=== PATIENT | female | born 1955 | race Caucasian/White ===

== ENCOUNTER → 2017-03-11 11:37 | Outpatient (CLI) | payer BC, SELFPAY ==
--- NOTE | 2017-03-11 11:44 | XR_ITS ---
XR chest 2V HISTORY: Abnormal breath sounds ORDERING PHYSICIAN: GRACIELA Brooks PATIENT AGE: 61 years COMPARISON: 2007 FINDINGS: The cardiomediastinal silhouette and pulmonary vascularity are within normal limits. There are minimal atelectatic/fibrotic changes in the left lower lobe laterally. No lobar consolidation or collapse No acute bony abnormalities. IMPRESSION: Minimal left basilar atelectasis or fibrosis otherwise negative
== END ==
PROVIDERS: PCP Physician Assistant; Visit Provider Physician Assistant
DX: R09.89 Other specified symptoms and signs involving the circulatory and respiratory systems (principal)
CPT/HCPCS: 71046

== ENCOUNTER → 2017-03-14 10:26 | Outpatient (CLI) | payer BC, SELFPAY ==
--- NOTE | 2017-03-14 10:42 | XR_ITS ---
XR chest 2V HISTORY: Bronchitis, cough, abnormal lung sounds ITS.REASON: BRONCHITIS ORDERING PHYSICIAN: GRACIELA Brooks PATIENT AGE: 61 years COMPARISON: 03/11/2017 FINDINGS: There is mild cardiomegaly without failure. Atelectatic changes persist in left lower lobe. No lobar consolidation or collapse. No acute bony anomalies. IMPRESSION: No change cardiomegaly with mild left basal atelectasis/fibrosis.
== END ==
PROVIDERS: PCP Physician Assistant; Referring Provider Physician Assistant; Visit Provider Physician Assistant
DX: J40 Bronchitis, not specified as acute or chronic (principal)
CPT/HCPCS: 71046

== ENCOUNTER → 2017-04-01 10:28 | Outpatient (CLI) | payer BC, SELFPAY ==
--- NOTE | 2017-04-01 10:35 | XR_ITS ---
XR chest 2V HISTORY: ITS.REASON: LT CHEST RALES ORDERING PHYSICIAN: GRACIELA Brooks PATIENT AGE: 61 years COMPARISON: 03/14/2017 FINDINGS: There is mild cardiomegaly without failure.. No lobar consolidation or collapse. Old granulomatous disease.. Previously noted atelectasis in the left lower lobe has improved Mild degenerative change thoracic spine. IMPRESSION: No acute finding. Mild cardiomegaly
== END ==
PROVIDERS: PCP Family Medicine; Visit Provider Physician Assistant
DX: R09.89 Other specified symptoms and signs involving the circulatory and respiratory systems (principal)
CPT/HCPCS: 71046

== ENCOUNTER → 2017-04-03 12:21 | Outpatient (CLI) | payer BC, SELFPAY ==
[2017-04-03 22:00] LABS: Alanine Aminotransferase 30 U/L (12-78); Albumin Level 3.5 gm/dL (3.4-5.0); Albumin/Globulin Ratio 1.2 (1.1-1.8); Alkaline Phosphatase 72 U/L (46-116); Anion Gap 11.3 mEq/L (5-15); Aspartate Amino Transferase 20 U/L (15-37); Blood Urea Nitrogen 16 mg/dL (7-18); Calcium 9.3 mg/dL (8.5-10.1); Carbon Dioxide 29 mmol/L (21.0-32.0); Chloride 103 mmol/L (98-107); Estimated Glomerular Filt Rate 64 ml/min (>60); GFR (African American) 78 ML/MIN (>60); Glucose 97 mg/dL (74-106); Magnesium 1.9 mg/dL (1.4-2.2); Potassium 3.3 mmoL/L (3.5-5.1); Sodium 140 mmol/L (136-145); Total Protein,Serum 6.5 gm/dL (6.4-8.2)
[2017-04-04 18:30] LABS: Vitamin D 25 Hydroxy 47.5 ng/mL (30.0-100.0)
== END ==
PROVIDERS: PCP Physician Assistant; Visit Provider Physician Assistant
DX: M79.1 Myalgia (principal); E55.9 Vitamin D deficiency, unspecified
CPT/HCPCS: 36415; 80053; 82652; 83735

== ENCOUNTER → 2017-04-08 07:50 | Outpatient (CLI) | payer BC, SELFPAY ==
--- NOTE | 2017-04-08 07:58 | CA_ITS ---
PROCEDURE: 2-D M-mode and color Doppler study INDICATIONS FOR THE TEST: Chest pain COPD Heart Murmur+ Tobacco Smoking Palpitations+ Fatigue Syncope Edema+ Hypertension+Diabetes Mellitus Rheumatic Fever SOB RICHARD+Obesity Hyperlipidemia Family History HD Additional History chest spasms , Asthma, Rt mastectomy 1984 with chemo PATIENT INFORMATION HEIGHT: 66 WEIGHT: 180 GENDER: Female B/P: 148/83 2-D/M-MODE INTERPRETATION: 2-D MEASUREMENTS OBSERVED VALUES IN CMS Right Ventricular Dimension (RVDd) 2.8 Interventricular Septum (Thickness)(IVsd) 1.2 Left Ventricular Internal Dimensions(LVIDd) 4.6 Left Ventricular Posterior Wall (Thickness)(LVPWd) 1.2 Aortic Root 2.9 Aortic Cusp Separation 2.5 Left Atrial Dimensions (LAD) 4.0 2D 1. Left atrium is mildly enlarged, left ventricle is normal size, there is mild concentric left ventricular hypertrophy, visually estimated ejection fraction 55% with no obvious regional wall motion abnormality. 2. The right atrium is normal size, right ventricle are mildly enlarged with normal contractility. 3. The aortic valve is thickened and calcified leaflet continue to display good mobility. 4. The mitral and tricuspid valve is minimally thickened. 5. The pulmonic valve is poorly visualized. 6. No significant pericardial effusion noted. DOPPLER INTERROGATION: Doppler interrogation of the aortic, mitral and tricuspid valvular presence of mild aortic, mild mitral and tricuspid regurgitation, tricuspid and jet velocity is insufficient for calculation of the right ventricular systolic pressure, grade 1 diastolic dysfunction seen without tissue Doppler evidence of raised left atrial pressure. CONCLUSION: 1. Mildly enlarged left atrium, normal left ventricular size, mild concentric left ventricular hypertrophy, visually estimated ejection fraction 55% with no obvious regional wall motion abnormality, grade 1 diastolic dysfunction seen without tissue Doppler evidence of raised left atrial pressure. 2. Mildly enlarged right ventricle with normal contractility. 3. Mild mitral, aortic and tricuspid regurgitation 4. No significant pericardial effusion noted.
== END ==
PROVIDERS: PCP Physician Assistant; Visit Provider Family Medicine
DX: I51.7 Cardiomegaly (principal)
CPT/HCPCS: 93306

== ENCOUNTER → 2017-05-06 12:20 | Outpatient (CLI) | payer BC, SELFPAY ==
[2017-05-08 07:05] LABS: H. pylori Breath Test Negative (Negative)
== END ==
PROVIDERS: Visit Provider Physician Assistant
DX: Z86.19 Personal history of other infectious and parasitic diseases (principal)
CPT/HCPCS: 83013

== ENCOUNTER → 2017-07-30 10:31 | Outpatient (CLI) | payer BC, SELFPAY ==
[2017-07-30 11:18] LABS: Alanine Aminotransferase 27 U/L (12-78); Albumin Level 3.4 gm/dL (3.4-5.0); Albumin/Globulin Ratio 0.9 (1.1-1.8); Alkaline Phosphatase 88 U/L (46-116); Anion Gap 9.8 mEq/L (5-15); Aspartate Amino Transferase 18 U/L (15-37); Bilirubin,Total 0.9 mg/dL (0.2-1.0); Blood Urea Nitrogen 13 mg/dL (7-18); CKMB Relative Index 1.3 U/L (0-4.0); Calcium 9.5 mg/dL (8.5-10.1); Carbon Dioxide 29 mmol/L (21.0-32.0); Chloride 106 mmol/L (98-107); Creatine Kinase 76 U/L (26-192); Creatinine,Serum 0.87 mg/dL (0.55-1.02); Estimated Glomerular Filt Rate 66 ml/min (>60); GFR (African American) 80 ML/MIN (>60); Globulin 3.8 gm/dl (1.3-3.2); Glucose 94 mg/dL (74-106); Potassium 3.8 mmoL/L (3.5-5.1); Sodium 141 mmol/L (136-145); Thyroid Stimulating Hormone 1.58 uIU/ml (0.358-3.740); Total Protein,Serum 7.2 gm/dL (6.4-8.2); Troponin I < 0.02 ng/ml (0.00-0.06)
[2017-07-30 11:29] LABS: Basophils # 0.1 K/mm3 (0-0.2); Basophils % 0.7 % (0.1-2.0); Eosinophils # 0.2 K/mm3 (0.0-0.4); Eosinophils % 2.6 % (0.1-12.0); Hematocrit 33.4 % (37.0-47.0); Hemoglobin 13.9 g/dL (12.2-16.2); Lymphocytes # 2.1 K/mm3 (0.7-4.5); Mean Corpuscular Hemoglobin 38.4 pg (27.0-31.2); Mean Corpuscular Volume 92.5 fl (81-99); Mean Platelet Volume 7.7 fl (7.4-10.4); Monocytes # 0.5 K/mm3 (0.1-1.0); Monocytes % 7.2 % (1.7-9.3); Neutrophils # 4.7 K/mm3 (1.8-7.8); Neutrophils % 61.5 % (37.0-80.0); Platelet Count 270 K/mm3 (142-424); Red Blood Count 3.61 M/mm3 (4.20-5.40); Red Cell Distribution Width 13.1 % (11.5-17.5); White Blood Count 7.6 K/mm3 (4.8-10.8)
[2017-07-30 11:30] LABS: Mean Corpuscular HGB Conc 41.5 g/dL (31.8-35.4)
[2017-07-31 14:20] LABS: Erythrocyte Sedimentation Rate 11 mm/hr (0-30)
[2017-07-31 14:51] LABS: Magnesium 2.2 mg/dL (1.4-2.2); Phosphorous 3.3 mg/dL (2.4-4.9); Uric Acid 5.3 mg/dL (2.6-7.2)
[2017-08-01 19:35] LABS: RA Latex Turbid. <10.0 IU/mL (0.0-13.9)
[2017-08-04 15:56] LABS: Antinuclear Antibodies, IFA Negative (.)
== END ==
PROVIDERS: Visit Provider Physician Assistant
DX: R07.9 Chest pain, unspecified (principal); M79.1 Myalgia
CPT/HCPCS: 36415; 80053; 82550; 82553; 83735; 84100; 84443; 84484; 84550; 85025; 85651; 86038; 86431; 93005

== ENCOUNTER → 2017-08-14 10:36 | Outpatient (CLI) | payer BC, SELFPAY ==
--- NOTE | 2017-08-14 10:46 | US_ITS ---
ULTRASOUND THYROID PROCEDURE: Multiple sagittal & transverse ultrasound images of the thyroid. HISTORY 62-year-old. Of thyroid nodules. Fatigue. Muscle aches. Dr. Sanabria ordering physician COMPARISON: No relevant studies presented in PACS ----- FINDINGS: RIGHT LOBE: 4.6 cm length x 1.8 cm wide x 1.2 cm AP Nodule A: Vague 5.3 mm solid nodule posterior mid right lobe Nodule B:. Small up to 3.3 mm solid or semisolid nodule posterior mid right lobe. Nodule C: 9.8 mm length x 3.8 mm AP mm solid nodule lower right lobe towards junction with the isthmus ISTHMUS: Normal thickness 5 mm AP. No significant nodule. LEFT LOBE: 4.3 cm length x 1.6 cm wide x 1.6 cm AP Nodule A:. Tiny nodule lower left lobe 3.4 mm size. . IMPRESSION Bilateral thyroid enlargement. Small nodules bilaterally, most evident throughout right lobe
== END ==
PROVIDERS: PCP Physician Assistant; Visit Provider Family Medicine
DX: E04.1 Nontoxic single thyroid nodule (principal)
CPT/HCPCS: 76536

== ENCOUNTER → 2017-11-18 14:25 | Outpatient (CLI) | payer BC, SELFPAY ==
[2017-11-18 16:26] LABS: Thyroid Stimulating Hormone 1.01 uIU/ml (0.358-3.740)
[2017-11-19 10:17] LABS: T4 (Thyroxine) 11.9 ug/dl (4.7-13.3)
[2017-11-20 08:25] LABS: Thyroid Peroxidase Antibodies 9 IU/mL (0-34)
[2017-11-23 05:18] LABS: Triiodothyronine (T3) Free 2.9 pg/mL (2.0-4.4)
== END ==
PROVIDERS: PCP Physician Assistant; Visit Provider Internal Medicine Endocrinology, Diabetes & Metabolism
DX: E04.2 Nontoxic multinodular goiter (principal); E03.8 Other specified hypothyroidism; R53.83 Other fatigue
CPT/HCPCS: 36415; 84436; 84439; 84443; 84481; 86376

== ENCOUNTER → 2018-01-18 08:56 | Outpatient (CLI) | payer BC, SELFPAY ==
--- NOTE | 2018-01-18 08:58 | MM_ITS ---
MM Dig SC mamm unilat LT CAD Ordering Physician: Todd Sanabria MD Patient Age: 62 years Female COMPARISON: November 2013, January 2017, February 2015. INDICATION: Routine screening. No hormones no new complaints. Right mastectomy 1984 Family history. Mother with breast cancer age 45. Great aunt in her 50s TECHNIQUE: Tc MLO axillary cc CC nipple profile views left breast along with CAD screening. FINDINGS: moderately dense stable left breast with no new areas of concern.. Breast are of somewhat decreased sensitivity in breast of this slightly denser character. But Overall appearance similar to previous studies dating back to to 2014 2013 and previous studies listed. Slightly heterogeneous pattern.Follow-up in one year recommended IMPRESSION: No new findings of significant concern. Stable left mammogram. Follow-up in one year. BI-RADS Category: 1 Negative RECOMMENDED FOLLOW-UP: 1YR 1 YEAR FOLLOW-UP A letter has been sent to the patient regarding results of the study.)
== END ==
PROVIDERS: PCP Physician Assistant; Visit Provider Family Medicine
DX: Z12.31 Encounter for screening mammogram for malignant neoplasm of breast (principal)
CPT/HCPCS: 77067

== ENCOUNTER → 2018-02-17 14:43 | Outpatient (CLI) | payer BC, SELFPAY ==
--- NOTE | 2018-02-17 14:52 | XR_ITS ---
XR shoulder RT min 2V HISTORY: ITS.REASON: RT SHOULDER PAIN, limited range of motion ORDERING PHYSICIAN: GRACIELA Brooks PATIENT AGE: 62 years Comparison: None FINDINGS: No fracture or dislocation. No lytic or blastic change. There is normal mineralization. The joint spaces are well-preserved. No significant degenerative/arthritic changes. No erosive changes evident. IMPRESSION: Negative, no acute finding
== END ==
PROVIDERS: PCP Physician Assistant; Visit Provider Physician Assistant
DX: M25.511 Pain in right shoulder (principal)
CPT/HCPCS: 73030

== ENCOUNTER → 2018-08-09 11:55 | Outpatient (CLI) | payer BC, SELFPAY ==
--- NOTE | 2018-08-09 14:21 | CT_ITS ---
CT abdomen pelvis wo con CLINICAL INDICATION: Left lower quadrant pain, history of diverticulitis ITS.REASON: LLQ PAIN ORDERING PHYSICIAN: Alissa Upton MD PATIENT AGE: 63 years COMPARISON: None TECHNIQUE: Axial images obtained with sagittal and coronal reformats. All CT scans at the facility use one or more dose reduction, viz: automated exposure control, ma/kV adjustment per patient size (including targeted exams where dose is matched to indication, i.e. head), or iterative reconstruction technique. PROCEDURE: Oral Contrast: Gastroview IV Contrast: None . FINDINGS: Patchy groundglass density is present in the left lower lobe posteriorly. Postcholecystectomy change. The liver, spleen, adrenal glands, pancreas, and kidneys show no acute finding. No renal or ureteral calculi. There is a small exophytic cyst along anterior aspect of the right kidney. No evidence of appendicitis. No intestinal obstruction or free air is evident. There are diverticula involving the descending and sigmoid colon. There is focal thickening of the sigmoid colon in the left lower quadrant with stranding of the pericolic fat consistent with diverticulitis. No abscess or free air/perforation evident. There are posthysterectomy changes. There is straightening of lumbar lordosis. Degenerative disc disease is present at L4-5 and L5-S1. IMPRESSION: 1. The findings are consistent with acute diverticulitis of the sigmoid colon without evidence of abscess or perforation. Suggest follow-up as neoplasm could have a similar appearance. 2 diverticulosis of the descending and sigmoid colon. 3. Patchy groundglass density left lower lobe suggesting an area of pneumonitis
== END ==
PROVIDERS: PCP Emergency Medicine; Visit Provider Emergency Medicine
DX: R10.32 Left lower quadrant pain (principal)
CPT/HCPCS: 74176

== ENCOUNTER → 2018-11-17 10:52 | Outpatient (CLI) | payer BC, SELFPAY ==
[2018-11-17 13:12] LABS: Free T4 (Free Thyroxine) 1.24 ng/dl (0.76-1.46); Thyroid Stimulating Hormone 0.82 uIU/ml (0.358-3.740)
== END ==
PROVIDERS: Visit Provider Internal Medicine Endocrinology, Diabetes & Metabolism
DX: E04.2 Nontoxic multinodular goiter (principal); E03.8 Other specified hypothyroidism
CPT/HCPCS: 36415; 84436; 84439; 84443; 84481

== ENCOUNTER → 2018-12-10 10:45 | Outpatient (CLI) | payer BC, SELFPAY ==
--- NOTE | 2018-12-10 11:07 | ECG_ITS ---
APPROVED REPORT Exam: Resting ECG HR:46 bpm ECG Measurements Heart Rate 46 AXES UT 204 P 56 QRSd 78 QRS 9 QT 458 T 86 QTc 400 <Conclusion> Marked sinus bradycardia Low voltage QRS Abnormal ECG Electronically signed by : Nikolai Eaton, 12/11/2018 19:14:57
[2018-12-10 11:25] LABS: Alanine Aminotransferase 27 U/L (12-78); Albumin Level 3.7 gm/dL (3.4-5.0); Alkaline Phosphatase 86 U/L (46-116); Anion Gap 8.9 mEq/L (5-15); Aspartate Amino Transferase 17 U/L (15-37); Blood Urea Nitrogen 11 mg/dL (7-18); CKMB Relative Index 1.5 U/L (0-4.0); Calcium 9.8 mg/dL (8.5-10.1); Carbon Dioxide 30 mmol/L (21.0-32.0); Chloride 104 mmol/L (98-107); Creatine Kinase 67 U/L (26-192); Creatinine,Serum 0.76 mg/dL (0.55-1.02); Estimated Glomerular Filt Rate 77 ml/min (>60); GFR (African American) 94 ML/MIN (>60); Globulin 3.8 gm/dl (1.3-3.2); Glucose 104 mg/dL (74-106); Potassium 3.9 mmoL/L (3.5-5.1); Sodium 139 mmol/L (136-145); Thyroid Stimulating Hormone 0.75 uIU/ml (0.358-3.740); Total Protein,Serum 7.5 gm/dL (6.4-8.2); Troponin I < 0.02 ng/ml (0.00-0.06)
[2018-12-10 11:45] LABS: Basophils # 0.1 K/mm3 (0-0.2); Basophils % 0.6 % (0.1-2.0); Eosinophils # 0.2 K/mm3 (0.0-0.4); Eosinophils % 2.3 % (0.1-12.0); Hematocrit 43.5 % (37.0-47.0); Hemoglobin 14.5 g/dL (12.2-16.2); Lymphocytes % 24.2 % (10-50); Mean Corpuscular HGB Conc 33.4 g/dL (31.8-35.4); Mean Corpuscular Hemoglobin 32.1 pg (27.0-31.2); Mean Corpuscular Volume 96.3 fl (81-99); Mean Platelet Volume 8.1 fl (7.4-10.4); Monocytes # 0.5 K/mm3 (0.1-1.0); Monocytes % 5.8 % (1.7-9.3); Neutrophils # 5.6 K/mm3 (1.8-7.8); Neutrophils % 67.2 % (37.0-80.0); Platelet Count 309 K/mm3 (142-424); Red Blood Count 4.51 M/mm3 (4.20-5.40); Red Cell Distribution Width 12.8 % (11.5-17.5); White Blood Count 8.3 K/mm3 (4.8-10.8)
== END ==
PROVIDERS: Visit Provider Physician Assistant
DX: R41.3 Other amnesia (principal); R07.9 Chest pain, unspecified
CPT/HCPCS: 36415; 80053; 82550; 82553; 84443; 84484; 85025; 93005

== ENCOUNTER → 2019-01-06 15:12 | Outpatient (CLI) | payer BC, SELFPAY ==
--- NOTE | 2019-01-06 15:28 | MM_ITS ---
PROCEDURE: MM DIG SC MAMM UNILAT LT CAD Patient Age:63Y CLINICAL INDICATION: SCREENING History of right breast cancer. Right mastectomy and radiation. No hormones. No new areas of concern clinically. Family history. Mother and maternal great aunt with breast cancer. COMPARISON: DMSUL DIG MAMM-SCREENING UNI-LT from 11/05/2012 DMSUL DIG MAMM-SCREENING UNI-LT from 11/09/2013 DMDXUL DIG MAMM-DX UNI-LT from 08/18/2014 DMDXUAVL DIG MAMM-DX UNI ADD VIEWS-LT from 02/14/2015 DMSUL DIG MAMM-SCREEN UNI-LT W/CAD from 01/14/2017 [facility] MM Dig SC mamm unilat LT CAD from 01/18/2018 TECHNIQUE: Standard CC and MLO images were obtained left breast. R2 CAD reviewed. Additional left axillary CC view included FINDINGS: Moderate density fibroglandular elements, most notable throughout the superior breast and towards upper outer quadrant. The moderately dense breast tissue here slightly decreases sensitivity of mammography but today's MLO view has a similar overall appearance is similar compared back to 2013, 2012 2016. CC view appear stable as well. Thus no discrete new areas of significant concern. Follow-up in 1 year recommended. The IMPRESSION: Stable left breast;. Right mastectomy Moderately dense heterogeneous breast tissue most notable throughout the superior left breast. However no new areas of significant concern. Overall stable left mammogram. Follow up left mammogram 1 year recommended-and should be encouraged/emphasized with this patient's history BI-RAD Category: 2 Benign Finding(s) FOLLOW-UP: 1YR 1 Year Follow-up (A letter has been sent to the patient regarding results of the study.) Dictated by: Anderson Reyes MD 01/09/2019 09:15 Electronically signed by Anderson Reyes MD in [place] 01/09/2019 09:15
== END ==
PROVIDERS: PCP Family Medicine; Visit Provider Physician Assistant
DX: Z12.31 Encounter for screening mammogram for malignant neoplasm of breast (principal)
CPT/HCPCS: 77067

== ENCOUNTER → 2019-03-15 14:07 | Outpatient (POV) | payer BC, SELFPAY | PROVIDERS: Visit Provider Dermatology | DX: Z00.00 Encounter for general adult medical examination without abnormal findings (principal) ==

== ENCOUNTER → 2020-01-09 09:57 | Outpatient (CLI) | payer BC, SELFPAY ==
--- NOTE | 2020-01-09 10:01 | MM_ITS ---
PROCEDURE: MM DIG SCREENING MAMM BI W/CAD Digital Breast Tomosynthesis Included CLINICAL INDICATION: SCREENING There has been a previous right mastectomy with radiation therapy. There is a history of breast cancer in the patient's mother and maternal great aunt. COMPARISON: MG DMSUL DIG MAMM-SCREEN UNI-LT W/CAD from 01/14/2017 MG [facility] MM Dig SC mamm unilat LT CAD from 01/18/2018 MG MM DIG SC MAMM UNILAT LT CAD from 01/06/2019 TECHNIQUE: Standard CC and MLO images and 3D Tomosynthesis was obtained. R2 CAD reviewed. FINDINGS: Moderate fibroglandular elements are seen in the central portion of the breast similar to the previous studies. There has been some mild progressive fatty involution of the breast parenchyma when compared to the previous 3 studies. There is no suspicious lesion and no suspicious microcalcifications. IMPRESSION: Mild to moderate breast density with no suspicious lesions seen BI-RAD Category: 1 Negative FOLLOW-UP: 1YR 1 Year Follow-up (A letter has been sent to the patient regarding results of the study.) Dictated by: Dr. Modesto Leon MD 01/10/2020 09:21 Dr. Modesto Leon MD in [place] 01/10/2020 09:21
== END ==
PROVIDERS: PCP Family Medicine; Visit Provider Family Medicine
DX: Z12.31 Encounter for screening mammogram for malignant neoplasm of breast (principal)
CPT/HCPCS: 77063; 77067

== ENCOUNTER → 2020-02-15 07:50 | Outpatient (CLI) | payer BC, SELFPAY ==
[2020-02-15 08:17] LABS: Basophils # 0.1 K/mm3 (0-0.2); Basophils % 0.9 % (0.1-2.0); Eosinophils # 0.4 K/mm3 (0.0-0.4); Eosinophils % 4.2 % (0.1-12.0); Hematocrit 44.6 % (37.0-47.0); Hemoglobin 15.1 g/dL (12.2-16.2); Lymphocytes # 2.1 K/mm3 (0.7-4.5); Lymphocytes % 23.2 % (10-50); Mean Corpuscular HGB Conc 33.8 g/dL (31.8-35.4); Mean Corpuscular Hemoglobin 32.7 pg (27.0-31.2); Mean Corpuscular Volume 96.9 fl (81-99); Mean Platelet Volume 7.8 fl (7.4-10.4); Monocytes # 0.6 K/mm3 (0.1-1.0); Monocytes % 6.5 % (1.7-9.3); Neutrophils # 5.8 K/mm3 (1.8-7.8); Neutrophils % 65.2 % (37.0-80.0); Platelet Count 295 K/mm3 (142-424); Red Cell Distribution Width 13.5 % (11.5-17.5); White Blood Count 8.9 K/mm3 (4.8-10.8)
[2020-02-15 08:24] LABS: Hemoglobin A1C 5.9 % (4.0-6.0)
[2020-02-15 08:35] LABS: Creatinine,Urine Random 33 mg/dL (Not Estab.)
[2020-02-15 08:38] LABS: Chloride 102 mmol/L (98-107)
[2020-02-15 08:39] LABS: Potassium 4.1 mmoL/L (3.5-5.1); Sodium 138 mmol/L (136-145)
[2020-02-15 08:41] LABS: Alanine Aminotransferase 42 U/L (12-78); Albumin Level 4.4 g/dl (3.5-5.0); Albumin/Globulin Ratio 1.6 (1.1-1.8); Alkaline Phosphatase 90 U/L (38-126); Anion Gap 9.1 mEq/L (5-15); Aspartate Amino Transferase 38 U/L (14-36); Bilirubin,Total 1.1 mg/dl (0.2-1.3); Blood Urea Nitrogen 10 mg/dl (7-17); Carbon Dioxide 31 mmol/L (22.0-30.0); Estimated Glomerular Filt Rate 85 ml/min (>60); GFR (African American) 103 ML/MIN (>60); Globulin 2.8 g/dL (1.3-3.2); Total Protein,Serum 7.2 g/dl (6.3-8.2)
[2020-02-15 08:42] LABS: Calcium 10.2 mg/dl (8.4-10.2); Chol/HDL Ratio 5.1 (1-3.5); Cholesterol 245 mg/dl (140-200); Glucose 129 mg/dl (74-100); HDL Cholesterol 48 mg/dl (40-60); Triglycerides 165 mg/dl (30-150); VLDL Cholesterol 33 mg/dL (0-40)
[2020-02-15 08:49] LABS: Microalbumin < 6.000 mg/L (0-16.7)
[2020-02-15 08:53] LABS: Direct LDL Cholesterol 148.65 mg/dL (100-129)
[2020-02-15 08:59] LABS: Free T4 (Free Thyroxine) 1.26 ng/dl (0.78-2.19)
[2020-02-15 09:12] LABS: Thyroid Stimulating Hormone 1.36 uIU/mL (0.465-4.68)
[2020-02-15 10:41] LABS: 25-OH Vitamin D, Total 50.3 ng/mL (30-100)
== END ==
PROVIDERS: Visit Provider Family Medicine
DX: R10.84 Generalized abdominal pain (principal); I10 Essential (primary) hypertension; E03.9 Hypothyroidism, unspecified; R73.01 Impaired fasting glucose; E55.9 Vitamin D deficiency, unspecified; E78.00 Pure hypercholesterolemia, unspecified
CPT/HCPCS: 36415; 80053; 80061; 82043; 82306; 82570; 83036; 84439; 84443; 85025

== ENCOUNTER → 2020-02-17 14:09 | Outpatient (CLI) | payer BC, SELFPAY | PROVIDERS: PCP Family Medicine; Visit Provider Family Medicine | DX: R06.02 Shortness of breath (principal) | CPT/HCPCS: 94060 ==

== ENCOUNTER → 2020-04-04 14:49 | Outpatient (POV) | payer BC, SELFPAY | DX: Z00.00 Encounter for general adult medical examination without abnormal findings (principal) ==

== ENCOUNTER → 2020-09-07 07:01 | Outpatient (CLI) | payer BC, SELFPAY ==
[2020-09-07 08:30] LABS: Alanine Aminotransferase 25 U/L (12-78); Albumin Level 4.1 g/dl (3.5-5.0); Alkaline Phosphatase 87 U/L (38-126); Aspartate Amino Transferase 28 U/L (14-36); Bilirubin,Direct 0.2 mg/dl (0.0-0.4); Bilirubin,Indirect 1.6 mg/dL (0.0-0.9); Bilirubin,Total 1.8 mg/dl (0.2-1.3); Bilirubin,Unconjugated 1.6 mg/dL (0.0-1.1); Chol/HDL Ratio 4.8 (1-3.5); Cholesterol 217 mg/dl (140-200); HDL Cholesterol 45 mg/dl (40-60); Total Protein,Serum 6.8 g/dl (6.3-8.2); Triglycerides 123 mg/dl (30-150); VLDL Cholesterol 25 mg/dL (0-40)
[2020-09-07 08:40] LABS: NT Pro Brain Natriuretic Pep. 40.7 pg/mL (0-125)
[2020-09-07 08:41] LABS: Direct LDL Cholesterol 134.97 mg/dL (100-129)
[2020-09-07 09:01] LABS: Thyroid Stimulating Hormone 1.57 uIU/mL (0.465-4.68)
[2020-09-07 09:50] LABS: Free T4 (Free Thyroxine) 1.58 ng/dl (0.78-2.19)
[2020-09-08 09:00] LABS: Triiodothyronine (T3) Total 131 ng/dL (71-180)
== END ==
PROVIDERS: Visit Provider Internal Medicine Interventional Cardiology
DX: R06.02 Shortness of breath (principal); E03.9 Hypothyroidism, unspecified; E78.00 Pure hypercholesterolemia, unspecified
CPT/HCPCS: 36415; 80061; 80076; 83880; 84439; 84443; 84480

== ENCOUNTER → 2020-10-12 07:03 | Outpatient (CLI) | payer BC, SELFPAY | PROVIDERS: Visit Provider Physician Assistant | DX: B83.9 Helminthiasis, unspecified (principal) | CPT/HCPCS: 87177 ==

== ENCOUNTER → 2021-01-03 13:34 | Outpatient (CLI) | payer BC, SELFPAY | PROVIDERS: PCP Family Medicine; Visit Provider Nurse Practitioner | DX: Z20.822 Contact with and (suspected) exposure to COVID-19 (principal); U07.1 COVID-19 | CPT/HCPCS: C9803; U0003; U0005 ==

== ENCOUNTER 2021-01-05 08:03 | Outpatient (CLI) | payer BC, SELFPAY ==
[2021-01-05] VITALS (7 sets, daily range): BP systolic 94–114; BP diastolic 52–63; PULSE 50–57; RESP 16–20; TEMP 36.7–36.8; O2SAT 91–95; BMI 28.3
== END 2021-01-05 12:28 | disposition home or self-care (01) ==
PROVIDERS: PCP Family Medicine; Visit Provider Physician Assistant
DX: U07.1 COVID-19 (principal); Z23 Encounter for immunization
CPT/HCPCS: 96365; J2405

== ENCOUNTER → 2021-01-22 07:04 | Outpatient (CLI) | payer BC, SELFPAY ==
[2021-01-22 08:39] LABS: Alanine Aminotransferase 43 U/L (12-78); Albumin Level 3.9 g/dl (3.5-5.0); Alkaline Phosphatase 84 U/L (38-126); Aspartate Amino Transferase 37 U/L (14-36); Bilirubin,Direct 0.2 mg/dl (0.0-0.4); Bilirubin,Indirect 0.8 mg/dL (0.0-0.9); Bilirubin,Unconjugated 0.8 mg/dL (0.0-1.1); Chol/HDL Ratio 4.3 (1-3.5); Cholesterol 184 mg/dl (140-200); HDL Cholesterol 43 mg/dl (40-60); Total Protein,Serum 6.7 g/dl (6.3-8.2); Triglycerides 208 mg/dl (30-150); VLDL Cholesterol 42 mg/dL (0-40)
[2021-01-22 08:51] LABS: Direct LDL Cholesterol 135.58 mg/dL (100-129)
== END ==
PROVIDERS: Visit Provider Internal Medicine Interventional Cardiology
DX: E78.00 Pure hypercholesterolemia, unspecified (principal)
CPT/HCPCS: 36415; 80061; 80076

== ENCOUNTER → 2021-01-25 10:43 | Outpatient (CLI) | payer BC, SELFPAY ==
--- NOTE | 2021-01-25 10:48 | MM_ITS ---
PROCEDURE INFORMATION: Exam: MG Bilateral Screening 3D Mammography Exam date and time: 01/25/2021 10:48 AM Age: 65 years old Clinical indication: Screening mammogram. Right mastectomy for carcinoma TECHNIQUE: Imaging protocol: Bilateral screening tomosynthesis and 2D mammography including computer-aided detection (CAD) when performed. COMPARISON: 1. MG MM DIG SCREENING MAMM BI W/CAD 01/09/2020 10:08 AM 2. MG MM DIG SC MAMM UNILAT LT CAD 01/06/2019 3:35 PM 3. MG [facility] MM Dig SC mamm unilat LT CAD 01/18/2018 9:09 AM 4. MG DMSUL DIG MAMM-SCREEN UNI-LT W/CAD 01/14/2017 10:43 AM FINDINGS: MAMMOGRAPHY: Breast composition: The breast tissue is heterogeneously dense, which may obscure small masses. Mass: None. Architectural distortion: No new or suspicious architectural distortion. Calcifications: No new or suspicious calcifications are present Asymmetric density: No new or suspicious asymmetric density is present Skin thickening: None. Axillary adenopathy: None. IMPRESSION: No mammographic evidence of malignancy. Recommend annual screening mammography unless otherwise clinically indicated. ASSESSMENT: BI-RADS category 1: Negative
== END ==
PROVIDERS: PCP Family Medicine; Visit Provider Physician Assistant
DX: Z12.31 Encounter for screening mammogram for malignant neoplasm of breast (principal)
CPT/HCPCS: 77063; 77067

== ENCOUNTER → 2021-05-17 07:11 | Outpatient (CLI) | payer BC, SELFPAY ==
[2021-05-17 08:33] LABS: Alanine Aminotransferase 28 U/L (12-78); Albumin Level 3.9 g/dl (3.5-5.0); Alkaline Phosphatase 74 U/L (38-126); Aspartate Amino Transferase 28 U/L (14-36); Bilirubin,Direct 0.2 mg/dl (0.0-0.4); Bilirubin,Indirect 0.6 mg/dL (0.0-0.9); Bilirubin,Total 0.8 mg/dl (0.2-1.3); Bilirubin,Unconjugated 0.6 mg/dL (0.0-1.1); Chol/HDL Ratio 5.4 (1-3.5); Cholesterol 209 mg/dl (140-200); HDL Cholesterol 39 mg/dl (40-60); Total Protein,Serum 6.7 g/dl (6.3-8.2); Triglycerides 217 mg/dl (30-150); VLDL Cholesterol 43 mg/dL (0-40)
[2021-05-17 08:44] LABS: Direct LDL Cholesterol 109.19 mg/dL (100-129)
== END ==
PROVIDERS: Visit Provider Physician Assistant
DX: E78.00 Pure hypercholesterolemia, unspecified (principal)
CPT/HCPCS: 36415; 80061; 80076

== ENCOUNTER → 2021-07-03 07:12 | Outpatient (CLI) | payer BC, SELFPAY ==
[2021-07-03 08:21] LABS: Hemoglobin A1C 6.3 % (4.0-6.0)
[2021-07-03 09:56] LABS: Chloride 103 mmol/L (98-107)
[2021-07-03 09:57] LABS: Potassium 4.2 mmoL/L (3.5-5.1); Sodium 138 mmol/L (136-145)
[2021-07-03 10:00] LABS: Anion Gap 8.2 mEq/L (5-15); Blood Urea Nitrogen 18 mg/dl (7-17); Calcium 10.3 mg/dl (8.4-10.2); Carbon Dioxide 31 mmol/L (22.0-30.0); Estimated Glomerular Filt Rate 72 ml/min (>60); GFR (African American) 87 ML/MIN (>60); Glucose 141 mg/dl (74-100)
[2021-07-03 12:26] LABS: Vitamin B12 837 pg/mL (239-931)
== END ==
PROVIDERS: Visit Provider Family Medicine
DX: R73.01 Impaired fasting glucose (principal); I10 Essential (primary) hypertension; E53.8 Deficiency of other specified B group vitamins
CPT/HCPCS: 36415; 80048; 82607; 83036

== ENCOUNTER → 2021-08-28 09:45 | Outpatient (CLI) | payer BC, SELFPAY ==
--- NOTE | 2021-08-28 09:50 | US_ITS ---
PROCEDURE INFORMATION: Exam: US Left Breast, Complete Exam date and time: 08/28/2021 10:21 AM Age: 66 years old Clinical indication: Palpable abnormality in the left lower inner quadrant. History of right mastectomy TECHNIQUE: Imaging protocol: Complete ultrasound of all four quadrants of the Left breast and the retroareolar regions, including ultrasound of the axilla when performed. COMPARISON: BL US BREAST-LT COMPLETE W/AXILLA 02/14/2015 2:00 PM FINDINGS: Breast: Sonographic images of the left breast including the retroareolar region, all 4 quadrants and the axilla do not demonstrate any solid or cystic masses. This is with particular attention to the 8 o'clock axis 8 cm from the nipple where the patient reports a palpable abnormality. No architectural distortion or acoustical shadowing. No skin thickening or axillary adenopathy. IMPRESSION: A skin marker should be placed over the area of palpable concern followed by a diagnostic unilateral mammogram with spot compression views for full evaluation of the patient's complaint of a palpable abnormality. ASSESSMENT: BI-RADS Category 0: Incomplete- Need Additional Imaging Evaluation and/or Prior Mammograms for Comparison
== END ==
PROVIDERS: PCP Family Medicine; Visit Provider Physician Assistant
DX: N63.24 Unspecified lump in the left breast, lower inner quadrant (principal)
CPT/HCPCS: 76641

== ENCOUNTER → 2021-09-17 15:43 | Outpatient (POV) | payer BC, SELFPAY | PROVIDERS: Visit Provider Dermatology | DX: Z00.00 Encounter for general adult medical examination without abnormal findings (principal) ==

== ENCOUNTER → 2021-09-18 13:43 | Outpatient (CLI) | payer BC, SELFPAY ==
--- NOTE | 2021-09-18 13:49 | MM_ITS ---
PROCEDURE INFORMATION: Exam: MG Left Diagnostic Breast Tomosynthesis Exam date and time: 09/18/2021 1:44 PM Age: 66 years old Clinical indication: Left breast palpable lump; Personal history of right breast cancer; Mastectomy; I would Mass or lower iner quandrant of left breast, found left palp about 3-4 weeks ago and had left breast US done at that time, since then has had decrease in size, PT has had itching to the nipple TECHNIQUE: Imaging protocol: Left Diagnostic tomosynthesis and 2D mammography including computer-aided detection (CAD) when performed. Unilateral or bilateral exam. COMPARISON: 1. MG MM DIG SC MAMM UNILAT LT CAD 01/25/2021 10:46 AM 2. MG MM DIG SCREENING MAMM BI W/CAD 01/09/2020 10:08 AM FINDINGS: Breast composition: There are scattered areas of fibroglandular density . A skin marker was placed over the palpable abnormality in the left lower inner quadrant. The spot compression views demonstrate normal overlapping fibroglandular structures. There is no stellate mass, architectural distortion or suspicious microcalcifications to suggest malignancy. No skin thickening or axillary adenopathy. Sonography performed 08/28/2021 did not demonstrate any suspicious findings. IMPRESSION: Palpable abnormality in the left breast corresponds both mammographically and sonographically to normal fibroglandular structures. There is no mammographic evidence of malignancy. Further evaluation of a palpable abnormality should be based on clinical grounds regardless of radiographic findings or lack thereof. Annual mammographic screening is recommended unless otherwise clinically indicated. ASSESSMENT: BI-RADS Category 1: Negative
== END ==
PROVIDERS: PCP Family Medicine; Visit Provider Physician Assistant
DX: N63.24 Unspecified lump in the left breast, lower inner quadrant (principal)
CPT/HCPCS: 77061; 77065; G0279

== ENCOUNTER → 2021-09-27 07:09 | Outpatient (CLI) | payer BC, SELFPAY ==
[2021-09-27 08:19] LABS: Anion Gap 10.2 mEq/L (5-15); Blood Urea Nitrogen 18 mg/dl (7-17); Carbon Dioxide 30 mmol/L (22.0-30.0); Chloride 102 mmol/L (98-107); Estimated Glomerular Filt Rate 72 ml/min (>60); GFR (African American) 87 ML/MIN (>60); Glucose 121 mg/dl (74-100); Hemoglobin A1C 5.7 % (4.0-6.0); Potassium 4.2 mmoL/L (3.5-5.1); Sodium 138 mmol/L (136-145)
[2021-09-27 09:08] LABS: Vitamin B12 > 1000 pg/mL (239-931)
== END ==
PROVIDERS: PCP Physician Assistant; Visit Provider Physician Assistant
DX: I10 Essential (primary) hypertension (principal); R73.01 Impaired fasting glucose; E53.8 Deficiency of other specified B group vitamins
CPT/HCPCS: 36415; 80048; 82607; 83036

== ENCOUNTER → 2021-10-11 09:17 | Outpatient (CLI) | payer BC, SELFPAY ==
--- NOTE | 2021-10-11 13:58 | XR_ITS ---
FINAL REPORT CLINICAL HISTORY: Left knee pain COMPARISON: 01/17/2016 FINDINGS: LEFT KNEE 4 views were obtained. There is no acute fracture or dislocation. There are mild degenerative changes with medial compartment joint space narrowing. There is no soft tissue abnormality. IMPRESSION: Degenerative change with no acute bony abnormality. Reviewed, Interpreted and Dictated by Giuseppe Simmons III, MD Transcribed by Jayde Thao Authenticated and [facility]
== END ==
PROVIDERS: PCP Physician Assistant; Visit Provider Orthopaedic Surgery
DX: M25.562 Pain in left knee (principal)
CPT/HCPCS: 73564

== ENCOUNTER → 2021-11-05 14:33 | Outpatient (POV) | payer BC, SELFPAY | PROVIDERS: Visit Provider Dermatology | DX: Z00.00 Encounter for general adult medical examination without abnormal findings (principal) ==

== ENCOUNTER → 2021-11-28 09:53 | Outpatient (CLI) | payer BC, SELFPAY ==
[2021-11-28 10:41] LABS: Basophils # 0.2 K/mm3 (0-0.2); Basophils % 1.9 % (0.1-2.0); Eosinophils # 0.2 K/mm3 (0.0-0.4); Eosinophils % 2.4 % (0.1-12.0); Hematocrit 43.5 % (37.0-47.0); Lymphocytes # 2.2 K/mm3 (0.7-4.5); Lymphocytes % 25.7 % (10-50); Mean Corpuscular HGB Conc 32.2 g/dL (31.8-35.4); Mean Corpuscular Hemoglobin 32.8 pg (27.0-31.2); Mean Corpuscular Volume 101.9 fl (81-99); Mean Platelet Volume 8.5 fl (7.4-10.4); Monocytes # 0.6 K/mm3 (0.1-1.0); Monocytes % 7.4 % (1.7-9.3); Neutrophils # 5.3 K/mm3 (1.8-7.8); Neutrophils % 62.7 % (37.0-80.0); Platelet Count 321 K/mm3 (142-424); Red Blood Count 4.27 M/mm3 (4.20-5.40); Red Cell Distribution Width 13.7 % (11.5-17.5); White Blood Count 8.4 K/mm3 (4.8-10.8)
[2021-11-28 10:56] LABS: Anion Gap 11.2 mEq/L (5-15); Blood Urea Nitrogen 13 mg/dl (7-17); Calcium 9.9 mg/dl (8.4-10.2); Carbon Dioxide 29 mmol/L (22.0-30.0); Chloride 102 mmol/L (98-107); Estimated Glomerular Filt Rate 72 ml/min (>60); GFR (African American) 87 ML/MIN (>60); Glucose 86 mg/dl (74-100); Potassium 4.2 mmoL/L (3.5-5.1); Sodium 138 mmol/L (136-145)
== END ==
PROVIDERS: PCP Physician Assistant; Visit Provider Physician Assistant
DX: Z01.812 Encounter for preprocedural laboratory examination (principal); Z20.822 Contact with and (suspected) exposure to COVID-19; R06.09 Other forms of dyspnea; R07.89 Other chest pain; I20.8 Other forms of angina pectoris; R94.30 Abnormal result of cardiovascular function study, unspecified; R94.31 Abnormal electrocardiogram [ECG] [EKG]
CPT/HCPCS: 36415; 80048; 85025; C9803; U0003; U0005

== ENCOUNTER 2021-11-29 09:19 | Day surgery (SDC) | payer BC, SELFPAY ==
[2021-11-29] VITALS (12 sets, daily range): BP systolic 129–157; BP diastolic 70–86; PULSE 46–66; RESP 13–20; TEMP 36.6; O2SAT 93–100; BMI 29.6
--- NOTE | 2021-11-29 | IR_ITS ---
APPROVED REPORT [facility] Associate: RUBEN Price RT (R) PROCEDURES Left heart catheterization Left ventriculogram Selective coronary angiogram FFR to the LAD FFR to the dominant right coronary INDICATION High risk abnormal Myoview, Coronary artery disease, Typical angina pectoris Informed consent was obtained prior to the procedure. COMPLICATIONS None Estimated Blood Loss: Less than 10 mls TECHNIQUE One percent lidocaine used to anesthetize the right anterior aspect of the wrist. The right radial artery was accessed via the Seldinger technique. A 6 Maori sheath was placed in the right radial artery. 2.5 mg of verapamil, 800 mcg of nitroglycerin, 1mg Lidocaine and 5000 U Heparin were given through the arterial sheath. The papa catheter was also used to perform left heart catheterization, left ventriculogram and selective coronary angiogram. At the end the diagnostic angiogram therapeutic heparin was administered giving a therapeutic ACT and the guide catheter was placed in the left main artery followed by a Choice PT extra-support wire into the LAD. A nevus FFR catheter was equalized in the left main artery and then advanced into the mid to distal LAD. Adenosine was infused and the FFR index dropped to 0.89. This was not hemodynamically significant therefore the apparatus was removed. This process was repeated in the right coronary artery where the FFR index dropped to 0.96. Given this was not hemodynamically significant the apparatus was removed the sheath was removed and hemostasis achieved using TR banding patient was transferred the postop putting in stable condition ANGIOGRAPHIC RESULTS The left main artery Normal The left anterior descending artery Has a proximal 30 to 40% stenosis The circumflex artery Nondominant normal The right coronary artery Dominant with a proximal 30 to 40% stenosis The MCDERMOTT ventriculogram reveals Normal 65% The left ventricular end-diastolic pressure Elevated at 25 mmHg IMPRESSION Mild to moderate nonflow limiting coronary artery disease which is not hemodynamically significant based on FFR criteria Normal ejection fraction Moderately elevated LVEDP consistent with diastolic dysfunction which is likely etiology for patient's associated symptoms PLAN 1. Treatment of underlying diastolic dysfunction which should alleviate patient's symptoms 2. Standard risk factor modification for mild to moderate coronary artery disease Electronically signed by : Michael Cook MD 11/29/2021 11:46:50
[2021-11-29 12:05] LABS: CATHL Activated Clotting Time 289 SEC (74-125)
== END 2021-11-29 14:41 | disposition home or self-care (01) ==
PROVIDERS: PCP Physician Assistant; Visit Provider Internal Medicine
DX: R07.9 Chest pain, unspecified (principal); I25.118 Atherosclerotic heart disease of native coronary artery with other forms of angina pectoris; E11.9 Type 2 diabetes mellitus without complications; Z79.84 Long term (current) use of oral hypoglycemic drugs; E03.9 Hypothyroidism, unspecified; I10 Essential (primary) hypertension; I34.0 Nonrheumatic mitral (valve) insufficiency; I35.0 Nonrheumatic aortic (valve) stenosis; Z85.3 Personal history of malignant neoplasm of breast
CPT/HCPCS: 85347; 93458; 93571; 93572; 99152; 99153; C1725; C1769; J0153; J1644; Q9967

== ENCOUNTER → 2021-12-20 07:03 | Outpatient (CLI) | payer BC, SELFPAY ==
[2021-12-20 09:12] LABS: Alanine Aminotransferase 21 U/L (12-78); Albumin Level 3.9 g/dl (3.5-5.0); Alkaline Phosphatase 92 U/L (38-126); Anion Gap 10.6 mEq/L (5-15); Aspartate Amino Transferase 27 U/L (14-36); Bilirubin,Direct 0.1 mg/dl (0.0-0.4); Bilirubin,Indirect 1.1 mg/dL (0.0-0.9); Bilirubin,Total 1.2 mg/dl (0.2-1.3); Bilirubin,Unconjugated 1.1 mg/dL (0.0-1.1); Blood Urea Nitrogen 18 mg/dl (7-17); Calcium 9.5 mg/dl (8.4-10.2); Carbon Dioxide 30 mmol/L (22.0-30.0); Chloride 102 mmol/L (98-107); Chol/HDL Ratio 5.5 (1-3.5); Cholesterol 236 mg/dl (140-200); Estimated Glomerular Filt Rate 72 ml/min (>60); GFR (African American) 87 ML/MIN (>60); Glucose 122 mg/dl (74-100); HDL Cholesterol 43 mg/dl (40-60); Potassium 4.6 mmoL/L (3.5-5.1); Sodium 138 mmol/L (136-145); Total Protein,Serum 6.5 g/dl (6.3-8.2); Triglycerides 129 mg/dl (30-150); VLDL Cholesterol 26 mg/dL (0-40)
[2021-12-20 09:23] LABS: Direct LDL Cholesterol 145.35 mg/dL (100-129)
== END ==
PROVIDERS: PCP Physician Assistant; Visit Provider Nurse Practitioner Family
DX: R06.09 Other forms of dyspnea (principal); I20.8 Other forms of angina pectoris; R94.30 Abnormal result of cardiovascular function study, unspecified; R94.31 Abnormal electrocardiogram [ECG] [EKG]
CPT/HCPCS: 36415; 80048; 80061; 80076

== ENCOUNTER → 2022-02-26 07:33 | Outpatient (CLI) | payer BC, SELFPAY ==
[2022-02-26 08:59] LABS: Alanine Aminotransferase 16 U/L (12-78); Aspartate Amino Transferase 22 U/L (14-36); Bilirubin,Unconjugated 0.6 mg/dL (0.0-1.1)
[2022-02-26 09:00] LABS: Albumin Level 3.9 g/dl (3.5-5.0); Alkaline Phosphatase 84 U/L (38-126); Bilirubin,Direct 0.1 mg/dl (0.0-0.4); Bilirubin,Indirect 0.6 mg/dL (0.0-0.9); Bilirubin,Total 0.7 mg/dl (0.2-1.3); Chol/HDL Ratio 2.6 (1-3.5); Cholesterol 110 mg/dl (140-200); HDL Cholesterol 43 mg/dl (40-60); Total Protein,Serum 6.1 g/dl (6.3-8.2); Triglycerides 89 mg/dl (30-150); VLDL Cholesterol 18 mg/dL (0-40)
[2022-02-26 09:11] LABS: Direct LDL Cholesterol 41.86 mg/dL (100-129)
== END ==
PROVIDERS: PCP Physician Assistant; Visit Provider Physician Assistant
DX: E78.2 Mixed hyperlipidemia (principal); I11.9 Hypertensive heart disease without heart failure
CPT/HCPCS: 36415; 80061; 80076

== ENCOUNTER → 2022-04-01 15:17 | Outpatient (CLI) | payer BC, SELFPAY ==
--- NOTE | 2022-04-01 15:23 | ECG_ITS ---
APPROVED REPORT Exam: Resting ECG HR:63 bpm ECG Measurements Heart Rate 63 AXES IL 190 P 63 QRSd 87 QRS 14 QT 372 T 80 QTc 379 Conclusion SINUS RHYTHM LOW QRS VOLTAGE IN PRECORDIAL LEADS Late R wave progression BORDERLINE ECG UNCONFIRMED REPORT Electronically signed by : Nikolai Eaton MD 04/01/2022 21:23:07
[2022-04-01 16:59] LABS: Anion Gap 10.1 mEq/L (5-15); Blood Urea Nitrogen 20 mg/dl (7-17); Calcium 9.4 mg/dl (8.4-10.2); Carbon Dioxide 29 mmol/L (22.0-30.0); Chloride 106 mmol/L (98-107); Chol/HDL Ratio 2.2 (1-3.5); Cholesterol 105 mg/dl (140-200); Estimated Glomerular Filt Rate 63 ml/min (>60); GFR (African American) 76 ML/MIN (>60); Glucose 106 mg/dl (74-100); HDL Cholesterol 47 mg/dl (40-60); Potassium 4.1 mmoL/L (3.5-5.1); Sodium 141 mmol/L (136-145); Triglycerides 194 mg/dl (30-150); VLDL Cholesterol 39 mg/dL (0-40)
[2022-04-01 17:10] LABS: Direct LDL Cholesterol 33.74 mg/dL (100-129)
[2022-04-01 17:19] LABS: Free Thyroxine Index 3.7 ug/dL (5.93-13.13); T4 (Thyroxine) 11.2 ug/dl (5.53-11.0); Triiodothryronine (T3) Uptake 33 % (23.5-40.5)
[2022-04-01 17:32] LABS: Thyroid Stimulating Hormone 0.87 uIU/mL (0.465-4.68)
== END ==
PROVIDERS: PCP Physician Assistant; Visit Provider Physician Assistant
DX: R00.2 Palpitations (principal); I48.0 Paroxysmal atrial fibrillation; I10 Essential (primary) hypertension; E78.2 Mixed hyperlipidemia
CPT/HCPCS: 36415; 80048; 80061; 83735; 84436; 84443; 84479; 93005

== ENCOUNTER → 2022-04-30 13:13 | Outpatient (CLI) | payer MEDICARE, OTHER, SELFPAY ==
--- NOTE | 2022-04-30 13:16 | US_ITS ---
FINAL REPORT TECHNIQUE: Real-time grayscale and color ultrasound of the thyroid was performed. CLINICAL HISTORY: THYROID NODULE COMPARISON: 08/14/2017 FINDINGS: The thyroid gland measures 5.3 x 1.3 x 1.9 cm on the right and 5.3 x 1.2 x 1.7 cm on the left. The isthmus measures 3 mm. Nodules: On the right is a 5 x 4 x 4 mm mostly cystic TR 1 nodule, a 4 x 3 x 3 mm cystic TR 1 nodule, and a 7 x 4 x 5 mm solid isoechoic TR 3 nodule which is slightly smaller compared to prior. On the left is a 4 x 3 x 2 mm cystic TR 1 nodule. IMPRESSION: Multiple small nodules which are likely benign. No follow-up recommended per TI-RADS criteria Reviewed, Interpreted and Dictated by Giuseppe Simmons III, MD Transcribed by Alejandrina Blanc Authenticated and [facility]
== END ==
PROVIDERS: PCP Physician Assistant; Visit Provider Physician Assistant
DX: E04.1 Nontoxic single thyroid nodule (principal)
CPT/HCPCS: 76536

== ENCOUNTER 2022-06-02 11:46 | Outpatient (CLI) | payer MEDICARE, OTHER, SELFPAY ==
[2022-06-02 12:10] VITALS: BP 119/70; PULSE 70; RESP 20; TEMP 36.9; O2SAT 98
== END 2022-06-02 12:30 | disposition home or self-care (01) ==
PROVIDERS: PCP Physician Assistant; Visit Provider Internal Medicine
DX: E78.5 Hyperlipidemia, unspecified (principal)
CPT/HCPCS: 96372; J1306

== ENCOUNTER 2022-07-01 07:17 | Day surgery (SDC) | payer MEDICARE, OTHER, SELFPAY ==
[2022-06-27 13:07] VITALS: BMI 28.6
[2022-07-01 08:04] VITALS: BP 115/58; PULSE 50; RESP 18; TEMP 36.1; O2SAT 99
[2022-07-01 08:19] LABS: POC Glucose,Bedside 109 (70-110)
[2022-07-01 08:31] VITALS: BP 127/72; PULSE 50; RESP 18; O2SAT 100
[2022-07-01 08:35] VITALS: BP 130/76; PULSE 52; RESP 18; O2SAT 100
[2022-07-01 08:40] VITALS: BP 123/80; PULSE 52; RESP 18; O2SAT 100
[2022-07-01 08:45] VITALS: BP 123/74; PULSE 52; RESP 16; O2SAT 100
[2022-07-01 08:54] VITALS: BP 118/68; PULSE 59; RESP 17; TEMP 36.7; O2SAT 99
== END 2022-07-01 09:05 | disposition home or self-care (01) ==
PROVIDERS: PCP Physician Assistant; Visit Provider Ophthalmology
DX: E11.36 Type 2 diabetes mellitus with diabetic cataract (principal); H25.9 Unspecified age-related cataract
CPT/HCPCS: 66984; 82962; V2632

== ENCOUNTER → 2022-07-04 09:04 | Outpatient (CLI) | payer MEDICARE, OTHER, SELFPAY ==
[2022-07-04 10:07] LABS: Alanine Aminotransferase 25 U/L (12-78); Albumin Level 4.3 g/dl (3.5-5.0); Albumin/Globulin Ratio 1.7 (1.1-1.8); Alkaline Phosphatase 93 U/L (38-126); Anion Gap 11.5 mEq/L (5-15); Aspartate Amino Transferase 27 U/L (14-36); Bilirubin,Total 1.1 mg/dl (0.2-1.3); Blood Urea Nitrogen 20 mg/dl (7-17); Calcium 9.8 mg/dl (8.4-10.2); Carbon Dioxide 30 mmol/L (22.0-30.0); Chloride 102 mmol/L (98-107); Estimated Glomerular Filt Rate 72 ml/min (>60); GFR (African American) 87 ML/MIN (>60); Globulin 2.6 g/dL (1.3-3.2); Glucose 120 mg/dl (74-100); Potassium 4.5 mmoL/L (3.5-5.1); Sodium 139 mmol/L (136-145); Total Protein,Serum 6.9 g/dl (6.3-8.2)
== END ==
PROVIDERS: PCP Family Medicine; Visit Provider Otolaryngology
DX: R22.1 Localized swelling, mass and lump, neck (principal)
CPT/HCPCS: 36415; 80053

== ENCOUNTER → 2022-07-11 09:21 | Outpatient (CLI) | payer MEDICARE, OTHER, SELFPAY ==
--- NOTE | 2022-07-11 09:22 | CT_ITS ---
FINAL REPORT TECHNIQUE: Thin section axial CT images with coronal and sagittal reformats were performed after the administration of IV contrast. This study was performed with techniques to keep radiation doses as low as reasonably achievable (ALARA). Individualized dose reduction techniques using automated exposure control or adjustment of mA and/or kV according to the patient''s size were employed. CLINICAL HISTORY: neck mass FINDINGS: The carotids appear patent. The thyroid is homogeneous. The submandibular glands are symmetric. No skin marker was placed at the site of the clinical abnormality. No description of the location of the mass was provided. No definite mass or adenopathy is seen. There is streak artifact from dental hardware. IMPRESSION: No mass or adenopathy. Reviewed, Interpreted and Dictated by Ariel Lerma MD Transcribed by Nicolasa Cunha Authenticated and . [facility]
--- NOTE | 2022-07-11 09:25 | XR_ITS ---
FINAL REPORT TECHNIQUE: Bone densitometry calculations of the lumbar spine and left hip were obtained. CLINICAL HISTORY: . post menopausal screening FINDINGS: Using L1-4, the bone mineral density of the spine is 1.033 g/cm2, corresponding to T-score of -0.1. Using the left hip, the bone mineral density of the femoral neck is 0.833 g/cm2, corresponding to a T-score of -0.9. Using the right hip, the bone mineral density of the femoral neck is 0.691 g/cm2, corresponding to a T-score of -1.4. NOTE: T-score: Standard deviation compared with peak bone mass of young adult mean. *Following the recommendations of the International Society of Bone densitometry, classification of hip BMD is based on the lower of two T-scores; total hip or femoral neck. IMPRESSION: Normal bone mineral density of the lumbar spine. Borderline osteopenia of the left hip. Osteopenia of the right hip. FRAX data reports major osteoporotic fracture of 8.5% and hip fracture of 0.8%. Reviewed, Interpreted and Dictated by Arile Lerma MD Transcribed by Nicolasa Cunha Authenticated and . [facility]
== END ==
PROVIDERS: PCP Family Medicine; Visit Provider Family Medicine
DX: R22.1 Localized swelling, mass and lump, neck (principal); Z78.0 Asymptomatic menopausal state; Z13.820 Encounter for screening for osteoporosis
CPT/HCPCS: 70491; 77080; Q9967

== ENCOUNTER 2022-08-11 10:31 | Outpatient (CLI) | payer MEDICARE, OTHER, SELFPAY ==
[2022-08-11 10:56] VITALS: BP 122/73; PULSE 78; RESP 18; TEMP 36.8; O2SAT 98
== END 2022-08-11 11:00 | disposition home or self-care (01) ==
LOC: INF 10:32
PROVIDERS: PCP Physician Assistant; Visit Provider Internal Medicine
DX: E78.2 Mixed hyperlipidemia (principal)
CPT/HCPCS: 96372; J1306

== ENCOUNTER → 2022-10-20 16:37 | Outpatient (CLI) | payer MEDICARE, OTHER, SELFPAY ==
--- NOTE | 2022-10-20 16:47 | MM_ITS ---
PROCEDURE INFORMATION: Exam: MG Left Screening 3D Mammography Exam date and time: 10/20/2022 4:43 PM Age: 67 years old Clinical indication: Screening examination. History of right breast cancer treated with mastectomy TECHNIQUE: Imaging protocol: Left Screening tomosynthesis and 2D mammography including computer-aided detection (CAD) when performed. COMPARISON: 1. MG MM DIG MAMM DX UNILAT LT CAD 09/18/2021 1:44 PM 2. MG MM DIG SC MAMM UNILAT LT CAD 01/25/2021 10:46 AM FINDINGS: MAMMOGRAPHY: Breast composition: The breast tissue is composed of scattered areas of fibroglandular density. Mass: None Architectural distortion: None. Calcifications: No suspicious calcifications. Asymmetric density: None. Skin thickening: None Axillary adenopathy: None. The patient is status post right mastectomy IMPRESSION: No mammographic evidence of malignancy. Annual screening is recommended unless otherwise clinically indicated. ASSESSMENT: BI-RADS Category 1: Negative
== END ==
PROVIDERS: PCP Physician Assistant; Visit Provider Physician Assistant
DX: Z12.31 Encounter for screening mammogram for malignant neoplasm of breast (principal)
CPT/HCPCS: 77063; 77067

== ENCOUNTER → 2022-10-23 09:11 | Outpatient (CLI) | payer MEDICARE, OTHER, SELFPAY ==
[2022-10-23 09:52] LABS: Basophils # 0.1 K/mm3 (0-0.2); Basophils % 0.6 % (0.1-2.0); Eosinophils # 0.3 K/mm3 (0.0-0.4); Eosinophils % 3.4 % (0.1-12.0); Hematocrit 43.1 % (37.0-47.0); Hemoglobin 14.6 g/dL (12.2-16.2); Lymphocytes # 2.4 K/mm3 (0.7-4.5); Lymphocytes % 25.8 % (10-50); Mean Corpuscular HGB Conc 33.8 g/dL (31.8-35.4); Mean Corpuscular Hemoglobin 32.4 pg (27.0-31.2); Mean Corpuscular Volume 95.8 fl (81-99); Mean Platelet Volume 7.9 fl (7.4-10.4); Monocytes # 0.7 K/mm3 (0.1-1.0); Monocytes % 7.9 % (1.7-9.3); Neutrophils # 5.7 K/mm3 (1.8-7.8); Neutrophils % 62.4 % (37.0-80.0); Platelet Count 295 K/mm3 (142-424); Red Cell Distribution Width 13.1 % (11.5-17.5); White Blood Count 9.1 K/mm3 (4.8-10.8)
[2022-10-23 10:34] LABS: Alanine Aminotransferase 26 U/L (12-78); Albumin Level 4.4 g/dl (3.5-5.0); Alkaline Phosphatase 85 U/L (38-126); Anion Gap 8.6 mEq/L (5-15); Aspartate Amino Transferase 26 U/L (14-36); Bilirubin,Indirect 1.2 mg/dL (0.0-0.9); Bilirubin,Total 1.2 mg/dl (0.2-1.3); Bilirubin,Unconjugated 1.3 mg/dL (0.0-1.1); Blood Urea Nitrogen 23 mg/dl (7-17); Calcium 11.8 mg/dl (8.4-10.2); Carbon Dioxide 34 mmol/L (22.0-30.0); Chloride 102 mmol/L (98-107); Chol/HDL Ratio 2.8 (1-3.5); Cholesterol 145 mg/dl (140-200); Estimated Glomerular Filt Rate 63 ml/min (>60); GFR (African American) 76 ML/MIN (>60); Glucose 94 mg/dl (74-100); HDL Cholesterol 52 mg/dl (40-60); Potassium 4.6 mmoL/L (3.5-5.1); Sodium 140 mmol/L (136-145); Total Protein,Serum 7.3 g/dl (6.3-8.2); Triglycerides 189 mg/dl (30-150); VLDL Cholesterol 38 mg/dL (0-40)
[2022-10-23 10:45] LABS: Direct LDL Cholesterol 61.73 mg/dL (100-129)
[2022-10-23 11:05] LABS: Thyroid Stimulating Hormone 0.95 uIU/mL (0.465-4.68)
== END ==
PROVIDERS: PCP Physician Assistant; Visit Provider Physician Assistant
DX: R00.1 Bradycardia, unspecified (principal); R06.09 Other forms of dyspnea; R53.83 Other fatigue; E11.9 Type 2 diabetes mellitus without complications; E78.5 Hyperlipidemia, unspecified; I10 Essential (primary) hypertension; I25.10 Atherosclerotic heart disease of native coronary artery without angina pectoris; I63.9 Cerebral infarction, unspecified; R94.30 Abnormal result of cardiovascular function study, unspecified; R94.31 Abnormal electrocardiogram [ECG] [EKG]; Z79.84 Long term (current) use of oral hypoglycemic drugs
CPT/HCPCS: 36415; 80048; 80061; 80076; 84439; 84443; 85025; 93270

== ENCOUNTER → 2022-11-14 11:16 | Outpatient (CLI) | payer MEDICARE, OTHER, SELFPAY ==
[2022-11-14 12:21] LABS: Intact Parathyroid Hormone 115.7 pg/mL (7.5-53.5)
== END ==
PROVIDERS: PCP Physician Assistant; Visit Provider Physician Assistant
DX: E11.9 Type 2 diabetes mellitus without complications (principal); E78.5 Hyperlipidemia, unspecified; I10 Essential (primary) hypertension; I25.10 Atherosclerotic heart disease of native coronary artery without angina pectoris; R00.1 Bradycardia, unspecified; R06.00 Dyspnea, unspecified; R53.83 Other fatigue; R94.30 Abnormal result of cardiovascular function study, unspecified; R94.31 Abnormal electrocardiogram [ECG] [EKG]
CPT/HCPCS: 36415; 82310; 83970

== ENCOUNTER 2023-02-11 13:02 | Outpatient (CLI) | payer MEDICARE, OTHER, SELFPAY ==
[2023-02-11 13:12] VITALS: BP 130/64; PULSE 57; RESP 18; TEMP 36.6; O2SAT 99
== END 2023-02-11 13:36 | disposition home or self-care (01) ==
LOC: INF 13:04
PROVIDERS: PCP Physician Assistant; Visit Provider Internal Medicine
DX: E78.5 Hyperlipidemia, unspecified (principal)
CPT/HCPCS: 96372; J1306

== ENCOUNTER 2023-05-20 13:10 | Outpatient (CLI) | payer MEDICARE, OTHER, SELFPAY ==
--- NOTE | 2023-05-20 13:16 | XR_ITS ---
FINAL REPORT CLINICAL HISTORY: Left foot pain COMPARISON: None FINDINGS: LEFT FOOT: Three views of the left foot were obtained. There is no acute fracture or dislocation. There is mild degenerative change. Calcaneal spurs are noted. There is no soft tissue abnormality. IMPRESSION: Mild degenerative change without acute bony abnormality. Calcaneal spurs. Reviewed, Interpreted and Dictated by Giuseppe Simmons III, MD Transcribed by Alejandrina Blanc Authenticated and [facility]
--- NOTE | 2023-05-20 13:16 | XR_ITS ---
FINAL REPORT CLINICAL HISTORY: Right foot pain COMPARISON: None FINDINGS: RIGHT FOOT: Three views of the right foot were obtained. There is no acute fracture or dislocation. There is mild degenerative change. Calcaneal spurs are noted. There is no soft tissue abnormality. IMPRESSION: Mild degenerative change without acute bony abnormality. Calcaneal spurs. Reviewed, Interpreted and Dictated by Giuseppe Simmons III, MD Transcribed by Alejandrina Blanc Authenticated and [facility]
== END 2023-05-20 23:59 ==
PROVIDERS: PCP Physician Assistant; Visit Provider Nurse Practitioner
DX: M79.671 Pain in right foot (principal); M79.672 Pain in left foot
CPT/HCPCS: 73630

== ENCOUNTER 2023-09-23 15:36 | Emergency (ER) | payer MEDICARE, OTHER, SELFPAY ==
[2023-09-23 15:40] VITALS: BP 163/78; PULSE 68; RESP 20; TEMP 36.8; O2SAT 98; BMI 27.2
--- NOTE | 2023-09-23 15:48 | ED_ITS ---
<Statement entered by Awais Bhandari MD - 09/23/23 23:01> I was consulted by the FERNANDO, and we discussed the complexity of the problems being addressed. I approved the treatment and management plan for this patient's care in the emergency department, thus performing a substantive portion of the medical decision making. Awais Bhandari MD, GRIFFIN, FACEP Discharge Plan Disposition Patient Disposition: Home, Self-Care Condition: Good Chief Complaint: Eye Problems Prescriptions Prescriptions: No Action levothyroxine [Euthyrox] 50 mcg tablet 50 mcg PO DAILY aspirin [Adult Low Dose Aspirin] 81 mg tablet,delayed release (DR/EC) 81 mg PO DAILY nebivolol 2.5 mg tablet 2.5 mg PO DAILY Patient Comments: TAKE 1 TABLET BY MOUTH ONCE DAILY metformin 500 mg tablet 500 mg PO BID cyclobenzaprine 10 mg tablet 10 mg PO HS spironolactone 50 mg tablet See Rx Instructions .ROUTE .COMPLEX Qty: 90 4RF Dose Instruction: Take 1 tablet by mouth once daily for blood pressure Rx Instructions: Take 1 tablet by mouth once daily for blood pressure furosemide 40 mg tablet See Rx Instructions .ROUTE .COMPLEX Qty: 90 4RF Dose Instruction: Take 1 tablet by mouth once daily Rx Instructions: Take 1 tablet by mouth once daily Leqvio 284 mg/1.5 mL syringe 284 mg SQ [id number] Qty: 1.5 2RF Referrals Follow up/Referrals: Olinda Kim PA [Primary Care Provider] - See instructions Activity Restrictions/Add. Instructions Additional Instructions/Restrictions: Please follow-up with your harness racing handicapper this week. Sooner if you have any worsening signs or symptoms or return to the emergency department. Clinical Impressions Clinical Impression: Change in vision Discharge ED Provider: Awais Bhandari General Adult HPI <GRACIELA Garcia - Last Filed: 09/23/23 17:37> General Chief complaint: Eye Problems Stated complaint: 'Webbed' vision in LT eye, recent SARAH's Time Seen by Provider: 09/23/23 15:44 Mode of Arrival: Ambulatory Source of Information: Patient Limitations: No Limitations Description of Symptoms (Recalled from ER Triage Doc. by RN): pt to ed c/o web- like vision. pt states she feels like she is looking through a shattered windshield that started on thursday pt reports a hx of headaches. pt states she was seen at the eye doctor who sent her to the ed for eval. History of Present Illness HPI narrative: Patient presents for evaluation of vision changes. Patient states since Thursday she has been having difficulty with vision in her right eye. She states that she looks like that she is looking through a shattered window and when she looks at bright lights she sees black spots. Patient did see her harness racing handicapper who saw her today who apparently did not diagnose retinal detachment. She then saw her dentist who thought she might be having a stroke and sent her to the ER for further evaluation. Patient reports a history of headaches she also reports some occasional word finding difficulty that predates the vision changes occasional difficulty with walking that she presumes is due to being old. Patient has not had a previous history of stroke although she is a diabetic and does have a history of breast cancer. Currently she denies chest pain shortness of breath fever chills hemoptysis hematochezia melena nausea vomiting diarrhea Related Data Home Medications Medication Instructions Recorded Confirmed levothyroxine 50 mcg tablet 50 mcg PO DAILY thyroid 09/11/21 09/16/23 (Euthyrox) aspirin 81 mg tablet,delayed 81 mg PO DAILY Blood thinner 12/12/21 09/16/23 release (Adult Low Dose Aspirin) nebivolol 2.5 mg tablet 2.5 mg PO DAILY 03/17/23 09/16/23 cyclobenzaprine 10 mg tablet 10 mg PO HS 06/03/23 09/16/23 metformin 500 mg tablet 500 mg PO BID 09/16/23 09/16/23 Previous Rx's Medication Instructions Recorded furosemide 40 mg tablet See Rx Instructions .Route 01/08/23 .COMPLEX #90 tabs spironolactone 50 mg tablet See Rx Instructions .Route 01/08/23 .COMPLEX #90 tabs inclisiran 284 mg/1.5 mL 284 mg (1.5 mL) SQ [id number] 08/07/23 subcutaneous syringe (Leqvio) Cholesterol #1.5 mL Allergies Allergy/AdvReac Type Severity Reaction Status Date / Time amoxicillin [From AUGMENTIN] Allergy Intermediate I-RASH Verified 09/16/23 09:59 clavulanic acid Allergy Intermediate I-RASH Verified 09/16/23 09:59 [From AUGMENTIN] Egg Derived Allergy Unknown HEADACHES Verified 09/16/23 09:59 [From EGG WHITE (FOOD/DRUG)] DECONGESTANTS Allergy Unknown TACHYCARDIA Uncoded 09/16/23 09:59 From EGG WHITE (FOOD/DRUG) Allergy Unknown HEADACHES Uncoded 09/16/23 09:59 statins AdvReac Intermediate Uncoded 09/16/23 09:59 PFSH <GRACIELA Garcia - Last Filed: 09/23/23 17:37> [facility] Disclaimer: The information contained in this section may have been updated after the patient was seen, as this information can be updated by other users. Medical History Elevated parathyroid hormone Neck mass PAF (paroxysmal atrial fibrillation) Hyperlipidemia Hypertension Elevated left ventricular end-diastolic pressure (LVEDP) CAD in [place] artery Hypertension Typical angina Diabetes mellitus Abnormal electrocardiography Dyspnea Chest pain Surgical History H/O mastectomy Family History Other Family history of cancer Social History Smoking Status: Never smoker alcohol intake: never current occupational status: other Travel in the last 8 weeks: None household members: spouse housing: other marital status: education level: high school service: No longterm: No caffeine: Yes special deana needs: No agree to transfusion: No do you feel safe at home: Yes victim of physical abuse: No victim of emotional abuse: No victim of sexual abuse: No would you like helpful sources: No <GRACIELA Garcia - Last Filed: 09/23/23 17:37> ROS Obtained: Yes Systems reviewed as appropriate & no additional complaints except as documented Physical Exam <GRACIELA Garcia - Last Filed: 09/23/23 17:37> General General appearance: alert and in no apparent distress Head Head exam: atraumatic and normal inspection Eye Eye exam: Present normal appearance, PERRL, EOMI and nystagmus Neck Neck exam: Present normal inspection and tenderness Chest Chest inspection: Present normal inspection and symmetric chest wall rise Respiratory Respiratory exam: Present normal lung sounds bilaterally; Absent respiratory distress Cardiovascular Cardiovascular exam: Present regular rate, normal rhythm and other (No carotid bruits) Extremities Exam Extremities exam: Present normal inspection and full ROM Back Exam Back exam: Present normal inspection and full ROM; Absent tenderness Neurological Exam Neurological exam: Present alert, oriented X3, CN II-XII intact, normal gait and reflexes normal; Absent motor sensory deficit Psychiatric Psychiatric exam: Present normal affect and normal mood Skin Skin exam: Present warm, dry and normal color Medical Decision Making <GRACIELA Garcia - Last Filed: 09/23/23 17:37> Medical Records Medical records reviewed: Yes I reviewed the patient's medical records. Brian Inquiry Pt receiving controlled substance: No Vital Signs: 09/23/23 15:40 Temperature 98.2 F Temperature Source Oral Pulse Rate [Left Radial] 68 Respiratory Rate 20 Blood Pressure [Right Arm] 163/78 H Blood Pressure Mean [Right Arm] 106 02 Sat by Pulse Oximetry 98 Oxygen Delivery Method Room Air Lab Data Lab results reviewed: Yes I reviewed the patient's lab results. Lab Results 09/23/23 16:02: WBC 9.7, RBC 4.10 L, Hgb 13.9, Hct 39.9, MCV 97.2, MCH 33.8 H, MCHC 34.8, RDW 13.4, Plt Count 278, MPV 8.4, Neut % (Auto) 72.2, Lymph % (Auto) 19.9, [place] % (Auto) 5.2, Eos % (Auto) 1.9, Baso % (Auto) 0.8, Neut # (Auto) 7.0, Lymph # (Auto) 1.9, [place] # (Auto) 0.5, Eos # (Auto) 0.2, Baso # (Auto) 0.1, PT 9.8 L, INR 0.86 L, APTT 23.6, Sodium 139, Potassium 3.8, Chloride 104, Carbon Dioxide 30, Anion Gap 8.8, BUN 18 H, Creatinine 0.90, Estimated Creat Clear 69, Estimated GFR 63, Est GFR ( Amer) 76, Glucose 139 H, Hemoglobin A1c 6.2 H , Calcium 10.0, Total Bilirubin 1.2, AST 44 H, ALT 36, Alkaline Phosphatase 91, Troponin I < 0.01, Total Protein 7.5, Albumin 4.2, Globulin 3.3 H, Albumin/Globulin Ratio 1.3, Triglycerides 402 H, Cholesterol 205 H, LDL Cholesterol Direct 102.51, HDL Cholesterol 44, Cholesterol/HDL Ratio 4.7 H 07/17/24 16:02 09/23/23 16:02 Orders (Tests/Meds): ED MEDICATIONS Discontinued Medications Generic Name Dose Route Start Last Admin Trade Name Jerome PRN Reason Stop Dose Admin Iopamidol 100 ml 09/23/23 16:24 09/23/23 16:25 Iopamidol-370 (76%);100ml Bottle IV 09/23/23 16:25 100 ml ONCE ONE Administration Sodium Chloride 50 ml 09/23/23 16:24 09/23/23 16:25 0.9 % Sodium Chloride 50 Ml Vial IV 09/23/23 16:25 50 ml ONCE ONE Administration Sodium Chloride 10 ml 09/23/23 16:24 09/23/23 16:25 Sodium Chloride 0.9% 10ml Syr (Rad Only) IV 09/23/23 16:25 10 ml ONCE ONE Administration ORDERS Category Date Time Status CT angio head Stat Cat Scan 09/23/23 15:[address] angio neck Stat Cat Scan 09/23/23 15:[address] head/brain wo con Stat Cat Scan 09/23/23 15:49 Completed POCUS Point of Care (ER Only) Stat Exams 09/23/23 15:51 Taken Activated Partial Thrombo Time Stat Lab 09/23/23 16:02 Completed Complete Blood Count Auto Diff Stat Lab 09/23/23 16:02 Completed Comprehensive Metabolic Panel Stat Lab 09/23/23 16:02 Completed Drug Screen,Urine Stat Lab 09/23/23 15:49 Ordered Hemoglobin A1C Stat Lab 09/23/23 16:02 Completed Lipid Panel Stat Lab 09/23/23 16:02 Completed Prothrombin Time INR Stat Lab 09/23/23 16:02 Completed Troponin I Stat Lab 09/23/23 16:02 Completed Urinalysis and Microscopic Stat Lab 09/23/23 15:49 Ordered Medical Decision Narrative: In summary patient is a 68-year-old who presents to the emergency department for evaluation of right eye visual changes. Patient is hemodynamically stable upon arrival, febrile. Physical exam is unremarkable and nonfocal including a [place] Coma Score 15 cranial nerves II through XII intact grossly to exam although patient has a visual acuity of 20/25 on the left and 20/70 in the right. Differential diagnosis includes floaters versus retinal detachment versus possible stroke versus possible vascular abnormality etc. Initial workup will be conducted with hematologic labs angio of the head and neck as well as CT scans of the head and neck. Initial interventions were considered however as patient is nonfocal without any other constitutional complaint I deferred for now. Initial workup reviewed by me shows that her hematologic labs are nonactionable and my informal interpretation of her her imaging shows no evidence of stroke or vascular stenosis prior to radiologist read. Upon repeat evaluation patient has had no new focal symptoms. Given this we have essentially ruled out any acute or life-threatening problem including stroke and patient will follow-up with her harness racing handicapper this week. <Awais Bhandari MD - Last Filed: 09/23/23 17:35> Vital Signs: 09/23/23 15:40 Temperature 98.2 F Temperature Source Oral Pulse Rate [Left Radial] 68 Respiratory Rate 20 Blood Pressure [Right Arm] 163/78 H Blood Pressure Mean [Right Arm] 106 02 Sat by Pulse Oximetry 98 Oxygen Delivery Method Room Air Lab Data Lab results reviewed: Yes I reviewed the patient's lab results. Lab Results 09/23/23 16:02: WBC 9.7, RBC 4.10 L, Hgb 13.9, Hct 39.9, MCV 97.2, MCH 33.8 H, MCHC 34.8, RDW 13.4, Plt Count 278, MPV 8.4, Neut % (Auto) 72.2, Lymph % (Auto) 19.9, [place] % (Auto) 5.2, Eos % (Auto) 1.9, Baso % (Auto) 0.8, Neut # (Auto) 7.0, Lymph # (Auto) 1.9, [place] # (Auto) 0.5, Eos # (Auto) 0.2, Baso # (Auto) 0.1, PT 9.8 L, INR 0.86 L, APTT 23.6, Sodium 139, Potassium 3.8, Chloride 104, Carbon Dioxide 30, Anion Gap 8.8, BUN 18 H, Creatinine 0.90, Estimated Creat Clear 69, Estimated GFR 63, Est GFR ( Amer) 76, Glucose 139 H, Hemoglobin A1c 6.2 H , Calcium 10.0, Total Bilirubin 1.2, AST 44 H, ALT 36, Alkaline Phosphatase 91, Troponin I < 0.01, Total Protein 7.5, Albumin 4.2, Globulin 3.3 H, Albumin/Globulin Ratio 1.3, Triglycerides 402 H, Cholesterol 205 H, LDL Cholesterol Direct 102.51, HDL Cholesterol 44, Cholesterol/HDL Ratio 4.7 H Orders (Tests/Meds): ED MEDICATIONS Discontinued Medications Generic Name Dose Route Start Last Admin Trade Name Jerome PRN Reason Stop Dose Admin Iopamidol 100 ml 09/23/23 16:24 09/23/23 16:25 Iopamidol-370 (76%);100ml Bottle IV 09/23/23 16:25 100 ml ONCE ONE Administration Sodium Chloride 50 ml 09/23/23 16:24 09/23/23 16:25 0.9 % Sodium Chloride 50 Ml Vial IV 09/23/23 16:25 50 ml ONCE ONE Administration Sodium Chloride 10 ml 09/23/23 16:24 09/23/23 16:25 Sodium Chloride 0.9% 10ml Syr (Rad Only) IV 09/23/23 16:25 10 ml ONCE ONE Administration ORDERS Category Date Time Status CT angio head Stat Cat Scan 09/23/23 15:[address] angio neck Stat Cat Scan 09/23/23 15:[address] head/brain wo con Stat Cat Scan 09/23/23 15:49 Completed POCUS Point of Care (ER Only) Stat Exams 09/23/23 15:51 Taken Activated Partial Thrombo Time Stat Lab 09/23/23 16:02 Completed Complete Blood Count Auto Diff Stat Lab 09/23/23 16:02 Completed Comprehensive Metabolic Panel Stat Lab 09/23/23 16:02 Completed Drug Screen,Urine Stat Lab 09/23/23 15:49 Ordered Hemoglobin A1C Stat Lab 09/23/23 16:02 Completed Lipid Panel Stat Lab 09/23/23 16:02 Completed Prothrombin Time INR Stat Lab 09/23/23 16:02 Completed Troponin I Stat Lab 09/23/23 16:02 Completed Urinalysis and Microscopic Stat Lab 09/23/23 15:49 Ordered Procedures <Awais Bhandari MD - Last Filed: 09/23/23 17:35> Miscellaneous Procedure Procedure Performed: Limited ocular ultrasound Indication: Vision changes Identified structures: -Right Findings: Right eye: Retina: Normal Lens: Normal Vitreous body: Anechoic Optic nerve sheath diameter (mm): Normal Foreign body: Absent Impression: Right eye: Unremarkable right limited ultrasound of the eye Images were saved to permanent archive The study was technically adequate CPT 32646-21 This study was performed by me, and I personally interpreted all images/videos. Based on my clinical judgement, these images were adequate and did not necessitate further imaging. Critical Care <GRACIELA Garcia - Last Filed: 09/23/23 17:37> Critical Care Time Critical Care Time: No
--- NOTE | 2023-09-23 15:49 | CT_ITS ---
PROCEDURE INFORMATION: Exam: CTA Neck With Contrast Exam date and time: 09/23/2023 4:21 PM Age: 68 years old Clinical indication: Other: Stroke symptoms; Additional info: Possible stroke TECHNIQUE: Imaging protocol: Computed tomographic angiography of the neck with contrast. Exam focused on the cervical segments of the vasculature. 3D rendering (Not supervised by radiologist): MIP and/or 3D reconstructed images were created by the technologist. Radiation optimization: All CT scans at this facility use at least one of these dose optimization techniques: automated exposure control; mA and/or kV adjustment per patient size (includes targeted exams where dose is matched to clinical indication); or iterative reconstruction. Contrast material: ISOVUE; Contrast volume: 100 ml; Contrast route: INTRAVENOUS (IV); COMPARISON: CT SOFT TISSUE NECK W CON 07/11/2022 10:00 AM FINDINGS: Right common carotid artery: No stenosis. No dissection or occlusion. Right internal carotid artery: No stenosis of the extracranial segment. No dissection or occlusion. Right external carotid artery: No occlusion or stenosis of the origin. Left common carotid artery: No stenosis. No dissection or occlusion. Left internal carotid artery: No stenosis of the extra-cranial segment. No dissection or occlusion. Left external carotid artery: No occlusion or stenosis of the origin. Right vertebral artery: No stenosis. No dissection or occlusion. Left vertebral artery: No stenosis. No dissection or occlusion. Soft tissues: Unremarkable. Bones/joints: No acute osseous abnormality. IMPRESSION: No evidence of critical stenosis, occlusion, dissection or aneurysm in the extracranial cerebral arteries. REFERENCES: NASCET CRITERIA. The degree of stenosis in the cervical segment of the internal carotid artery is based on NASCET criteria. Normal is no stenosis. Mild is less than 50% stenosis. Moderate is 50-69% stenosis. Severe is 70% to 99% stenosis. Total occlusion is no detectable patent lumen.
--- NOTE | 2023-09-23 15:49 | CT_ITS ---
PROCEDURE INFORMATION: Exam: CTA Head With Contrast, Arteriography Exam date and time: 09/23/2023 4:21 PM Age: 68 years old Clinical indication: Other: Stroke symptoms; Additional info: Possible stroke TECHNIQUE: Imaging protocol: Computed tomographic angiography of the head with contrast. Exam focused on the arteries. 3D rendering (Not supervised by radiologist): MIP and/or 3D reconstructed images were created by the technologist. Radiation optimization: All CT scans at this facility use at least one of these dose optimization techniques: automated exposure control; mA and/or kV adjustment per patient size (includes targeted exams where dose is matched to clinical indication); or iterative reconstruction. Contrast material: ISOVUE; Contrast volume: 100 ml; Contrast route: INTRAVENOUS (IV); COMPARISON: CT HEAD/BRAIN WO CON 09/23/2023 4:19 PM FINDINGS: ANTERIOR CIRCULATION: Right internal carotid artery: Intracranial segment is patent with no significant stenosis. No aneurysm. Right middle cerebral artery: No occlusion or significant stenosis. No aneurysm. Right anterior cerebral artery: Hypoplastic a1 segment of the right anterior cerebral artery compensated via the anterior communicating artery. No occlusion or significant stenosis distally. No aneurysm. Left internal carotid artery: Intracranial segment is patent with no significant stenosis. No aneurysm. Left middle cerebral artery: No occlusion or significant stenosis. No aneurysm. Left anterior cerebral artery: No occlusion or significant stenosis. No aneurysm. POSTERIOR CIRCULATION: Right vertebral artery: No occlusion or significant stenosis. No aneurysm. Left vertebral artery: No occlusion or significant stenosis. No aneurysm. Basilar artery: No occlusion or significant stenosis. No aneurysm. Right posterior cerebral artery: No occlusion or significant stenosis. No aneurysm. Left posterior cerebral artery: Hypoplastic P1 segment of the left posterior cerebral artery compensated by the left posterior communicating artery. No occlusion or significant stenosis distally. No dissection or aneurysm. Brain: No abnormally enhancing brain lesion, mass effect, or midline shift. Cerebral ventricles: No hydrocephalus. Bones/joints: No acute calvarial or skull base fracture. Soft tissues: Unremarkable. IMPRESSION: 1. No evidence of critical stenosis, occlusion, or aneurysm in the intracranial cerebral arteries. 2. Concurrent neck CTA reported separately. PROCEDURE INFORMATION: Exam: CT Maxillofacial With Contrast Exam date and time: 09/23/2023 4:21 PM Age: 68 years old Clinical indication: Other: Stroke symptoms; Additional info: Possible stroke TECHNIQUE: Imaging protocol: Computed tomography of the face with contrast. COMPARISON: CT HEAD/BRAIN WO CON 09/23/2023 4:19 PM FINDINGS: Orbital cavities: Globes and orbital structures are unremarkable. No evidence of retrobulbar hematoma. Paranasal sinuses: No air-fluid levels. Bones: No evidence of acute fracture. Bilateral temporomandibular joints are congruent. Pterygoid plates and lamina papyracea are intact. 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 Soft tissues: Unremarkable. IMPRESSION: 1. No acute findings. 2. 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
--- NOTE | 2023-09-23 15:49 | CT_ITS ---
PROCEDURE INFORMATION: Exam: CT Head Without Contrast Exam date and time: 09/23/2023 4:19 PM Age: 68 years old Clinical indication: Other: Stroke symptoms; Additional info: Possible stroke TECHNIQUE: Imaging protocol: Computed tomography of the head without contrast. Radiation optimization: All CT scans at this facility use at least one of these dose optimization techniques: automated exposure control; mA and/or kV adjustment per patient size (includes targeted exams where dose is matched to clinical indication); or iterative reconstruction. COMPARISON: CT HEAD/BRAIN WO CON 09/23/2023 4:19 PM FINDINGS: Brain: No acute intracranial hemorrhage. No intra- or extra-axial fluid collection. No mass effect or midline shift. No evidence of acute/subacute infarct. Cerebral ventricles: No hydrocephalus. Paranasal sinuses: No air fluid levels in the visualized paranasal sinuses. Mastoid air cells: Visualized mastoid air cells are clear. Orbital cavities: Bilateral lens replacement incidentally noted. Globes and orbital structures are otherwise unremarkable. Bones: No evidence of acute calvarial or skull base fracture. Soft tissues: Unremarkable. IMPRESSION: No evidence of acute intracranial hemorrhage or acute/subacute infarct.
--- NOTE | 2023-09-23 15:59 | ECG_ITS ---
APPROVED REPORT Exam: Resting ECG HR:56 bpm ECG Measurements Heart Rate [address] 193 P 42 QRSd 88 QRS -3 QT 409 T 70 QTc 399 Conclusion SINUS BRADYCARDIA LOW QRS VOLTAGE IN PRECORDIAL LEADS [QRS DEFLECTION < 1.0 mV IN CHEST LEADS] POSSIBLE ANTERIOR MYOCARDIAL INFARCTION , PROBABLY OLD [30 ms Q WAVE IN V3/V4, OR R < 0.2 mV IN V4] BORDERLINE ECG UNCONFIRMED REPORT Electronically signed by : David Bhandari, 09/23/2023 23:06:33
[2023-09-23 16:08] LABS: Basophils # 0.1 K/mm3 (0-0.2); Basophils % 0.8 % (0.1-2.0); Eosinophils # 0.2 K/mm3 (0.0-0.4); Eosinophils % 1.9 % (0.1-12.0); Hematocrit 39.9 % (37.0-47.0); Hemoglobin 13.9 g/dL (12.2-16.2); Lymphocytes # 1.9 K/mm3 (0.7-4.5); Lymphocytes % 19.9 % (10-50); Mean Corpuscular HGB Conc 34.8 g/dL (31.8-35.4); Mean Corpuscular Hemoglobin 33.8 pg (27.0-31.2); Mean Corpuscular Volume 97.2 fl (81-99); Mean Platelet Volume 8.4 fl (7.4-10.4); Monocytes # 0.5 K/mm3 (0.1-1.0); Monocytes % 5.2 % (1.7-9.3); Neutrophils % 72.2 % (37.0-80.0); Platelet Count 278 K/mm3 (142-424); Red Cell Distribution Width 13.4 % (11.5-17.5); White Blood Count 9.7 K/mm3 (4.8-10.8)
[2023-09-23 16:18] LABS: Chloride 104 mmol/L (98-107)
[2023-09-23 16:19] LABS: Potassium 3.8 mmoL/L (3.5-5.1); Sodium 139 mmol/L (136-145)
[2023-09-23 16:21] LABS: Alanine Aminotransferase 36 U/L (12-78); Aspartate Amino Transferase 44 U/L (14-36); Blood Urea Nitrogen 18 mg/dl (7-17); Creatinine Clearance Estimated 69 mL/min (50-200); Estimated Glomerular Filt Rate 63 ml/min (>60); GFR (African American) 76 ML/MIN (>60)
[2023-09-23 16:22] LABS: Albumin Level 4.2 g/dl (3.5-5.0); Albumin/Globulin Ratio 1.3 (1.1-1.8); Alkaline Phosphatase 91 U/L (38-126); Anion Gap 8.8 mEq/L (5-15); Bilirubin,Total 1.2 mg/dl (0.2-1.3); Carbon Dioxide 30 mmol/L (22.0-30.0); Chol/HDL Ratio 4.7 (1-3.5); Cholesterol 205 mg/dl (140-200); Globulin 3.3 g/dL (1.3-3.2); Glucose 139 mg/dl (74-100); HDL Cholesterol 44 mg/dl (40-60); Total Protein,Serum 7.5 g/dl (6.3-8.2)
[2023-09-23 16:25] LABS: Activated Partial Thrombo Time 23.6 seconds (22.8-30.6); INR 0.86 (0.9-1.1); Prothrombin Time 9.8 seconds (10.1-12.5)
[2023-09-23] MEDS: 0.9 % SODIUM CHLORIDE 50 ML VIAL IV (16:25)
[2023-09-23] MEDS: SODIUM CHLORIDE 0.9% 10ML SYR (RAD ONLY) 10 ML IV (16:25)
[2023-09-23] MEDS: IOPAMIDOL-370 (76%);100ML BOTTLE 100 ML IV (16:25)
[2023-09-23 16:26] LABS: Triglycerides 402 mg/dl (30-150)
[2023-09-23 16:33] LABS: Direct LDL Cholesterol 102.51 mg/dL (100-129)
[2023-09-23 16:40] LABS: Hemoglobin A1C 6.2 % (4.0-6.0); Troponin I < 0.01 ng/ml (0.00-0.034)
[2023-09-23 17:58] VITALS: BP 167/80; PULSE 70; RESP 20; TEMP 36.8; O2SAT 98
== END 2023-09-23 17:58 | disposition home or self-care (01) ==
PROVIDERS: Physician Assistant; Emergency Provider Student in an Organized Health Care Education/Training Program; PCP Physician Assistant
DX: H53.8 Other visual disturbances (principal); R00.1 Bradycardia, unspecified; R51.9 Headache, unspecified; E11.9 Type 2 diabetes mellitus without complications; Z79.84 Long term (current) use of oral hypoglycemic drugs; I25.119 Atherosclerotic heart disease of native coronary artery with unspecified angina pectoris; I11.9 Hypertensive heart disease without heart failure; E78.5 Hyperlipidemia, unspecified
CPT/HCPCS: 70450; 70496; 70498; 80053; 80061; 83036; 84484; 85025; 85610; 85730; 93005; 99285; Q9967

== ENCOUNTER 2023-12-01 15:45 | Outpatient (CLI) | payer MEDICARE, OTHER, SELFPAY ==
--- NOTE | 2023-12-01 15:49 | MM_ITS ---
PROCEDURE INFORMATION: Exam: MG Left Screening 3D Mammography Exam date and time: 12/01/2023 3:40 PM Age: 68 years old Clinical indication: Screening examination; Personal history of right breast cancer; Mastectomy TECHNIQUE: Imaging protocol: Left Screening tomosynthesis and 2D mammography including computer-aided detection (CAD) when performed. COMPARISON: 1. MG MM DIG SC MAMM UNILAT LT CAD 10/20/2022 4:43 PM 2. MG MM DIG MAMM DX UNILAT LT CAD 09/18/2021 1:44 PM FINDINGS: MAMMOGRAPHY: Breast composition: There are scattered areas of fibroglandular density. Mass: None. Architectural distortion: None. Calcifications: No suspicious calcifications. Asymmetric density: None. Skin thickening: None. Axillary adenopathy: None. IMPRESSION: No mammographic evidence of malignancy. Annual screening is recommended unless otherwise clinically indicated. ASSESSMENT: BI-RADS Category 1: Negative.
== END 2023-12-01 23:59 | disposition home or self-care (01) ==
LOC: RAD 15:46
PROVIDERS: PCP Physician Assistant; Visit Provider Physician Assistant
DX: Z12.31 Encounter for screening mammogram for malignant neoplasm of breast (principal)
CPT/HCPCS: 77063; 77067

== ENCOUNTER 2024-02-15 07:21 | Day surgery (SDC) | payer MEDICARE, OTHER, SELFPAY ==
[2024-02-09 16:24] VITALS: BMI 29.0
[2024-02-15 08:19] VITALS: BP 155/76; PULSE 61; RESP 18; TEMP 36.6; O2SAT 98
[2024-02-15] MEDS: LACTATED RINGERS 1000ML 1,000 ML 25 ML IV (08:27)
--- NOTE | 2024-02-15 08:27 | EXP.ANES.CKL ---
[facility] Disclaimer: The information contained in this section may have been updated after the patient was seen, as this information can be updated by other users. Medical History Helicobacter pylori (H. pylori) Elevated parathyroid hormone Neck mass PAF (paroxysmal atrial fibrillation) Hyperlipidemia Hypertension Elevated left ventricular end-diastolic pressure (LVEDP) CAD in [place] artery Hypertension Typical angina Diabetes mellitus Abnormal electrocardiography Dyspnea Chest pain Surgical History H/O mastectomy Family History Other History of breast cancer History of diabetes mellitus History of thyroid cancer Social History (Updated 02/15/24 @ 08:09 by Soni Palomino RN) Smoking Status: Never smoker alcohol intake: never substance use type: denies use current occupational status: other Travel in the last 8 weeks: None household members: spouse housing: other marital status: education level: high school service: No [place] [facility]: No caffeine: Yes special deana needs: No agree to transfusion: No do you feel safe at home: Yes victim of physical abuse: No victim of emotional abuse: No victim of sexual abuse: No would you like helpful sources: No [facility] Anesthesia Checklist Patient Identification Patient Identification: Arm Band, Family and Verbal (Name & ) Structural Data Admitted From: Home Planned Operative Procedure/s: colonoscopy Consent for Planned Operative Procedure(s) Verified: Yes Verified Documents: Surgical Consent and History and Physical NPO Status Verified Time NPO: 06:00 Chart Verification Results Verified: CBC, BMP, ECG and Chest Xray Additional verifications Fingerstick Blood Glucose: 117 Patient : No Anesthesia Reactions: Yes (After hysterectomy, went to ICU for unknown reason?) Cardiovascular Assessment Heart Sounds: S1 & S2 Pulse Rhythm: Irregular Peripheral Edema: No Airway Assessment Mallampati Score:: Class II C-Spine Mobility Assessed: Yes (FROM) TMJ Mobility Assessed: Yes Dentition: Poor Dentition (Many missing. Nothing loose per pt.) Neurological Assessment Level of Consciousness: Awake, Alert, Appropriate and Follows Commands Hx Seizures: No Numbness or tingling in extremities: No Anesthesia Plan Anesthesia Risk discussed: Yes Anesthesia Plan: Verified ASA Class: III Anesthesia Type: MAC
[2024-02-15 08:54] VITALS: O2SAT 100
--- NOTE | 2024-02-15 08:59 | EXP.HP ---
History of Present Illness *Admission Date: 02/15/24 *Reason for visit:: Personal history of adenomatous colon polyps *History of present illness: Mrs. Manzano is a 68-year-old female who is here for surveillance colonoscopy secondary to a personal history of adenomatous colon polyps and her last colonoscopy was 6 years ago. The examination is deemed medically necessary for surveillance colonoscopy. The patient has been seen, interviewed and examined prior to the procedure by both myself and the anesthesia provider. [facility] Disclaimer: The information contained in this section may have been updated after the patient was seen, as this information can be updated by other users. Medical History (Updated 02/15/24 @ 09:00 by Hesham Manjarrez II, MD) Helicobacter pylori (H. pylori) Elevated parathyroid hormone Neck mass PAF (paroxysmal atrial fibrillation) Hyperlipidemia Hypertension Elevated left ventricular end-diastolic pressure (LVEDP) CAD in [place] artery Hypertension Typical angina Diabetes mellitus Abnormal electrocardiography Dyspnea Chest pain Surgical History H/O mastectomy Family History Other History of breast cancer History of diabetes mellitus History of thyroid cancer Social History (Updated 02/15/24 @ 08:36 by Niecy Fermin CRNA) Smoking Status: Never smoker alcohol intake: never substance use type: denies use current occupational status: other Travel in the last 8 weeks: None household members: spouse housing: other marital status: education level: high school service: No fpc: No caffeine: Yes special deana needs: No agree to transfusion: No do you feel safe at home: Yes victim of physical abuse: No victim of emotional abuse: No victim of sexual abuse: No would you like helpful sources: No Other Medical History Have you received the Flu Vaccine for this season: No Have you received the Pneumonia Vaccine: Yes Review of Systems Review of Systems Review of systems (narrative): Negative *Cardiovascular Comments: Negative *Gastrointestinal Comments: Negative *Genitourinary Comments: Negative *Musculoskeletal Comments: Negative *Neurologic Comments: Negative Meds Home Medications and Allergies Home Medications ?Medication ?Instructions ?Recorded ?Confirmed ?Type levothyroxine 50 mcg tablet 50 mcg PO DAILY thyroid 09/11/21 02/15/24 History (Euthyrox) aspirin 81 mg tablet,delayed 81 mg PO DAILY Blood thinner 12/12/21 02/15/24 History release (Adult Low Dose Aspirin) spironolactone 50 mg tablet See Rx Instructions .Route 01/08/23 02/15/24 Rx .COMPLEX #90 tabs cyclobenzaprine 10 mg tablet 10 mg PO HS 06/03/23 02/09/24 History inclisiran 284 mg/1.5 mL 284 mg (1.5 mL) SQ [id number] 08/07/23 02/09/24 Rx subcutaneous syringe (Leqvio) Cholesterol #1.5 mL metformin 500 mg tablet 500 mg PO BID 09/16/23 02/15/24 History furosemide 40 mg tablet See Rx Instructions .Route 01/06/24 02/09/24 Rx .COMPLEX #90 tabs New Prescriptions to Start Prescriptions: Allergies Allergy/AdvReac Type Severity Reaction Status Date / Time amoxicillin (From AUGMENTIN) Allergy Intermediate I-RASH Verified 01/06/24 14:48 clavulanic acid (From Allergy Intermediate I-RASH Verified 01/06/24 14:48 AUGMENTIN) Egg Derived (From EGG WHITE Allergy Unknown HEADACHES Verified 01/06/24 14:48 (FOOD/DRUG)) DECONGESTANTS Allergy Unknown TACHYCARDIA Uncoded 01/06/24 14:48 From EGG WHITE (FOOD/DRUG) Allergy Unknown HEADACHES Uncoded 01/06/24 14:48 statins AdvReac Intermediate Other Uncoded 02/15/24 08:12 Exam Data for Last 24 hours Vital signs and Labs for Last 24 Hours: Temp Pulse Resp BP Pulse Ox O2 Del Method O2 Flow Rate 97.9 F 61 18 155/76 H 98 Nasal Cannula 5 02/15/24 08:19 02/15/24 08:19 02/15/24 08:19 02/15/24 08:19 02/15/24 08:19 02/15/24 08:54 02/15/24 08:54 *Routine HEENT Exam Head: Present normocephalic Eye: Present EOMI and PERRL ENT: Present mucous membranes moist *Routine Neck Exam Neck: Present supple *Routine Respiratory Exam Respiratory: Present CTA bilaterally *Routine Cardiovascular Exam Cardiovascular: Present RRR *Routine Abdominal Exam Abdominal: Present soft and normoactive bowel sounds; Absent tenderness *Routine Rectal Exam Rectal:: deferred *Routine Genitalia Exam Genitalia:: deferred *Routine Extremities Exam Extremities: Absent cyanosis, clubbing or edema *Routine Skin Exam Skin: Present warm; Absent rash *Routine Neurological Exam Neurological: Present alert and oriented X3 Assessment and Plan *Assessment and plan (1) Personal history of adenomatous and serrated colon polyps: Status: Acute Category: Medical Code(s): Z86.0101 - Personal history of adenomatous and serrated colon polyps Plan A/P: 1. Personal history of adenomatous colon polyps is the preprocedural diagnosis. The patient will be anesthetized/sedated using MAC sedation. The patient has been seen and examined. Cardiac and lung assessment prior to the examination is stable. Proceed with planned surveillance colonoscopy
--- NOTE | 2024-02-15 09:00 | HMH.PROCNOTE ---
[facility] Procedure Note Date: 02/15/24 Time: 09:15 Procedure Note:: Colonoscopy Procedure Report: Colonoscopy with cold snare polypectomy Endoscopist: Hesham Manjarrez II, MD Referring physician: Olinda DON Date of Procedure: February 15, 2024 Equipment: Olympus 190 variable stiffness pediatric colonoscope Sedation: MAC sedation Indication: Mrs. Manzano is a 68-year-old female who is here for follow-up surveillance colonoscopy secondary to a personal history of adenomatous colon polyps. The patient had her former colonoscopies in [place] (Dr. Iris Gonzalez) and her last colonoscopy was 6 years ago and she had been given 5-year surveillance. The patient does have a former history of C. difficile colitis, diverticulitis and H. pylori. She presently reports no abdominal pain, weight loss, change in her bowel habits or rectal bleeding. She reports no family history of colon cancer. Procedure: Prior to the procedure, a history and physical exam was performed, and patient's medications and allergies were reviewed. The risks, benefits and alternatives of the sedation and procedure were discussed with the patient. All questions were answered and informed consent was obtained. The patient was brought to the procedure room. Patient identification and proposed procedure were verified by the physician and the nurse. The patient was placed in a left lateral decubitus position and the scope was passed under direct vision. Throughout the procedure, the patient's blood pressure, pulse, and oxygen saturations were monitored continuously. The colonoscopy was accomplished without difficulty. The patient tolerated the procedure well. Findings: On digital rectal examination there was normal rectal tone. There were no external hemorrhoids. The colonoscope was introduced through the anal canal to the rectum and advanced to the cecum. The ileocecal valve and appendiceal orifice were identified. The scope was advanced a short distance into the ileum which appeared grossly normal. The scope was then withdrawn into the colon. The cecum, ascending and transverse colon and mucosa were grossly normal. There was a diminutive 3 to 4 mm polyp in the descending colon removed via cold snare polypectomy. There were scattered diverticuli throughout the descending and sigmoid colon (LEFT colon). The rectum itself was normal. Upon retroflexion within the rectum there were grade 1-2 internal hemorrhoids. The preparation was excellent throughout with [place] Preparation Score of 9. The cecal time was 11 minutes. Impression: 1. Diminutive 3 to 4 mm descending colon polyp 2. Left-sided diverticulosis 3. Grade 1-2 internal hemorrhoids Plan: I will follow-up the polyp histology and recommend repeat surveillance colonoscopy again in 7 years based upon the pathology. I would encourage psyllium bulking fiber supplementation on a maintenance basis.
[2024-02-15 09:17] VITALS: BP 140/64; PULSE 62; RESP 18; TEMP 36.1; O2SAT 95
[2024-02-15 09:27] VITALS: BP 129/67; PULSE 64; RESP 18; O2SAT 96
[2024-02-15 09:37] VITALS: BP 129/67; PULSE 64; RESP 18; O2SAT 96
[2024-02-15 09:53] VITALS: BP 146/73; PULSE 55; RESP 18; O2SAT 100
[2024-02-16 08:41] LABS: POC Glucose,Bedside 117 (70-110)
== END 2024-02-15 09:53 | disposition home or self-care (01) ==
PROVIDERS: PCP Physician Assistant; Visit Provider Internal Medicine Gastroenterology
PROC: (CPT 45385; principal; 2024-02-15 09:00)
DX: K63.5 Polyp of colon (principal); K57.30 Diverticulosis of large intestine without perforation or abscess without bleeding; K64.8 Other hemorrhoids; Z86.0101 Personal history of adenomatous and serrated colon polyps; E11.8 Type 2 diabetes mellitus with unspecified complications; Z79.84 Long term (current) use of oral hypoglycemic drugs
CPT/HCPCS: 45385; 82962; 88305; J7120

== ENCOUNTER 2024-02-16 08:59 | Day surgery (SDC) | payer MEDICARE, OTHER, SELFPAY ==
[2024-02-15 14:27] VITALS: BMI 29.0
[2024-02-16 09:34] VITALS: BP 137/77; PULSE 66; RESP 16; TEMP 36.6; O2SAT 95
[2024-02-16] MEDS: TETRACAINE 0.5% OPTH SOL 15ML OP (09:44)
[2024-02-16] MEDS: APRACLONIDINE 0.5% OPHTH SOLN 5ML OP (09:45)
[2024-02-16] MEDS: PHENYLEPHRINE 2.5% OPHTH SOLN 2ML OP (09:46)
[2024-02-16] MEDS: TROPICAMIDE 1% OPTH SOLN 2ML OP (09:47)
[2024-02-16 13:34] LABS: POC Glucose,Bedside 112 (70-110)
--- NOTE | 2024-03-22 10:47 | HMH.PROCNOTE ---
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 The patient has noticed that the vision has decreased from the previous good level postop. The patient reports that he/she is having trouble reading and/or driving or that glare is giving them a problem. On exam, the patient was found to have visually significant posterior capsular opacification. The treatment options, risks and benefits were explained and the patient elected to have YAG laser capsulotomy in an attempt to improve the vision. Of note, the best corrected visual acuity is in the 23/30 or worse range by refraction or glare testing. The eye was dilated and 1 drop of 0.5% Iopidine applied. YAG laser energy was applied to the posterior capsular bag with good formation of an opening and no complications were noted. The patient will be seen back for follow up in 2 weeks
== END 2024-02-16 10:30 | disposition home or self-care (01) ==
PROVIDERS: PCP Physician Assistant; Visit Provider Ophthalmology
PROC: (CPT 66821; principal; 2024-02-16 07:30)
DX: H26.493 Other secondary cataract, bilateral (principal); E11.9 Type 2 diabetes mellitus without complications; Z79.84 Long term (current) use of oral hypoglycemic drugs
CPT/HCPCS: 66821; 82962

== ENCOUNTER 2024-08-15 15:01 | Outpatient (CLI) | payer MEDICARE, OTHER, SELFPAY ==
--- OUTSIDE RECORDS SUMMARY | 2024-07-01 05:15 | XMS_ITS ---
Author Organization [facility] Address [address] [place] [phone] Care Team Providers Care Nuclear Cardiology Technologist Name Role Phone Bbo Marcelino Primary Care Provider Marge Puckett Unavailable [phone] Olinda Kim Unavailable [phone] Allergies Allergen (clinical drug ingredient) Drug/Non Drug [address] [place] [phone] 07/01/2024 Olinda Kim Comedone L70.0 and Perirectal [...] * KAEKLAUSIE LDOB: [birth year] (69 yo F)Acc No.[id number]:07/01/2024 Progress Notes Patient: ELAINE DRAKE Provider: GRACIELA Knight :1955 A ge:69 Y S ex:Female Date:07/01/2024 Address:[facility] [id number] Pcp:Marcelino Rojas Subjective: * [...] rn * Billing Information: * Visit Code: 05391 Office Visit, Est Pt., Level 3. * Procedure Codes: G2211 Complex e/m visit add on. 3074F SYST BP LT 130 MM HG. 3078F DIAST BP < 80 MM HG. * Electronic signature of GRACIELA Tran on 08/15/2024 at 03:03 PM EDT Sign off status: Pending * Provider: GRACIELA Knight Date: 0 07/01/2024 Generated for Maxime pride/Loi/Lisetteitting on: 0 08/15/2024 03:03 PM EDT History and Physical Notes * HPI [...]
--- OUTSIDE RECORDS SUMMARY | 2024-08-03 12:15 | XMS_ITS ---
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 Cruz to look at a skin lesion and also for an annual exam, Zara Moe 08/04/2024 09:19:32 AM > faxed to Dr. Cruz's office Referral Priority Routine REASON FOR VISIT spots on arm, purplish red Medications Medication SIG (Take, Route, Frequency, Duration) Notes Start Date End Date Status Furosemide 20 MG 1 tablet Orally Once a day Active Spironolactone 50 MG 1/2 tab orally Active Accu-Chek Guide - USE 1 STRIP TO CHECK GLUCOSE ONCE DAILY for 90 days Dx code E11.9 Active Furosemide 40 MG 1/2 tab orally once a day Not-Taking Leqvio 284 MG/1.5ML as directed subcutaneously every 6 months Not-Taking Accu-Chek Softclix Lancets - 1 lancet 03/28/2024 Active Meloxicam 15 MG 1 tablet Orally Once a day 04/29/2024 Active Levothyroxine Sodium 50 MCG Take 1 tablet by mouth once daily for 90 Active Accu-Chek Softclix Lancets - USE 1 TO CHECK GLUCOSE ONCE DAILY for 90 Active metFORMIN HCl ER 500 MG Take 1 tablet by mouth twice daily for 90 Active GLUCOMETER DIRECTED TEST QD E11.9 *Pleas e review for potential replacement for e-prescription and drug interaction check* 04/25/2022 Active SILICONE BREAST PROSTHESES DIRECTED DIRECTED Z85.3 *Please review for potential replacement for e-prescription and drug interaction check* 02/21/2022 Active MASTECTOMY BRA DIRECTED ORAL for 14 DAYS 02/21/2022 Active SILICONE BREAST PROSTHESES 1 PROSTHESES DIRECTED 06/15/2017 Active BRA WITH PROSTHESIS 4 BRAS DIRECTED 06/15/2017 Active Vital Signs Blood pressure systolic 124 mm Hg 08/04/19 25 Blood pressure diastolic 82 mm Hg 025 Heart Rate 72 /min 08/03/2024 Height 65 in 08/03/2024 Weight 179.4 lbs 08/03/2024 BMI 29.85 kg/m2 08/03/2024 Encounters Encounter Location Date Provider Diagnosis [facility] [address] [facility] [address] [place] [id number] 08/03/2024 Olinda Kim Neoplasm of uncertai n behavior of skin D48.5 and BMI 29.0-29.9,adult Z68.29 Assessments Encounter Date Diagnosis (ICD Code) Assessment Notes Treatment Notes Treatment Clinical Notes Section Notes 08/03/2024 Neoplasm of uncertain behavior of skin (ICD-10 - D48.5) 08/03/2024 BMI 29.0-29.9,adult (ICD-10 - Z68.29) Plan Of Treatment Referrals Referral Date Details 08/03/2024 08/03/2024 Next Appt Details Follow Up: with dermatology, Reason: Progress Notes * ELAINE PAL LDOB: [birth year] (69 yo F)Acc No.[id number]:08/03/2024 Progress Notes Patient: Andrea CHIVOELAINE Moe Provider: GRACIELA Knight DOB:1955 A ge:69 Y S ex:Female Date:08/03/2024 Address:[place], [id number] Pcp:Marcelino Rojas Subjective: * Chief Complaints: * 1 . Spots on arm, purplish red. * HPI: D ermatology: 69 year old female presents with c/o redness P t is here today with c/o purplish/red spots on her rt arm. Pt sts she had carpal tunnel on the right on June 30 and sts when she took her bandaging off she noticed the spots on her rt arm. Pt sts they are rasied as well and a darker shade of purple. Pt sts she would like to make sure it is not skin cancer.? * ROS: C ARDIOLOGY: no D izziness. [...] Taking MASTECTOMY BRA DIRECTED ORAL , Taking Accu-Chek Softclix Lancets - Miscellaneous USE 1 TO CHECK GLUCOSE ONCE DAILY , Taking Accu-Chek Softclix Lancets - Miscellaneous 1 lancet , Taking Meloxicam 15 MG Tablet 1 tablet Orally Once a day , Taking Levothyroxine Sodium 50 MCG Tablet Take 1 tablet by mouth once daily , Taking metFORMIN HCl ER 500 MG Tablet Extended Release 24 Hour Take 1 tablet by mouth twice daily , Taking Accu-Chek Guide - Strip USE 1 STRIP TO CHECK GLUCOSE ONCE DAILY , Notes to Pharmacist: Dx code E11.9, Not-Taking Furosemide 40 MG Tablet 1/2 tab orally once a day , Not-Taking Leqvio 284 MG/1.5ML Solution Prefilled Syringe as directed subcutaneously every 6 months , Medication List reviewed and reconciled with the patient * Allergies: A ugmentin: rash, Decongestant: tachycardia - Side Effects. Objective: * Vitals: W t: 179.4, Temp: 98.1, BP: 124/82, HR: 72, Nurse: clark, Ht: 65, BMI:29.85. * Examination: G eneral Examination: General Appearance: N AD. Skin: 2 skin lesions on the right forearm, they appear to be bruises and are red and dark pigmented, however they have been present for over a month and are not fading. Assessment: * Assessment: 1. 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 B [place] 29.0-29.9,adult - Z68.29 Plan: * Treatment: * Procedure Codes: G 2211 Complex e/m visit add on, G8420 BMI<30 AND >=22 CALC & DOCU * Follow Up: w [facility] * Billing Information: * Visit Code: 39210 Office Visit, Est Pt., Level 3. * Procedure Codes: G2211 Complex e/m visit add on. G8420 BMI<30 AND >=22 CALC & DOCU. * Electronic signature of GRACIELA Tran on 08/15/2024 at 03:04 PM EDT Sign off status: Pending * Provider: GRACIELA Knight Date: 0 08/03/2024 Generated for Maxime pride/Loi/Lisetteitting on: 0 08/15/2024 03:04 PM EDT History and Physical Notes * HPI (History of Present Illness) Category Sub-Category Detail Notes Category Not es Dermatology redness Pt is here today with c/o purplish/red spots on her rt arm. Pt sts she had carpal tunnel on the right on June 30 and sts when she took her bandaging off she noticed the spots on her rt arm. Pt sts they are rasied as well and a darker shade of purple. Pt sts she would like to make sure it is not skin cancer Examination Category Sub-Category Detail Notes Category Not es General Examination General Appearance: NAD Skin: 2 skin lesions on th e right forearm, they appear to be bruises and are red and dark pigmented, however they have been present for over a month and are not fading Consultation Request Notes Referral Date Referring Provider Referred Provider Not es 08/03/2024 Olinda Kim ,
--- OUTSIDE RECORDS SUMMARY | 2024-08-11 07:55 | XMS_ITS ---
Author Organization [facility] Address [address] [facility] [address] [place] [id number] Care Team Providers Care Company Doctor Name Role Phone Marcelino Rojas Primary Care Provider ItaloMarge cortez [facility] [phone] REASON FOR VISIT due for screening Encounters Encounter Location Date Provider Diagnosis [place] [address] [facility] [address] [place] [phone] 08/11/2024 [place] Colon cancer screeni ng Z12.11 and Osteopenia M85.80 Assessments Encounter Date Diagnosis (ICD Code) Assessment Notes Treatment Notes Treatment Clinical Notes Section Notes 08/11/2024 Colon cancer screening (ICD-10 - Z12.11) 08/11/2024 Osteopenia (ICD-10 - M85.80) Plan Of Treatment Pending Test Test Name Order Date Bone density 08/11/2024 Progress Notes * ELAINE PAL LDOB: [birth year] (69 yo F)Acc No.[id number]:08/11/2024 Patient: KLAUS DRAKEDEBO Yañez :1955 A ge:69 Y S ex:Female Address:[facility] [place] [address] Subjective: * Chief Complaints: * D ue for screening * Medical History: * Surgical History: * Hospitalization/Major Diagno stic Procedure: * Medications: Objective: * Vitals: * Physical Examination: Assessment: * Assessment: 1. C milanaon cancer screening - Z12.11 (Primary) 2 . O steopenia - M85.80 Plan: * Treatment: * Procedure Codes: * true * Date: Generated for Maxime pride/Loi/Mando on: 0 08/15/2024 03:03 PM EDT
--- OUTSIDE RECORDS SUMMARY | 2024-08-15 15:04 | XMS_ITS | Clinical Summary ---
Author Organization [facility] Address [address] [place] [address] Care Team Providers Care Guitar Instructor Name Role Phone Jc Sanabria MD Primary Care Provider [phone] Family History Medical History Relation Name Comments Diabetes Father Hypertension Father Breast cancer Mother Diabetes Mother Hypertension Mother Hypertension Other Diabetes Sister 1 Thyroid cancer Sister 2 Relation Name Status Comments Father Mother Other Sister 1 Sister 2 Social History Tobacco Use Types Packs/Day Years Used Date Smoking Tobacco: Never Alcohol Use Standard Drinks/Week Comments No 0 (1 standard drink = 0.6 oz pur e alcohol) Comments Unknown Sex and Gender Information Value Date Recorded Sex Assigned at Not on file Legal Sex Female 7:45 PM EDT Gender Identity Not on file Sexual Orientation Not on file Last Filed Vital Signs Vital Sign Reading Time Taken Comments Blood Pressure - - Pulse - - Temperature - - Respiratory Rate - - Oxygen Saturation - - Inhaled Oxygen Concentration - - Weight 81.7 kg (180 lb 0.1 oz) 02/08/2014 11:54 AM EST Height 167.6 cm (5' 6 ) 02/08/2014 11:54 AM EST Body Mass Index 29.05 02/08/2014 11:54 AM EST Plan of Treatment Not on file Care Teams Guitar Instructor Relationship Specialty Start Date End Date Jc Sanabria MD [address] [place] [id number] PCP - General 07/20/20
--- OUTSIDE RECORDS SUMMARY | 2024-08-15 15:04 | XMS_ITS | Data Portability ---
Author Organization [place] - [facility] [place] Address [address] [place] [id number] Assessment No assessment recorded. Plan of Treatment Reminders Order Date Submit Date Provider Last Modified By Organization Details Last Modified Time Details Appointments None recorded. Lab None recorded. Referral None recorded. Procedures None recorded. Surgeries None recorded. Imaging [place], sestamibi scan [address] Centralized Scheduling, [address] [place], [address], 11:19:43 Medication Orders None recorded. Patient TargetsNo targets recorded. Patient InstructionsNo instructions recorded. Reason for Referral None Reported. Results Created Date Observation Date Name Description Value Unit Range Abnormal Flag Note LastModifiedBy Organization Detail LastModifiedTime 03/18/19 24 03/18/2023 CBC AUTO W DIFF WBC 8.2 K/uL 4.0-10 .5 Not Available [facility] ([facility]) [address], [place], [address], 03/18/2023 10:20:10 03/18/19 24 03/18/2023 CBC AUTO W DIFF RBC 4.3 M/mm3 4.2-6. 4 Not Available [facility] ([facility]) [address], [place], [address], 03/18/2023 10:20:10 03/18/19 24 03/18/2023 CBC AUTO W DIFF HGB 14.0 gm/dL 12.5-1 6.0 Not Available [facility] ([facility]) [address], [place], [address], 03/18/2023 10:20:10 03/18/19 24 03/18/2023 CBC AUTO W DIFF HCT 41.0 % 37.0-4 7.0 Not Available [facility] ([facility]) [address] , [place], [address], 03/18/2023 10:20:10 03/18/19 24 03/18/2023 CBC AUTO W DIFF MCV 95.1 fL 78-100 Not Available [facility] ([facility]) [address], [place], [address], 03/18/2023 10:20:10 03/18/19 24 03/18/2023 CBC AUTO W DIFF MCH 32.5 pg 27-31 high Not Available [facility] ([facility]) [address], [place], [address], 03/18/2023 10:20:10 03/18/19 24 03/18/2023 CBC AUTO W DIFF MCHC 34.1 g/dL 32-36 Not Available [facility] ([facility]) [address] [facility], [place], [address], 03/18/2023 10:20:10 03/18/19 24 03/18/2023 CBC AUTO W DIFF RDW 12.4 % 11.5-1 4.0 Not Available [facility] ([facility]) [address] [place], [address], 03/18/2023 10:20:10 03/18/19 24 03/18/2023 CBC AUTO W DIFF platelet count 287 K/uL 150-45 0 Not Available [facility] ([facility]) [address] [place], [address], 03/18/2023 10:20:10 03/18/19 24 03/18/2023 CBC AUTO W DIFF MPV 10.6 fL 6-9.5 high Not Available [facility] ([facility]) [address] [facility], [place], [address], 03/18/2023 10:20:10 03/18/19 24 03/18/2023 CBC AUTO W DIFF neutrophil% 64.1 % 43-65 Not Available [facility] ([facility]) [address] [facility], [place], [address], 03/18/2023 10:20:10 03/18/19 24 03/18/2023 CBC AUTO W DIFF lymphocyte% 22.9 % 20.5-4 5.5 Not Available [facility] ([facility]) [address] [facility], [place], [address], 03/18/2023 10:20:10 03/18/19 24 03/18/2023 CBC AUTO W DIFF monocyte% 10.0 % 5.5-11 .7 Not Available [facility] ([facility]) [address] [facility], [place], [address], 03/18/2023 10:20:10 03/18/19 24 03/18/2023 CBC AUTO W DIFF eosinophil% 1.9 % 0.9-2. 9 Not Available [facility] ([facility]) [address] [facility], [place], [address], 03/18/2023 10:20:10 03/18/19 24 03/18/2023 CBC AUTO W DIFF basophil% 0.7 % 0.2-1. 0 Not Available [facility] ([facility]) [address] [place], [address], 03/18/2023 10:20:10 03/18/19 24 03/18/2023 CBC AUTO W DIFF immature granulocytes % 0.4 % 0.0-0. 8 Not Available [facility] ([facility]) [address] [place], [address], 03/18/2023 10:20:10 03/18/19 24 03/18/2023 CBC AUTO W DIFF nucleated red blood cells % 0.0 % Not Available [facility] ([facility]) [address] [facility], [place], [address], 03/18/2023 10:20:10 03/18/19 24 03/18/2023 CBC AUTO W DIFF neutrophil# 5.3 K/uL 2.2-4. 8 high Not Available [facility] ([facility]) [address] [facility], [place], [address], 03/18/2023 10:20:10 03/18/19 24 03/18/2023 CBC AUTO W DIFF lymphocyte# 1.9 cell/ mcL 1.3-2. 9 Not Available [facility] ([facility]) [address], [place], [address], 03/18/2023 10:20:10 03/18/19 24 03/18/2023 CBC AUTO W DIFF monocyte# 0.8 cell/ mcL 0.3-0. 8 Not Available [facility] ([facility]) [address] [facility], [place], [address], 03/18/2023 10:20:10 03/18/19 24 03/18/2023 CBC AUTO W DIFF eosinophil# 0.2 cell/ mcL 0-0.2 Not Available [facility] ([facility]) [address] [facility], [place], [address], 03/18/2023 10:20:10 03/18/19 24 03/18/2023 CBC AUTO W DIFF basophil# 0.1 cell/ mcL 0.0-1. 0 Not Available [facility] ([facility]) [address] [facility], [place], [address], 03/18/2023 10:20:10 03/18/19 24 03/18/2023 CBC AUTO W DIFF immature gramulocytes # 0.03 K/uL Not Available [facility] ([facility]) [address] [place], [address], 03/18/2023 10:20:10 03/18/19 24 03/18/2023 CBC AUTO W DIFF nucleated red blood cells # 0.00 K/uL Not Available [facility] ([facility]) [address], [place], [address], 03/18/2023 10:20:10 03/18/19 24 03/18/2023 CBC AUTO W DIFF manual differential NO Not Available [facility] [address] , [place], [address], 03/18/2023 10:20:10 03/18/19 24 03/18/2023 BASIC METAB OLIC PANEL sodium 140 mmol/ L 136-14 5 Not Available [facility] ([facility]) [address], [place], [address], 03/18/2023 10:39:54 03/18/19 24 03/18/2023 BASIC METAB OLIC PANEL potassium 4.0 mmol/ L 3.6-5. 0 Not Available [facility] ([facility]) [address] , [place], [address], 03/18/2023 10:39:54 03/18/19 24 03/18/2023 BASIC METAB OLIC PANEL chloride 103 mmol/ L 98-107 Not Available [facility] ([facility]) [address], [place], [address], 03/18/2023 10:39:54 03/18/19 24 03/18/2023 BASIC METAB OLIC PANEL carbon dioxide 29.5 mmol/ L 21.0-3 2.0 Not Available [facility] ([facility]) [address] [place], [address], 03/18/2023 10:39:54 03/18/19 24 03/18/2023 BASIC METAB OLIC PANEL anion gap 11.5 Not Available [facility] ([facility]) [address] [place], [address], 03/18/2023 10:39:54 03/18/19 24 03/18/2023 BASIC METAB OLIC PANEL glucose 136 mg/dL 70-120 high Not Available [facility] ([facility]) [address], [place], [address], 03/18/2023 10:39:54 03/18/19 24 03/18/2023 BASIC METAB OLIC PANEL BUN 17 mg/dL 7-18 Not Available [facility] ([facility]) [address], [place], [address], 03/18/2023 10:39:54 03/18/19 24 03/18/2023 BASIC METAB OLIC PANEL creatinine 1.0 mg/dL 0.6-1. 3 Not Available [facility] ([facility]) [address] [facility], [place], [address], 03/18/2023 10:39:54 03/18/19 24 03/18/2023 BASIC METAB OLIC PANEL glomerular filtration rate 59 mlper min 60- low Not Available [facility] ([facility]) [address] [place], [address], 03/18/2023 10:39:54 03/18/19 24 03/18/2023 BASIC METAB OLIC PANEL calcium 9.6 mg/dL 8.5-10 .5 Not Available [facility] ([facility]) [address] [place], [address], 03/18/2023 10:39:54 03/26/19 24 03/26/2023 CALCI UM TOTAL calcium 9.4 mg/dL 8.5-10 .5 Not Available [facility] ([facility]) [address] [place], [address], 03/26/2023 15:48:17 03/26/19 24 03/26/2023 VITAM IN D, 25-HY DROXY vitamin D, 25-hydroxy 98.0 NG/mL 30.0-1 00.0 Not Available [facility] ([facility]) [address] , [place], [address], 03/26/2023 16:14:31 03/27/19 24 03/29/2023 PTH, INTAC T PTH, intact 47 pg/mL 15-65 Perfo rmed at: [facility] - [facility] [address] [address] Lab Direc tor: Jona long PhD, Phone : [phone] Not Available [facility] ([facility]) [address] , [place], [address], 03/29/2023 10:09:29 11/26/19 23 07/11/2022 CT, neck, soft tissu e, w/ contr ast No observ ation record ed. Not Available 15:30:30 11/26/19 23 04/30/2022 US, thyro id No observ ation record ed. BARCODE Not Available 2022 14:48:01 12/16/19 23 12/15/2022 nm parat hyroi d [facility] [address] [place] [address] Phone: Fax: Name: KEYANNA COLON Exam Date: 023 : [birth year] Age 67 years Gender : F Access ion: [id number] Physic nathaly: MELISSA RIBEIRO Facili ty: [facility] Facili ty HSV: Outpat ient Exam: NM PARATH YROID SCAN SCAN NUCLEA R PARATH YROID SCAN INDICA TION: Hyperp arathy roidis m COMPAR AL: No prior ultras ound imagin g is availa ble at this time for compar al. TECHNI QUE: Patien t was inject ed with 20.70 mCi of techne tium 99m sestam ibi. 10 minute and 2 hour delaye d images were obtain ed. FINDIN GS: Activi ty is noted in the saliva ry glands and the thyroi d on the immedi ate images . There is asymme trical increa sed activi ty seen within the right thyroi d on the 10 minute images which persis ts on the 2.5 Hour delays . Findin gs are concer trice for an adenom a. Correl ate clinic ally. IMPRES FORREST: Persis tent activi ty in the right thyroi d concer trice for parath yroid adenom a. Dictat ed By: RAMA HORTA Transc ribed By: RAMA HORTA Transc ribed On: 023 1:35 PM Electr onical ly signed by: RAMA HORTA [facility] Legall y authen ticate d by POPE RAMA Mendez DO 2022-03 13:35: 05 CC'ed Logic: Orderi ng Provid er: QUINTIN JUSTICE CC Provid er: KAITLYNN ALVAREZ Attend ing Provid er: QUINTIN JUSTICE Referr ing Provid er: QUINTIN JUSTICE Admitt ing Provid er: QUINTIN JUSTICE [email or web address] [facility] (Radiology) [address] , [place], [address], 12/19/2022 12:35:14 Result Notes None recorded. Problems No Known Problems Procedures Surgical History Date Name Laterality Status Provider Name and Address Organization Details Recorded Time Hysterectomy completed Gina Damon [facility] 12/10/2022 10:53:56 Imaging Results None recorded. Procedure Notes None recorded. Medical Equipment None Reported. Allergies Allergen ID Allergen Name Allergen Category Reaction Reaction Severity Criticality Documentation Date Start Date Code Code System Note Provider Name and Address Organization Details Recorded Time 69095 Augmentin medicatio n Not available Not available Not available 12/10/2022 71845 2 RxNorm Not Available [facility] 14:14:06 89137 Propylami ne derivativ e with histamine receptor antagonis t mechanism of action (substanc e) medicatio n Not available Not available Not available 12/10/2022 22818 8008 SNOMED Gina Damon null, [place] - [facility] - [place] [facility] [place] 3 11:09:24 Medications Name Sig Start Date Stop Date Status Note LastModified by Organization Details LastModified Time furosemide 40 mg tablet TAKE 1 TABLET BY MOUTH ONCE DAILY active Not Available Not Available No t Available azithromyci n 250 mg tablet 12/10 completed Not Available Not Available Not Available sotalol 80 mg tablet TAKE 1 TABLET BY MOUTH TWICE DAILY 12/10 completed Not Available Not Available Not Available meloxicam 15 mg tablet TAKE 1 TABLET BY MOUTH ONCE DAILY 12/10 completed Not Available Not Available Not Available Accu-Chek Softclix Lancets USE 1 TO CHECK GLUCOSE ONCE DAILY active Not Available Not Available No t Available valsartan 80 mg tablet TAKE 1 TABLET BY MOUTH ONCE DAILY 12/10 completed Not Available Not Available Not Available doxycycline monohydrate 100 mg tablet TAKE 1 TABLET BY MOUTH TWICE DAILY FOR 10 DAYS active Not Available Not Available No t Available bisoprolol fumarate 5 mg tablet TAKE 1 TABLET BY MOUTH ONCE DAILY active Not Available Not Available No t Available levothyroxi ne 50 mcg tablet TAKE 1 TABLET BY MOUTH ONCE DAILY active Not Available Not Available No t Available oseltamivir 75 mg capsule TAKE 1 CAPSULE BY MOUTH TWICE DAILY FOR 5 DAYS 12/10 completed Not Available Not Available Not Available neomycin-po lymyxin-dex ameth 3.5 mg/mL-10,00 0 unit/mL-0.1 % eye drops INSTILL 1 DROP 4 TIMES DAILY INTO LEFT EYE FOR 1 WEEK, IF NEEDED USE 2 TIMES A DAY FOR 1 MORE WEEK active Not Available Not Available No t Available metoprolol succinate ER 25 mg tablet,exte nded release 24 hr TAKE 1/2 (ONE-HALF ) TABLET BY MOUTH ONCE DAILY 12/10 completed Not Available Not Available Not Available methylpredn isolone 4 mg tablets in a dose pack TAKE BY MOUTH DIRECTED ON INSIDE OF PACKAGE 12/10 completed Not Available Not Available Not Available metformin ER 500 mg tablet,exte nded release 24 hr TAKE 1 TABLET BY MOUTH ONCE DAILY active Not Available Not Available No t Available spironolact one 50 mg tablet TAKE 1 TABLET BY MOUTH ONCE DAILY FOR BLOOD PRESSURE active Not Available Not Available No t Available propafenone ER 225 mg capsule,ext ended release 12 hr TAKE 1 CAPSULE BY MOUTH EVERY 12 HOURS 12/10 completed Not Available Not Available Not Available aspirin active Not Available Not Avail able Not Available cholecalcif handy (vitamin D3) 1,250 mcg (50,000 unit) capsule TAKE 1 CAPSULE BY MOUTH ONCE A WEEK active Not Available Not Available No t Available nebivolol 2.5 mg tablet TAKE 1 TABLET BY MOUTH ONCE DAILY active Not Available Not Available No t Available Repatha SureClick 140 mg/mL subcutaneou s pen injector INJECT 140 MG SUBCUTANE OUSLY EVERY TWO WEEKS 12/10 completed Not Available Not Available Not Available Accu-Chek Guide test strips USE 1 STRIP TO CHECK GLUCOSE ONCE DAILY active Not Available Not Available No t Available Accu-Chek Guide Glucose Meter USE TO CHECK GLUCOSE ONCE DAILY active Not Available Not Available No t Available Vitals Date Recorded Body height Body mass index (BMI) Body weight Body temperature Provider Name and Address Organization Details Last Updated DateTime 04/02/2023 162.56 cm 30.7 kg/m2 29729.03 g 98.5 [degF] Rose Luuy [facility] [place] 04/02/2023 14:24:21 Date Recorded Body height Body mass index (BMI) Body weight Provider Name and Address Organization Details Last Updated DateTime 12/10/2022 162.56 cm 29.9 kg/m2 02937.07 g Gina [facility] [place] 12/10/2022 10:51:16 Date Recorded Body height Body mass index (BMI) Body weight Provider Name and Address Organization Details Last Updated DateTime 12/24/2022 162.56 cm 29.9 kg/m2 68664.07 [facility] [place] 12/24/2022 15:02:34 Social History None recorded. Functional Status None recorded. Mental Status None recorded. Family History Nothing Reported. Medical History Condition Response Allergies/Hayfever Y Thyroid Problems Y Diabetes Y Arthritis Y Hyperlipidemia Y Cancer Y Hypertension Y Gynecological HistoryNo gynecological history recorded. Obstetrics History GPAL:G 0 P 0 0 0 0 Past Encounters Encounter ID Performer Location Encounter Start Date Encounter Closed Date Diagnosis/Indication Diagnosis SNOMED-CT Code Diagnosis ICD10 Code Diagnosis Note [id number] Melissa Ribeiro MD [facility] P-[address] [facility], [place] [address] 12/10/2022 10:28:19 12/10/2022 11:49:25 Hyperparathyroidism 40267100 E21.[address] scan and thyroid U/S with the patient myself in the office today. Explained there was nothing concerning on that scan. I would like for her to get a sestamibi scan for further work up, if this is not localizing , may need a SPEC CT Hypothyroidism 84613032 E03.9 Continue current dose of Synthroid. [id number] Melissa Ribeiro MD [facility] P[address] [facility], [facility] [address] [place] [id number] 12/24/2022 14:44:05 12/24/2022 15:26:56 Parathyroid adenoma 826179267 D35.1 Went over the sestamibi scan results with patient myself in the office today. Her scan was consistent with a right-side d parathyroi d adenoma. Given her elevated serum calcium and elevated parathyroi d hormone I would recommend minimally invasive parathyroi dectomy. Risks, benefits and alternativ es to this procedure were discussed which include but are not limited to bleeding, infection, damage to the recurrent laryngeal nerve, failure to identify the offending parathyroi d adenoma and need for further procedures . She understand s this is not an exhaustive list of all possible risks. In the meantime, I would like for her to discontinu e the calcium but continue taking the vitamin D. Will see her back post operativel y; sooner if needed. Hyperparathyroidism 6699 9008 E21.3 Hypercalcemia 02864715 E 83.52 [id number] Melissa Ribeiro MD [facility] G -[address] [address] 04/02/2023 14:20:25 04/02/2023 14:30:28 Parathyroid adenoma 021744702 D35.1 Went over patient's post op parathyroi d labs and explained they were all back to within normal range. She can start to taper off her calcium supplement . I do recommend that her vitamin D level stay above 50. Her path was reviewed by me today which was consistent with benign parathyoid tissue although no mention of hypercellu larity. All her labs show resolution of hypercalce mando and previously elevated PTH is now 47. Follow up as needed. Hyperparathyroidism 6699 9008 E21.3 Hypercalcemia 75458045 E 83.52 Health Concerns Section Related Observation LastModified by Organization Detai ls LastModified Time None Recorded Concern Status LastModified by Organization Details LastModified Time None Recorded Advance Directives Directive None Recorded Payers Insurance Date Sequence Insurance Name Policy Number Policy Wu Covered Member ID Wu Member ID Guarantor Name 09/26/2023 2 [employer] (MEDICARE SUPPLEMENT) Keyanna Manzano [id number] Keyanna Manzano 09/26/2023 1 [facility] - MEDICARE-[address] (MEDICARE) Keyanna Manzano [id number] Keyanna Manzaon 12/10/2022 1 [employer] [id number] R Stan Manzano [id number] Keyanna Manzano Notes Date Note Type Note Provider Name and Address Organization Details Recorded Time 3 text/html 67 yo is here for hyperparathyroidism referred by Olinda Kim. Patient went to PCP for routine exam and she had blood work and T4 was high. She is taking a thyroid supplment. She felt a mass near her thyroid. Brought this to her PCP's attention and was sent to Dr Horta at [facility]. He sent her for a CT scan. Patient sees Dr Madsen for her heart issues and he done some blood work and that showed her Calcium and subsequently her PTH was elevated. Patient has had breast cancer, sister had thyroid caner (Hurthle Cell Carcinoma). She reports fatigue. He DEXA scan was concerning for osteoporosis. Melissa Ribeiro MD [address], [place], [address], [facility] & [place] 12/10/2022 13:01:29 3 text/html 67 yo is here for follow up on imaging.Patient states she has stopped her VIt D3 because her calcium was elevated. Melissa Ribeiro MD [address], [place], [address], [facility] & [place] 12/26/2022 12:17:29 text/html Post op parathyroid that was done 03/26/23. Still having some swelling and soreness, otherwise, no trouble. Denies any tingling in her fingers/extremities. Her post operative calciums trended down from 9.4--->9.3---->8.9. (11.8 on 10/29) Her PTH POD #1 was 47. This had previously been 115 in 10/29 and 69 in 01/29. Her vitamin D level was 98 when checked inpatient. Melissa Ribeiro MD [address], [place], [address], [facility] - [place] [facility] [place] 04/02/2023 15:31:00 OBGyn Episode No OBEpisode recorded.
--- OUTSIDE RECORDS SUMMARY | 2024-08-15 15:04 | XMS_ITS | Encounter Summary ---
Author Organization [id number] Address [address] [place] [address] Care Team Providers Care Modeling Analyst Name Role Phone Unavailable Primary Care Provider Unavailabl e Encounter Details Date Type Department Care Team (Late st Contact Info) Description 10/29/2018 Transcribed Document [facility] Radiology [address] [place] [address] Provider, Larry Pemberton MD Social History Tobacco Use Types Packs/Day Years Used Date Smoking Tobacco: Never Assessed Comments Unknown Sex and Gender Information Value Date Recorded Sex Assigned at Not on file Legal Sex Female 1:43 PM CDT Gender Identity Not on file Sexual Orientation Not on file documented as of this encounter Miscellaneous Notes * Cerner Conversion Note - [facility] Nie[place] ProviderMD - 10/29/2018 9:06 AM EDT Patient: KEYANNA PAL Age: 63 years Sex: Female : 1955 Associated Diagnoses: None Author: CASSIUS AVILES MD-INDIA Basic Information Source of history: Self. Present at bedside: Family member. Referral source: Alissa Upton MD . History limitation: None. Chief Complaint Diverticulitis, Diarrhea History of Present Illness Dr Upton has asked us to see this patient today for further evaluation recent diverticulitis. CT of the abdomen and pelvis on 08/09/18 showed findings consistent with acute diverticulitis of the sigmoid colon without evidence of abscess or perforation and diverticulosis of the descending and sigmoid colon. She was treated with Levaquin and Flagyl and reports that her symptoms have resolved aside from some mild lower abdominal pain. Patient does complain of diarrhea that has been present for years. She typically has two loose bowel movements daily, but will occasional have a thin , formed bowel movement. Associated symptoms include lower abdominal cramping, urgency, and occasional incontinence of stool. She denies taking antidiarrheals, but has taken some fiber supplements intermittently. She is s/p cholecystectomy. Denies family history of IBD or colon cancer. No rectal bleeding or weight loss. Denies NSAID use. Last colonoscopy in [address] Gonzalez showed a single sessile (tubular adenoma) polyp in the cecum, a single sessile (hyperplastic) polyp in the rectum, diverticulosis in the left side colon, and internal grade II hemorrhoids. Histories Past Medical History: Active Hiatal hernia (6135609875) Reflux ([id number]) Breast cancer (014021900) HTN (hypertension) (6834869349) Hyperlipemia (07935097) Murmur, cardiac (6162149384) Palpitations (019078412) Asthma, exercise induced (7413527194) Diarrhea (768614556) Diverticulitis (583436701) Procedure history: egd. colonoscopy. Cholecystectomy; (14887). mastectomy. hysterectomy. EGD. Colonoscopy (678956389). Hysterectomy (030821448). Mastectomy (1637225455). Tonsillectomy (092113183). Cholecystectomy (11121281). Social History Social & Psychosocial Habits Alcohol 11/15/2015 Alcohol Use History, Social Habits No Nutrition/Health 11/15/2015 Caffeine intake amount: 8 cups daily Substance Abuse 11/15/2015 Recreational Drug Use History No Recreational Drug Use Last 12 Months No Tobacco 11/15/2015 Smoking Status Never smoker . Family History: Breast cancer Mother Thyroid cancer Sister Health Status Allergies: Allergic Reactions (All) Severity Not Documented Antihistamine- No reactions were documented. Augmentin- Rash., Allergies (2) Active Reaction Antihistamine None Documented Augmentin Rash Current medications: (Selected) Inpatient Medications Ordered Normal Saline 1,000 mL: 100 mL/Hr, IntraVENous Documented Medications Documented Klor-Con M20: mEq, Oral, BID, 0 Refill(s) Maximum D3: Int Units, Oral, Weekly, 0 Refill(s) Metoprolol Succinate ER 100 mg oral tablet, extended release: 0.5 Tab, Oral, Daily, 0 Refill(s) baclofen 10 mg oral tablet: Tab, Oral, Daily, 0 Refill(s) hydrochlorothiazide-losartan 25 mg-100 mg oral tablet: 1 Tab, Oral, Daily, 30 Tab, 0 Refill(s) levothyroxine 50 mcg (0.05 mg) oral tablet: 1 Tab, Oral, Daily, 60 Tab, 0 Refill(s), Medications (1) Active Scheduled: (0) Continuous: (1) NaCl 0.9% 1,000 mL 1,000 mL, IntraVENous, 100 mL/Hr PRN: (0) Problem list: All Problems Reflux / SNOMED CT [id number] / Confirmed At risk for sleep apnea / IMO 85295622 / Confirmed Diarrhea / SNOMED CT 598152834 / Confirmed Diverticulitis / SNOMED CT 084731176 / Confirmed Asthma, exercise induced / SNOMED CT 6592691684 / Confirmed Murmur, cardiac / SNOMED CT 3967271352 / Confirmed Hyperlipemia / SNOMED CT 28594027 / Confirmed HTN (hypertension) / SNOMED CT 7918354892 / Confirmed Breast cancer / SNOMED CT 427514332 / Confirmed Hiatal hernia / SNOMED CT 0171907398 / Confirmed Palpitations / SNOMED CT 782009133 / Confirmed, Active Problems (11) Asthma, exercise induced At risk for sleep apnea Breast cancer Diarrhea Diverticulitis Hiatal hernia HTN (hypertension) Hyperlipemia Murmur, cardiac Palpitations Reflux Review of Systems Constitutional: No fever, No chills, No weight gain, No weight loss. Eye: No recent visual problem, No blurring. Ear/Nose/Mouth/Throat: No dysphagia, No epistaxis, No hoarse voice, No sore throat. Respiratory: No shortness of breath, No cough, No hemoptysis. Cardiovascular: No chest pain, No palpitations, No claudication. Gastrointestinal: Diarrhea, No nausea, No vomiting, No constipation, No heartburn, No belching, No bloating, No hematemesis, No change in bowel habits, No melena, No rectal bleeding. Abdominal pain: Lower quadrant, Middle, Characterized as ( Cramping/colicky, Intermittent ). Genitourinary: No dysuria, No hematuria. Hematology/Lymphatics: No bruising tendency, No bleeding tendency. Endocrine: No excessive thirst, No cold intolerance, No heat intolerance. Musculoskeletal: No joint pain, No muscle pain, No gait disturbance, No joint redness. Integumentary: No rash, No pruritus. Neurologic: No confusion, No dizziness, No headache, No seizure. Psychiatric: No anxiety, No depression. the rest of the 10 system review is negative Physical Examination VS/Measurements Vitals Signs (last 24 hrs) Last Charted Minimum Maximum Temp 97.8 (OCT 29 08:55) 97.8 (OCT 29 08:55) 97.8 (OCT 29 08:55) Mon HR 63 (OCT 29 08:55) 63 (OCT 29 08:55) 63 (OCT 29 08:55) Resp Rate 20 (OCT 29 08:55) 20 (OCT 29 08:55) 20 (OCT 29 08:55) SBP H 168 (OCT 29 08:55) H 168 (OCT 29 08:55) H 168 (OCT 29 08:55) DBP 81 (OCT 29 08:55) 81 (OCT 29 08:55) 81 (OCT 29 08:55) SpO2 100 (OCT 29 08:55) 100 (OCT 29 08:55) 100 (OCT 29 08:55) General: No acute distress. Appearance: Well nourished. Eye: Pupils are equal, round and reactive to light, Extraocular movements are intact, Normal conjunctiva. Sclera: Both eyes, Within normal limits. HENT: Normocephalic, Normal hearing, Oral mucosa is moist. Nose: Both nostrils, Within normal limits, Patent. Mouth: pink. Neck: Supple, Non-tender, No carotid bruit, No jugular venous distention. Respiratory: Lungs are clear to auscultation, Respirations are non-labored, Breath sounds are equal. Pattern: Regular. Cardiovascular: Normal rate, Regular rhythm, No murmur, No gallop, No edema. Arterial pulses: Bilateral, Dorsalis pedis, Within normal limits. Gastrointestinal: Soft, Non-tender, Non-distended, Normal bowel sounds, No organomegaly. Abdomen: Liver ( Within normal limits ). Musculoskeletal: Normal range of motion, Normal strength, No tenderness, No deformity, Normal gait. Integumentary: Warm, Dry, [place], No rash. Integumentary exam: Face, Chest, Arm, Abdomen, Leg. Neurologic: Alert, Oriented, No focal deficits. Orientation: To person, To place, To time. Psychiatric: Cooperative, Appropriate mood & affect, Normal judgment. Review / Management Results review: No qualifying data available. Impression and Plan Diverticulitis, Diarrhea. Proceed with colonoscopy. Risks including that of bleeding, perforation, splenic injury, and missed lesion have been discussed with patient who verbalizes understanding and agrees to proceed. Further recommendations will be based on the above findings. IAlissa NP, have scribed this note for Dr Cassius Gonzalez [facility] Kayleigh Aviles M.D. have personally interviewed the patient, reviewed the chart, performed the physical exam, and formulated the treatment plan. The patient presents for colonoscopy for recent abnormal CT scan showing diverticulitis. She has h/o colon polyps. She complains of mild diarrhea. documented in this encounter Plan of Treatment Not on file documented as of this encounter Visit Diagnoses Not on filedocumented in this encounter
--- OUTSIDE RECORDS SUMMARY | 2024-08-15 15:04 | XMS_ITS | Encounter Summary ---
Author Organization [employer] Address [address] [place] [address] Care Team Providers Care Vegetable Tier Name Role Phone Unavailable Primary Care Provider Unavailabl e Encounter Details Date Type Department Care Team (Late st Contact Info) Description 10/29/2018 Transcribed Document [facility] 1 [place] [address] Provider, Larry Pemberton MD Social History Tobacco Use Types Packs/Day Years Used Date Smoking Tobacco: Never Assessed Comments Unknown Sex and Gender Information Value Date Recorded Sex Assigned at Not on file Legal Sex Female 1:43 PM CDT Gender Identity Not on file Sexual Orientation Not on file documented as of this encounter Miscellaneous Notes * Cerner Conversion Note - [facility] [place] ProviderMD - 10/29/2018 10:26 AM EDT [facility] PAC[facility] Summary Primary Physician: CASSIUS STANFORD MD-GAE Finalized Date/Time: 10/29/18 11:00:31 Pt. Name: KEYANNA PAL/Sex: 1955 Female Med Rec #: [id number] Physician: CASSIUS STANFORD MD-GAE Financial #: [id number] Pt. Type: O Room/Bed: EEN/5 Admit/Disch: 10/29/18 08:02:00 - Institution: [facility] PACU Case Times Entry 1 In PACU I 10/29/18 09:39:00 Ready for PACU 10/29/18 10:44:00 Discharge Discharge from PACU 10/29/18 10:57:00 I [facility] PACU Case Times Audit 10/29/18 11:00:29 Functional Manager: ROMINA Modifier: ROMINA <+> 1 Ready for PACU Discharge <+> 1 Discharge from PACU I Finalized By: VAMSHI CHAVARRIA, RN Document Signatures Signed By: VAMSHI CHAVARRIA RN 10/29/18 11:00 documented in this encounter Plan of Treatment Not on file documented as of this encounter Visit Diagnoses Not on filedocumented in this encounter
--- OUTSIDE RECORDS SUMMARY | 2024-08-15 15:04 | XMS_ITS | Encounter Summary ---
Author Organization [employer] Address [address] [place] [address] Care Team Providers Care Business Continuity Director Name Role Phone Unavailable Primary Care Provider Unavailabl e Encounter Details Date Type Department Care Team (Late st Contact Info) Description 10/29/2018 Transcribed Document [facility] 1 [place] [address] Provider, Larry Pemberton MD Social History Tobacco Use Types Packs/Day Years Used Date Smoking Tobacco: Never Assessed Comments Unknown Sex and Gender Information Value Date Recorded Sex Assigned at Not on file Legal Sex Female 1:43 PM CDT Gender Identity Not on file Sexual Orientation Not on file documented as of this encounter Miscellaneous Notes * Cerner Conversion Note - [facility] [place] ProviderMD - 10/29/2018 10:26 AM EDT [facility] IntraOp Summary Primary Physician: CASSIUS STANFORD MD-GAE Finalized Date/Time: 10/29/18 09:36:56 Pt. Name: KEYANNA PAL D.O.B./Sex: 1955 Female Med Rec #: [id number] Physician: CASSIUS STANFORD MD-GAE Financial #: [id number] Pt. Type: O Room/Bed: [facility]/ Admit/Disch: 10/29/18 08:02:00 - Institution: [facility] - Case Attendance Entry 1 Entry 2 Entry 3 Case Attendee Morris STANFORD Elizabeth A, Rn DUNHAM, CHRIS RAM Role Performed Surgeon/Proceduralist, Sausage Cutter, First Scrub, First First Time In 10/29/18 09:23:00 10/29/18 09:18:00 10/29/18 09:19:00 Time Out 10/29/18 09:37:00 10/29/18 09:37:00 10/29/18 09:37:00 Procedure Colonoscopy, Colon Colonoscopy, Colon Colonoscopy, Colon Polypectomy Polypectomy Polypectomy Other Attendee Superficial Wound Closed By: Last Modified By: Lynne Caceres Rn Jones, Elizabeth A, Rn Jones, Elizabeth A, Rn 10/29/18 09:36:12 10/29/18 09:36:12 10/29/18 09:36:12 Entry 4 Case Attendee HEENA SOUZA NA Role Performed COMMUNITY ENGAGEMENT REPRESENTATIVE/Nurse Appeals Manager Time In 10/29/18 09:18:00 Time Out 10/29/18 09:37:00 Procedure Colonoscopy, Colon Polypectomy Other Attendee Superficial Wound Closed By: Last Modified By: Lynne Caceres Rn 10/29/18 09:36:12 [facility] - Case Attendance Audit 10/29/18 09:36:12 Motel Operator: [id number] Modifier: [id number] 1 <+> Time Out 1 <*> Procedure Colonoscopy, Colon Polypectomy 2 <+> Time Out 2 <*> Procedure Colonoscopy, Colon Polypectomy 3 <+> Time Out 3 <*> Procedure Colonoscopy, Colon Polypectomy 4 <+> Time Out 4 <*> Procedure Colonoscopy, Colon Polypectomy 10/29/18 09:33:50 Motel Operator: [id number] Modifier: [id number] 1 <*> Procedure Colonoscopy 2 <*> Procedure Colonoscopy 3 <*> Procedure Colonoscopy 4 <*> Procedure Colonoscopy 10/29/18 09:23:31 Motel Operator: [id number] Modifier: [id number] 1 <*> Time In 10/29/18 09:18:00 1 <*> Procedure Colonoscopy 10/29/18 09:21:18 Motel Operator: [id number] Modifier: [id number] <+> 1 Procedure 2 <*> Procedure Colonoscopy 3 <*> Procedure Colonoscopy 4 <*> Procedure Colonoscopy [facility] - Case Times Entry 1 Patient In Room Time 10/29/18 09:18:00 Out Room Time 10/29/18 09:37:00 Anesthesia Start Time 10/29/18 09:18:00 Stop Time 10/29/18 09:35:00 Anesthesia Ready 10/29/18 09:18:00 Surgery / Procedure Times Start Time 10/29/18 09:26:00 Stop Time 10/29/18 09:35:00 Last Modified By: Lynne Caceres Rn 10/29/18 09:35:59 [facility] - Case Times Audit 10/29/18 09:35:59 Motel Operator: [id number] Modifier: [id number] <+> 1 Out Room Time <+> 1 Stop Time <+> 1 Stop Time 10/29/18 09:26:26 Motel Operator: [id number] Modifier: [id number] <+> 1 Start Time [facility] - Cultures and Spec Summary Entry 1 Cultrures and Specimens Specimen Ordered: Yes Test(s) Routine/Path-Lab Requested/Final Disposition Last Modified By: Lynne Caceres Rn 10/29/18 09:34:05 General Comments: sigmoid colon polyp [facility] - Delays Entry 1 Delay Reason Other Duration 0 Minute(s) Comment NO DELAY Last Modified By: Lynne Caceres Rn 10/29/18 09:20:50 [facility] - Departure from OR Entry 1 Integumentary Assessment Integumentary WDL Assessment WDL Transfer/Handoff Transfer to PACU Phase I Handoff Reported to VAMSHI CHAVARRIA RN Post-op Transport Stretcher/[facility] Via Patient Transport Lynne Caceres Rn, Accompanied by HEENA SOUZA NA Last Modified By: Lynne Caceres Rn 10/29/18 09:21:09 [facility] - Endoscopy Details Entry 1 Abdomen Procedure Soft, Non-Tender Assessment Procedure Abdomen 10/29/18 09:18:00 Assessment D/T Radio Frequency Ablation Last Modified By: Lynne Caceres Rn 10/29/18 09:21:15 [facility] - Fire Risk Assessment Entry 1 Fire Info Surgical Site or 0- No Incision Above the Xyphoid Open O2 Source 1- Yes (Mask or Cannula) Available Ignition 1- Yes (ESU, Laser, Light Source) Fire Risk 2 Assessment Score Fire Score Fire Risk Yes Assessment Complete Fire Risk Lynne Caceres Rn Assessment Verified By Fire Risk 10/29/18 09:21:00 Assessment Verified Date/Time Fire Risk High Risk Protocol Yes Implemented Standard Fire Yes Safety Precautions Followed Last Modified By: Lynne Caceres Rn 10/29/18 09:21:22 [facility] Endo - General Case Hand Roller 1 Case Information OR Endo 01 [facility] Case Level 1 Room Verified Yes Wound Class III - Contaminated Specialty SN Gastroenterology Anesthesia Type MAC ASA Class 3 Diagnosis Preop Diagnosis abdominal pain, diarrhea, diverticulitis Postop Same As Preop No Postop Diagnosis diverticulosis, hemorrhoids, colon polyp Last Modified By: Lynne Caceres Rn 10/29/18 09:36:38 [facility] Endo - General Case Data Audit 10/29/18 09:36:38 Motel Operator: [id number] Modifier: [id number] <+> 1 Postop Diagnosis [facility] Endo - Intraoperative Assessment Entry 1 Valid History / Yes Physical in Chart Preoperative Yes Checklist Reviewed/Evaluated Allergies Reviewed Yes Patient is Latex No Sensitive Level of WDL Consciousness (WDL = Alert, Oriented to Person, Place, and Time) Present Upon IVs, ECG monitored Arrival to OR Last Modified By: Lynne Caceres Rn 10/29/18 09:22:23 [facility] Endo - Intraoperative Equipment Entry 1 Type Scope Equipment Intraop Monitoring Blood Pressure Arm, left upper Location Pulse Oximeter Hand, right Probe Site Antiembolic Devices Scopes Flexible Endoscopes Colonoscope, Peds Used Scope Serial [id number] Number/Identificatio n Number Photo/Video Documentation Photo Yes Video No Last Modified By: Lynne Caceres Rn 10/29/18 09:22:39 [facility] Endo - Intraoperative Equipment Audit 10/29/18 09:22:39 Motel Operator: [id number] Modifier: [id number] <+> 1 Photo <+> 1 Video <+> 1 Blood Pressure Location <+> 1 Pulse Oximeter Probe Site <+> 1 Flexible Endoscopes Used <+> 1 Scope Serial Number/Identification Number [facility] Endo - Patient Positioning Entry 1 Procedure Colonoscopy, Colon Polypectomy Body Position Lateral, right side up Left Arm Position Resting at side Right Arm Position Resting at side Left Leg Position Other Right Leg Position Other Position Comments Right leg over Left leg uncrossed Feet Uncrossed Yes Pressure Points Yes Checked Positioned By Lynne Caceres Rn, HEENA SOUZA NA Position Verified Positioning Yes Verified by Surgeon Last Modified By: Lynne Caceres Rn 10/29/18 09:33:52 [facility] - Patient Positioning Audit 10/29/18 09:33:52 Motel Operator: [id number] Modifier: [id number] 1 <*> Procedure Colonoscopy [facility] - Sign In Entry 1 Patient, Site, Yes Procedure Identified Surgical Consent Yes Confirmed Surgical Site N/A Marked by person performing procedure Allergies Yes Airway Hypothermia Risk No Warming Measures No Taken Last Modified By: Lynne Caceres Rn 10/29/18 09:23:07 [facility] - Sign Out Entry 1 RN Confirmation Surgical Yes Procedure(s) Identified Instrument, Sponge N/A and Sharps Counts Correct/Documented Equipment Problems N/A Documented Specimen Labeled Yes Correctly Urinary Catheter N/A Documented in IView Safety Checklist Yes Elements Complete? RN Sign Out Lynne Caceres Rn Signature RN Sign Out 10/29/18 09:37:00 Signature Date/Time Plan of Care Outcome - Fire Risk OUTCOME STATEMENT: Goal met Patient is free from injury related to surgical fire Plan of Care Outcome - Pt Positioning OUTCOME STATEMENT: Goal met Absence of signs and symptoms of positioning injury. Plan of Care Outcome - Skin Prep OUTCOME STATEMENT: Goal met Intraoperative care is consistent with measures to prevent infection Plan of Care Outcome - Xray/Images OUTCOME STATEMENT: N/A Absence of observable signs or symptoms of radiation injury Plan of Care Outcome - Counts OUTCOME STATEMENT: N/A Absence of signs and symptoms of injury related to extraneous objects Last Modified By: Lynne Caceres Rn 10/29/18 09:36:49 [facility] - Sign Out Audit 10/29/18 09:36:49 Motel Operator: [id number] Modifier: [id number] <+> 1 RN Sign Out Signature Date/Time [facility] - Surgical Procedures Entry 1 Entry 2 Procedure Colonoscopy Colon Polypectomy Modifiers Additional Procedure Description Primary Procedure Yes No Primary Surgeon HIEN STANFORD KAREN, MD-CHRIS THOMPSON Start 10/29/18 09:26:00 10/29/18 09:26:00 Stop 10/29/18 09:35:00 10/29/18 09:35:00 Physician [facility] 10/29/18 09:28:00 10/29/18 09:28:00 Cecum Reached Anesthesia Type MAC MAC Specialty SN Gastroenterology SN Gastroenterology Wound Class III - Contaminated III - Contaminated Last Modified By: Lynne Caceres Rn Jones, Elizabeth A, Rn 10/29/18 09:36:54 10/29/18 09:36:54 [facility] Endo - Surgical Procedures Audit 10/29/18 09:36:54 Motel Operator: [id number] Modifier: [id number] <+> 1 Stop <+> 2 Stop 10/29/18 09:33:45 Motel Operator: [id number] Modifier: [id number] 1 <*> Procedure Colonoscopy 1 <+> Start 1 <+> Physician States Cecum Reached <+> 2 Procedure <+> 2 Primary Procedure <+> 2 Primary Surgeon <+> 2 Specialty <+> 2 Start <+> 2 Wound Class <+> 2 Anesthesia Type <+> 2 Physician States Cecum Reached 10/29/18 09:23:24 Motel Operator: [id number] Modifier: [id number] 1 <*> Procedure Colonoscopy 1 <+> Specialty [facility] Endo - Time Out Entry 1 Procedure to be Colonoscopy, Colon Performed Polypectomy Time Out Time Out Pause Time 10/29/18 09:23:00 All activity Yes suspended (unless life threatening emergency) Team Verbally Correct patient Confirms Information identity, Correct side and site are marked, Consent form is present and accurate, Agreement on the procedure to be done, Correct patient position, Relevant images/results properly labeled/appropriately displayed Antibiotic N/A Prophylaxis Administered Or In Progress Within the Last 60 Minutes Beta Devante N/A Administered Venous N/A Thromboembolism Prophylaxis Required Anticipated Critical Events Surgeon None expected Last Modified By: Lynne Caceres Rn 10/29/18 09:33:52 [facility] Endo - Time Out Audit 10/29/18 09:33:52 Motel Operator: [id number] Modifier: [id number] 1 <*> Procedure to be Performed Colonoscopy Case Comments <None> Finalized By: Lynne Caceres Rn Document Signatures Signed By: Lynne Caceres Rn 10/29/18 09:36 Electronically signed by Jay Jay [facility] Conversion Contracts Specialist Cerner at 07/30/2022 7:53 PM CDT documented in this encounter Plan of Treatment Not on file documented as of this encounter Visit Diagnoses Not on filedocumented in this encounter
--- OUTSIDE RECORDS SUMMARY | 2024-08-15 15:04 | XMS_ITS | Encounter Summary ---
Author Organization [employer] Address [address] [place] [address] Care Team Providers Care Main Line Station Engineer Name Role Phone Unavailable Primary Care Provider Unavailabl e Encounter Details Date Type Department Care Team (Late st Contact Info) Description 10/29/2018 Transcribed Document [facility] 1 [place] [address] Provider, Larry Pemberton MD Social History Tobacco Use Types Packs/Day Years Used Date Smoking Tobacco: Never Assessed Comments Unknown Sex and Gender Information Value Date Recorded Sex Assigned at Not on file Legal Sex Female 1:43 PM CDT Gender Identity Not on file Sexual Orientation Not on file documented as of this encounter Miscellaneous Notes * Cerner Conversion Note - [facility] [place] ProviderMD - 10/29/2018 10:00 AM EDT [facility] PreOp Summary Primary Physician: CASSIUS STANFORD MD-GAE Finalized Date/Time: 10/29/18 09:03:21 Pt. Name: KEYANNA PAL/Sex: 1955 Female Med Rec #: [id number] Physician: CASSIUS STANFORD MD-GAE Financial #: [id number] Pt. Type: O Room/Bed: EEN/5 Admit/Disch: 10/29/18 08:02:00 - Institution: [facility] PreOp Case Times Entry 1 In Preop 10/29/18 08:48:00 Ready for Holding n/a Room Patient Ready for 10/29/18 09:03:00 Surgery Patient Out of Preop 10/29/18 09:03:00 Patient Out of n/a Holding Room [facility] PreOp Case Times Audit 10/29/18 09:03:19 Intermediate Manager: NEELAM Modifier: [email or web address] <+> 1 Patient Out of Preop <+> 1 Patient Ready for Surgery Finalized By: Alivia Laguerre RN Document Signatures Signed By: Alivia Laguerre RN 10/29/18 09:03 Electronically signed by Jay Jay [facility] Conversion Leather Stretcher Cerner at 07/30/2022 7:53 PM CDT documented in this encounter Plan of Treatment Not on file documented as of this encounter Visit Diagnoses Not on filedocumented in this encounter
--- OUTSIDE RECORDS SUMMARY | 2024-08-15 15:04 | XMS_ITS | Encounter Summary ---
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 Name Role Phone Unavailable Primary Care Provider Unavailabl e Encounter Details Date Type Department Care Team (Late st Contact Info) Description 10/29/2018 Transcribed Document [facility] [address] [place] [address] Provider, Larry Pemberton MD Social History Tobacco Use Types Packs/Day Years Used Date Smoking Tobacco: Never Assessed Comments Unknown Sex and Gender Information Value Date Recorded Sex Assigned at Not on file Legal Sex Female 1:43 PM CDT Gender Identity Not on file Sexual Orientation Not on file documented as of this encounter Miscellaneous Notes * Cerner Conversion Note - [facility] Niecy ProviderMD - 10/29/2018 10:55 AM EDT [address] [address] KEYAN[place] PAL :1955 Visit Time:10/29/2018 What to do next Your Diagnosis Diverticulitis of colon Instructions From Your Care Team Diet after Discharge: Resume usual diet as tolerated, Do not drink any alcoholic beverages, _ Fluid Restriction after Discharge: _ Activity after Discharge: _, Rest and relax today, No strenuous activity Lifting Restrictions: _ Weight Bearing: _ Bedrest: _ Driving after Discharge: Do not drive May Return to Work/School: tomorrow if applicable Showering/Bathing: May shower, _ Notify Provider of: any issues or concerns /Incision Care after Discharge: _, _ Medical Equipment for Home Use: Home Health Services: Community Services: await biopsy results if applicable , polyp removed Follow-Up Appointments Follow Up with [facility] When Within As needed Comments see procxedure sheet for recommendations Where: [address] [facility] [address] [place] [address]- Business (1) Medications What How Much When Instructions Next Dose baclofen (baclofen 10 mg oral tablet) Oral Every Day cholecalciferol (Maximum D3) Oral Weekly hydrochlorothiazide-losartan (hydrochlorothiazide-losartan 25 mg-100 mg oral tablet) 1 Tablet(s) Oral Every Day levothyroxine (levothyroxine 50 mcg (0.05 mg) oral tablet) 1 Tablet(s) Oral Every Day metoprolol (Metoprolol Succinate ER 100 mg oral tablet, extended release) 0.5 Tablet(s) Oral Every Day potassium chloride (Klor-Con M20) Oral Two Times A Day Take your medications faithfully. Do NOT skip medication. Do NOT stop taking medications without the direction of a physician. Carry a list of your medications with you at all times, and take this medication list with you to your first follow up visit. Report any side effects. Avoid herbal remedies unless discussed with your physician. As part of your treatment plan, your physician may have prescribed a limited course of a controlled substance. This medication may be given to help people with moderate or severe pain or for other medical conditions, but there are risks involved with treatment. Common side effects may include nausea, constipation, drowsiness, sweating, itching, dry mouth, and rash. More serious side effects may include cognitive and motor impairment, like problems with thinking, concentrating, alertness, and movement (e.g. slowed reflexes), and driving and operating heavy machinery can be dangerous. It is important for you to talk to your physician if you have these side effects or questions. These controlled substances can produce physical dependence and be habit-forming if taken for an extended period of time, which means that the body has gotten used to them and may experience withdrawal symptoms if they are abruptly stopped. Withdrawal symptoms can include runny nose, sweating, goose bumps, diarrhea, abdominal cramping, rapid heartbeat, difficulty sleeping, and nervousness. Please dispose of unused and medications per pharmacy guidance. Education Materials Diverticulosis Diverticulosis is a condition that develops when small pouches (diverticula) form in the wall of the large intestine (colon). The colon is where water is absorbed and stool is formed. The pouches form when the inside layer of the colon pushes through weak spots in the outer layers of the colon. You may have a few pouches or many of them. What are the causes? The cause of this condition is not known. What increases the risk? The following factors may make you more likely to develop this condition: ??? Being older than age 60. Your risk for this condition increases with age. Diverticulosis is rare among people younger than age 30. By age 80, many people have it. ??? Eating a low-fiber diet. ??? Having frequent constipation. ??? Being overweight. ??? Not getting enough exercise. ??? Smoking. ??? Taking drgl-mle-henpqwz pain medicines, like aspirin and ibuprofen. ??? Having a family history of diverticulosis. What are the signs or symptoms? In most people, there are no symptoms of this condition. If you do have symptoms, they may include: ??? Bloating. ??? Cramps in the abdomen. ??? Constipation or diarrhea. ??? Pain in the lower left side of the abdomen. How is this diagnosed? This condition is most often diagnosed during an exam for other colon problems. Because diverticulosis usually has no symptoms, it often cannot be diagnosed independently. This condition may be diagnosed by: ??? Using a flexible scope to examine the colon (colonoscopy). ??? Taking an X-ray of the colon after dye has been put into the colon (barium enema). ??? Doing a CT scan. How is this treated? You may not need treatment for this condition if you have never developed an infection related to diverticulosis. If you have had an infection before, treatment may include: ??? Eating a high-fiber diet. This may include eating more fruits, vegetables, and grains. ??? Taking a fiber supplement. ??? Taking a live bacteria supplement (probiotic). ??? Taking medicine to relax your colon. ??? Taking antibiotic medicines. Follow these instructions at home: ??? Drink 6E glasses of water or more each day to prevent constipation. ??? Try not to strain when you have a bowel movement. ??? If you have had an infection before: ? Eat more fiber as directed by your health care provider or your diet and youth nutritional monitor (dietitian). ? Take a fiber supplement or probiotic, if your health care provider approves. ??? Take kwaj-uxk-abbksgo and prescription medicines only as told by your health care provider. ??? If you were prescribed an antibiotic, take it as told by your health care provider. Do not stop taking the antibiotic even if you start to feel better. ??? Keep all follow-up visits as told by your health care provider. This is important. Contact a health care provider if: ??? You have pain in your abdomen. ??? You have bloating. ??? You have cramps. ??? You have not had a bowel movement in 3 days. Get help right away if: ??? Your pain gets worse. ??? Your bloating becomes very bad. ??? You have a fever or chills, and your symptoms suddenly get worse. ??? You vomit. ??? You have bowel movements that are bloody or black. ??? You have bleeding from your rectum. Summary ??? Diverticulosis is a condition that develops when small pouches (diverticula) form in the wall of the large intestine (colon). ??? You may have a few pouches or many of them. ??? This condition is most often diagnosed during an exam for other colon problems. ??? If you have had an infection related to diverticulosis, treatment may include increasing the fiber in your diet, taking supplements, or taking medicines. This information is not intended to replace advice given to you by your health care provider. Make sure you discuss any questions you have with your health care provider. Document Released: 11/20/2004 Document Revised: 01/12/2017 Document Reviewed: 01/12/2017 [employer] Interactive Patient Education ?? 2019 [employer] Hemorrhoids Hemorrhoids are swollen veins in and around the rectum or anus. There are two types of hemorrhoids: ??? Internal hemorrhoids. These occur in the veins that are just inside the rectum. They may poke through to the outside and become irritated and painful. ??? External hemorrhoids. These occur in the veins that are outside of the anus and can be felt as a painful swelling or hard lump near the anus. Most hemorrhoids do not cause serious problems, and they can be managed with home treatments such as diet and lifestyle changes. If home treatments do not help your symptoms, procedures can be done to shrink or remove the hemorrhoids. What are the causes? This condition is caused by increased pressure in the anal area. This pressure may result from various things, including: ??? Constipation. ??? Straining to have a bowel movement. ??? Diarrhea. ??? . ??? Obesity. ??? Sitting for long periods of time. ??? Heavy lifting or other activity that causes you to strain. ??? Anal sex. What are the signs or symptoms? Symptoms of this condition include: ??? Pain. ??? Anal itching or irritation. ??? Rectal bleeding. ??? Leakage of stool (feces). ??? Anal swelling. ??? One or more lumps around the anus. How is this diagnosed? This condition can often be diagnosed through a visual exam. Other exams or tests may also be done, such as: ??? Examination of the rectal area with a gloved hand (digital rectal exam). ??? Examination of the anal canal using a small tube (anoscope). ??? A blood test, if you have lost a significant amount of blood. ??? A test to look inside the colon (sigmoidoscopy or colonoscopy). How is this treated? This condition can usually be treated at home. However, various procedures may be done if dietary changes, lifestyle changes, and other home treatments do not help your symptoms. These procedures can help make the hemorrhoids smaller or remove them completely. Some of these procedures involve surgery, and others do not. Common procedures include: ??? Rubber band ligation. Rubber bands are placed at the base of the hemorrhoids to cut off the blood supply to them. ??? Sclerotherapy. Medicine is injected into the hemorrhoids to shrink them. ??? Infrared coagulation. A type of light energy is used to get rid of the hemorrhoids. ??? Hemorrhoidectomy surgery. The hemorrhoids are surgically removed, and the veins that supply them are tied off. ??? Stapled hemorrhoidopexy surgery. A circular stapling device is used to remove the hemorrhoids and use eladia to cut off the blood supply to them. Follow these instructions at home: Eating and drinking ??? Eat foods that have a lot of fiber in them, such as whole grains, beans, nuts, fruits, and vegetables. Ask your health care provider about taking products that have added fiber (fiber supplements). ??? Drink enough fluid to keep your urine clear or pale yellow. Managing pain and swelling ??? Take warm sitz baths for 20 minutes, 3E times a day to ease pain and discomfort. ??? If directed, apply ice to the affected area. Using ice packs between sitz baths may be helpful. ? Put ice in a plastic bag. ? Place a towel between your skin and the bag. ? Leave the ice on for 20 minutes, 2E times a day. General instructions ??? Take kezl-uzp-ralfhlz and prescription medicines only as told by your health care provider. ??? Use medicated creams or suppositories as told. ??? Exercise regularly. ??? Go to the bathroom when you have the urge to have a bowel movement. Do not wait. ??? Avoid straining to have bowel movements. ??? Keep the anal area dry and clean. Use wet toilet paper or moist towelettes after a bowel movement. ??? Do not sit on the toilet for long periods of time. This increases blood pooling and pain. Contact a health care provider if: ??? You have increasing pain and swelling that are not controlled by treatment or medicine. ??? You have uncontrolled bleeding. ??? You have difficulty having a bowel movement, or you are unable to have a bowel movement. ??? You have pain or inflammation outside the area of the hemorrhoids. This information is not intended to replace advice given to you by your health care provider. Make sure you discuss any questions you have with your health care provider. Document Released: 02/20/2001 Document Revised: 07/23/2016 Document Reviewed: 11/07/2015 [employer] Interactive Patient Education ?? 2019 [employer] Colon Polyps Polyps are tissue growths inside the body. Polyps can grow in many places, including the large intestine (colon). A polyp may be a round bump or a mushroom-shaped growth. You could have one polyp or several. Most colon polyps are noncancerous (benign). However, some colon polyps can become cancerous over time. What are the causes? The exact cause of colon polyps is not known. What increases the risk? This condition is more likely to develop in people who: ??? Have a family history of colon cancer or colon polyps. ??? Are older than 50 or older than 45 if they are . ??? Have inflammatory bowel disease, such as ulcerative colitis or Crohn disease. ??? Are overweight. ??? Smoke cigarettes. ??? Do not get enough exercise. ??? Drink too much alcohol. ??? Eat a diet that is: ? High in fat and red meat. ? Low in fiber. ??? Had childhood cancer that was treated with abdominal radiation. What are the signs or symptoms? Most polyps do not cause symptoms. If you have symptoms, they may include: ??? Blood coming from your rectum when having a bowel movement. ??? Blood in your stool. The stool may look dark red or black. ??? A change in bowel habits, such as constipation or diarrhea. How is this diagnosed? This condition is diagnosed with a colonoscopy. This is a procedure that uses a lighted, flexible scope to look at the inside of your colon. How is this treated? Treatment for this condition involves removing any polyps that are found. Those polyps will then be tested for cancer. If cancer is found, your health care provider will talk to you about options for colon cancer treatment. Follow these instructions at home: Diet ??? Eat plenty of fiber, such as fruits, vegetables, and whole grains. ??? Eat foods that are high in calcium and vitamin D, such as milk, cheese, yogurt, eggs, liver, fish, and broccoli. ??? Limit foods high in fat, red meats, and processed meats, such as hot dogs, sausage, petty, and lunch meats. ??? Maintain a healthy weight, or lose weight if recommended by your health care provider. General instructions ??? Do not smoke cigarettes. ??? Do not drink alcohol excessively. ??? Keep all follow-up visits as told by your health care provider. This is important. This includes keeping regularly scheduled colonoscopies. Talk to your health care provider about when you need a colonoscopy. ??? Exercise every day or as told by your health care provider. Contact a health care provider if: ??? You have new or worsening bleeding during a bowel movement. ??? You have new or increased blood in your stool. ??? You have a change in bowel habits. ??? You unexpectedly lose weight. This information is not intended to replace advice given to you by your health care provider. Make sure you discuss any questions you have with your health care provider. Document Released: 11/19/2004 Document Revised: 07/31/2016 Document Reviewed: 01/14/2016 [employer] Interactive Patient Education ?? 2019 [employer]. High-Fiber Diet Fiber, also called dietary fiber, is a type of carbohydrate found in fruits, vegetables, whole grains, and beans. A high-fiber diet can have many health benefits. Your health care provider may recommend a high-fiber diet to help: ??? Prevent constipation. Fiber can make your bowel movements more regular. ??? Lower your cholesterol. ??? Relieve hemorrhoids, uncomplicated diverticulosis, or irritable bowel syndrome. ??? Prevent overeating as part of a weight-loss plan. ??? Prevent heart disease, type 2 diabetes, and certain cancers. What is my plan? The recommended daily intake of fiber includes: ??? 38 grams for men under age 50. ??? 30 grams for men over age 50. ??? 25 grams for women under age 50. ??? 21 grams for women over age 50. You can get the recommended daily intake of dietary fiber by eating a variety of fruits, vegetables, grains, and beans. Your health care provider may also recommend a fiber supplement if it is not possible to get enough fiber through your diet. What do I need to know about a high-fiber diet? Fiber supplements have not been widely studied for their effectiveness, so it is better to get fiber through food sources. ??? Always check the fiber content on the nutrition facts label of any prepackaged food. Look for foods that contain at least 5 grams of fiber per serving. ??? Ask your dietitian if you have questions about specific foods that are related to your condition, especially if those foods are not listed in the following section. ??? Increase your daily fiber consumption gradually. Increasing your intake of dietary fiber too quickly may cause bloating, cramping, or gas. ??? Drink plenty of water. Water helps you to digest fiber. What foods can I eat? Grains Whole-grain breads. Multigrain cereal. Oats and oatmeal. Brown rice. Barley. Bulgur wheat. Millet. Bran muffins. Popcorn. Lyndon wafer crackers. Vegetables Sweet potatoes. Spinach. Kale. Artichokes. Cabbage. Broccoli. Green peas. Carrots. Squash. Fruits Berries. Pears. Apples. Oranges. Avocados. Prunes and raisins. Dried figs. Meats and Other Protein Sources [place], kidney, eden, and soy beans. Split peas. Lentils. Nuts and seeds. Dairy Fiber-fortified yogurt. Beverages Fiber-fortified soy milk. Fiber-fortified orange juice. Other Fiber bars. The items listed above may not be a complete list of recommended foods or beverages. Contact your dietitian for more options. What foods are not recommended? Grains White bread. Pasta made with refined flour. White rice. Vegetables Fried potatoes. Canned vegetables. Well-cooked vegetables. Fruits Fruit juice. Cooked, strained fruit. Meats and Other Protein Sources Fatty cuts of meat. Fried poultry or fried fish. Dairy Milk. Yogurt. Cream cheese. Sour cream. Beverages Soft drinks. Other Cakes and pastries. Butter and oils. The items listed above may not be a complete list of foods and beverages to avoid. Contact your dietitian for more information. What are some tips for including high-fiber foods in my diet? Eat a wide variety of high-fiber foods. ??? Make sure that half of all grains consumed each day are whole grains. ??? Replace breads and cereals made from refined flour or white flour with whole-grain breads and cereals. ??? Replace white rice with brown rice, bulgur wheat, or millet. ??? Start the day with a breakfast that is high in fiber, such as a cereal that contains at least 5 grams of fiber per serving. ??? Use beans in place of meat in soups, salads, or pasta. ??? Eat high-fiber snacks, such as berries, raw vegetables, nuts, or popcorn. This information is not intended to replace advice given to you by your health care provider. Make sure you discuss any questions you have with your health care provider. Document Released: 02/23/2006 Document Revised: 07/31/2016 Document Reviewed: 08/08/2014 [employer] Interactive Patient Education ?? 2018 [employer]. Colonoscopy, Adult, Care After This sheet gives you information about how to care for yourself after your procedure. Your health care provider may also give you more specific instructions. If you have problems or questions, contact your health care provider. What can I expect after the procedure? After the procedure, it is common to have: ??? A small amount of blood in your stool for 24 hours after the procedure. ??? Some gas. ??? Mild abdominal cramping or bloating. Follow these instructions at home: General instructions ??? For the first 24 hours after the procedure: ? Do not drive or use machinery. ? Do not sign important documents. ? Do not drink alcohol. ? Do your regular daily activities at a slower pace than normal. ? Eat soft, bpvp-ov-xufkpg foods. ? Rest often. ??? Take erqo-rsh-exqeqtr or prescription medicines only as told by your health care provider. ??? It is up to you to get the results of your procedure. Ask your health care provider, or the department performing the procedure, when your results will be ready. Relieving cramping and bloating ??? Try walking around when you have cramps or feel bloated. ??? Apply heat to your abdomen as told by your health care provider. Use a heat source that your health care provider recommends, such as a moist heat pack or a heating pad. ? Place a towel between your skin and the heat source. ? Leave the heat on for 20E0 minutes. ? Remove the heat if your skin turns bright red. This is especially important if you are unable to feel pain, heat, or cold. You may have a greater risk of getting burned. Eating and drinking ??? Drink enough fluid to keep your urine clear or pale yellow. ??? Resume your normal diet as instructed by your health care provider. Avoid heavy or fried foods that are hard to digest. ??? Avoid drinking alcohol for as long as instructed by your health care provider. Contact a health care provider if: ??? You have blood in your stool 2E days after the procedure. Get help right away if: ??? You have more than a small spotting of blood in your stool. ??? You pass large blood clots in your stool. ??? Your abdomen is swollen. ??? You have nausea or vomiting. ??? You have a fever. ??? You have increasing abdominal pain that is not relieved with medicine. This information is not intended to replace advice given to you by your health care provider. Make sure you discuss any questions you have with your health care provider. Document Released: 10/07/2004 Document Revised: 11/17/2016 Document Reviewed: 05/06/2016 [employer] Interactive Patient Education ?? 2018 [employer]. Emergency Awareness and Preventative Care STROKE is an EMERGENCY Every Minute Counts Act FAST and Check for these signs: FACE Does the face look uneven? ARM Does one arm drift down? SPEECH Does their speech sound strange? TIME Call at any sign of stroke Stroke Risk Factors Atrial Fibrillation (irregular heartbeat) Diabetes Family history of stroke Heart Disease Heavy alcohol use High Blood Pressure High Cholesterol Physical inactivity and obesity Smoking Cigarette Smoking The facts are clear, cigarette smoking will shorten your life. Smoking can cause many illnesses along the way. As a healthcare provider, we recommend that you stop smoking. Assistance with quitting is available by contacting 9-218-[place] [facility]. This is a free resource providing counseling, support, and referral. Or you may contact your personal physician. National Suicide Prevention Lifeline: The National Suicide Prevention Lifeline is a national network of local crisis centers that provides free and confidential emotional support to people in suicidal crisis or emotional distress 24 hours a day, 7 days a week. Don't Wait! Stop a Heart Attack Before it Starts What is a heart attack? A heart attack is damage or to a part of the heart from severely decreased or lack of blood flow to the heart. Over time, arteries can become narrow from the buildup of fat and cholesterol, which is called plaque. The plaque can rupture causing a blood clot to form. When the blood clot forms, the artery can become severely narrowed or completely blocked, causing a heart attack. Heart attack is the leading cause of in the [place]. 85% of muscle damage occurs within the first 2 hours. Delay in the recognition of heart attack symptoms increases the chances of . Know the early symptoms of a heart attack: Nausea Feeling of fullness in chest Jaw Pain Pain that travels down one or both arms Fatigue/being tired Anxiety Back Pain Chest pressure, squeezing, or discomfort Shortness of breath Sweating, or a cold sweat Feeling of impending doom There are unusual signs of a heart attack, too! Women, the elderly, and diabetics may present with atypical symptoms: Fainting/dizziness Weakness Confusion Risk Factors for a Heart Attack Some heart disease risk factors, such as age and family history, cannot be changed. Others, like smoking and lack of exercise, can be changed. Smoking High Cholesterol High Blood Pressure Family History Obesity Age Gender (Males are at higher risk) Lack of Exercise Diabetes Diet Stress Excessive Alcohol Intake If you or someone you know is experiencing the signs and symptoms of a heart attack, DON???T DELAY. Call immediately and seek help. If someone collapses, perform CPR! Do not attempt to drive if you are having symptoms of heart attack. Hands-Only CPR Why Hands-Only CPR? Hands-Only CPR has been shown to be as effective as conventional CPR for cardiac arrests that occur outside of a hospital. Survival depends on immediately receiving CPR from someone nearby. How do you perform Hands-Only CPR? There are two easy steps: Call if you see a teen or adult collapse Push hard and fast in the center of the chest at a beat of 100 beats per minute. Save a life! 4 WAYS TO GET AHEAD OF SEPSIS SEPSIS is a MEDICAL EMERGENCY. Time matters! Infections put you and your family at risk for a life-threatening condition called sepsis. Sepsis is the body's extreme response to an infection. It is life-threatening, and without timely treatment, sepsis can rapidly lead to tissue damage, organ failure, and . Sepsis happens when an infection you already have-in your skin, lungs, urinary tract or somewhere else-triggers a chain reaction throughout your body. 1 PREVENT INFECTIONS Take good care of chronic conditions. Talk to your doctor about getting the recommended vaccines. 2 PRACTICE GOOD HYGIENE Wash your hands frequently. Keep cuts or open sores clean and covered until they are healed. 3 KNOW THE SYMPTOMS Confusion or disorientation Shortness of breath High heart rate Fever, shivering, or feeling very cold Extreme pain or discomfort Clammy or sweaty skin 4 ACT FAST Get medical care IMMEDIATELY if you suspect sepsis or if you have an infection that is not getting better or is getting worse. To learn more about sepsis and how to prevent infections, visit www.cdc.gov/sepsis. Test Results Laboratory or Other Results This Visit (last charted value for your 10/29/2018 visit) No Laboratory or Other Results This Visit Patient Name:KEYANNA PAL I have received this information and was given the opportunity to ask questions. Patient/Director Smb Sales Name: Patient/Director Smb Sales Signature: Relationship to Patient: Clinician/Hospital Director Smb Sales Signature: Date: documented in this encounter Plan of Treatment Not on file documented as of this encounter Visit Diagnoses Not on filedocumented in this encounter
--- OUTSIDE RECORDS SUMMARY | 2024-08-15 15:04 | XMS_ITS | Clinical Summary ---
Author Organization [facility] Address [address] [place] [address] Care Team Providers Care Carousel Operator Name Role Phone Unavailable Primary Care Provider Unavailabl e Social History Tobacco Use Types Packs/Day Years Used Date Smoking Tobacco: Never Assessed Comments Unknown Sex and Gender Information Value Date Recorded Sex Assigned at Not on file Legal Sex Female 1:43 PM CDT Gender Identity Not on file Sexual Orientation Not on file Plan of Treatment Not on file
--- OUTSIDE RECORDS SUMMARY | 2024-08-15 15:04 | XMS_ITS | Encounter Summary ---
Author Organization [facility] [facility] Address [address] [place] [address] Care Team Providers Care Nail Expert Name Role Phone Unavailable Primary Care Provider Unavailabl e Encounter Details Date Type Department Care Team (Late st Contact Info) Description 10/29/2018 Transcribed Document [facility] [address] [place] [address] Provider, Larry Pemberton MD Social [...] [facility] ProviderMD - 10/29/2018 9:48 AM EDT Pre Procedure Adult Entered On: 10/29/2018 8:52 EDT Performed On: 10/29/2018 8:48 EDT by Alivia Laguerre RN Height and Weight, Clinical Dosing Height Source : Stated Height Entry Format : [place] Height, Feet : 5 ft(Converted to: 152 cm, 60 Inch) Height, Inches : 6 Inch(Converted to: 0 ft 6 Inch, 15.24 cm) Clinical Height : 167.64 cm Weight Source : Standing scale Weight Entry Format : [place] Clinical Dosing Weight : 78.24 kg Weight, Pounds : 172 lb Weight, Ounces : 2 oz Body Surface Area (BSA) : 1.88 m2 Body Mass Index : 27.8 kg/m2 (HI) [place] Body Weight : 59 kg Alivia Laguerre RN - 10/29/2018 8:48 EDT Health Histories Smoking Status : Never (less than 100 in lifetime; none in last 30 days) Smokeless Tobacco Status : Never Alivia Laguerre RN - 10/29/2018 8:48 EDT Social History (As Of: 10/29/2018 08:52:12 EDT) Tobacco: Smoking Status Never smoker. (Last Updated: 11/15/2015 08:10:46 EDT by COMFORT Nguyen RN) Alcohol: Alcohol Use History No. (Last Updated: 11/15/2015 08:10:50 EDT by COMFORT Nguyen RN) Substance Abuse: Drug Use Hx: No. Use in Last 12 Months: No. (Last Updated: 11/15/2015 08:10:55 EDT by COMFORT Nguyen RN) Nutrition/Health: Caffeine intake amount: 8 cups daily. (Last Updated: 11/15/2015 08:11:09 EDT by COMFORT Nguyen RN) Infectious Disease History Infectious Disease History : C-Difficile, Chicken pox/Shingles, Measles Fever/Chills Last 48 Hours : No Travel To Regions with Travel Advisories : No Travel Outside [place] Within Last 30 Days : No Contact With Traveler to Advisory Region : No Tuberculosis Symptoms : None Alivia Laguerre RN - 10/29/2018 8:48 EDT Anesthesia/Transfusion History Family History of Anesthesia Reaction : No prior transfusion(s) Transfusion History : Prior anesthesia without reaction Family History of Anesthesia Reaction : None Alivia Laguerre RN - 10/29/2018 8:48 EDT Functional Assessment Living Situation : Home Patient Lives With : Spouse Current Home Treatments : None Alivia Laguerre RN - 10/29/2018 8:48 EDT Psychosocial History Currently in Unsafe Situation : No Tried to Harm Yourself in the Past? 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 Support Person/Pt Rep Name : Stan Support Person/Pt Rep Contact Information : [phone] Want Family/Rep/Phys Notified of Admit : No Emergency Contact #1 : na Emergency Contact #1 Phone Number : na Emergency Contact #1 Relationship : na Emergency Contact #2 : na Emergency Contact #2 Phone Number : na Emergency Contact #2 Relationship : na Information Obtained From : Patient Primary Language : Lao Communication Barrier : None Objects to Sharing Info w Family : No Alivia Laguerre RN - 10/29/2018 8:48 EDT Sleep Apnea Risk Assmt Hx of Obstructive Sleep Apnea Diagnosis : No Snore Loudly : Yes Tired, Fatigued, or Sleepy During Day : No Observed Stopping Breathing During Sleep : No Have/Are Being Treated for Hypertension : Yes BMI Greater Than 35 kg/m2 : No Age over 50 Years Old : Yes Neck Circumference Greater Than 40 cm : No Gender Male : No STOP-BANG Sleep Apnea Risk Level Score : 3 Alivia Laguerre RN - 10/29/2018 8:48 EDT Vu Scale Vu Sensory Perception : No impairment Vu Moisture : Rarely moist Vu Activity : Walks frequently Vu Mobility : No limitation Vu Nutrition : Adequate Vu Friction and Shear : No apparent problem Vu Score : 22 Alivia Laguerre RN - 10/29/2018 8:48 EDT Pain Assessment Pain Assessment : Initial assessment Pain Scale Goal : 2 Pain Scale Used : 0-10 Scale Alivia Laguerre RN - 10/29/2018 8:48 EDT Fall Risk Scales ABCs Fall Injury Risk Identification : None LUIS Hx Falls Immediate/Within 3 Months : No Luis Secondary Diagnosis : No LUIS Use of Ambulatory Aid : None LUIS IV Therapy or IV Access : Yes Luis Gait/Transferring : Normal, bedrest, immobile Luis Mental Status : Oriented to own ability LUIS Fall Scale Risk Level : 0-24 Low Risk [place] Fall Interventions : Adequate lighting, Assistive devices within reach, Bed in low position, Call device within reach, Fall prevention handout/education per facility policy, Frequent orientation to call device, Frequent orientation to surroundings, Hourly comfort/safety rounds, Non-slip footwear Alivia Laguerre RN - 10/29/2018 8:48 EDT Valuables and Belongings Valuables and Belongings : Clothing Clothing : Common streetwear Clothing Disposition : Bedside, With family, With patient, Declines to send to security/safe Alivia Laguerre RN - 10/29/2018 8:48 EDT Pain Scale Intensity : 0 Alivia Laguerre RN - 10/29/2018 8:48 EDT Image 4 - Images currently included in the form version of this document have not been included in the text rendition version of the form. documented in this encounter Plan of Treatment Not on file documented as of this encounter Visit Diagnoses Not on filedocumented in this encounter
--- OUTSIDE RECORDS SUMMARY | 2024-08-15 15:04 | XMS_ITS | Patient Health Record ---
Author Organization [facility] Address [address] [place] [id number] Care Team Providers Care Radiological Technologist Name Role Phone Marcelino Rojas Primary Care Provider Marge Puckett Unavailable [phone] Olinda Kim Unavailable [phone] Allergies Allergen (clinical drug ingredient) Drug/Non Drug Allergy documented on EMR Reaction Allergy Type Onset Date Status amoxicillin / clavulanate Augmentin rash Drug Allergy Active Decongestant tachycardia Drug Allergy Ac tive Results Component Value Reference Range Notes P-Basic Metabolic Panel (BMP ) Reviewed date:07/08/2024 02:33:26 PM Interpretation:glu 218 Performing Lab: Notes/Report: Test performed by [employer] [address] [place] [address] , [address], [place] [address] Noah Chen MD, Regional Project Manager CLIA: [id number] Sodium 141 135-145 mmol/L Potassium 4.1 3.5-5.3 mmol/L Chloride 104 97-108 mmol/L CO2 24 22-32 mmol/L Glucose 218 65-99 mg/dL BUN 20 8-23 mg/dL Creatinine 0.98 0.50-1.00 mg/dL Calcium 9.9 8.6-10.4 mg/dL eGFR by Creatinine 63 >59 mL/min/1.73m2 CBC Venipuncture (in house) Reviewed date:04/29/2024 04:56:13 PM Interpretation: Performing Lab: Notes/Report: wbc 8.7 3.5 - 10 lymph 19.5 15 - 50 mid 5.4 2 - 15 gran 75.1 35 - 80 rbc 4.58 3.5 - 5.5 hgb 14.8 11.5 - 16.5 hct 43.2 35 - 55 mcv 94.3 75 - 100 mch 32.2 25 - 35 mchc 34.2 31 - 38 platlet 288 100 - 400 Glycohemoglobin A1c (in hous e) Reviewed date:05/04/2024 08:36:23 AM Interpretation:6.6% Performing Lab: Notes/Report: 6.6% glycohemoglobin 6.6% 5 - 6.5 % P-Vitamin B12 Reviewed date:05/04/2024 08:36:23 AM Interpretation:Normal Performing Lab: Notes/Report: Test performed by [facility] [address] [place] [address] , [address], [place] [address] Noah Chen MD, Regional Project Manager CLIA: [id number] Vitamin B12 593 668-9172 pg/mL P-Comprehensive Metabolic Pa nam (CMP) Reviewed date:05/04/2024 08:36:23 AM Interpretation:gluc 130, Ca 10.5 Performing Lab: Notes/Report: Test performed by [facility] [address] [place] [address] , [address], [place] [address] Noah Chen MD, Regional Project Manager CLIA: [id number] Sodium 141 135-145 mmol/L Potassium 4.9 3.5-5.3 mmol/L Chloride 103 97-108 mmol/L CO2 27 22-32 mmol/L Glucose 130 65-99 mg/dL BUN 18 8-23 mg/dL Creatinine 0.88 0.50-1.00 mg/dL Calcium 10.5 8.6-10.4 mg/dL eGFR by Creatinine 72 >59 mL/min/1.73m2 Protein 6.8 6.0-8.3 g/dL Albumin 4.5 3.5-5.3 g/dL Alkaline Phosphatase 90 35-121 IU/L ALT (SGPT) 20 <5-47 IU/L AST (SGOT) 20 <5-40 IU/L Bilirubin, Total 1.0 <0.2-1.2 mg/dL A/G Ratio 2.0 1.1-2.5 P-T4 Free (thyroxine) Reviewed date:05/04/2024 08:36:23 AM Interpretation:Normal Performing Lab: Notes/Report: Test performed by [facility] [address] [place] [address] [address], [place] [address] Noah Chen MD, Regional Project Manager CLIA: [id number] Thyroxine Free (free T4) 1.53 0.86-1.76 ng/dL P-Lipid Panel Reviewed date:05/04/2024 08:36:23 AM Interpretation:chol 231, chol/hdl 4.44, non-hdl 179, ldl 154 Performing Lab: Notes/Report: Test performed by [facility] [address] [place] [address] [address], [place] [address] Noah Chen MD, Regional Project Manager CLIA: [id number] Cholesterol 231 <200 mg/dL Triglycerides 124 <150 mg/dL HDL Cholesterol 52 >39 mg/dL Cholesterol / HDL Ratio 4.44 0.00-4.44 Ratio Non-HDL Cholesterol 179 <130 mg/dL LDL Cholesterol (Calculation) 154 <130 mg/dL LDL Cholesterol Levels* Less than 100 mg/dL Optimal 100 to 129 mg/dL Near Optimal/ Above Optimal 130 to 159 mg/dL Borderline High 160 to 189 mg/dL High 190 mg/dL and above Very High * Categories as recommended by the 2004 ATPIII guidelines LDL/HDL Ratio 3.0 <3.3 Ratio LDL Cholesterol Patient History Test Date: 07/29/2023 LDL Results: 83 Units: mg/dL % Change: - Test Date: 04/29/2024 LDL Results: 154 Units: mg/dL % Change: +85% P-TSH Reviewed date:05/04/2024 08:36:23 AM Interpretation:Normal Performing Lab: Notes/Report: Test performed by [facility] [address] [place], [place] [address] [place] , [facility] C, [place] [address] Noah Chen MD, Regional Project Manager CLIA: [id number] TSH 1.03 0.43-5.25 mU/L P-Vitamin D 25-Hydroxy Reviewed date:05/04/2024 08:36:23 AM Interpretation:Normal Performing Lab: Notes/Report: Test performed by [facility] [address] [place] [address] , [address] , [place] [address] Noah Chen MD, Regional Project Manager CLIA: [id number] Vitamin D 25-Hydroxy 66.5 30.0-100.0 ng/mL Interpretation of Vitamin D 25 [place]: < 20 ng/mL - Deficiency 20 - 29 ng/mL - Insufficiency 30 - 100 ng/mL - Sufficiency > 100 ng/mL - Super-therapeutic- toxicity may occur above this level. Clinical correlation required. P-Arthritis Panel, [employer] Reviewed date:10/14/2023 11:40:27 PM Interpretation:Normal Performing Lab: Notes/Report: Test performed by [facility] [address] [place], [place] [address] [place] , [facility] [address], [place] [address] Noah Chen MD, Regional Project Manager CLIA: [id number] Erythrocyte Sedimentation Rate (ESR), Automated 4 <31 mm/hr Rheumatoid Factor <10 <14.1 IU/mL C-Reactive Protein (CRP) 0.49 <0.50 mg/dL Antinuclear Antibodies (GERMAN) Screen, Reflex GERMAN 9 Panel Negative Negative Test performed by Multiplex Bead Immunoassay methodology. Antinuclear Antibodies (GERMAN) Result Note SEE COMMENT For positive Autoantibodies, please refer to the interpretive chart here: [email or web address] CCP Antibodies <0.5 <0.5-3.0 U/mL P-Magnesium Reviewed date:06/16/2024 01:59:02 PM Interpretation:2.5 Performing Lab: Notes/Report: Test performed by [facility] [address] [place], [place] [address] [place] , [place] [address] Noah Chen MD, Regional Project Manager CLIA: [id number] Magnesium 2.5 1.6-2.4 mg/dL P-Culture, Miscellaneous Aer obic w/Gram Stain Reviewed date:06/16/2024 01:59:02 PM Interpretation:Light Growth, E. Coli Performing Lab: Notes/Report: Test performed by [facility] [address] [place], [place] [address] [place] , [address], [place] [address] Noah Chen MD, Regional Project Manager CLIA: [id number] Specimen Source Abscess - perirectal Gram Stain See Below No polymorphonuclear leukocytes seen Few Gram Positive Rods Few Gram Positive Cocci In pairs Culture, Miscellaneous Aerobic w/Gram Stain See Below Preliminary Report : Pending, reincubate Final Report : Light growth of Normal mike Escherichia coli Light Growth Escherichia coli Sensitivity Panel See Below Organism E. coli Antibiotic INTERP Amikacin S Ampicillin R Aztreonam S Cefepime S Cefoxitin S Ceftazidime S Ceftriaxone S Cefuroxime S Ciprofloxacin R Ertapenem S Gentamicin R Imipenem S Levofloxacin I Meropenem S Piperacillin/Tazo S Tetracycline S Tobramycin I Trimeth/Sulfa R S=SUSCEPTIBLE I=INTERMEDIATE R=RESISTANT P-Culture, Anaerobic and Aer obic w/Gram Stain Reviewed date:06/16/2024 01:59:02 PM Interpretation: Performing Lab: Notes/Report: Test performed by [facility], [address] , [address], [place] [address] Noah Chen MD, Regional Project Manager CLIA: [id number] Specimen Source Abscess - perirectal Culture, Anaerobic and Aerobic w/Gram Stain See Below Final Report : No Anaerobes isolated Sensitivity Panel See Below Organism Antibiotic Amikacin Ampicillin Aztreonam Cefepime Cefoxitin Ceftazidime Ceftriaxone Cefuroxime Ciprofloxacin Ertapenem Gentamicin Imipenem Levofloxacin Meropenem Piperacillin/Tazo Tetracycline Tobramycin Trimeth/Sulfa S=SUSCEPTIBLE I=INTERMEDIATE R=RESISTANT Influenza Screen (in house) Reviewed date:01/21/2024 03:02:02 PM Interpretation:neg Performing Lab: Notes/Report: neg results neg Rapid Strep- Inhouse Reviewed date:01/21/2024 03:02:02 PM Interpretation:neg Performing Lab: Notes/Report: neg strep test neg P-CPK Reviewed date:06/16/2024 01:59:02 PM Interpretation:Normal Performing Lab: Notes/Report: Test performed by [facility] [address] [place] [address] , [address], [place] [address] Noah Chen MD, Regional Project Manager CLIA: [id number] Creatine Kinase 74 20-180 U/L P-Comprehensive Metabolic Pa nam (CMP) Reviewed date:06/16/2024 01:59:02 PM Interpretation:K 5.5, BUN 29, Creat 1.46, Anthony 11.0, eGFR 39 Performing Lab: Notes/Report: Test performed by [facility] [address] [place] [address] , [address], [place] [address] Noah Chen MD, Regional Project Manager CLIA: [id number] Sodium 136 135-145 mmol/L Potassium 5.5 3.5-5.3 mmol/L Chloride 98 97-108 mmol/L CO2 25 22-32 mmol/L Glucose 94 65-99 mg/dL BUN 29 8-23 mg/dL Creatinine 1.46 0.50-1.00 mg/dL Calcium 11.0 8.6-10.4 mg/dL eGFR by Creatinine 39 >59 mL/min/1.73m2 Protein 7.4 6.0-8.3 g/dL Albumin 4.7 3.5-5.3 g/dL Alkaline Phosphatase 95 35-121 IU/L ALT (SGPT) 20 <5-47 IU/L AST (SGOT) 22 <5-40 IU/L Bilirubin, Total 0.7 <0.2-1.2 mg/dL A/G Ratio 1.7 1.1-2.5 CBC Fingerstick (in house) Reviewed date:01/21/2024 03:02:02 PM Interpretation: Performing Lab: Notes/Report: wbc 12.0 3.5 - 10 lym 8.8 15 - 50 mid 14.1 2 - 15 gran 77.1 35 - 80 rbc 4.34 3.5 - 5.5 hgb 14.3 11.5 - 16.5 hct 42.7 35 - 55 mcv 98.3 75 - 100 mch 33.0 25 - 35 mchc 33.6 31 - 38 plat 258 100 - 400 Covid test (in house) Reviewed date:01/21/2024 03:02:02 PM Interpretation:pos Performing Lab: Notes/Report: pos Result: pos Mammogram Reviewed date:12/10/2023 02:10:10 PM Interpretation:Negative Performing Lab: Notes/Report: Negative result Negative Medications Medication SIG (Take, Route, Frequency, Duration) Notes Start Date End Date Status Accu-Chek Softclix Lancets - 1 lancet 03/28/2024 Active Meloxicam 15 MG 1 tablet Orally Once a day 04/29/2024 Active Levothyroxine Sodium 50 MCG Take 1 tablet by mouth once daily for 90 Active Furosemide 20 MG 1 tablet Orally Once a day Active GLUCOMETER DIRECTED TEST QD E11.9 *Josué e review for potential replacement for e-prescription and drug interaction check* 04/25/2022 Active SILICONE BREAST PROSTHESES DIRECTED DIRECTED Z85.3 *Please review for potential replacement for e-prescription and drug interaction check* 02/21/2022 Active MASTECTOMY BRA DIRECTED ORAL for 14 DAYS 02/21/2022 Active Accu-Chek Softclix Lancets - USE 1 TO CHECK GLUCOSE ONCE DAILY for 90 Active metFORMIN HCl ER 500 MG Take 1 tablet by mouth twice daily for 90 Active Spironolactone 50 MG 1/2 tab orally Active Accu-Chek Guide - USE 1 STRIP TO CHECK GLUCOSE ONCE DAILY for 90 days Dx code E11.9 Active SILICONE BREAST PROSTHESES 1 PROSTHESES DIRECTED 06/15/2017 Active Furosemide 40 MG 1/2 tab orally once a day Not-Taking BRA WITH PROSTHESIS 4 BRAS DIRECTED 06/15/2017 Active Leqvio 284 MG/1.5ML as directed subcutaneously every 6 months Not-Taking Immunizations Vaccine Route Administration Date Status Comme nts xFluzone (6mos and older)-trivalent IM Intramuscular 12/17/2011 Administered xFlu shot-36 months and older IM Intramuscular 02/04/2008 Administered Tetanus Tdap-Adacel (over 7yrs) IM Intramuscular 07/05/2016 Administered PNEUMOVAX 23 VACCINE IM Intramuscular 12/18/2017 Administe red Fluzone Quad-Medicare (6months&older) IM Intramuscular 01/26/2019 Administered Fluzone Quad (6months&older) IM Intramuscular 12/18/2017 Administered Fluzone PF Quad (6-35 months) Unknown 01/19/2016 Administered Problems Problem Type SNOMED Code ICD Code Onset Dates Problem Status W/U Status Risk Notes Problem Essential hypertension (61910513) Essential (primary) hypertension (I10) Active confirmed Problem 03576125 Type 2 diabetes mellitus with other circulatory complications (E11.59) Active confirmed Problem 30614422 Vitamin D defici ency (E55.9) Active confirmed Problem 57845974 Essential hypert ension (I10) Active confirmed Problem 676896869 Diverticulitis (K57.92) Active confirmed Problem 670662225 Hypertriglycerid emia (E78.1) Active confirmed Problem 2122553 Cardiomegaly (I51.7) Active confirmed Problem 367764552771788 Piriformis syndr ome of left side (G57.02) Active confirmed Problem 18565711 Memory loss (R41.3) Active confirmed Problem 981221026 Impaired fasting glucose (R73.01) Active confirmed Problem 201091549 Thyroid nodule (E04.1) Active confirm ed Problem 30026818 Constipation, unspecified constipation type (K59.00) Active confirmed Problem 252364633 Acquired hypothyroidism (E03.9) Active confirmed Problem 474536038 Non morbid obesi ty due to 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) Active confirmed Problem 476003008667967 Primary osteoart hritis of right knee (M17.11) Active confirmed Problem Hypothyroidism (00524338) Hypothyroidism, unspecified type (E03.9) Active confirmed Problem 92484638 Hypersomnia (G47.10) Active confirmed Problem 158963700 Diverticulosis (K57.90) Active confirmed Problem 26890181 Hyperparathyroid ism (E21.3) Active confirmed Problem 511280101 Paresthesia of b oth feet (R20.2) Active confirmed Problem 118294072 Type 2 diabetes mellitus without complication, without long-term current use of insulin (E11.9) Active confirmed Problem 08356773 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) Active confirmed Problem 455825019 Pure hypercholesterolemia (E78.00) Active confirmed Problem Irritable bowel syndrome (86818375) Irritable bowel syndrome with both constipation and diarrhea (K58.2) Active confirmed Problem 539459049 History of right breast cancer (Z85.3) Active confirmed Problem 176458724769014 Carpal tunnel syndrome, right (G56.01) Active confirmed Problem Osteopenia (disorder) (967285009) Osteopenia of right hip (M85.851) Active confirmed Problem 2958781 Diastolic dysfun ction (I51.89) Active confirmed Problem Osteopenia of le ft hip (M85.852) Active confirmed Problem 93419686 Postconcussive syndrome (F07.81) Active confirmed Problem 30333982322892411 Piriformis syn drome of both sides (G57.03) Active confirmed Problem 70605896 Venous reflux (I87.2) Active confirmed Vital Signs Heart Rate 72 /min 08/03/2024 Blood pressure diastolic 82 mm Hg 08/03/2024 Height 65 in 08/03/2024 Blood pressure systolic 124 mm Hg 08/03/2024 Weight 179.4 lbs 08/03/2024 BMI 29.85 kg/m2 08/03/2024 Encounters Encounter Location Date Provider Diagnosis [facility] [address] [id number] 10/02/2023 Olinda Julio Polyarthralgia M25.5 0 and Hypertriglyceridemia E78.1 [facility] [address] [id number] 01/21/2024 Olindatatyana Kim COVID-19 U07.1 [facility] [address], [place] [id number] 04/29/2024 Olinda Julio Essential hypertensi on I10 ; Vitamin D deficiency E55.9 ; Vitamin B 12 deficiency E53.8 ; Type 2 diabetes mellitus without complication, without long-term current use of insulin E11.9 ; Pure hypercholesterolemia E78.00 ; History of right breast cancer Z85.3 ; Hypothyroidism, unspecified type E03.9 ; Polyarthralgia M25.[address]67.40 [facility] [address] [place], [place] [id number] 06/03/2024 Olinda Crowdy Perirectal abscess K 61.1 ; Abdominal distention R14.0 and Excessive gas R14.3 [facility] [address] [facility] [address] [place], [place] [id number] 06/10/2024 Olinda Crowdy Perirectal abscess K 61.1 ; Muscle spasm M62.838 ; History of right breast cancer Z85.3 ; Type 2 diabetes mellitus with other circulatory complications E11.59 and BMI 29.0-29.9,adult Z68.29 [facility] [address] [facility] [address] [place], [place] [id number] 06/29/2024 Olinda Crowdy Abnormal kidney func tion N28.9 [facility] [address] [place], [place] [id number] 07/01/2024 Olinda Crowdy Comedone L70.0 and Perirectal abscess K61.1 [facility] [address] [place], [place] [id number] 08/03/2024 Olinda Crowdy Neoplasm of uncertai n behavior of skin D48.5 and BMI 29.0-29.9,adult Z68.29 [facility] [address] [place], [place] [id number] 09/07/2023 Marcelino Clatonia Impaired fasting glu cose R73.01 [facility] [address] [place], [place] [id number] 09/11/2023 Marcelino Clatonia Impaired fasting glu cose R73.01 [facility] [address] [facility] [address] [place], [place] [id number] 09/11/2023 Marcelino Clatonia Impaired fasting glu cose R73.01 [facility] [address] [facility] [address] [place], [place] [id number] 09/11/2023 Marcelino Clatonia Type 2 diabetes aury itus without complication, without long-term current use of insulin E11.9 [facility] [address] [place], [place] [id number] 09/14/2023 Marcelino Clatonia [facility] [address] [place] [id number] 09/14/2023 Marcelino Clatonia Type 2 diabetes aury itus without complication, without long-term current use of insulin E11.9 [facility] [address] [place], [place] [id number] 09/15/2023 Marcelino Clatonia Type 2 diabetes aury itus without complication, without long-term current use of insulin E11.9 [facility] [address] [place], [place] [id number] 10/13/2023 Olinda Crowdy [facility] [address] [place], [place] [id number] 03/28/2024 Marcelino Clatonia Type 2 diabetes aury itus without complication, without long-term current use of insulin E11.9 [facility] [address] [place], [place] [id number] 05/04/2024 Olinda Crowdy [facility] [address] [place], [place] [id number] 06/16/2024 Olinda Crowdy Perirectal abscess K 61.1 [facility] [address] [place] [id number] 06/24/2024 Marcelino Clatonia [facility] [address] [place] [id number] 07/01/2024 Olinda Crowdy [facility] [address] [place], [place] [id number] 07/18/2024 Marcelino Clatonia Type 2 diabetes aury itus without complication, without long-term current use of insulin E11.9 [facility] [address] [place], [place] [id number] 08/11/2024 Marcelino Clatonia Colon cancer screeni ng Z12.11 and Osteopenia M85.80 [facility] [address] [place], [place] [id number] 09/05/2023 R Tyler Puckett [facility] [address] [place] [id number] 11/23/2023 Marge Tyler Floresdana [facility] [address] [facility] [address] [place] [id number] 08/08/2024 Olinda Kim Assessments Encounter Date Diagnosis (ICD Code) Assessment Notes Treatment Notes Treatment Clinical Notes Section Notes 01/21/2024 COVID-19 (ICD-10 - U07.1) Fluids, rest, supportive measures for fever and symptoms relief, discussed covid vitamins and isolation period. 09/07/2023 Impaired fasting glucose (ICD-10 - R73.01) 09/11/2023 Impaired fasting glucose (ICD-10 - R73.01) 09/11/2023 Impaired fasting glucose (ICD-10 - R73.01) 09/11/2023 Type 2 diabetes mellitus without complication, without long-term current use of insulin (ICD-10 - E11.9) 09/14/2023 Type 2 diabetes mellitus without complication, without long-term current use of insulin (ICD-10 - E11.9) CancelRx Response got Denied on 2023-09-14 10:12:03 for 'Accu-Chek Softclix Lancets - Miscellaneous'Pha rmacy Notes: Unable to Cancel Rx. Please contact Pharmacy 09/15/2023 Type 2 diabetes mellitus without complication, without long-term current use of insulin (ICD-10 - E11.9) 10/02/2023 Hypertriglyceridemia (ICD-10 - E78.1) Will start on vascepa for TG's. She is going to discuss the leqvio with her irrigation technician. 10/02/2023 Polyarthralgia (ICD- 10 - M25.50) 03/28/2024 Type 2 diabetes mellitus without complication, without long-term current use of insulin (ICD-10 - E11.9) 04/29/2024 Vitamin D deficiency (ICD-10 - E55.9) 04/29/2024 Essential hypertensi on (ICD-10 - I10) 06/03/2024 Perirectal abscess (ICD-10 - K61.1) 06/03/2024 Abdominal distention (ICD-10 - R14.0) Patient will f/u with GI. 06/16/2024 Perirectal abscess (ICD-10 - K61.1) 06/29/2024 Abnormal kidney function (ICD-10 - N28.9) 07/01/2024 Perirectal abscess (ICD-10 - K61.1) Healed. 07/01/2024 Comedone (ICD-10 - L70.0) comedone extracted. 07/18/2024 Type 2 diabetes mellitus without complication, without long-term current use of insulin (ICD-10 - E11.9) 08/03/2024 Neoplasm of uncertai n behavior of skin (ICD-10 - D48.5) 08/03/2024 BMI 29.0-29.9,adult (ICD-10 - Z68.29) 08/11/2024 Osteopenia (ICD-10 - M85.80) 08/11/2024 Colon cancer screeni ng (ICD-10 - Z12.11) 06/10/2024 Muscle spasm (ICD-10 - M62.838) 06/10/2024 Perirectal abscess (ICD-10 - K61.1) Much smaller, will give another 7 days of abx. 06/10/2024 History of right carolyn ast cancer (ICD-10 - Z85.3) 06/03/2024 Excessive gas (ICD-1 0 - R14.3) 04/29/2024 Vitamin B 12 deficie ncy (ICD-10 - E53.8) 04/29/2024 Type 2 diabetes mellitus without complication, without long-term current use of insulin (ICD-10 - E11.9) 06/10/2024 Type 2 diabetes mellitus with other circulatory complications (ICD-10 - E11.59) 06/10/2024 BMI 29.0-29.9,adult (ICD-10 - Z68.29) 04/29/2024 Pure hypercholesterolemia (ICD-10 - E78.00) 04/29/2024 History of right carolyn ast cancer (ICD-10 - Z85.3) 04/29/2024 Hypothyroidism, unspecified type (ICD-10 - E03.9) 04/29/2024 Polyarthralgia (ICD- 10 - M25.50) She has osteoarthritis and is getting injections which only help minimally. Will try some meloxicam. 04/29/2024 Ganglion cyst (ICD-1 0 - M67.40) Will go back to the hand surgeon. Plan Of Treatment Pending Test Test Name Order Date Bone density 08/11/2024 colonoscopy 11/24/2023 colonoscopy 08/15/2024 Insurance Providers Payer Name Payer Address Payer Phone Subscriber Number Group Number Insured Name Patient Relationship to Insured Coverage Start Date Coverage End Date [employer] [address] [address] [place] [address] [id number] ELAINE PAL Self - patient is the insured [employer] [address] [address] [place], [place] [id number] ELAINE PAL Self - patient is the insured Medications Administered Medication Instructions Date of Administration Dosage Notes Depo- Medrol 40 mg/ml 07/29/2018 1.5 mL Depo- Medrol 40 mg/ml 10/28/2019 1.5 mL Depo- Medrol 40 mg/ml 07/27/2020 1.5 mL Dexamethasone 06/17/2005 1 mL Toradol 07/16/2018 30 mg Toradol 08/09/2018 30 mg Zofran 08/09/2018 4 mg Medical (General) History Medical History History ICD Code Breast CA, Dx: 1984 migraine headache Hypertension Hematuria urinary incontinence thyroid nodule 12/04/09 echo, mild pulmonic insufficienc y, mild concentric LVH hyperlipidemia H. Pylori Infection osteoarthritis, right knee diverticulosis diverticulitis Colon polyps Diastolic dysfunction, Dx: 2018 Surgical History Surgery Date(Month/Year) Cholecystectomy 2000 deviated nasal septum 2000 Abdominal hysterectomy, Partial followed by complete 2000 Right mastectomy 1984 tonsillectomy 1973 colonoscopy, hyperplastic polyp 03/18 Colonoscopy, internal hemorrhoids, benig n polyps Oct 2015 Colonoscopy Oct 2018 Right parathyroidectomy 2023 Hospitalization History Reason Date(Month/Year) see above
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
--- OUTSIDE RECORDS SUMMARY | 2024-08-15 15:05 | XMS_ITS | Referral Summary ---
Author Organization [employer] Address [address] [place] [address] Care Team Providers Care Ambulatory Nurse Name Role Phone Unavailable Primary Care Provider [...]
--- NOTE | 2024-08-15 15:15 | CA_ITS ---
APPROVED REPORT EXAM: Comprehensive 2D, Doppler, and color-flow Echocardiogram Loading Unit Tool Setter: Debbie Samuel RT(R) Ht: 5 ft 5 in Wt: 180lbs BSA: 1.89 BP: 134/80 mmHg Indications: shortness of breath 2D Dimensions Left Atrium 4.00 cm F: 2.7 - 3.8 LVEF (Marley's) 54.00 % F: 54 - 74 LVOT 2.09 cm (M/F) 1.5-2.5 LV Volume 74.10 mL F: 46 - 106 LV Volume Index 39.2 mL/m2 F: 29 - 61 LA Volume 32.60 mL LA Volume Index 17.25 mL/m2 (M/F) 16-34 EF AP4 55.20 % EF AP2 52.8 % EF BP 54.0 % GL Strain -17.2 % M-Mode Dimensions RVDd 3.30 cm (0.9-2.6) LVDd 4.71 cm (3.5-5.7) Ao Diam 2.58 cm (2.0-3.7) LVDs 3.42 cm (3.5-5.7) IVSd 1.01 cm (0.6-1.1) PWd 0.97 cm (0.6-1.1) EF (Teich) 53.30% FS 27.40% EDV (Teich) 102.90 mL ESV (Teich) 48.10 mL LV Diastology E Decel Time 250 (160-240 msec) E/A Ratio 0.7 MED E' 4.2 (>= 7 cm/sec) E'/MED E' Ratio 13.14 (<= 14) LAT E' 5.6 (>= 10 cm/sec) E/LAT E' Ratio 9.86 (<= 14) Aortic Valve LVOT Max 112.0 (70-110 cm/s) SHELBY Index 1.25 cm2/m2 LVOT VTI 25.55 cm AoV Peak Maximiliano. 185.0 (50-130 cm/s) AI PHT 708.00 ms AO Mean GR. 6.70 (<5 mmHg) AO VTI 37.1 (18-25 cm) SHELBY (VTI) 2.36 (2.5-4.5 cm2) Mitral Valve MV E Max Maximiliano. 55.0 (40-130 cm/s) MV A Velocity 84.0 (40-130 cm/s) E/A Ratio 0.66 MV Decel. Time 250 (160-240 ms) Left Ventricle The left ventricle is normal size. The left ventricular systolic function is normal. The left ventricular ejection fraction is within the normal range. There is normal left ventricular wall thickness. There is normal LV segmental wall motion. Transmitral Doppler flow pattern suggests impaired LV relaxation. LVEF is 60%. Right Ventricle The right ventricle is normal size. The right ventricular systolic function is normal. Atria Left atrium is mildly dilated. Right atrium is mildly dilated. There is no Doppler evidence of interatrial shunt. Aortic Valve The aortic valve is mildly thickened. Mild aortic regurgitation. There is no aortic valvular stenosis. Mitral Valve The mitral valve is normal in structure. No evidence of mitral valve stenosis. Mild mitral regurgitation. Tricuspid Valve Tricuspid valve is grossly normal in structure and function. Trace tricuspid regurgitation. There is insufficient TR jet to estimate RVSP. Pulmonic Valve The pulmonary valve is normal in structure. Trace pulmonic regurgitation. Great Vessels The aortic root is normal in size. IVC is normal in size and collapses >50% with inspiration. Pericardium There is no pericardial effusion. Other Information Study Quality: Fair Conclusion Normal biventricular systolic function. Mild biatrial dilation. Mild MR, mild AI. Electronically signed by : Laney Adler MD 08/22/2024 11:56:30
== END 2024-08-15 23:59 | disposition home or self-care (01) ==
LOC: RT 15:01
PROVIDERS: PCP Physician Assistant; Visit Provider Physician Assistant
DX: I08.0 Rheumatic disorders of both mitral and aortic valves (principal); I11.9 Hypertensive heart disease without heart failure; E78.2 Mixed hyperlipidemia; R79.89 Other specified abnormal findings of blood chemistry; I25.10 Atherosclerotic heart disease of native coronary artery without angina pectoris
CPT/HCPCS: 93306

== ENCOUNTER 2024-08-19 08:32 | Outpatient (CLI) | payer MEDICARE, OTHER, SELFPAY ==
--- OUTSIDE RECORDS SUMMARY | 2024-07-01 05:15 | XMS_ITS ---
Author Organization [facility] Address [address] [place] [id number] Care Team Providers Care Capping Machine Operator Name Role Phone Bob Marcelino Primary Care Provider Marge Puckett Unavailable [phone] Olinda Kim Unavailable [phone] Allergies Allergen (clinical drug ingredient) Drug/Non Drug Allergy documented on EMR Reaction Allergy Type Onset Date Status amoxicillin / clavulanate Augmentin rash Drug Allergy Active Decongestant tachycardia Drug Allergy Ac tive REASON FOR VISIT 2 Week Follow Up Medications Medication SIG (Take, Route, Frequency, Duration) Notes Start Date End Date Status Furosemide 20 MG 1 tablet Orally Once a day Active Spironolactone 50 MG 1/2 tab orally Active SILICONE BREAST PROSTHESES 1 PROSTHESES DIRECTED 06/15/2017 Active Furosemide 40 MG 1/2 tab orally once a day Not-Taking Leqvio 284 MG/1.5ML as directed subcutaneously every 6 months Not-Taking Meloxicam 15 MG 1 tablet Orally Once a day 04/29/2024 Active Levothyroxine Sodium 50 MCG Take 1 tablet by mouth once daily for 90 Active Accu-Chek Softclix Lancets - USE 1 TO CHECK GLUCOSE ONCE DAILY for 90 Active Accu-Chek Guide - USE 1 STRIP TO CHECK GLUCOSE ONCE DAILY for 90 days Dx code E11.9 Active Accu-Chek Softclix Lancets - 1 lancet 03/28/2024 Active BRA WITH PROSTHESIS 4 BRAS DIRECTED 06/15/2017 Active GLUCOMETER DIRECTED TEST QD E11.9 *Pleas e review for potential replacement for e-prescription and drug interaction check* 04/25/2022 Active SILICONE BREAST PROSTHESES DIRECTED DIRECTED Z85.3 *Please review for potential replacement for e-prescription and drug interaction check* 02/21/2022 Active MASTECTOMY BRA DIRECTED ORAL for 14 DAYS 02/21/2022 Active metFORMIN HCl ER 500 MG 1 tab Orally Two times a day for 90 days Active Vital Signs Blood pressure systolic 120 mm Hg 07/02/19 25 Blood pressure diastolic 76 mm Hg 025 Heart Rate 61 /min 07/01/2024 Height 65 in 07/01/2024 Weight 181.6 lbs 07/01/2024 BMI 30.22 kg/m2 07/01/2024 Encounters Encounter Location Date Provider Diagnosis [facility] [address] [place] [phone] 07/01/2024 Olinda Kim Comedone L70.0 and Perirectal abscess K61.1 Assessments Encounter Date Diagnosis (ICD Code) Assessment Notes Treatment Notes Treatment Clinical Notes Section Notes 07/01/2024 Comedone (ICD-10 - L70.0) comedone extracted. 07/01/2024 Perirectal abscess (ICD-10 - K61.1) Healed. Plan Of Treatment Treatment Notes Assessment Notes Comedone comedone extracted. Perirectal abscess Healed. Next Appt Details Follow Up: prn, Reason: Progress Notes * KAEKLAUSIE LDOB: [birth year] (69 yo F)Acc No.[id number]:07/01/2024 Progress Notes Patient: ELAINE DRAKE Provider: GRACIELA Knight :1955 A ge:69 Y S ex:Female Date:07/01/2024 Address:[facility] [id number] Pcp:Marcelino Rojas Subjective: * Chief Complaints: * 1 . 2 Week Follow Up. * HPI: H PI: 69 year old female presents with c/o Here for follow up on:?Pt is here today for a 2 week f/u on the abscess culture and her fluid medications. Pt sts she thinks the abscess has healed up but sts she has another spot that feels pointy that she would like looked at today as well. Pt sts she is also here to jin zeng blood work. * ROS: C ARDIOLOGY: no D izziness. n o C hest pain. D ERMATOLOGY: no R liliana. n o H agueda. G ASTROENTEROLOGY: no N ausea. n o V omiting. * Medical History: B reast CA, Dx: 1984, Migraine headache, Hypertension, Hematuria, Urinary incontinence, Thyroid nodule, 12/04/09 echo, mild pulmonic insufficiency, mild concentric LVH, Hyperlipidemia, H. Pylori Infection, Osteoarthritis, right knee, Diverticulosis, Diverticulitis, Colon polyps, Diastolic dysfunction, Dx: 2018. * Surgical History: C holecystectomy 2000, deviated nasal septum 2000, Abdominal hysterectomy, Partial followed by complete 1995, 2000, Right mastectomy 1984, tonsillectomy 1973, colonoscopy, hyperplastic polyp 03/18, Colonoscopy, internal hemorrhoids, benign polyps Oct 2015, Colonoscopy Oct 2018, Right parathyroidectomy 2023. * Hospitalization/Major Diagno stic Procedure: s ee above . * Family History: F ather: alive 78 yrs, glaucoma, htn. M other: 49 yrs, breast cancer. P aternal Grand Father: . P aternal Grand Mother: . M aternal Grand Father: . M aternal Grand Mother: . S iblings: alive, older sister has CA of thyroid. 2 sister(s) . 2 son(s) . . * Social History: C URRENT TOBACCO USE S moking Status: Patient does NOT smoke. C affeine: yes, frequency:daily. Exercise: yes. Home smoke detector use: yes. Marital Status: . New since last visit: none. Occupation: yes. Past smoking status: no, Smoking status: Does not smoke. Occup. exposure: none. Recreational drug use: no. Alcohol: no. Sexually active: yes. Travel ouside [place]: yes, some. * Medications: T aking Furosemide 20 MG Tablet 1 tablet Orally Once a day , Taking Spironolactone 50 MG Tablet 1/2 tab orally , Taking SILICONE BREAST PROSTHESES 1 PROSTHESES DIRECTED , Taking BRA WITH PROSTHESIS 4 BRAS DIRECTED , Taking GLUCOMETER DIRECTED TEST QD , Notes to Pharmacist: E11.9 *Please review for potential replacement for e-prescription and drug interaction check*, Taking SILICONE BREAST PROSTHESES DIRECTED DIRECTED , Notes to Pharmacist: Z85.3 *Please review for potential replacement for e-prescription and drug interaction check*, Taking MASTECTOMY BRA DIRECTED ORAL , Taking metFORMIN HCl ER 500 MG Tablet Extended Release 24 Hour 1 tab Orally Two times a day , Taking Accu-Chek Softclix Lancets - Miscellaneous USE 1 TO CHECK GLUCOSE ONCE DAILY , Taking Accu-Chek Guide - Strip USE 1 STRIP TO CHECK GLUCOSE ONCE DAILY , Notes to Pharmacist: Dx code E11.9, Taking Accu-Chek Softclix Lancets - Miscellaneous 1 lancet , Taking Meloxicam 15 MG Tablet 1 tablet Orally Once a day , Taking Levothyroxine Sodium 50 MCG Tablet Take 1 tablet by mouth once daily , Not-Taking Furosemide 40 MG Tablet 1/2 tab orally once a day , Not-Taking Leqvio 284 MG/1.5ML Solution Prefilled Syringe as directed subcutaneously every 6 months , Medication List reviewed and reconciled with the patient * Allergies: A ugmentin: rash, Decongestant: tachycardia - Side Effects. Objective: * Vitals: W t: 181.6, Temp: 98.1, BP: 120/76, HR: 61, Nurse: jaylen, Ht: 65, BMI:30.22. * Examination: G eneral Examination: General Appearance: N AD. Chest: n ormal shape and expansion. Heart: R SR. Lungs: c lear to auscultation. Genitalia: a bscess has healed, there is a small comedone along the right side of the anus that was expressed. Assessment: * Assessment: 1. P erirectal abscess - K61.1 (Primary) 2 . C omedone - L70.0 ? Plan: * Treatment: 2. C omedone Notes: comedone extracted. * Procedure Codes: G 2211 Complex e/m visit add on, 3074F SYST BP LT 130 MM HG, 3078F DIAST BP < 80 MM HG * Follow Up: p rn * Billing Information: * Visit Code: 15095 Office Visit, Est Pt., Level 3. * Procedure Codes: G2211 Complex e/m visit add on. 3074F SYST BP LT 130 MM HG. 3078F DIAST BP < 80 MM HG. * Electronic signature of GRACIELA Tran on 08/19/2024 at 08:36 AM EDT Sign off status: Pending * Provider: GRACIELA Knight Date: 0 07/01/2024 Generated for Maxime pride/Loi/Mando on: 0 08/19/2024 08:36 AM EDT History and Physical Notes * HPI (History of Present Illness) Category Sub-Category Detail Notes Category Not es HPI Here for follow up on: Pt is her e today for a 2 week f/u on the abscess culture and her fluid medications. Pt sts she thinks the abscess has healed up but sts she has another spot that feels pointy that she would like looked at today as well. Pt sts she is also here to discuss blood work Examination Category Sub-Category Detail Notes Category Not es General Examination Heart: RSR Lungs: clear to auscultatio n General Appearance: NAD Genitalia: abscess has healed, there is a small comedone along the right side of the anus that was expressed Chest: normal shape and exp ansion
--- OUTSIDE RECORDS SUMMARY | 2024-08-03 12:15 | XMS_ITS ---
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) [facility] Referring Provider First Name Olinda Referring Provider Last Name Julio Referring Provider Speciality Physician Marine Diesel Technician Referred Provider Specialty Dermatology General Notes Olinda [...] 08/03/2024 Encounters Encounter Location Date Provider Diagnosis [facility] [address] [facility] [address] [place] [phone] 08/03/2024 Olinda Kim Neoplasm of uncertai n [...] ELAINE PAL LDOB: [birth year] (69 yo F)Acc No.[id number]:08/03/2024 Progress Notes Patient: Andrea CHIVOELAINE Moe Provider: GRACIELA Knight DOB:1955 A ge:69 Y S ex:Female Date:08/03/2024 Address:[place], [id number] Pcp:Marcelino Rojas Subjective: * Chief Complaints: * [...] skin - D48.5 (Primary) 2 . B [place] 29.0-29.9,adult - Z68.29 Plan: * Treatment: * Procedure Codes: G 2211 Complex e/m visit add on, G8420 BMI<30 AND >=22 CALC & DOCU * Follow Up: w [facility] dermatology * Billing Information: * Visit Code: 30621 Office Visit, Est Pt., Level 3. * Procedure Codes: G2211 Complex e/m visit add on. G8420 BMI<30 AND >=22 CALC & DOCU. * Electronic signature of GRACIELA Tran on 08/19/2024 at 08:37 AM EDT Sign off status: Pending * Provider: GRACIELA Knight Date: 0 08/03/2024 Generated for Maxime pride/Loi/Vladimirsmitting on: 0 08/19/2024 08:37 AM EDT History and Physical Notes * [...]
--- OUTSIDE RECORDS SUMMARY | 2024-08-11 07:55 | XMS_ITS ---
Author Organization [facility] Address [address] [facility] [address] [place] [phone] Care Team Providers Care Clerical Manager Name Role Phone Marcelino Rojas Primary Care Provider ItaloMarge cortez [facility] [phone] REASON FOR VISIT due for screening Encounters Encounter Location Date Provider Diagnosis [place] [address] [facility] [address] [place] [phone] [place]/11[place]20[place] cancer screen[place] Z12.11 and Osteopenia M85.80 Assessments Encounter Date Diagnosis (ICD Code) Assessment Notes Treatment Notes Treatment Clinical Notes Section Notes 08/11/2024 Colon cancer screening (ICD-10 - Z12.11) 08/11/2024 Osteopenia (ICD-10 - M85.80) Plan Of Treatment Pending Test Test Name Order Date Bone density 08/11/2024 Progress Notes * ELAINE PAL LDOB: [birth year] (69 yo F)Acc No.[id number]:08/11/2024 Patient: KLAUS DRAKEDEBO Yañez :1955 A ge:69 Y S ex:Female Address:[facility] [place] [address] Subjective: * Chief Complaints: * D ue for screening * Medical History: * Surgical History: * Hospitalization/Major Diagno stic Procedure: * Medications: Objective: * Vitals: * Physical Examination: Assessment: * Assessment: 1. C milanaon cancer screening - Z12.11 (Primary) 2 . O steopenia - M85.80 Plan: * Treatment: * Procedure Codes: * true * Date: Generated for Maxime pride/Loi/Mando on: 0 08/19/2024 08:37 AM EDT
--- OUTSIDE RECORDS SUMMARY | 2024-08-19 08:37 | XMS_ITS | Clinical Summary ---
Author Organization [employer] Address [address] [place] [address] Care Team Providers Care Care Giver Name Role Phone Unavailable Primary Care Provider [...]
--- OUTSIDE RECORDS SUMMARY | 2024-08-19 08:37 | XMS_ITS | Encounter Summary ---
Author Organization [employer] Address [address] [place] [address] Care Team Providers Care Asphalt Distributor Operator Name Role Phone Unavailable Primary Care Provider Unavailabl e Encounter Details Date Type Department Care Team (Late st Contact Info) Description 10/29/2018 Transcribed Document [facility] [address] [place] [address] Provider, Larry Pemberton MD Social History Tobacco Use Types Packs/Day Years Used Date Smoking Tobacco: Never Assessed Comments Unknown Sex and Gender Information Value Date Recorded Sex Assigned at Not on file Legal Sex Female 1:43 PM CDT Gender Identity Not on file Sexual Orientation Not on file documented as of this encounter Miscellaneous Notes * Cerner Conversion Note - [facility] Niecy ProviderMD - 10/29/2018 10:55 AM EDT [address] [address] KEYANNA PAL :1955 Visit Time:10/29/2018 [...] see procxedure sheet for recommendations Where: [address] [place] [address]- Business (1) Medications What How Much When [...] getting enough exercise. ??? Smoking. ??? Taking tzns-atz-fgxhhzm pain medicines, like aspirin and ibuprofen. ??? [...] health care provider or your diet and secretary specialist (dietitian). ? Take a fiber supplement or probiotic, if your health care provider approves. ??? Take jajn-nkz-mqspbub and prescription medicines only as told by [...] 11/20/2004 Document Revised: 01/12/2017 Document Reviewed: 01/12/2017 [employer] Interactive Patient Education ?? 2019 [employer] Hemorrhoids Hemorrhoids are swollen veins in [...] times a day. General instructions ??? Take adnn-xwl-igitfug and prescription medicines only as told by [...] 02/20/2001 Document Revised: 07/23/2016 Document Reviewed: 11/07/2015 [employer] Patient Education ?? 2019 [employer] Colon Polyps Polyps are tissue growths [...] 11/19/2004 Document Revised: 07/31/2016 Document Reviewed: 01/14/2016 [employer] Patient Education ?? 2019 [employer]. High-Fiber Diet Fiber, also called dietary fiber, [...] Barley. Bulgur wheat. Millet. Bran muffins. Popcorn. Brooker wafer crackers. Vegetables Sweet potatoes. Spinach. Kale. Artichokes. Cabbage. Broccoli. Green peas. Carrots. Squash. Fruits Berries. Pears. Apples. Oranges. Avocados. Prunes and raisins. Dried figs. Meats and Other Protein Sources [place], kidney, eden, and soy beans. Split peas. [...] 08/08/2014 Elsevier Interactive Patient Education ?? 2018 [employer]. Colonoscopy, Adult, Care After This sheet gives [...] slower pace than normal. ? Eat soft, uiee-vb-jpxxmf foods. ? Rest often. ??? Take rmed-rqc-owesquh or prescription medicines only as told by [...] 10/07/2004 Document Revised: 11/17/2016 Document Reviewed: 05/06/2016 [employer] Interactive Patient Education ?? 2018 [employer]. Emergency Awareness and Preventative Care STROKE is [...] Assistance with quitting is available by contacting 8-649-GJMQSHOP.CANOW. This is a free resource providing counseling, [...] was given the opportunity to ask questions. Patient/Glue Cook Name: Patient/Glue Cook Signature: Relationship to Patient: Clinician/Hospital Glue Cook Signature: Date: documented in this encounter Plan of Treatment Not on file documented as of this encounter Visit Diagnoses Not on filedocumented in this encounter
--- OUTSIDE RECORDS SUMMARY | 2024-08-19 08:37 | XMS_ITS | Clinical Summary ---
Author Organization Healthcare Address [address] [place] [address] Care Team Providers Care Pattern Layout Worker Name Role Phone Jc Sanabria MD Primary Care Provider [phone] Family History Medical History Relation Name Comments [...] of Treatment Not on file Care Teams Pattern Layout Worker Relationship Specialty Start Date End Date Jc Sanabria MD [address] [place] [id number] PCP - General 07/20/20
--- OUTSIDE RECORDS SUMMARY | 2024-08-19 08:37 | XMS_ITS | Encounter Summary ---
Author Organization [employer] Address [address] [place] [address] Care Team Providers Care Copra Sampler Name Role Phone Unavailable Primary Care Provider Unavailabl e Encounter Details Date Type Department Care Team (Late st Contact Info) Description 10/29/2018 Transcribed Document [facility] [address] [place] [address] Provider, Larry Pemberton MD Social History Tobacco Use Types Packs/Day Years Used Date Smoking Tobacco: Never Assessed Comments Unknown Sex and Gender Information Value Date Recorded Sex Assigned at Not on file Legal Sex Female 1:43 PM CDT Gender Identity Not on file Sexual Orientation Not on file documented as of this encounter Miscellaneous Notes * Cerner Conversion Note - [facility] Niecy ProviderMD - 10/29/2018 9:48 AM EDT Pre Procedure Adult Entered On: 10/29/2018 8:52 EDT Performed On: 10/29/2018 8:48 EDT by Alivia Laguerre RN Height and Weight, Clinical Dosing Height Source : Stated Height Entry Format : [place] Height, Feet : 5 ft(Converted to: 152 cm, 60 Inch) Height, Inches : 6 Inch(Converted to: 0 ft 6 Inch, 15.24 cm) Clinical Height : 167.64 cm Weight Source : Standing scale Weight Entry Format : [place] Clinical Dosing Weight : 78.24 kg Weight, Pounds : 172 lb Weight, Ounces : 2 oz Body Surface Area (BSA) : 1.88 m2 Body Mass Index : 27.8 kg/m2 (HI) [place] Body Weight : 59 kg Alivia Laguerre [...] Ambulatory Legal Guardian : Spouse Support Person/Patient Strategic Marketing Leader : Yes Support Person/Pt Rep Name : Stan Support Person/Pt Rep Contact Information : [phone] Want Family/Rep/Phys Notified of Admit : No Emergency Contact #1 : na Emergency Contact #1 Phone Number : na Emergency Contact #1 Relationship : na Emergency Contact #2 : na Emergency Contact #2 Phone Number : na Emergency Contact #2 Relationship : na Information Obtained From : Patient Primary Language : Sami Communication Barrier : None Objects to Sharing [...] Scale Risk Level : 0-24 Low Risk [place] Fall Interventions : Adequate lighting, Assistive devices [...]
--- OUTSIDE RECORDS SUMMARY | 2024-08-19 08:37 | XMS_ITS | Encounter Summary ---
Author Organization [employer] Address [address] [place] [address] Care Team Providers Care Adjunct Phlebotomy Instructor Name Role Phone Unavailable Primary Care Provider Unavailabl e Encounter Details Date Type Department Care Team (Late st Contact Info) Description 10/29/2018 Transcribed Document [facility] [address] [place] [address] Provider, Larry Pemberton MD Social History Tobacco Use Types Packs/Day Years Used Date Smoking Tobacco: Never Assessed Comments Unknown Sex and Gender Information Value Date Recorded Sex Assigned at Not on file Legal Sex Female 1:43 PM CDT Gender Identity Not on file Sexual Orientation Not on file documented as of this encounter Miscellaneous Notes * Cerner Conversion Note - [facility] Niecy ProviderMD - 10/29/2018 10:26 AM EDT [facility] PAC[facility] Summary Primary Physician: CASSIUS STANFORD MD-GAE Finalized Date/Time: 10/29/18 11:00:31 Pt. Name: KEYANNA PAL/Sex: 1955 Female Med Rec #: [id number] Physician: CASSIUS STANFORD MD-GAE Financial #: [id number] Pt. Type: O Room/Bed: EEN/5 Admit/Disch: 10/29/18 08:02:00 - Institution: [facility] PACU Case Times Entry 1 In PACU I 10/29/18 09:39:00 Ready for PACU 10/29/18 10:44:00 Discharge Discharge from PACU 10/29/18 10:57:00 I [facility] PACU Case Times Audit 10/29/18 11:00:29 Internal Communications Manager: ROMINA Modifier: ROMINA <+> 1 Ready for PACU Discharge <+> 1 Discharge from PACU I Finalized By: VAMSHI CHAVARRIA, RN Document Signatures Signed By: VAMSHI CHAVARRIA RN 10/29/18 11:00 documented in this encounter Plan of Treatment Not on file documented as of this encounter Visit Diagnoses Not on filedocumented in this encounter
--- OUTSIDE RECORDS SUMMARY | 2024-08-19 08:37 | XMS_ITS | Patient Health Record ---
[facility] Address [address] [place] [id number] Care Team Providers Care Tennis Court Attendant Name Role Phone Marcelino Rojas Primary Care Provider Marge Puckett Unavailable [phone] Olinda Kim Unavailable [phone] Allergies Allergen (clinical drug ingredient) Drug/Non Drug Allergy documented on EMR Reaction Allergy Type Onset Date Status amoxicillin / clavulanate Augmentin rash Drug Allergy Active Decongestant tachycardia Drug Allergy Ac tive Results Component Value Reference Range Notes Influenza Screen (in house) Reviewed date:01/21/2024 03:02:02 PM Interpretation:neg Performing Lab: Notes/Report: neg results neg Rapid Strep- Inhouse Reviewed date:01/21/2024 03:02:02 PM Interpretation:neg Performing Lab: Notes/Report: neg strep test neg CBC Fingerstick (in house) Reviewed date:01/21/2024 03:02:02 [...] Interpretation:pos Performing Lab: Notes/Report: pos Result: pos P-Magnesium Reviewed date:06/16/2024 01:59:02 PM Interpretation:2.5 Performing Lab: Notes/Report: Test performed by [facility] [address] [place] [address] , [address], [place] [address] Noah Chen MD, Deputy Insurance Commissioner CLIA: [id number] Magnesium 2.5 1.6-2.4 mg/dL P-Culture, Miscellaneous Aer obic w/Gram Stain Reviewed date:06/16/2024 01:59:02 PM Interpretation:Light Growth, E. Coli Performing Lab: Notes/Report: Test performed by [facility] [address] [place] [address] , [address], [place] [address] Noah Chen MD, Deputy Insurance Commissioner CLIA: [id number] Specimen Source Abscess - perirectal Gram Stain See Below No polymorphonuclear leukocytes seen Few Gram Positive Rods Few Gram Positive Cocci In pairs Culture, Miscellaneous Aerobic w/Gram Stain See Below Preliminary Report : Pending, reinmgte Final Report : Light growth of Normal [...] Interpretation: Performing Lab: Notes/Report: Test performed by [facility], [address] [place], [place] [address] Noah Chen MD, Deputy Insurance Commissioner CLIA: [id number] Specimen Source Abscess - perirectal Culture, Anaerobic and Aerobic w/Gram Stain See Below Final Report : No Anaerobes isolated Sensitivity Panel See Below Organism Antibiotic Amikacin Ampicillin Aztreonam Cefepime Cefoxitin Ceftazidime Ceftriaxone Cefuroxime Ciprofloxacin Ertapenem Gentamicin Imipenem Levofloxacin Meropenem Piperacillin/Tazo Tetracycline Tobramycin Trimeth/Sulfa S=SUSCEPTIBLE I=INTERMEDIATE R=RESISTANT P-CPK Reviewed date:06/16/2024 01:59:02 PM Interpretation:Normal Performing Lab: Notes/Report: Test performed by [facility], [address] [place], [place] [address] Noah Chen MD, Deputy Insurance Commissioner CLIA: [id number] Creatine Kinase 74 20-180 U/L P-Comprehensive Metabolic Pa nam (CMP) Reviewed date:06/16/2024 01:59:02 PM Interpretation:K 5.5, BUN 29, Creat 1.46, Anthony 11.0, eGFR 39 Performing Lab: Notes/Report: Test performed by [facility] [address] [place] [address] , [address], [place] [address] Noah Chen MD, Deputy Insurance Commissioner CLIA: [id number] Sodium 136 135-145 mmol/L Potassium 5.5 3.5-5.3 [...] 0.7 <0.2-1.2 mg/dL A/G Ratio 1.7 1.1-2.5 [facility]th[facility] Panel[facility] Reviewed date:10/14/2023 11:40:27 PM Interpretation:Normal Performing Lab: Notes/Report: Test performed by [facility] [address] [place] [address] , [address], [place] [address] Noah Chen MD, Deputy Insurance Commissioner CLIA: [id number] Erythrocyte Sedimentation Rate (ESR), Automated 4 <31 mm/hr Rheumatoid Factor <10 <14.1 IU/mL C-Reactive Protein (CRP) 0.49 <0.50 mg/dL Antinuclear Antibodies (GERMAN) Screen, Reflex GERMAN 9 Panel Negative Negative Test performed by Multiplex Bead Immunoassay methodology. Antinuclear Antibodies (GERMAN) Result Note SEE COMMENT For positive Autoantibodies, please refer to the interpretive chart here: [email or web address] [email or web address]. pdf CCP Antibodies <0.5 <0.5-3.0 U/mL CBC Venipuncture (in house) Reviewed date:04/29/2024 04:56:13 [...] Interpretation:Normal Performing Lab: Notes/Report: Test performed by [facility] [address] [place] [address] , [address], [place] [address] Noah Chen MD, Deputy Insurance Commissioner CLIA: [id number] Vitamin B12 197 854-1563 pg/mL P-Comprehensive Metabolic Pa nam (CMP) Reviewed date:05/04/2024 08:36:23 AM Interpretation:gluc 130, Ca 10.5 Performing Lab: Notes/Report: Test performed by [facility] [address] [place] [address] , [address], [place] [address] Noah Chen MD, Deputy Insurance Commissioner CLIA: [id number] Sodium 141 135-145 mmol/L Potassium 4.9 3.5-5.3 [...] Interpretation:Normal Performing Lab: Notes/Report: Test performed by [facility] [address] [place] [address] [place] [address] Noah Chen MD, Deputy Insurance Commissioner CLIA: [id number] Thyroxine Free (free T4) 1.53 0.86-1.76 ng/dL P-Lipid Panel Reviewed date:05/04/2024 08:36:23 AM Interpretation:chol 231, chol/hdl 4.44, non-hdl 179, ldl 154 Performing Lab: Notes/Report: Test performed by [facility] [address] [place], [place] [address] [address] [place] [address], [place] [address] Noah Chen MD, Deputy Insurance Commissioner CLIA: [id number] Cholesterol 231 <200 mg/dL Triglycerides 124 <150 [...] Interpretation:Normal Performing Lab: Notes/Report: Test performed by [facility] [address] [place], [place] [address] , [address], [place] [address] Noah Chen MD, Deputy Insurance Commissioner CLIA: [id number] TSH 1.03 0.43-5.25 mU/L P-Vitamin D 25-Hydroxy Reviewed date:05/04/2024 08:36:23 AM Interpretation:Normal Performing Lab: Notes/Report: Test performed by [facility] [address] , [address], [place] [address] Noah Chen MD, Deputy Insurance Commissioner CLIA: [id number] Vitamin D 25-Hydroxy 66.5 30.0-100.0 ng/mL Interpretation of Vitamin D 25 OH: < 20 ng/mL - Deficiency 20 - 29 ng/mL - Insufficiency 30 - 100 ng/mL - Sufficiency > 100 ng/mL - Super-therapeutic- toxicity may occur above this level. Clinical correlation required. Mammogram Reviewed date:12/10/2023 02:10:10 PM Interpretation:Negative Performing Lab: Notes/Report: Negative result Negative P-Basic Metabolic Panel (BMP ) Reviewed date:07/08/2024 02:33:26 PM Interpretation:glu 218 Performing Lab: Notes/Report: Test performed by [facility] [address] [facility] , [address], [place] [address] Noah Chen MD, Deputy Insurance Commissioner CLIA: [id number] Sodium 141 135-145 mmol/L Potassium 4.1 3.5-5.3 mmol/L Chloride 104 97-108 mmol/L CO2 24 22-32 mmol/L Glucose 218 65-99 mg/dL BUN 20 8-23 mg/dL Creatinine 0.98 0.50-1.00 mg/dL Calcium 9.9 8.6-10.4 mg/dL eGFR by Creatinine 63 >59 mL/min/1.73m2 Medications Medication SIG (Take, Route, Frequency, Duration) Notes Start Date End Date Status Accu-Chek Softclix Lancets - 1 lancet 03/28/2024 Active Meloxicam 15 MG 1 tablet Orally Once a day 04/29/2024 Active Levothyroxine Sodium 50 MCG Take 1 tablet by mouth once daily for 90 Active Furosemide 20 MG 1 tablet Orally Once a day Active GLUCOMETER DIRECTED TEST QD E11.9 *Pleas [...] Vaccine Route Administration Date Status Comme nts Fluzone PF Quad (6-35 months) Unknown 01/19/2016 Administered Fluzone Quad (6months&older) IM Intramuscular 12/18/2017 Administered Fluzone Quad-Medicare (6months&older) IM Intramuscular 01/26/2019 Administered PNEUMOVAX 23 VACCINE IM Intramuscular 12/18/2017 Administe red Tetanus Tdap-Adacel (over 7yrs) IM Intramuscular 07/05/2016 Administered xFlu shot-36 months and older IM Intramuscular 02/04/2008 Administered xFluzone (6mos and older)-trivalent IM Intramuscular 12/17/2011 Administered Problems Problem Type SNOMED Code ICD Code Onset Dates Problem Status W/U Status Risk Notes Problem Essential hypertension (88045509) Essential (primary) hypertension (I10) Active confirmed Problem 43607969 Type 2 diabetes mellitus with other circulatory complications (E11.59) Active confirmed Problem 50183658 Vitamin D defici ency (E55.9) Active confirmed Problem 87216864 Essential hypert ension (I10) Active confirmed Problem 772716097 Diverticulitis (K57.92) Active confirmed Problem 270004277 Hypertriglycerid emia (E78.1) Active confirmed Problem 0194378 Cardiomegaly (I51.7) Active confirmed Problem 032227250721091 Piriformis syndr ome of left side (G57.02) Active confirmed Problem 72010708 Memory loss (R41.3) Active confirmed Problem 010769670 Impaired fasting glucose (R73.01) Active confirmed Problem 840333012 Thyroid nodule (E04.1) Active confirm ed Problem 36528689 Constipation, unspecified constipation type (K59.00) Active confirmed Problem 513265665 Acquired hypothyroidism (E03.9) Active confirmed Problem 896093554 Non morbid obesi ty due to 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) Active confirmed Problem 595987059392350 Primary osteoart hritis of right knee (M17.11) Active confirmed Problem Hypothyroidism (27485858) Hypothyroidism, unspecified type (E03.9) Active confirmed Problem 69054514 Hypersomnia (G47.10) Active confirmed Problem 371098733 Diverticulosis (K57.90) Active confirmed Problem 08145785 Hyperparathyroid ism (E21.3) Active confirmed Problem 416851212 Paresthesia of b oth feet (R20.2) Active confirmed Problem 274498041 Type 2 diabetes mellitus without complication, without long-term current use of insulin (E11.9) Active confirmed Problem 43475156 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) Active confirmed Problem 218058114 Pure hypercholesterolemia (E78.00) Active confirmed Problem Irritable bowel syndrome (76935963) Irritable bowel syndrome with both constipation and diarrhea (K58.2) Active confirmed Problem 149425161 History of right breast cancer (Z85.3) Active confirmed Problem 100157768886414 Carpal tunnel syndrome, right (G56.01) Active confirmed Problem Osteopenia (disorder) (082025208) Osteopenia of right hip (M85.851) Active confirmed Problem 3157082 Diastolic dysfun ction (I51.89) Active confirmed Problem Osteopenia of le ft hip (M85.852) Active confirmed Problem 11689638 Postconcussive syndrome (F07.81) Active confirmed Problem 54603736665240068 Piriformis syn drome of both sides (G57.03) Active confirmed Problem 19455185 Venous reflux (I87.2) Active confirmed Vital Signs Heart Rate 72 /min 08/03/2024 Blood pressure diastolic 82 mm Hg 08/03/2024 Height 65 in 08/03/2024 Blood pressure systolic 124 mm Hg 08/03/2024 Weight 179.4 lbs 08/03/2024 BMI 29.85 kg/m2 08/03/2024 Encounters Encounter Location Date Provider Diagnosis [facility] [address] [id number] 10/02/2023 Olinda Julio Polyarthralgia M25.5 0 and Hypertriglyceridemia E78.1 [facility] [address] [id number] 01/21/2024 Olindatatyana Kim COVID-19 U07.1 [facility] [address], [place] [id number] 04/29/2024 Olinda Julio Essential hypertensi on I10 ; Vitamin D deficiency E55.9 ; Vitamin B 12 deficiency E53.8 ; Type 2 diabetes mellitus without complication, without long-term current use of insulin E11.9 ; Pure hypercholesterolemia E78.00 ; History of right breast cancer Z85.3 ; Hypothyroidism, unspecified type E03.9 ; Polyarthralgia M25.50 and Ganglion cyst M67.40 [facility] [address] [place], [place] [id number] 06/03/2024 Olinda Crowdy Perirectal abscess K 61.1 ; Abdominal distention R14.0 and Excessive gas R14.3 [facility] [address] [facility] [address] [place], [place] [id number] 06/10/2024 Olinda Crowdy Perirectal abscess K 61.1 ; Muscle spasm M62.838 ; History of right breast cancer Z85.3 ; Type 2 diabetes mellitus with other circulatory complications E11.59 and BMI 29.0-29.9,adult Z68.29 [facility] [address] [facility] [address] [place], [place] [id number] 06/29/2024 Olinda Crowdy Abnormal kidney func tion N28.9 [facility] [address] [place], [place] [id number] 07/01/2024 Olinda Crowdy Comedone L70.0 and Perirectal abscess K61.1 [facility] [address] [place], [place] [id number] 08/03/2024 Olinda Crowdy Neoplasm of uncertai n behavior of skin D48.5 and BMI 29.0-29.9,adult Z68.29 [facility] [address] [place] [id number] 09/07/2023 Marcelino Birmingham Impaired fasting glu cose R73.01 [facility] [address] [place], [place] [id number] 09/11/2023 Marcelino Birmingham Impaired fasting glu cose R73.01 [facility] [address] [facility] [address] [place] [id number] 09/11/2023 Marcelino Birmingham Impaired fasting glu cose R73.01 [facility] [address] [facility] [address] [place] [id number] 09/11/2023 Marcelino Birmingham Type 2 diabetes aury itus without complication, without long-term current use of insulin E11.9 [facility] [address] [place] [id number] 09/14/2023 Marcelino Birmingham [facility] [address] [place] [id number] 09/14/2023 Marcelino Birmingham Type 2 diabetes aury itus without complication, without long-term current use of insulin E11.9 [facility] [address] [place] [id number] 09/15/2023 Marcelino Birmingham Type 2 diabetes aury itus without complication, without long-term current use of insulin E11.9 [facility] [address] [place] [id number] 10/13/2023 Olinda Crowdy [facility] [address] [place] [id number] 03/28/2024 Marcelino Birmingham Type 2 diabetes aury itus without complication, without long-term current use of insulin E11.9 [facility] [address] [place] [id number] 05/04/2024 Olinda Crowdy [facility] [address] [place], [place] [id number] 06/16/2024 Olinda Crowdy Perirectal abscess K 61.1 [facility] [address] [place] [id number] 06/24/2024 Marcelino Birmingham [facility] [address] [place] [id number] 07/01/2024 Olinda Crowdy [facility] [address] [place] [id number] 07/18/2024 Marcelino Birmingham Type 2 diabetes aury itus without complication, without long-term current use of insulin E11.9 [facility] [address] [place], [place] [id number] 08/11/2024 Marcelino Birmingham Colon cancer screeni ng Z12.11 and Osteopenia M85.80 [facility] [address] [place] [id number] 09/05/2023 R Tyler Puckett [facility] [address] [place] [id number] 11/23/2023 Marge Scott [facility] [address] [facility] [address] [place] [id number] 08/08/2024 Olinda Kim Assessments Encounter Date Diagnosis (ICD Code) Assessment Notes Treatment Notes Treatment Clinical Notes Section Notes 09/07/2023 Impaired fasting glucose (ICD-10 - R73.01) [...] going to discuss the leqvio with her laser machine operator. 10/02/2023 Polyarthralgia (ICD- 10 - M25.50) 01/21/2024 COVID-19 (ICD-10 - U07.1) Fluids, rest, supportive measures for fever and symptoms relief, discussed covid vitamins and isolation period. 03/28/2024 Type 2 diabetes mellitus without complication, [...] Insured Coverage Start Date Coverage End Date [employer] [address] [address] [place] [address] [id number] ELAINE PAL Self - patient is the insured Leo [address] [address] [place], [place] [id number] ELAINE PAL Self - patient is the [...]
--- OUTSIDE RECORDS SUMMARY | 2024-08-19 08:37 | XMS_ITS | Encounter Summary ---
Author Organization [facility] Address [address] [place] [address] Care Team Providers Care Dye Jig Operator Name Role Phone Unavailable Primary Care Provider Unavailabl e Encounter Details Date Type Department Care Team (Late st Contact Info) Description 10/29/2018 Transcribed Document [facility] [address] [place] [address] Provider, Larry Pemberton MD Social History Tobacco Use Types Packs/Day Years Used Date Smoking Tobacco: Never Assessed Comments Unknown Sex and Gender Information Value Date Recorded Sex Assigned at Not on file Legal Sex Female 1:43 PM CDT Gender Identity Not on file Sexual Orientation Not on file documented as of this encounter Miscellaneous Notes * Cerner Conversion Note - [facility] Niecy ProviderMD - 10/29/2018 10:00 AM EDT MEENAKSHI Mccord PreOp Summary Primary Physician: CASSIUS STANFORD MD-GAE Finalized Date/Time: 10/29/18 09:03:21 Pt. Name: KEYANNA PAL/Sex: 1955 Female Med Rec #: [id number] Physician: CASSIUS STANFORD MD-GAE Financial #: [id number] Pt. Type: O Room/Bed: EEN/5 Admit/Disch: 10/29/18 08:02:00 - Institution: [facility]EENAKSHI M[facility]ord PreOp Case Times Entry 1 In Preop 10/29/18 08:48:00 Ready for Holding n/a Room Patient Ready for 10/29/18 09:03:00 Surgery Patient Out of Preop 10/29/18 09:03:00 Patient Out of n/a Holding Room [facility] PreOp Case Times Audit 10/29/18 09:03:19 Computer Technical Specialist: NEELAM Modifier: PARULKNEA <+> 1 Patient Out of Preop <+> 1 Patient Ready for Surgery Finalized By: Alivia Laguerre RN Document Signatures Signed By: Alivia Laguerre RN 10/29/18 09:03 Electronically signed by Jay Jay [facility] Conversion Sea Kayaking Guide Cerner at 07/30/2022 7:53 PM CDT documented in this encounter Plan of Treatment Not on file documented as of this encounter Visit Diagnoses Not on filedocumented in this encounter
--- OUTSIDE RECORDS SUMMARY | 2024-08-19 08:37 | XMS_ITS | Encounter Summary ---
Author Organization [facility] Address [address] [place] [address] Care Team Providers Care Orchard Sprayer Name Role Phone Unavailable Primary Care Provider Unavailabl e Encounter Details Date Type Department Care Team (Late st Contact Info) Description 10/29/2018 Transcribed Document [facility] Radiology [address] [place] [address] Provider, Larry Pemberton MD Social History Tobacco Use Types Packs/Day Years Used Date Smoking Tobacco: Never Assessed Comments Unknown Sex and Gender Information Value Date Recorded Sex Assigned at Not on file Legal Sex Female 1:43 PM CDT Gender Identity Not on file Sexual Orientation Not on file documented as of this encounter Miscellaneous Notes * Cerner Conversion Note - [facility] Niecy ProviderMD - 10/29/2018 9:06 AM EDT [...] Histories Past Medical History: Active Hiatal hernia (1389957434) Reflux ([id number]) Breast cancer (256093974) HTN (hypertension) (8324072155) Hyperlipemia (26733844) Murmur, cardiac (3121540447) Palpitations (195083181) Asthma, exercise induced (1876404063) Diarrhea (208305336) Diverticulitis (033113395) Procedure history: egd. colonoscopy. Cholecystectomy; (13195). mastectomy. hysterectomy. EGD. Colonoscopy (538000305). Hysterectomy (675239615). Mastectomy (8157490023). Tonsillectomy (484955881). Cholecystectomy (18265313). Social History Social & Psychosocial Habits Alcohol [...] list: All Problems Reflux / SNOMED CT [id number] / Confirmed At risk for sleep apnea / IMO 25035859 / Confirmed Diarrhea / SNOMED CT 392370185 / Confirmed Diverticulitis / SNOMED CT 811367567 / Confirmed Asthma, exercise induced / SNOMED CT 6743072215 / Confirmed Murmur, cardiac / SNOMED CT 4923685917 / Confirmed Hyperlipemia / SNOMED CT 91849082 / Confirmed HTN (hypertension) / SNOMED CT 8289096823 / Confirmed Breast cancer / SNOMED CT 216112302 / Confirmed Hiatal hernia / SNOMED CT 9520417019 / Confirmed Palpitations / SNOMED CT 994572904 / Confirmed, Active Problems (11) Asthma, exercise [...] No deformity, Normal gait. Integumentary: Warm, Dry, [place], No rash. Integumentary exam: Face, Chest, Arm, [...]
--- OUTSIDE RECORDS SUMMARY | 2024-08-19 08:37 | XMS_ITS | Encounter Summary ---
Author Organization [employer] Address [address] [place] [address] Care Team Providers Care Audio/Visual Manager Name Role Phone Unavailable Primary Care Provider Unavailabl e Encounter Details Date Type Department Care Team (Late st Contact Info) Description 10/29/2018 Transcribed Document [facility] [address] [place] [address] Provider, Larry Pemberton MD Social History Tobacco Use Types Packs/Day Years Used Date Smoking Tobacco: Never Assessed Comments Unknown Sex and Gender Information Value Date Recorded Sex Assigned at Not on file Legal Sex Female 1:43 PM CDT Gender Identity Not on file Sexual Orientation Not on file documented as of this encounter Miscellaneous Notes * Cerner Conversion Note - [facility] Niecy ProviderMD - 10/29/2018 10:26 AM EDT MEENAKSHI Mccord IntraOp Summary Primary Physician: CASSIUS STANFORD MD-GAE Finalized Date/Time: 10/29/18 09:36:56 Pt. Name: KEYANNA PAL D.O.B./Sex: 1955 Female Med Rec #: [id number] Physician: CASSIUS STANFORD MD-GAE Financial #: [id number] Pt. Type: O [place] [facility] [place] Admit/Disch: 10/29/18 08:02:00 - Institution: [facility] - Case Attendance Entry 1 Entry 2 Entry 3 Case Attendee Morris STANFORD Elizabeth A, Rn DUNHAM, CHRIS RAM Role Performed Surgeon/Proceduralist, Hogshead Mat Assembler, First Scrub, First First Time In 10/29/18 [...] Case Attendee HEENA SOUZA NA Role Performed UROLOGIST MD/Nurse Change Analyst Time In 10/29/18 09:18:00 Time Out 10/29/18 09:37:00 Procedure Colonoscopy, Colon Polypectomy Other Attendee Superficial Wound Closed By: Last Modified By: Lynne Caceres Rn 10/29/18 09:36:12 [facility] - Case Attendance Audit 10/29/18 09:36:12 Beader Tender: [id number] Modifier: [id number] <+> Time Out 1 <*> Procedure Colonoscopy, Colon Polypectomy 2 <+> Time Out 2 <*> Procedure Colonoscopy, Colon Polypectomy 3 <+> Time Out 3 <*> Procedure Colonoscopy, Colon Polypectomy 4 <+> Time Out 4 <*> Procedure Colonoscopy, Colon Polypectomy 10/29/18 09:33:50 Beader Tender: [id number] Modifier: [id number] 1 <*> Procedure Colonoscopy 2 <*> Procedure Colonoscopy 3 <*> Procedure Colonoscopy 4 <*> Procedure Colonoscopy 10/29/18 09:23:31 Beader Tender: [id number] Modifier: [id number] 1 <*> Time In 10/29/18 09:18:00 1 <*> Procedure Colonoscopy 10/29/18 09:21:18 Beader Tender: [id number] Modifier: [id number] <+> 1 Procedure 2 <*> Procedure Colonoscopy [...] Endo - Case Times Audit 10/29/18 09:35:59 Beader Tender: [id number] Modifier: [id number] <+> 1 Out Room Time <+> 1 Stop Time <+> 1 Stop Time 10/29/18 09:26:26 Beader Tender: [id number] Modifier: [id number] <+> 1 Start Time [facility] - [...] Reported to VAMSHI CHAVARRIA RN Post-op Transport Stretcher/[facility] Via Patient Transport Lynne Caceres Rn, Accompanied [...] By: Lynne Caceres Rn 10/29/18 09:21:22 [facility] Endo - General Case Blade Bender Furnace Tender 1 Case Information OR Endo 01 [facility] Case Level 1 Room Verified Yes Wound Class III - Contaminated Specialty SN Gastroenterology Anesthesia Type MAC ASA Class 3 Diagnosis Preop Diagnosis abdominal pain, diarrhea, diverticulitis Postop Same As Preop No Postop Diagnosis diverticulosis, hemorrhoids, colon polyp Last Modified By: Lynne Caceres Rn 10/29/18 09:36:38 [facility] Endo - General Case Data Audit 10/29/18 09:36:38 Beader Tender: [id number] Modifier: [id number] <+> 1 Postop Diagnosis [facility] Endo - Intraoperative Assessment Entry 1 Valid History / Yes Physical in Chart Preoperative Yes Checklist Reviewed/Evaluated Allergies Reviewed Yes Patient is Latex No Sensitive Level of WDL Consciousness (WDL = Alert, Oriented to Person, Place, and Time) Present Upon IVs, ECG monitored Arrival to OR Last Modified By: Lynne Caceres Rn 10/29/18 09:22:23 [facility] Endo - Intraoperative Equipment Entry 1 Type Scope Equipment Intraop Monitoring Blood Pressure Arm, left upper Location Pulse Oximeter Hand, right Probe Site Antiembolic Devices Scopes Flexible Endoscopes Colonoscope, Peds Used Scope Serial [id number] Number/Identificatio n Number Photo/Video Documentation Photo Yes Video No Last Modified By: Lynne Caceres Rn 10/29/18 09:22:39 [facility] Endo - Intraoperative Equipment Audit 10/29/18 09:22:39 Beader Tender: [id number] Modifier: [id number] <+> 1 Photo <+> 1 Video <+> 1 Blood Pressure Location <+> 1 Pulse Oximeter Probe Site <+> 1 Flexible Endoscopes Used <+> 1 Scope Serial Number/Identification Number [facility] Endo - Patient Positioning Entry 1 Procedure [...] Endo - Patient Positioning Audit 10/29/18 09:33:52 Beader Tender: [id number] Modifier: [id number] 1 <*> Procedure Colonoscopy [facility] - [...] Endo - Sign Out Audit 10/29/18 09:36:49 Beader Tender: [id number] Modifier: [id number] <+> 1 RN Sign Out Signature Date/Time [facility] - Surgical Procedures Entry 1 Entry 2 Procedure Colonoscopy Colon Polypectomy Modifiers Additional Procedure Description Primary Procedure Yes No Primary Surgeon HIEN STANFORD KAREN, MD-CHRIS THOMPSON Start 10/29/18 09:26:00 10/29/18 09:26:00 Stop 10/29/18 09:35:00 10/29/18 09:35:00 Physician [facility] 10/29/18 09:28:00 10/29/18 09:28:00 Cecum Reached Anesthesia Type MAC MAC Specialty SN Gastroenterology SN Gastroenterology Wound Class III - Contaminated III - Contaminated Last Modified By: Lynne Caceres Rn Jones, Elizabeth A, Rn 10/29/18 09:36:54 10/29/18 09:36:54 [facility] Endo - Surgical Procedures Audit 10/29/18 09:36:54 Beader Tender: [id number] Modifier: [id number] <+> 1 Stop <+> 2 Stop 10/29/18 09:33:45 Beader Tender: [id number] Modifier: [id number] 1 <*> Procedure Colonoscopy 1 <+> Start 1 <+> Physician States Cecum Reached <+> 2 Procedure <+> 2 Primary Procedure <+> 2 Primary Surgeon <+> 2 Specialty <+> 2 Start <+> 2 Wound Class <+> 2 Anesthesia Type <+> 2 Physician States Cecum Reached 10/29/18 09:23:24 Beader Tender: [id number] Modifier: [id number] 1 <*> Procedure Colonoscopy 1 <+> Specialty [facility] Endo - Time Out Entry 1 Procedure [...] By: Lynne Caceres Rn 10/29/18 09:33:52 [facility] Endo - Time Out Audit 10/29/18 09:33:52 Beader Tender: [id number] Modifier: [id number] 1 <*> Procedure to be Performed Colonoscopy Case Comments <None> Finalized By: Lynne Caceres Rn Document Signatures Signed By: Lynne Caceres Rn 10/29/18 09:36 Electronically signed by Jay Jay [facility] Conversion Grey Percher Cerner at 07/30/2022 7:53 PM CDT documented in this encounter Plan of Treatment Not on file documented as of this encounter Visit Diagnoses Not on filedocumented in this encounter
--- OUTSIDE RECORDS SUMMARY | 2024-08-19 08:38 | XMS_ITS | Referral Summary ---
Author Organization [employer] Address [address] [place] [address] Care Team Providers Care Hurl Shaker Name Role Phone Unavailable Primary Care [...]
--- OUTSIDE RECORDS SUMMARY | 2024-08-19 08:38 | XMS_ITS | Data Portability ---
Author Organization [place] [facility] [place] [facility] Address [address] [place] [phone] Assessment No assessment recorded. Plan of Treatment Reminders Order Date Submit Date Provider Last Modified By Organization Details Last Modified Time Details Appointments None recorded. Lab None recorded. Referral None recorded. Procedures None recorded. Surgeries None recorded. Imaging [place], sestamibi scan [address] Centralized Scheduling, [address] [place], [address], 11:19:43 Medication Orders None recorded. Patient TargetsNo targets recorded. Patient InstructionsNo instructions recorded. Reason for Referral None Reported. Results Created Date Observation Date Name Description Value Unit Range Abnormal Flag Note LastModifiedBy Organization Detail LastModifiedTime 03/18/19 24 03/18/2023 CBC AUTO W DIFF WBC 8.2 K/uL 4.0-10 .5 Not Available [facility] [address], [place], [address], 03/18/2023 10:20:10 03/18/19 24 03/18/2023 CBC AUTO W DIFF RBC 4.3 M/mm3 4.2-6. 4 Not Available [facility] ([facility]) [address], [place], [address], 03/18/2023 10:20:10 03/18/19 24 03/18/2023 CBC AUTO W DIFF HGB 14.0 gm/dL 12.5-1 6.0 Not Available [facility] ([facility]) [address], [place], [address], 03/18/2023 10:20:10 03/18/19 24 03/18/2023 CBC AUTO W DIFF HCT 41.0 % 37.0-4 7.0 Not Available [facility] ([facility]) [address] , [place], [address], 03/18/2023 10:20:10 03/18/19 24 03/18/2023 CBC AUTO W DIFF MCV 95.1 fL 78-100 Not Available [facility] ([facility]) [address], [place], [address], 03/18/2023 10:20:10 03/18/19 24 03/18/2023 CBC AUTO W DIFF MCH 32.5 pg 27-31 high Not Available [facility] ([facility]) [address], [place], [address], 03/18/2023 10:20:10 03/18/19 24 03/18/2023 CBC AUTO W DIFF MCHC 34.1 g/dL 32-36 Not Available [facility] ([facility]) [address] [facility], [place], [address], 03/18/2023 10:20:10 03/18/19 24 03/18/2023 CBC AUTO W DIFF RDW 12.4 % 11.5-1 4.0 Not Available [facility] ([facility]) [address] [place], [address], 03/18/2023 10:20:10 03/18/19 24 03/18/2023 CBC AUTO W DIFF platelet count 287 K/uL 150-45 0 Not Available [facility] ([facility]) [address] [place], [address], 03/18/2023 10:20:10 03/18/19 24 03/18/2023 CBC AUTO W DIFF MPV 10.6 fL 6-9.5 high Not Available [facility] ([facility]) [address] [facility], [place], [address], 03/18/2023 10:20:10 03/18/19 24 03/18/2023 CBC AUTO W DIFF neutrophil% 64.1 % 43-65 Not Available [facility] ([facility]) [address] [facility], [place], [address], 03/18/2023 10:20:10 03/18/19 24 03/18/2023 CBC AUTO W DIFF lymphocyte% 22.9 % 20.5-4 5.5 Not Available [facility] ([facility]) [address] [facility], [place], [address], 03/18/2023 10:20:10 03/18/19 24 03/18/2023 CBC AUTO W DIFF monocyte% 10.0 % 5.5-11 .7 Not Available [facility] ([facility]) [address] [facility], [place], [address], 03/18/2023 10:20:10 03/18/19 24 03/18/2023 CBC AUTO W DIFF eosinophil% 1.9 % 0.9-2. 9 Not Available [facility] ([facility]) [address] [facility], [place], [address], 03/18/2023 10:20:10 03/18/19 24 03/18/2023 CBC AUTO W DIFF basophil% 0.7 % 0.2-1. 0 Not Available [facility] ([facility]) [address] [place], [address], 03/18/2023 10:20:10 03/18/19 24 03/18/2023 CBC AUTO W DIFF immature granulocytes % 0.4 % 0.0-0. 8 Not Available [facility] ([facility]) [address] [place], [address], 03/18/2023 10:20:10 03/18/19 24 03/18/2023 CBC AUTO W DIFF nucleated red blood cells % 0.0 % Not Available [facility] ([facility]) [address] [facility], [place], [address], 03/18/2023 10:20:10 03/18/19 24 03/18/2023 CBC AUTO W DIFF neutrophil# 5.3 K/uL 2.2-4. 8 high Not Available [facility] ([facility]) [address] [facility], [place], [address], 03/18/2023 10:20:10 03/18/19 24 03/18/2023 CBC AUTO W DIFF lymphocyte# 1.9 cell/ mcL 1.3-2. 9 Not Available [facility] ([facility]) [address], [place], [address], 03/18/2023 10:20:10 03/18/19 24 03/18/2023 CBC AUTO W DIFF monocyte# 0.8 cell/ mcL 0.3-0. 8 Not Available [facility] ([facility]) [address] [facility], [place], [address], 03/18/2023 10:20:10 03/18/19 24 03/18/2023 CBC AUTO W DIFF eosinophil# 0.2 cell/ mcL 0-0.2 Not Available [facility] ([facility]) [address] [facility], [place], [address], 03/18/2023 10:20:10 03/18/19 24 03/18/2023 CBC AUTO W DIFF basophil# 0.1 cell/ mcL 0.0-1. 0 Not Available [facility] ([facility]) [address] [facility], [place], [address], 03/18/2023 10:20:10 03/18/19 24 03/18/2023 CBC AUTO W DIFF immature gramulocytes # 0.03 K/uL Not Available [facility] ([facility]) [address] [place], [address], 03/18/2023 10:20:10 03/18/19 24 03/18/2023 CBC AUTO W DIFF nucleated red blood cells # 0.00 K/uL Not Available [facility] ([facility]) [address], [place], [address], 03/18/2023 10:20:10 03/18/19 24 03/18/2023 CBC AUTO W DIFF manual differential NO Not Available [facility] ([facility]) [address] , [place], [address], 03/18/2023 10:20:10 03/18/19 24 03/18/2023 BASIC METAB OLIC PANEL sodium 140 mmol/ L 136-14 5 Not Available [facility] ([facility]) [address], [place], [address], 03/18/2023 10:39:54 03/18/19 24 03/18/2023 BASIC METAB OLIC PANEL potassium 4.0 mmol/ L 3.6-5. 0 Not Available [facility] ([facility]) [address] , [place], [address], 03/18/2023 10:39:54 03/18/19 24 03/18/2023 BASIC METAB OLIC PANEL chloride 103 mmol/ L 98-107 Not Available [facility] ([facility]) [address], [place], [address], 03/18/2023 10:39:54 03/18/19 24 03/18/2023 BASIC METAB OLIC PANEL carbon dioxide 29.5 mmol/ L 21.0-3 2.0 Not Available [facility] ([facility]) [address] [place], [address], 03/18/2023 10:39:54 03/18/19 24 03/18/2023 BASIC METAB OLIC PANEL anion gap 11.5 Not Available [facility] ([facility]) [address] [place], [address], 03/18/2023 10:39:54 03/18/19 24 03/18/2023 BASIC METAB OLIC PANEL glucose 136 mg/dL 70-120 high Not Available [facility] ([facility]) [address], [place], [address], 03/18/2023 10:39:54 03/18/19 24 03/18/2023 BASIC METAB OLIC PANEL BUN 17 mg/dL 7-18 Not Available [facility] ([facility]) [address], [place], [address], 03/18/2023 10:39:54 03/18/19 24 03/18/2023 BASIC METAB OLIC PANEL creatinine 1.0 mg/dL 0.6-1. 3 Not Available [facility] ([facility]) [address] [facility], [place], [address], 03/18/2023 10:39:54 03/18/19 24 03/18/2023 BASIC METAB OLIC PANEL glomerular filtration rate 59 mlper min 60- low Not Available [facility] ([facility]) [address] [place], [address], 03/18/2023 10:39:54 03/18/19 24 03/18/2023 BASIC METAB OLIC PANEL calcium 9.6 mg/dL 8.5-10 .5 Not Available [facility] ([facility]) [address] [place], [address], 03/18/2023 10:39:54 03/26/19 24 03/26/2023 CALCI UM TOTAL calcium 9.4 mg/dL 8.5-10 .5 Not Available [facility] ([facility]) [address] [place], [address], 03/26/2023 15:48:17 03/26/19 24 03/26/2023 VITAM IN D, 25-HY DROXY vitamin D, 25-hydroxy 98.0 NG/mL 30.0-1 00.0 Not Available [facility] ([facility]) [address] , [place], [address], 03/26/2023 16:14:31 03/27/19 24 03/29/2023 PTH, INTAC T PTH, intact 47 pg/mL 15-65 Perfo rmed at: [facility] [address] [address] Lab Direc tor: Jona long PhD, Phone : [phone] Not Available [facility] ([facility]) [address] , [place], [address], 03/29/2023 10:09:29 11/26/19 23 07/11/2022 CT, neck, soft tissu e, w/ contr ast No observ ation record ed. [email or web address] Not Available 15:30:30 11/26/19 23 04/30/2022 US, thyro id No observ ation record ed. BARCODE Not Available 2022 14:48:01 12/16/19 23 12/15/2022 nm parat hyroi d scan [facility] [address] [place] [address] Phone: Fax: Name: KEYANNA COLON Exam Date: 023 : [birth year] Age 67 years Gender : F Access ion: [id number] Physic nathaly: MELISSA RIBEIRO Facili ty: [facility] Facili ty HSV: Outpat ient Exam: NM [...] Thank you [facility] Legall y authen ticate d by POPE RAMA Mendez DO 2022-03 13:35: 05 CC'ed Logic: Orderi ng Provid er: QUINTIN JUSTICE CC Provid er: KAITLYNN ALVAREZ Attend ing Provid er: QUINTIN JUSTICE Referr ing Provid er: QUINTIN JUSTICE Admitt ing Provid er: QUINTIN JUSTICE [id number] [facility] (Radiology) [address] , [place], [address], 12/19/2022 12:35:14 Result Notes None recorded. Problems No Known Problems Procedures Surgical History Date Name Laterality Status Provider Name and Address Organization Details Recorded Time Hysterectomy completed Gina Damon [facility] 12/10/2022 10:53:56 Imaging Results None recorded. Procedure Notes None recorded. Medical Equipment None Reported. Allergies Allergen ID Allergen Name Allergen Category Reaction Reaction Severity Criticality Documentation Date Start Date Code Code System Note Provider Name and Address Organization Details Recorded Time 83355 Augmentin medicatio n Not available Not available Not available 12/10/2022 52646 2 RxNorm Not Available [facility] 4 14:14:06 40843 Propylami ne derivativ e with histamine receptor antagonis t mechanism of action (substanc e) medicatio n Not available Not available Not available 12/10/2022 25637 8008 SNOMED Gina Damon null, [place] - [facility] - [place] [facility] [place] 3 11:09:24 Medications Name Sig Start Date [...] Updated DateTime 04/02/2023 162.56 cm 30.7 kg/m2 98835.03 g 98.5 [degF] Rose Luuy [facility] & [place] 04/02/2023 14:24:21 Date Recorded Body height Body mass index (BMI) Body weight Provider Name and Address Organization Details Last Updated DateTime 12/10/2022 162.56 cm 29.9 kg/m2 45487.07 g Gina [place] [facility] [place] 12/10/2022 10:51:16 Date Recorded Body height Body mass index (BMI) Body weight Provider Name and Address Organization Details Last Updated DateTime 12/24/2022 162.56 cm 29.9 kg/m2 60718.07 [facility] [place] 12/24/2022 15:02:34 Social History None recorded. Functional [...] SNOMED-CT Code Diagnosis ICD10 Code Diagnosis Note [id number] Melissa Ribeiro MD [facility] P-[id number] [address] [facility], [place] [address] 12/10/2022 10:28:19 12/10/2022 11:49:25 Hyperparathyroidism 01593192 E21.[address] scan and thyroid U/S with the patient myself in the office today. Explained there was nothing concerning on that scan. I would like for her to get a sestamibi scan for further work up, if this is not localizing , may need a SPEC CT Hypothyroidism 82912816 E03.9 Continue current dose of Synthroid. 489503 Melissa Ribeiro MD [facility] P2340 [address] [facility], [place] [address] 12/24/2022 14:44:05 12/24/2022 15:26:56 Parathyroid adenoma 603975692 D35.1 Went over the sestamibi scan results [...] if needed. Hyperparathyroidism 6699 9008 E21.3 Hypercalcemia 84490719 E 83.52 [id number] Melissa Ribeiro MD [facility] G -[address] [address] 04/02/2023 14:20:25 04/02/2023 14:30:28 Parathyroid adenoma 509095945 D35.1 Went over patient's post op parathyroi [...] as needed. Hyperparathyroidism 6699 9008 E21.3 Hypercalcemia 13449881 E 83.52 Health Concerns Section Related Observation LastModified by Organization Detai ls LastModified Time None Recorded Concern Status LastModified by Organization Details LastModified Time None Recorded Advance Directives Directive None Recorded Payers Insurance Date Sequence Insurance Name Policy Number Policy Wu Covered Member ID Wu Member ID Guarantor Name 09/26/2023 2 [employer] (MEDICARE SUPPLEMENT) Keyanna Manzano [id number] Keyanna Manzano 09/26/2023 1 [facility] - MEDICARE-[address] LONG TERM BOARD (MEDICARE) Keyanna Manzano [id number] Keyanna Manzano 12/10/2022 1 [employer] [id number] R Stan Manzano [id number] Keyanna Manzano Notes Date Note Type Note [...] and was sent to Dr Horta at [facility]. He sent her for a CT scan. Patient sees Dr Madsen for her heart issues and he done some blood work and that showed her Calcium and subsequently her PTH was elevated. Patient has had breast cancer, sister had thyroid caner (Hurthle Cell Carcinoma). She reports fatigue. He DEXA scan was concerning for osteoporosis. Melissa Ribeiro MD [address], [place], [address], [facility] [place] 12/10/2022 13:01:29 3 text/html 67 yo is here for follow up on imaging.Patient states she has stopped her VIt D3 because her calcium was elevated. Melissa Ribeiro MD [address], [place], [address], [facility] & [place] 12/26/2022 12:17:29 text/html Post op parathyroid that [...] 98 when checked inpatient. Melissa Ribeiro MD [address], [place], [address], [facility] - [place] & [place] 04/02/2023 15:31:00 OBGyn Episode No OBEpisode recorded.
--- OUTSIDE RECORDS SUMMARY | 2024-08-19 08:38 | XMS_ITS | Data Portability ---
Author Organization [place] [place] [facility] Address [address] [facility] [address] [place] [address] Assessment No assessment recorded. Plan of Treatment [...] By Organization Details Last Modified Time 04/11/2019 [id number] postconcussion syndrome: care instructions [email or web address] Not available 04/11/2019 16:24:51 - cut back [...] -- specifically, find some number games, including [employer], math as well. 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 [email or web address] Not available 04/11/2019 16:24:05 Reason for Referral None Reported. Medical Equipment None Reported. Allergies Allergen ID Allergen Name Allergen Category Reaction Reaction Severity Criticality Documentation Date Start Date Code Code System Note Provider Name and Address Organization Details Recorded Time 499063 Augmentin medicatio n Not available Not available Not available 04/11/2019 15254 2 RxNorm [facility] 0 14:06:12 Medications Name Sig Start Date [...] Updated DateTime 0 167.64 cm 28.6 kg/m2 73570.8 5 g 100 /min 112 mm[Hg] 70 mm[Hg] [facility] 0 14:37:37 Social History Question Answer Notes LastModified by Organizat [facility] Details LastModified Time Tobacco Smoking Status Never Smoker [facility] 04/11/2019 14:10:38 Marital Status kelly Chance n [...] 14:10:17 Medical History Condition Response Cancer Y Migraines Y High Cholesterol Y Hypertension Y Gynecological HistoryNo gynecological history recorded. Obstetrics History GPAL:G 0 P 0 0 0 0 Past Encounters Encounter ID Performer Location Encounter Start Date Encounter Closed Date Diagnosis/Indication Diagnosis SNOMED-CT Code Diagnosis ICD10 Code Diagnosis Note [id number] CHRISTOPHE TAYLOR MD NEUROLOGY [facility] [address] [place] [address] 04/11/2019 13:58:18 04/11/2019 16:27:28 Postconcussion syndrome 25724248 F07.81 64 yo woman with post concussion syndrome after a fall 11/26/2018 when she fell, hitting her head on concrete. She is having problems with multitaski ng, numbers/ca lculations , memory. She does better if she rests and less pressure. 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 She has made some mistakes with reversing numbers during balancing/accounti ng. She has to have a colonoscopy, had some heart problems. She had to slat pickler some mastectomy bras and got disoriented - [...] oopherectomy about 1997. CHRISTOPHE TAYLOR MD [address] [place], [address], [facility] 04/11/2019 16:24:54 OBGyn Episode No OBEpisode recorded.
[2024-08-19 08:57] LABS: Basophils % 0.5 % (0.1-2.0); Eosinophils # 0.2 Kmm3 (0.0-0.4); Eosinophils % 2.4 % (0.1-12.0); Hematocrit 38.6 % (37.0-47.0); Hemoglobin 13.2 g/dL (12.2-16.2); Immature Granulocytes # 0.04 10^3uL; Immature Granulocytes % 0.5 %; Lymphocytes # 1.6 K/mm3 (0.7-4.5); Lymphocytes % 20.1 % (10-50); Mean Corpuscular HGB Conc 34.2 g/dL (31.8-35.4); Mean Corpuscular Hemoglobin 33.2 pg (27.0-31.2); Mean Platelet Volume 10.2 fl (7.4-10.4); Monocytes # 0.9 K/mm3 (0.1-1.0); Monocytes % 11.4 % (1.7-9.3); Neutrophils # 5.2 K/mm3 (1.8-7.8); Neutrophils % 65.1 % (37.0-80.0); Nucleated Red Blood Cells # 0 10^3/uL; Nucleated Red Blood Cells % 0 %; Platelet Count 279 K/mm3 (142-424); Red Blood Count 3.98 M/mm3 (4.20-5.40); Red Cell Distribution Width 12.5 % (11.5-17.5); Red Cell Distribution Width-SD 44.9 fL
[2024-08-19 09:19] LABS: Alanine Aminotransferase 22 U/L (12-78); Albumin Level 4.1 g/dl (3.5-5.0); Alkaline Phosphatase 75 U/L (38-126); Anion Gap 7.4 mEq/L (5-15); Aspartate Amino Transferase 26 U/L (14-36); Bilirubin,Direct 0.2 mg/dl (0.0-0.4); Bilirubin,Indirect 0.8 mg/dL (0.0-0.9); Bilirubin,Unconjugated 0.8 mg/dL (0.0-1.1); Blood Urea Nitrogen 17 mg/dl (7-17); Calcium 9.8 mg/dl (8.4-10.2); Carbon Dioxide 28 mmol/L (22.0-30.0); Chloride 106 mmol/L (98-107); Chol/HDL Ratio 5.6 (1-3.5); Cholesterol 241 mg/dl (140-200); Estimated Glomerular Filt Rate 72 ml/min (>60); GFR (African American) 87 ML/MIN (>60); Glucose 129 mg/dl (74-100); HDL Cholesterol 43 mg/dl (40-60); Potassium 4.4 mmoL/L (3.5-5.1); Sodium 137 mmol/L (136-145); Total Protein,Serum 6.5 g/dl (6.3-8.2); Triglycerides 168 mg/dl (30-150); VLDL Cholesterol 34 mg/dL (0-40)
[2024-08-19 09:30] LABS: Direct LDL Cholesterol 144.42 mg/dL (100-129)
[2024-08-19 09:36] LABS: Free T4 (Free Thyroxine) 1.43 ng/dl (0.78-2.19)
[2024-08-19 09:48] LABS: Thyroid Stimulating Hormone 1.08 uIU/mL (0.465-4.68)
== END 2024-08-19 23:59 | disposition home or self-care (01) ==
LOC: LAB 08:33
PROVIDERS: PCP Physician Assistant; Visit Provider Physician Assistant
DX: E78.2 Mixed hyperlipidemia (principal); R06.02 Shortness of breath; R53.83 Other fatigue; R79.89 Other specified abnormal findings of blood chemistry; I10 Essential (primary) hypertension; I25.10 Atherosclerotic heart disease of native coronary artery without angina pectoris
CPT/HCPCS: 36415; 80048; 80061; 80076; 83735; 84439; 84443; 85025

== ENCOUNTER 2024-08-26 08:51 | Outpatient (CLI) | payer MEDICARE, OTHER, SELFPAY ==
--- OUTSIDE RECORDS SUMMARY | 2024-08-03 12:15 | XMS_ITS ---
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) [facility] Referring Provider First Name Olinda Referring Provider Last Name Julio Referring Provider Speciality Physician Edge Stainer Referred Provider Specialty Dermatology General Notes Olinda [...] 08/03/2024 Encounters Encounter Location Date Provider Diagnosis [facility] [address] [facility] [address] [place] [id number] 08/03/2024 Olinda Kim Neoplasm of uncertai n [...] ELAINE PAL LDOB: [birth year] (69 yo F)Acc No.[id number]:08/03/2024 Progress Notes Patient: Andrea CHIVOELAINE Moe Provider: GRACIELA Knight DOB:1955 A ge:69 Y S ex:Female Date:08/03/2024 Address:[place], [id number] Pcp:Marcelino Rojas Subjective: * Chief Complaints: * [...] skin - D48.5 (Primary) 2 . B [place] 29.0-29.9,adult - Z68.29 Plan: * Treatment: * Procedure Codes: G 2211 Complex e/m visit add on, G8420 BMI<30 AND >=22 CALC & DOCU * Follow Up: w [facility] dermatology * Billing Information: * Visit Code: 13671 Office Visit, Est Pt., Level 3. * Procedure Codes: G2211 Complex e/m visit add on. G8420 BMI<30 AND >=22 CALC & DOCU. * Electronic signature of GRACIELA Tran on 08/26/2024 at 08:55 AM EDT Sign off status: Pending * Provider: GRACIELA Knight Date: 0 08/03/2024 Generated for Maxime pride/Loi/Lisetteitting on: 0 08/26/2024 08:55 AM EDT History and Physical Notes * [...]
--- OUTSIDE RECORDS SUMMARY | 2024-08-11 07:55 | XMS_ITS ---
Author Organization [facility] Address [address] [facility] [address] [place] [phone] Care Team Providers Care Engineering Writer Name Role Phone Marcelino Rojas Primary Care Provider ItaloMarge cortez [facility] [phone] REASON FOR VISIT due for screening Encounters Encounter Location Date Provider Diagnosis [facility] [address] [facility] [address] [place] [id number] [place]20[place] cancer screen[place] Z12.11 and Osteopenia M85.80 Assessments Encounter Date Diagnosis (ICD Code) Assessment Notes Treatment Notes Treatment Clinical Notes Section Notes 08/11/2024 Colon cancer screening (ICD-10 - Z12.11) 08/11/2024 Osteopenia (ICD-10 - M85.80) Plan Of Treatment Pending Test Test Name Order Date Bone density 08/11/2024 Progress Notes * ELAINE PAL LDOB: [birth year] (69 yo F)Acc No.[id number]:08/11/2024 Patient: KLAUS DRAKEDEBO Yañez :1955 A ge:69 Y S ex:Female Address:[facility] [place] [address] Subjective: * Chief Complaints: * D ue for screening * Medical History: * Surgical History: * Hospitalization/Major Diagno stic Procedure: * Medications: Objective: * Vitals: * Physical Examination: Assessment: * Assessment: 1. C milanaon cancer screening - Z12.11 (Primary) 2 . O steopenia - M85.80 Plan: * Treatment: * Procedure Codes: * true * Date: Generated for Maxime pride/Loi/Mando on: 0 08/26/2024 08:55 AM EDT
--- OUTSIDE RECORDS SUMMARY | 2024-08-24 12:30 | XMS_ITS ---
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 Role Phone Bob Marcelino Primary Care Provider Marge Puckett Unavailable [phone] Olinda Kim Unavailable [phone] Allergies Allergen (clinical drug ingredient) Drug/Non Drug Allergy documented on EMR Reaction Allergy Type Onset Date Status amoxicillin / clavulanate Augmentin rash Drug Allergy Active Decongestant tachycardia Drug Allergy Ac tive REASON FOR VISIT F/U [facility] Medications Medication SIG (Take, Route, Frequency, Duration) Notes Start Date End Date Status GLUCOMETER DIRECTED TEST QD E11.9 *Pleas e review for potential replacement for e-prescription and drug interaction check* 04/25/2022 Active SILICONE BREAST PROSTHESES DIRECTED DIRECTED Z85.3 *Please review for potential replacement for e-prescription and drug interaction check* 02/21/2022 Active MASTECTOMY BRA DIRECTED ORAL for 14 DAYS 02/21/2022 Active Accu-Chek Softclix Lancets - USE 1 TO CHECK GLUCOSE ONCE DAILY for 90 Active Accu-Chek Softclix Lancets - 1 lancet 03/28/2024 Active SILICONE BREAST PROSTHESES 1 PROSTHESES DIRECTED 06/15/2017 Active BRA WITH PROSTHESIS 4 BRAS DIRECTED 06/15/2017 Active Leqvio 284 MG/1.5ML as directed subcutaneously every 6 months Not-Taking Spironolactone 50 MG 1/2 tab orally every other day Active Furosemide 20 MG 1 tablet Orally every other day Active Furosemide 40 MG 1/2 tab orally once a day Not-Taking metFORMIN HCl ER 500 MG Take 1 tablet by mouth twice daily for 90 Active Accu-Chek Guide - USE 1 STRIP TO CHECK GLUCOSE ONCE DAILY for 90 days Dx code E11.9 Active Levothyroxine Sodium 50 MCG Take 1 tablet by mouth once daily for 90 Active Meloxicam 15 MG 1 tablet Orally Once a day 04/29/2024 Active Vital Signs Blood pressure systolic 122 mm Hg 08/25/19 25 Blood pressure diastolic 84 mm Hg 025 Heart Rate 84 /min 08/24/2024 Height 65 in 08/24/2024 Weight 180.4 lbs 08/24/2024 BMI 30.02 kg/m2 08/24/2024 Encounters Encounter Location Date Provider Diagnosis [facility] [address] [facility] [address] [place] [phone] 08/24/2024 Olinda Kim Shortness of breath R06.02 Assessments Encounter Date Diagnosis (ICD Code) Assessment Notes Treatment Notes Treatment Clinical Notes Section Notes 08/24/2024 Shortness of breath (ICD-10 - R06.02) Discussed labs done at [facility] and cardiology appt. She is going to proceed with left and right heart cath. Plan Of Treatment Treatment Notes Assessment Notes Shortness of breath Discussed labs done at [facility] and cardiology appt. She is going to proceed with left and right heart cath. Next Appt Details Follow Up: with cardiology, Reason: Progress Notes * ELAINE PAL LDOB: [birth year] (69 yo F)Acc No.[id number]:08/24/2024 Progress Notes Patient: Andrea CHIVOELAINE Moe Provider: GRACIELA Knight :1955 A ge:69 Y S ex:Female Date:08/24/2024 Address:[facility] [id number] Pcp:Marcelino Rojas Subjective: * Chief Complaints: * 1 . F/U Keny Madsen. * HPI: H PI: 69 year old female presents with c/o Patient is here today for?Pt sts she went to see cardiology and had labs done at her last appt. They switched her fluid pill medication doses. Pt sts she had an echo done and it looked normal, but if she bends over, she is SOB and has trouble breathing. Pt sts she saw Keny Madsen and he wants to do a right and left heart cath.. * ROS: C ARDIOLOGY: no D izziness. [...] Diverticulosis, Diverticulitis, Colon polyps, Diastolic dysfunction, Dx: 2017. * Surgical History: C holecystectomy 2000, deviated [...] Furosemide 20 MG Tablet 1 tablet Orally every other day , Taking Spironolactone 50 MG Tablet 1/2 tab orally every other day , Taking SILICONE BREAST PROSTHESES 1 PROSTHESES [...] Side Effects. Objective: * Vitals: W t: 180.4, Temp: 98.6, BP: 122/84, HR: 84, Nurse: clark, Ht: 65, BMI:30.02. * Examination: G eneral Examination: General Appearance: N AD. Chest: n ormal shape and expansion. Heart: R SR. Lungs: c lear to auscultation. Peripheral pulses: t race leg edema bilaterally. Assessment: * Assessment: 1. S hortness of breath - R06.02 (Primary) Plan: * Treatment: * Follow Up: w [facility] cardiology * Billing Information: * Visit Code: 81250 Office Visit, Est Pt., Level 3. * Procedure Codes: * Electronic signature of GRACIELA Tran on 08/26/2024 at 08:55 AM EDT Sign off status: Pending * Provider: GRACIELA Knight Date: 08/24/2024 Generated for Clarissai bigg/Loi/eTransmitting on: 08/26/2024 08:55 AM EDT History and Physical Notes * HPI (History of Present Illness) Category Sub-Category Detail Notes Category Not es HPI Patient is here today for Pt sts she went to see cardiology and had labs done at her last appt. They switched her fluid pill medication doses. Pt sts she had an echo done and it looked normal, but if she bends over, she is SOB and has trouble breathing. Pt sts she saw Keny Madsen and he wants to do a right and left heart cath. Examination Category Sub-Category Detail Notes Category Not es General Examination Heart: RSR Lungs: clear to auscultatio n General Appearance: NAD Peripheral pulses: trace leg edema bila terally Chest: normal shape and exp ansion
--- NOTE | 2024-08-26 08:55 | XR_ITS ---
FINAL REPORT TECHNIQUE: Bone densitometry calculations of the lumbar spine and bilateral hips were obtained. CLINICAL HISTORY: SCREENING COMPARISON: 07/11/2022 FINDINGS: Using L1-4, the bone mineral density of the spine is 0.994 g/cm2, corresponding to T-score of -0.5 and a Z score of 1.4. This is within the range of normal. Using the left hip, the bone mineral density of the femoral neck is 0.723 g/cm2, corresponding to a T-score of -1.1 and a Z-score of 0.5. This is within the range of osteopenia. Using the right hip, the bone mineral density of the femoral neck is 0.660 g/cm?, corresponding to a T-score of -1.7 and a Z-score of -0.1. This is within the range of osteopenia. NOTE: T-score: Standard deviation compared with peak bone mass of young adult mean. *Following the recommendations of the International Society of Bone densitometry, classification of hip BMD is based on the lower of two T-scores; total hip or femoral neck. IMPRESSION: 1. Bone mineral density of the lumbar spine within the range of normal. 2. Bone mineral density of the bilateral femoral necks within the range of osteopenia. Reviewed, Interpreted and Dictated by Nida Charlton MD Transcribed by Rosario Tran Authenticated and [facility]
--- OUTSIDE RECORDS SUMMARY | 2024-08-26 08:55 | XMS_ITS | Patient Health Record ---
[facility] Address [address] [facility] [address] [place] [id number] Care Team Providers Care Production Hardener Name Role Phone Marcelino Rojas Primary Care Provider [phone] Marge Puckett Unavailable [phone] Olinda Kim Unavailable [phone] Allergies Allergen (clinical drug ingredient) Drug/Non Drug Allergy documented on EMR Reaction Allergy Type Onset Date Status amoxicillin / clavulanate Augmentin rash Drug Allergy Active Decongestant tachycardia Drug Allergy Ac tive Results Component Value Reference Range Notes P-Culture, Miscellaneous Aer obic w/Gram Stain Reviewed date:06/16/2024 01:59:02 PM Interpretation:Light Growth, E. Coli Performing Lab: Notes/Report: Test performed by [facility] [address] [place] [address] , [address], [place] [address] Noah Chen MD, Slicer Machine Operator CLIA: [id number] Specimen Source Abscess - perirectal Gram Stain [...] Tobramycin I Trimeth/Sulfa R S=SUSCEPTIBLE I=INTERMEDIATE R=RESISTANT P-Comprehensive Metabolic Pa nam (CMP) Reviewed date:06/16/2024 01:59:02 PM Interpretation:K 5.5, BUN 29, Creat 1.46, Anthony 11.0, eGFR 39 Performing Lab: Notes/Report: Test performed by [facility] [address] [place] [address] , [address], [place] [address] Noah Chen MD, Slicer Machine Operator CLIA: [id number] Sodium 136 135-145 mmol/L Potassium 5.5 3.5-5.3 [...] 0.7 <0.2-1.2 mg/dL A/G Ratio 1.7 1.1-2.5 P-CPK Reviewed date:06/16/2024 01:59:02 PM Interpretation:Normal Performing Lab: Notes/Report: Test performed by [facility], [address] , [address], [place] [address] Noah Chen MD, Slicer Machine Operator CLIA: [id number] Creatine Kinase 74 20-180 U/L P-Culture, Anaerobic and Aer obic w/Gram Stain Reviewed date:06/16/2024 01:59:02 PM Interpretation: Performing Lab: Notes/Report: Test performed by [facility] [address] , [address], [place] [address] Noah Chen MD, Slicer Machine Operator CLIA: [id number] Specimen Source Abscess - perirectal Culture, Anaerobic and Aerobic w/Gram Stain See Below Final Report : No Anaerobes isolated Sensitivity Panel See Below Organism Antibiotic Amikacin Ampicillin Aztreonam Cefepime Cefoxitin Ceftazidime Ceftriaxone Cefuroxime Ciprofloxacin Ertapenem Gentamicin Imipenem Levofloxacin Meropenem Piperacillin/Tazo Tetracycline Tobramycin Trimeth/Sulfa S=SUSCEPTIBLE I=INTERMEDIATE R=RESISTANT P-Magnesium Reviewed date:06/16/2024 01:59:02 PM Interpretation:2.5 Performing Lab: Notes/Report: Test performed by [facility] [address] [place] [address] , [address], [place] [address] Noah Chen MD, Slicer Machine Operator CLIA: [id number] Magnesium 2.5 1.6-2.4 mg/dL [facility] Reviewed date:10/14/2023 11:40:27 PM Interpretation:Normal Performing Lab: Notes/Report: Test performed by [employer] [facility] [address] [place] [address] , [address], [place] [address] Noah Chen MD, Slicer Machine Operator CLIA: [id number] Erythrocyte Sedimentation Rate (ESR), Automated 4 <31 mm/hr Rheumatoid Factor <10 <14.1 IU/mL C-Reactive Protein (CRP) 0.49 <0.50 mg/dL Antinuclear Antibodies (GERMAN) Screen, Reflex GERMAN 9 Panel Negative Negative Test performed by Multiplex Bead Immunoassay methodology. Antinuclear Antibodies (GERMAN) Result Note SEE COMMENT For positive Autoantibodies, please refer to the interpretive chart here: [email or web address]. pdf CCP Antibodies <0.5 <0.5-3.0 U/mL P-Basic Metabolic Panel (BMP ) Reviewed date:07/08/2024 02:33:26 PM Interpretation:glu 218 Performing Lab: Notes/Report: Test performed by [facility] [address] [place] [address] , [address], [place] [address] Noah Chen MD, Slicer Machine Operator CLIA: [id number] Sodium 141 135-145 mmol/L Potassium 4.1 3.5-5.3 mmol/L Chloride 104 97-108 mmol/L CO2 24 22-32 mmol/L Glucose 218 65-99 mg/dL BUN 20 8-23 mg/dL Creatinine 0.98 0.50-1.00 mg/dL Calcium 9.9 8.6-10.4 mg/dL eGFR by Creatinine 63 >59 mL/min/1.73m2 P-Vitamin D 25-Hydroxy Reviewed date:05/04/2024 08:36:23 AM Interpretation:Normal Performing Lab: Notes/Report: Test performed by [employer] [facility] [employer] [facility] [address] [place] [address] , [address], [place] [address] Noah Chen MD, Slicer Machine Operator CLIA: [id number] Vitamin D 25-Hydroxy 66.5 30.0-100.0 ng/mL Interpretation of Vitamin D 25 OH: < 20 ng/mL - Deficiency 20 - 29 ng/mL - Insufficiency 30 - 100 ng/mL - Sufficiency > 100 ng/mL - Super-therapeutic- toxicity may occur above this level. Clinical correlation required. P-TSH Reviewed date:05/04/2024 08:36:23 AM Interpretation:Normal Performing Lab: Notes/Report: Test performed by [facility] [address] , [facility] [place] [address] Noah Chen MD, Slicer Machine Operator CLIA: [id number] TSH 1.03 0.43-5.25 mU/L P-Lipid Panel Reviewed date:05/04/2024 08:36:23 AM Interpretation:chol 231, chol/hdl 4.44, non-hdl 179, ldl 154 Performing Lab: Notes/Report: Test performed by [employer] [facility] [address] [place] [address] , [address], [place] [address] Noah Chen MD, Slicer Machine Operator CLIA: [id number] Cholesterol 231 <200 mg/dL Triglycerides 124 <150 [...] Results: 154 Units: mg/dL % Change: +85% P-T4 Free (thyroxine) Reviewed date:05/04/2024 08:36:23 AM Interpretation:Normal Performing Lab: Notes/Report: Test performed by [employer] [facility] [employer] [facility] [address] [place], [place] [address] [address] , [address] , [place] [address] Noah Chen MD, Slicer Machine Operator CLIA: [id number] Thyroxine Free (free T4) 1.53 0.86-1.76 ng/dL P-Comprehensive Metabolic Pa nam (CMP) Reviewed date:05/04/2024 08:36:23 AM Interpretation:gluc 130, Ca 10.5 Performing Lab: Notes/Report: Test performed by [employer] [facility] [employer] [facility] [employer] [address], [place] [address] Noah Chen MD, Slicer Machine Operator CLIA: [id number] Sodium 141 135-145 mmol/L Potassium 4.9 3.5-5.3 [...] 1.0 <0.2-1.2 mg/dL A/G Ratio 2.0 1.1-2.5 P-Vitamin B12 Reviewed date:05/04/2024 08:36:23 AM Interpretation:Normal Performing Lab: Notes/Report: Test performed by [facility], [address] , [address] , [place] [address] Noah Chen MD, Slicer Machine Operator CLIA: [id number] Vitamin B12 202 512-7101 pg/mL Glycohemoglobin A1c (in hous e) Reviewed date:05/04/2024 08:36:23 AM Interpretation:6.6% Performing Lab: Notes/Report: 6.6% glycohemoglobin 6.6% 5 - 6.5 % CBC Venipuncture (in house) Reviewed date:04/29/2024 04:56:13 [...] - 38 platlet 288 100 - 400 Covid test (in house) Reviewed date:01/21/2024 03:02:02 PM Interpretation:pos Performing Lab: Notes/Report: pos Result: pos CBC Fingerstick (in house) Reviewed date:01/21/2024 03:02:02 [...] - 38 plat 258 100 - 400 Rapid Strep- Inhouse Reviewed date:01/21/2024 03:02:02 PM Interpretation:neg Performing Lab: Notes/Report: neg strep test neg Influenza Screen (in house) Reviewed date:01/21/2024 03:02:02 PM Interpretation:neg Performing Lab: Notes/Report: neg results neg Mammogram Reviewed date:12/10/2023 02:10:10 PM Interpretation:Negative Performing Lab: Notes/Report: Negative result Negative Medications Medication SIG (Take, Route, Frequency, Duration) Notes Start Date End Date Status Levothyroxine Sodium 50 MCG Take 1 tablet by mouth once daily for 90 Active Furosemide 20 MG 1 tablet Orally every other day Active MASTECTOMY BRA DIRECTED ORAL for 14 DAYS 02/21/2022 Active Accu-Chek Softclix Lancets - USE 1 TO CHECK GLUCOSE ONCE DAILY for 90 Active Accu-Chek Softclix Lancets - 1 lancet 03/28/2024 Active Meloxicam 15 MG 1 tablet Orally Once a day 04/29/2024 Active SILICONE BREAST PROSTHESES 1 PROSTHESES DIRECTED 06/15/2017 Active Furosemide 40 MG 1/2 tab orally once a day Not-Taking BRA WITH PROSTHESIS 4 BRAS DIRECTED 06/15/2017 Active Leqvio 284 MG/1.5ML as directed subcutaneously every 6 months Not-Taking GLUCOMETER DIRECTED TEST QD E11.9 *Pleas e review for potential replacement for e-prescription and drug interaction check* 04/25/2022 Active SILICONE BREAST PROSTHESES DIRECTED DIRECTED Z85.3 *Please review for potential replacement for e-prescription and drug interaction check* 02/21/2022 Active metFORMIN HCl ER 500 MG Take 1 tablet by mouth twice daily for 90 Active Spironolactone 50 MG 1/2 tab orally every other day Active Accu-Chek Guide - USE 1 STRIP TO CHECK GLUCOSE ONCE DAILY for 90 days Dx code E11.9 Active Immunizations Vaccine Route Administration Date Status Comme [...] W/U Status Risk Notes Problem Essential hypertension (20602340) Essential (primary) hypertension (I10) Active confirmed Problem 53159763 Type 2 diabetes mellitus with other circulatory complications (E11.59) Active confirmed Problem 82554745 Vitamin D defici ency (E55.9) Active confirmed Problem 01171213 Essential hypert ension (I10) Active confirmed Problem 426392875 Diverticulitis (K57.92) Active confirmed Problem 213193450 Hypertriglycerid emia (E78.1) Active confirmed Problem 8765534 Cardiomegaly (I51.7) Active confirmed Problem 236556883816448 Piriformis syndr ome of left side (G57.02) Active confirmed Problem 12842235 Memory loss (R41.3) Active confirmed Problem 196897809 Impaired fasting glucose (R73.01) Active confirmed Problem 801221087 Thyroid nodule (E04.1) Active confirm ed Problem 03848405 Constipation, unspecified constipation type (K59.00) Active confirmed Problem 488622558 Acquired hypothyroidism (E03.9) Active confirmed Problem 839917889 Non morbid obesi ty due to 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) Active confirmed Problem 421078876254614 Primary osteoart hritis of right knee (M17.11) Active confirmed Problem Hypothyroidism (99979323) Hypothyroidism, unspecified type (E03.9) Active confirmed Problem 15944154 Hypersomnia (G47.10) Active confirmed Problem 025223679 Diverticulosis (K57.90) Active confirmed Problem 82456276 Hyperparathyroid ism (E21.3) Active confirmed Problem 144310602 Paresthesia of b oth feet (R20.2) Active confirmed Problem 781214972 Type 2 diabetes mellitus without complication, without long-term current use of insulin (E11.9) Active confirmed Problem 50458085 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) Active confirmed Problem 349025179 Pure hypercholesterolemia (E78.00) Active confirmed Problem Irritable bowel syndrome (80031586) Irritable bowel syndrome with both constipation and diarrhea (K58.2) Active confirmed Problem 853458001 History of right breast cancer (Z85.3) Active confirmed Problem 422878226117797 Carpal tunnel syndrome, right (G56.01) Active confirmed Problem Osteopenia (disorder) (548842593) Osteopenia of right hip (M85.851) Active confirmed Problem 9578657 Diastolic dysfun ction (I51.89) Active confirmed Problem Osteopenia of le ft hip (M85.852) Active confirmed Problem 32657669 Postconcussive syndrome (F07.81) Active confirmed Problem 61283665663302760 Piriformis syn drome of both sides (G57.03) Active confirmed Problem 22524063 Venous reflux (I87.2) Active confirmed Vital Signs Heart Rate 84 /min 08/24/2024 Blood pressure diastolic 84 mm Hg 08/24/2024 Height 65 in 08/24/2024 Blood pressure systolic 122 mm Hg 08/24/2024 Weight 180.4 lbs 08/24/2024 BMI 30.02 kg/m2 08/24/2024 Encounters Encounter Location Date Provider Diagnosis [facility] [address], [place] [id number] 10/02/2023 Olinda Julio Polyarthralgia M25.5 0 and Hypertriglyceridemia E78.1 [facility] [address], [place] [id number] 01/21/2024 Olindatatyana Kim COVID-19 U07.1 [facility] [address] [place], [place] [id number] 04/29/2024 Olinda Julio Essential hypertensi on I10 ; Vitamin D deficiency E55.9 ; Vitamin B 12 deficiency E53.8 ; Type 2 diabetes mellitus without complication, without long-term current use of insulin E11.9 ; Pure hypercholesterolemia E78.00 ; History of right breast cancer Z85.3 ; Hypothyroidism, unspecified type E03.9 ; Polyarthralgia M25.50 and Ganglion cyst M67.40 [facility] [address] [place], [place] [id number] 06/03/2024 Olinda Crowdy Perirectal abscess K 61.1 ; Abdominal distention R14.0 and Excessive gas R14.3 [facility] [address] [place], [place] [id number] 06/10/2024 Olinda Crowdy Perirectal abscess K 61.1 ; Muscle spasm M62.838 ; History of right breast cancer Z85.3 ; Type 2 diabetes mellitus with other circulatory complications E11.59 and BMI 29.0-29.9,adult Z68.29 [facility] [address] [place], [place] [id number] 06/29/2024 Olinda Crowdy Abnormal kidney func tion N28.9 [facility] [address] [place], [place] [id number] 07/01/2024 Olinda Crowdy Comedone L70.0 and Perirectal abscess K61.1 [facility] [address] [place], [place] [id number] 08/03/2024 Olinda Crowdy Neoplasm of uncertai n behavior of skin D48.5 and BMI 29.0-29.9,adult Z68.29 [facility] [address] [place], [place] [id number] 08/24/2024 Olinda Crowdy Shortness of breath R06.02 [facility] [address] [place], [place] [id number] 09/07/2023 Marcelino Churubusco Impaired fasting glu cose R73.01 [facility] [address] [place], [place] [id number] 09/11/2023 Marcelino Churubusco Impaired fasting glu cose R73.01 [facility] [address] [place], [place] [id number] 09/11/2023 Marcelino Churubusco Impaired fasting glu cose R73.01 [facility] [address] [place], [place] [id number] 09/11/2023 Marcelino Churubusco Type 2 diabetes aury itus without complication, without long-term current use of insulin E11.9 [facility] [address] [place], [place] [id number] 09/14/2023 Marcelino Churubusco [facility] [address] [place], [place] [id number] 09/14/2023 Marcelino Churubusco Type 2 diabetes aury itus without complication, without long-term current use of insulin E11.9 [facility] [address] [place], [place] [id number] 09/15/2023 Marcelino Churubusco Type 2 diabetes aury itus without complication, without long-term current use of insulin E11.9 [facility] [address] [place], [place] [id number] 10/13/2023 Olinda Crowdy [facility] [address] [place] [id number] 03/28/2024 Marcelino Churubusco Type 2 diabetes aury itus without complication, without long-term current use of insulin E11.9 [facility] [address] [place], [place] [id number] 05/04/2024 Olinda Crowdy [facility] [address] [place], [place] [id number] 06/16/2024 Olinda Crowdy Perirectal abscess K 61.1 [facility] [address] [place], [place] [id number] 06/24/2024 Marcelino Churubusco [facility] [address] [place] [id number] 07/01/2024 Olinda Crowdy [facility] [address] [place], [place] [id number] 07/18/2024 Marcelino Churubusco Type 2 diabetes aury itus without complication, without long-term current use of insulin E11.9 [facility] [address] [place], [place] [id number] 08/11/2024 Marcelino Churubusco Colon cancer screeni ng Z12.11 and Osteopenia M85.80 [facility] [address] [place], [place] [id number] 09/05/2023 R Tyler Puckett [facility] [address] [facility] [address] [place] [id number] 11/23/2023 Marge Puckett [facility] [address] [facility] [address] [place] [id number] 08/08/2024 Olinda Kim Assessments Encounter Date Diagnosis [...] going to discuss the leqvio with her floor waxer. 10/02/2023 Polyarthralgia (ICD- 10 - M25.50) 01/21/2024 [...] Colon cancer screeni ng (ICD-10 - Z12.11) 08/24/2024 Shortness of breath (ICD-10 - R06.02) Discussed labs done at [facility] and cardiology appt. She is going to proceed with left and right heart cath. 06/10/2024 Muscle spasm (ICD-10 - M62.838) 06/10/2024 [...] Insured Coverage Start Date Coverage End Date [employer] [address] [address] [place] [address] [id number] ELAINE PAL Self - patient is the insured [employer] [address] [address] [place], [place] [id number] KAE ELAINE Self - patient is the insured Medications [...] by complete 2000 Right mastectomy 1984 tonsillectomy 1974 colonoscopy, hyperplastic polyp 03/18 Colonoscopy, internal hemorrhoids, benig n polyps Oct 2015 Colonoscopy Oct 2018 Right parathyroidectomy 2023 Hospitalization History Reason Date(Month/Year) see above
--- OUTSIDE RECORDS SUMMARY | 2024-08-26 08:55 | XMS_ITS | Clinical Summary ---
Author Organization [facility] Address [address] [place] [address] Care Team Providers Care Third Rigger Name Role Phone Unavailable Primary Care Provider [...]
--- OUTSIDE RECORDS SUMMARY | 2024-08-26 08:55 | XMS_ITS | Encounter Summary ---
Author Organization [facility] Address [address] [place] [address] Care Team Providers Care Smoke And Flame Specialist Name Role Phone Unavailable Primary Care Provider Unavailabl e Encounter Details Date Type Department Care Team (Late st Contact Info) Description 10/29/2018 Transcribed Document [facility] Radiology [address] [place] [address] Provider, Larry Pemberton MD Social History Tobacco Use Types Packs/Day Years Used Date Smoking Tobacco: Never Assessed Comments Unknown Sex and Gender Information Value Date Recorded Sex Assigned at Not on file Legal Sex Female 1:43 PM CDT Gender Identity Not on file Sexual Orientation Not on file documented as of this encounter Miscellaneous Notes * Cerner Conversion Note - [facility] Nie[place] ProviderMD - 10/29/2018 9:06 AM EDT [...] Histories Past Medical History: Active Hiatal hernia (5783791930) Reflux ([id number]) Breast cancer (998117632) HTN (hypertension) (8942500013) Hyperlipemia (57266262) Murmur, cardiac (4375086212) Palpitations (486861372) Asthma, exercise induced (0238767516) Diarrhea (553307026) Diverticulitis (550412138) Procedure history: egd. colonoscopy. Cholecystectomy; (84303). mastectomy. hysterectomy. EGD. Colonoscopy (483332617). Hysterectomy (224287445). Mastectomy (6973843279). Tonsillectomy (116504599). Cholecystectomy (52279157). Social History Social & Psychosocial Habits Alcohol [...] list: All Problems Reflux / SNOMED CT [id number] / Confirmed At risk for sleep apnea / IMO 76084189 / Confirmed Diarrhea / SNOMED CT 898033940 / Confirmed Diverticulitis / SNOMED CT 312254908 / Confirmed Asthma, exercise induced / SNOMED CT 3361332582 / Confirmed Murmur, cardiac / SNOMED CT 7165826641 / Confirmed Hyperlipemia / SNOMED CT 23212624 / Confirmed HTN (hypertension) / SNOMED CT 1130472786 / Confirmed Breast cancer / SNOMED CT 973546472 / Confirmed Hiatal hernia / SNOMED CT 0472968683 / Confirmed Palpitations / SNOMED CT 938869119 / Confirmed, Active Problems (11) Asthma, exercise [...] No deformity, Normal gait. Integumentary: Warm, Dry, [place], No rash. Integumentary exam: Face, Chest, Arm, [...]
--- OUTSIDE RECORDS SUMMARY | 2024-08-26 08:55 | XMS_ITS | Encounter Summary ---
Author Organization [employer] [employer] [facility] Address [address] [place] [address] Care Team Providers Care Queen Producer Name Role Phone Unavailable Primary Care Provider Unavailabl e Encounter Details Date Type Department Care Team (Late st Contact Info) Description 10/29/2018 Transcribed Document [facility] [address] [place] [address] Provider, Larry Pemberton MD Social History Tobacco Use Types Packs/Day Years Used Date Smoking Tobacco: Never Assessed Comments Unknown Sex and Gender Information Value Date Recorded Sex Assigned at Not on file Legal Sex Female 1:43 PM CDT Gender Identity Not on file Sexual Orientation Not on file documented as of this encounter Miscellaneous Notes * Cerner Conversion Note - [facility] [place] ProviderMD - 10/29/2018 10:55 AM EDT [address] [address] [place] PAL :1955 Visit Time:10/29/2018 [...] recommendations Where: [address] [facility] [address] [place] [address]- Business (1) Medications What How Much When [...] getting enough exercise. ??? Smoking. ??? Taking nije-nwn-ftfraqd pain medicines, like aspirin and ibuprofen. ??? [...] health care provider or your diet and nutrition helper (dietitian). ? Take a fiber supplement or probiotic, if your health care provider approves. ??? Take aahq-iqk-wrywogu and prescription medicines only as told by [...] 11/20/2004 Document Revised: 01/12/2017 Document Reviewed: 01/12/2017 [employer] Interactive Patient Education ?? 2019 [employer] Hemorrhoids Hemorrhoids are swollen veins in [...] times a day. General instructions ??? Take osge-lhi-ovixafc and prescription medicines only as told by [...] 02/20/2001 Document Revised: 07/23/2016 Document Reviewed: 11/07/2015 [employer] Interactive Patient Education ?? 2019 [employer] Colon Polyps Polyps are tissue growths [...] 11/19/2004 Document Revised: 07/31/2016 Document Reviewed: 01/14/2016 [employer] Interactive Patient Education ?? 2019 [employer]. High-Fiber Diet Fiber, also called dietary fiber, [...] Barley. Bulgur wheat. Millet. Bran muffins. Popcorn. [place] wafer crackers. Vegetables Sweet potatoes. Spinach. Kale. Artichokes. Cabbage. Broccoli. Green peas. Carrots. Squash. Fruits Berries. Pears. Apples. Oranges. Avocados. Prunes and raisins. Dried figs. Meats and Other Protein Sources [place], kidney, [place], and soy beans. Split peas. [...] 08/08/2014 Elsevier Interactive Patient Education ?? 2018 [employer]. Colonoscopy, Adult, Care After This sheet gives [...] slower pace than normal. ? Eat soft, gyoa-in-rekyfi foods. ? Rest often. ??? Take udlc-eda-dstuyiq or prescription medicines only as told by [...] 10/07/2004 Document Revised: 11/17/2016 Document Reviewed: 05/06/2016 [employer] Interactive Patient Education ?? 2018 [employer]. Emergency Awareness and Preventative Care STROKE is [...] Assistance with quitting is available by contacting 4-034-FOVDGoodman NetworksNOW. This is a free resource providing counseling, [...] was given the opportunity to ask questions. Patient/Bread And Pastry Baker Name: Patient/Bread And Pastry Baker Signature: Relationship to Patient: Clinician/Hospital Bread And Pastry Baker Signature: Date: documented in this encounter Plan of Treatment Not on file documented as of this encounter Visit Diagnoses Not on filedocumented in this encounter
--- OUTSIDE RECORDS SUMMARY | 2024-08-26 08:55 | XMS_ITS | Encounter Summary ---
Author Organization [employer] Address [address] [place] [address] Care Team Providers Care Film Writer Name Role Phone Unavailable Primary Care Provider Unavailabl e Encounter Details Date Type Department Care Team (Late st Contact Info) Description 10/29/2018 Transcribed Document [facility] [address] [place] [address] Provider, Larry Pemberton MD Social History Tobacco Use Types Packs/Day Years Used Date Smoking Tobacco: Never Assessed Comments Unknown Sex and Gender Information Value Date Recorded Sex Assigned at Not on file Legal Sex Female 1:43 PM CDT Gender Identity Not on file Sexual Orientation Not on file documented as of this encounter Miscellaneous Notes * Cerner Conversion Note - [facility] Niecy ProviderMD - 10/29/2018 10:00 AM EDT [facility] PreOp Summary Primary Physician: CASSIUS STANFORD MD-GAE Finalized Date/Time: 10/29/18 09:03:21 Pt. Name: KEYANNA PAL/Sex: 1955 Female Med Rec #: [id number] Physician: CASSIUS STANFORD MD-GAE Financial #: [id number] Pt. Type: O Room/Bed: EEN/5 Admit/Disch: 10/29/18 08:02:00 - Institution: [facility] PreOp Case Times Entry 1 In Preop 10/29/18 08:48:00 Ready for Holding n/a Room Patient Ready for 10/29/18 09:03:00 Surgery Patient Out of Preop 10/29/18 09:03:00 Patient Out of n/a Holding Room [facility] PreOp Case Times Audit 10/29/18 09:03:19 Household Refrigeration Mechanic: [email or web address] Modifier: [email or web address] <+> 1 Patient Out of Preop <+> 1 Patient Ready for Surgery Finalized By: Alivia Laguerre RN Document Signatures Signed By: Alivia Laguerre RN 10/29/18 09:03 Electronically signed by Jay Jay [facility] Conversion Rn Immunology Cerner at 07/30/2022 7:53 PM CDT documented in this encounter Plan of Treatment Not on file documented as of this encounter Visit Diagnoses Not on filedocumented in this encounter
--- OUTSIDE RECORDS SUMMARY | 2024-08-26 08:55 | XMS_ITS | Clinical Summary ---
Author Organization Healthcare Address [address] [place] [address] Care Team Providers Care Fur Tanner Name Role Phone Jc Sanabria MD Primary Care Provider [phone] Family History Medical History Relation Name Comments [...] of Treatment Not on file Care Teams Fur Tanner Relationship Specialty Start Date End Date Jc Sanabria MD [address] [place] [id number] PCP - General 07/20/20
--- OUTSIDE RECORDS SUMMARY | 2024-08-26 08:55 | XMS_ITS | Encounter Summary ---
Author Organization [employer] Address [address] [place] [address] Care Team Providers Care Stockroom Clerk Name Role Phone Unavailable Primary Care Provider Unavailabl e Encounter Details Date Type Department Care Team (Late st Contact Info) Description 10/29/2018 Transcribed Document [facility] [address] [place] [address] Provider, Larry Pemberton MD Social History Tobacco Use Types Packs/Day Years Used Date Smoking Tobacco: Never Assessed Comments Unknown Sex and Gender Information Value Date Recorded Sex Assigned at Not on file Legal Sex Female 1:43 PM CDT Gender Identity Not on file Sexual Orientation Not on file documented as of this encounter Miscellaneous Notes * Cerner Conversion Note - [facility] Niecy ProviderMD - 10/29/2018 9:48 AM EDT Pre Procedure Adult Entered On: 10/29/2018 8:52 EDT Performed On: 10/29/2018 8:48 EDT by Alivia Laguerre RN Height and Weight, Clinical Dosing Height Source : Stated Height Entry Format : [place] Height, Feet : 5 ft(Converted to: 152 cm, 60 Inch) Height, Inches : 6 Inch(Converted to: 0 ft 6 Inch, 15.24 cm) Clinical Height : 167.64 cm Weight Source : Standing scale Weight Entry Format : [place] Clinical Dosing Weight : 78.24 kg Weight, Pounds : 172 lb Weight, Ounces : 2 oz Body Surface Area (BSA) : 1.88 m2 Body Mass Index : 27.8 kg/m2 (HI) [place] Body Weight : 59 kg Alivia Laguerre [...] Ambulatory Legal Guardian : Spouse Support Person/Patient Intrusion Analyst : Yes Support Person/Pt Rep Name : Stan Support Person/Pt Rep Contact Information : [phone] Want Family/Rep/Phys Notified of Admit : No Emergency Contact #1 : na Emergency Contact #1 Phone Number : na Emergency Contact #1 Relationship : na Emergency Contact #2 : na Emergency Contact #2 Phone Number : na Emergency Contact #2 Relationship : na Information Obtained From : Patient Primary Language : Tajik Communication Barrier : None Objects to Sharing [...] Scale Risk Level : 0-24 Low Risk [place] Fall Interventions : Adequate lighting, Assistive devices [...]
--- OUTSIDE RECORDS SUMMARY | 2024-08-26 08:55 | XMS_ITS | Encounter Summary ---
Author Organization [employer] Address [address] [place] [address] Care Team Providers Care Franchise Sales Director Name Role Phone Unavailable Primary Care Provider Unavailabl e Encounter Details Date Type Department Care Team (Late st Contact Info) Description 10/29/2018 Transcribed Document [facility] [address] [place] [address] Provider, Larry Pemberton MD Social History Tobacco Use Types Packs/Day Years Used Date Smoking Tobacco: Never Assessed Comments Unknown Sex and Gender Information Value Date Recorded Sex Assigned at Not on file Legal Sex Female 1:43 PM CDT Gender Identity Not on file Sexual Orientation Not on file documented as of this encounter Miscellaneous Notes * Cerner Conversion Note - [facility] Niecy ProviderMD - 10/29/2018 10:26 AM EDT MEE[facility]KSHI Mccord IntraOp Summary Primary Physician: CASSIUS STANFORD MD-GAE Finalized Date/Time: 10/29/18 09:36:56 Pt. Name: KEYANNA PAL D.O.B./Sex: 1955 Female Med Rec #: [id number] Physician: CASSIUS STANFORD MD-GAE Financial #: [id number] Pt. Type: O Room/Bed: [facility]/ Admit/Disch: 10/29/18 08:02:00 - Institution: [facility] - Case Attendance Entry 1 Entry 2 Entry 3 Case Attendee Morris STANFORD Elizabeth A, Rn DUNHAM, CHRIS RAM Role Performed Surgeon/Proceduralist, Industrial Commercial Groundskeeper, First Scrub, First First Time In 10/29/18 [...] Case Attendee HEENA SOUZA NA Role Performed GRISTMILL OPERATOR/Nurse Cleat Maker Time In 10/29/18 09:18:00 Time Out 10/29/18 09:37:00 Procedure Colonoscopy, Colon Polypectomy Other Attendee Superficial Wound Closed By: Last Modified By: Lynne Caceres Rn 10/29/18 09:36:12 [facility] - Case Attendance Audit 10/29/18 09:36:12 Shore Worker: [id number] Modifier: [id number] 1 <+> Time Out 1 <*> Procedure Colonoscopy, Colon Polypectomy 2 <+> Time Out 2 <*> Procedure Colonoscopy, Colon Polypectomy 3 <+> Time Out 3 <*> Procedure Colonoscopy, Colon Polypectomy 4 <+> Time Out 4 <*> Procedure Colonoscopy, Colon Polypectomy 10/29/18 09:33:50 Shore Worker: [id number] Modifier: [id number] 1 <*> Procedure Colonoscopy 2 <*> Procedure Colonoscopy 3 <*> Procedure Colonoscopy 4 <*> Procedure Colonoscopy 10/29/18 09:23:31 Shore Worker: [id number] Modifier: [id number] 1 <*> Time In 10/29/18 09:18:00 1 <*> Procedure Colonoscopy 10/29/18 09:21:18 Shore Worker: [id number] Modifier: [id number] <+> 1 Procedure 2 <*> Procedure Colonoscopy [...] Endo - Case Times Audit 10/29/18 09:35:59 Shore Worker: [id number] Modifier: [id number] <+> 1 Out Room Time <+> 1 Stop Time <+> 1 Stop Time 10/29/18 09:26:26 Shore Worker: [id number] Modifier: [id number] <+> 1 Start Time [facility] - [...] Reported to VAMSHI CHAVARRIA RN Post-op Transport Stretcher/[facility] Via Patient Transport Lynne Caceres [...] Modified By: Lynne Caceres Rn 10/29/18 09:21:22 [facility] Endo - General Case Poultry Scientist 1 Case Information OR Endo 01 [facility] Case Level 1 Room Verified Yes Wound Class III - Contaminated Specialty SN Gastroenterology Anesthesia Type MAC ASA Class 3 Diagnosis Preop Diagnosis abdominal pain, diarrhea, diverticulitis Postop Same As Preop No Postop Diagnosis diverticulosis, hemorrhoids, colon polyp Last Modified By: Lynne Caceres Rn 10/29/18 09:36:38 [facility] Endo - General Case Data Audit 10/29/18 09:36:38 Shore Worker: [id number] Modifier: [id number] <+> 1 Postop Diagnosis [facility] Endo - Intraoperative Assessment Entry 1 Valid History / Yes Physical in Chart Preoperative Yes Checklist Reviewed/Evaluated Allergies Reviewed Yes Patient is Latex No Sensitive Level of WDL Consciousness (WDL = Alert, Oriented to Person, Place, and Time) Present Upon IVs, ECG monitored Arrival to OR Last Modified By: Lynne Caceres Rn 10/29/18 09:22:23 [facility] Endo - Intraoperative Equipment Entry 1 Type Scope Equipment Intraop Monitoring Blood Pressure Arm, left upper Location Pulse Oximeter Hand, right Probe Site Antiembolic Devices Scopes Flexible Endoscopes Colonoscope, Peds Used Scope Serial [id number] Number/Identificatio n Number Photo/Video Documentation Photo Yes Video No Last Modified By: Lynne Caceres Rn 10/29/18 09:22:39 [facility] Endo - Intraoperative Equipment Audit 10/29/18 09:22:39 Shore Worker: [id number] Modifier: [id number] <+> 1 Photo <+> 1 Video <+> 1 Blood Pressure Location <+> 1 Pulse Oximeter Probe Site <+> 1 Flexible Endoscopes Used <+> 1 Scope Serial Number/Identification Number [facility] Endo - Patient Positioning Entry 1 Procedure [...] Endo - Patient Positioning Audit 10/29/18 09:33:52 Shore Worker: [id number] Modifier: [id number] 1 <*> Procedure Colonoscopy [facility] - [...] Endo - Sign Out Audit 10/29/18 09:36:49 Shore Worker: [id number] Modifier: [id number] <+> 1 RN Sign Out Signature Date/Time [facility] - Surgical Procedures Entry 1 Entry 2 Procedure Colonoscopy Colon Polypectomy Modifiers Additional Procedure Description Primary Procedure Yes No Primary Surgeon HIEN STANFORD KAREN, MD-CHRIS THOMPSON Start 10/29/18 09:26:00 10/29/18 09:26:00 Stop 10/29/18 09:35:00 10/29/18 09:35:00 Physician [facility] 10/29/18 09:28:00 10/29/18 09:28:00 Cecum Reached Anesthesia Type MAC MAC Specialty SN Gastroenterology SN Gastroenterology Wound Class III - Contaminated III - Contaminated Last Modified By: Lynne Caceres Rn Jones, Elizabeth A, Rn 10/29/18 09:36:54 10/29/18 09:36:54 [facility] Endo - Surgical Procedures Audit 10/29/18 09:36:54 Shore Worker: [id number] Modifier: [id number] <+> 1 Stop <+> 2 Stop 10/29/18 09:33:45 Shore Worker: [id number] Modifier: [id number] 1 <*> Procedure Colonoscopy 1 <+> Start 1 <+> Physician States Cecum Reached <+> 2 Procedure <+> 2 Primary Procedure <+> 2 Primary Surgeon <+> 2 Specialty <+> 2 Start <+> 2 Wound Class <+> 2 Anesthesia Type <+> 2 Physician States Cecum Reached 10/29/18 09:23:24 Shore Worker: [id number] Modifier: [id number] 1 <*> Procedure Colonoscopy 1 <+> Specialty [facility] Endo - Time Out Entry 1 Procedure [...] Modified By: Lynne Caceres Rn 10/29/18 09:33:52 [facility] Endo - Time Out Audit 10/29/18 09:33:52 Shore Worker: [id number] Modifier: [id number] 1 <*> Procedure to be Performed Colonoscopy Case Comments <None> Finalized By: Lynne Caceres Rn Document Signatures Signed By: Lynne Caceres Rn 10/29/18 09:36 Electronically signed by Jay Jay [facility] Conversion Applied Exercise Physiologist Cerner at 07/30/2022 7:53 PM CDT documented in this encounter Plan of Treatment Not on file documented as of this encounter Visit Diagnoses Not on filedocumented in this encounter
--- OUTSIDE RECORDS SUMMARY | 2024-08-26 08:55 | XMS_ITS | Encounter Summary ---
Author Organization [employer] Address [address] [place] [address] Care Team Providers Care Clinical Biostatistician Name Role Phone Unavailable Primary Care Provider Unavailabl e Encounter Details Date Type Department Care Team (Late st Contact Info) Description 10/29/2018 Transcribed Document [facility] [address] [place] [address] Provider, Larry Pemberton MD Social History Tobacco Use Types Packs/Day Years Used Date Smoking Tobacco: Never Assessed Comments Unknown Sex and Gender Information Value Date Recorded Sex Assigned at Not on file Legal Sex Female 1:43 PM CDT Gender Identity Not on file Sexual Orientation Not on file documented as of this encounter Miscellaneous Notes * Cerner Conversion Note - [facility] Niecy ProviderMD - 10/29/2018 10:26 AM EDT MEENAKSHI Mccord PACU Summary Primary Physician: CASSIUS STANFORD MD-GAE Finalized Date/Time: 10/29/18 11:00:31 Pt. Name: KEYANNA PAL/Sex: 1955 Female Med Rec #: [id number] Physician: CASSIUS STANFORD MD-GAE Financial #: [id number] Pt. Type: O Room/Bed: EEN/5 Admit/Disch: 10/29/18 08:02:00 - Institution: [facility] PACU Case Times Entry 1 In PACU I 10/29/18 09:39:00 Ready for PACU 10/29/18 10:44:00 Discharge Discharge from PACU 10/29/18 10:57:00 I [facility] PACU Case Times Audit 10/29/18 11:00:29 Heading And Priming Tool Setter: ROMINA Modifier: ROMINA <+> 1 Ready for PACU Discharge <+> 1 Discharge from PACU I Finalized By: VAMSHI CHAVARRIA, RN Document Signatures Signed By: VAMSHI CHAVARRIA RN 10/29/18 11:00 documented in this encounter Plan of Treatment Not on file documented as of this encounter Visit Diagnoses Not on filedocumented in this encounter
--- OUTSIDE RECORDS SUMMARY | 2024-08-26 08:56 | XMS_ITS | Data Portability ---
Author Organization [place] - [facility] [place] Address [address] [place] [address] Assessment No assessment recorded. Plan of Treatment Reminders Order Date Submit Date Provider Last Modified By Organization Details Last Modified Time Details Appointments None recorded. Lab None recorded. Referral None recorded. Procedures None recorded. Surgeries None recorded. Imaging NM, sestamibi scan [address] Centralized Scheduling, [address] [place], [address], 11:19:43 Medication Orders None recorded. Patient TargetsNo targets recorded. Patient InstructionsNo instructions recorded. Reason for Referral None Reported. Results Created Date Observation Date Name Description Value Unit Range Abnormal Flag Note LastModifiedBy Organization Detail LastModifiedTime 03/18/19 24 03/18/2023 CBC AUTO W DIFF WBC 8.2 K/uL 4.0-10 .5 Not Available [facility] [address], [place], [address], 03/18/2023 10:20:10 03/18/19 24 03/18/2023 CBC AUTO W DIFF RBC 4.3 M/mm3 4.2-6. 4 Not Available [facility] [address], [place], [address], 03/18/2023 10:20:10 03/18/19 24 03/18/2023 CBC AUTO W DIFF HGB 14.0 gm/dL 12.5-1 6.0 Not Available [facility] [address], [place], [address], 03/18/2023 10:20:10 03/18/19 24 03/18/2023 CBC AUTO W DIFF HCT 41.0 % 37.0-4 7.0 Not Available [facility] [address] , [place], [address], 03/18/2023 10:20:10 03/18/19 24 03/18/2023 CBC AUTO W DIFF MCV 95.1 fL 78-100 Not Available [facility] [address], [place], [address], 03/18/2023 10:20:10 03/18/19 24 03/18/2023 CBC AUTO W DIFF MCH 32.5 pg 27-31 high Not Available [facility] [address], [place], [address], 03/18/2023 10:20:10 03/18/19 24 03/18/2023 CBC AUTO W DIFF MCHC 34.1 g/dL 32-36 Not Available [facility] [address] [facility], [place], [address], 03/18/2023 10:20:10 03/18/19 24 03/18/2023 CBC AUTO W DIFF RDW 12.4 % 11.5-1 4.0 Not Available [facility] [address] [place], [address], 03/18/2023 10:20:10 03/18/19 24 03/18/2023 CBC AUTO W DIFF platelet count 287 K/uL 150-45 0 Not Available [facility] [address] [place], [address], 03/18/2023 10:20:10 03/18/19 24 03/18/2023 CBC AUTO W DIFF MPV 10.6 fL 6-9.5 high Not Available [facility] [address] [facility], [place], [address], 03/18/2023 10:20:10 03/18/19 24 03/18/2023 CBC AUTO W DIFF neutrophil% 64.1 % 43-65 Not Available [facility] [address] [facility], [place], [address], 03/18/2023 10:20:10 03/18/19 24 03/18/2023 CBC AUTO W DIFF lymphocyte% 22.9 % 20.5-4 5.5 Not Available [facility] [address] [facility], [place], [address], 03/18/2023 10:20:10 03/18/19 24 03/18/2023 CBC AUTO W DIFF monocyte% 10.0 % 5.5-11 .7 Not Available [facility] [address] [facility], [place], [address], 03/18/2023 10:20:10 03/18/19 24 03/18/2023 CBC AUTO W DIFF eosinophil% 1.9 % 0.9-2. 9 Not Available [facility] [address] [facility], [place], [address], 03/18/2023 10:20:10 03/18/19 24 03/18/2023 CBC AUTO W DIFF basophil% 0.7 % 0.2-1. 0 Not Available [facility] [address] [place], [address], 03/18/2023 10:20:10 03/18/19 24 03/18/2023 CBC AUTO W DIFF immature granulocytes % 0.4 % 0.0-0. 8 Not Available [facility] [address] [place], [address], 03/18/2023 10:20:10 03/18/19 24 03/18/2023 CBC AUTO W DIFF nucleated red blood cells % 0.0 % Not Available [facility] [address] [facility], [place], [address], 03/18/2023 10:20:10 03/18/19 24 03/18/2023 CBC AUTO W DIFF neutrophil# 5.3 K/uL 2.2-4. 8 high Not Available [facility] [address] [facility], [place], [address], 03/18/2023 10:20:10 03/18/19 24 03/18/2023 CBC AUTO W DIFF lymphocyte# 1.9 cell/ mcL 1.3-2. 9 Not Available [facility] [address], [place], [address], 03/18/2023 10:20:10 03/18/19 24 03/18/2023 CBC AUTO W DIFF monocyte# 0.8 cell/ mcL 0.3-0. 8 Not Available [facility] [address] [facility], [place], [address], 03/18/2023 10:20:10 03/18/19 24 03/18/2023 CBC AUTO W DIFF eosinophil# 0.2 cell/ mcL 0-0.2 Not Available [facility] [address] [facility], [place], [address], 03/18/2023 10:20:10 03/18/19 24 03/18/2023 CBC AUTO W DIFF basophil# 0.1 cell/ mcL 0.0-1. 0 Not Available [facility] [address] [facility], [place], [address], 03/18/2023 10:20:10 03/18/19 24 03/18/2023 CBC AUTO W DIFF immature gramulocytes # 0.03 K/uL Not Available [facility] [address] [place], [address], 03/18/2023 10:20:10 03/18/19 24 03/18/2023 CBC AUTO W DIFF nucleated red blood cells # 0.00 K/uL Not Available [facility] [address], [place], [address], 03/18/2023 10:20:10 03/18/19 24 03/18/2023 CBC AUTO W DIFF manual differential NO Not Available [facility] [address] , [place], [address], 03/18/2023 10:20:10 03/18/19 24 03/18/2023 BASIC METAB OLIC PANEL sodium 140 mmol/ L 136-14 5 Not Available [facility] [address], [place], [address], 03/18/2023 10:39:54 03/18/19 24 03/18/2023 BASIC METAB OLIC PANEL potassium 4.0 mmol/ L 3.6-5. 0 Not Available [facility] [address] , [place], [address], 03/18/2023 10:39:54 03/18/19 24 03/18/2023 BASIC METAB OLIC PANEL chloride 103 mmol/ L 98-107 Not Available [facility] [address], [place], [address], 03/18/2023 10:39:54 03/18/19 24 03/18/2023 BASIC METAB OLIC PANEL carbon dioxide 29.5 mmol/ L 21.0-3 2.0 Not Available [facility] [address] [place], [address], 03/18/2023 10:39:54 03/18/19 24 03/18/2023 BASIC METAB OLIC PANEL anion gap 11.5 Not Available [facility] [address] [place], [address], 03/18/2023 10:39:54 03/18/19 24 03/18/2023 BASIC METAB OLIC PANEL glucose 136 mg/dL 70-120 high Not Available [facility] [address], [place], [address], 03/18/2023 10:39:54 03/18/19 24 03/18/2023 BASIC METAB OLIC PANEL BUN 17 mg/dL 7-18 Not Available [facility] [address], [place], [address], 03/18/2023 10:39:54 03/18/19 24 03/18/2023 BASIC METAB OLIC PANEL creatinine 1.0 mg/dL 0.6-1. 3 Not Available [facility] [address] [facility], [place], [address], 03/18/2023 10:39:54 03/18/19 24 03/18/2023 BASIC METAB OLIC PANEL glomerular filtration rate 59 mlper min 60- low Not Available [facility] [address] [place], [address], 03/18/2023 10:39:54 03/18/19 24 03/18/2023 BASIC METAB OLIC PANEL calcium 9.6 mg/dL 8.5-10 .5 Not Available [facility] [address] [place], [address], 03/18/2023 10:39:54 03/26/19 24 03/26/2023 CALCI UM TOTAL calcium 9.4 mg/dL 8.5-10 .5 Not Available [facility] [address] [place], [address], 03/26/2023 15:48:17 03/26/19 24 03/26/2023 VITAM IN D, 25-HY DROXY vitamin D, 25-hydroxy 98.0 NG/mL 30.0-1 00.0 Not Available [facility] [address] , [place], [address], 03/26/2023 16:14:31 03/27/19 24 03/29/2023 PTH, INTAC T PTH, intact 47 pg/mL 15-65 Perfo rmed at: [facility] [address] [address] Lab Direc tor: Jona long PhD, Phone : [phone] Not Available [facility] [address] , [place], [address], 03/29/2023 10:09:29 11/26/19 23 07/11/2022 CT, neck, soft tissu e, w/ contr ast No observ ation record ed. [email or web address] Not Available 15:30:30 11/26/19 23 04/30/2022 US, thyro id No observ ation record ed. BARCODE Not Available 2022 14:48:01 12/16/19 23 12/15/2022 nm parat hyroi d scan [facility] [address] [place] [address] Phone: Fax: Name: KEYANNA COLON Exam Date: 023 : [birth year] 60 Age 67 years Gender : F Access ion: [id number] Physic nathaly: MELISSA RIBEIRO Facili ty: [facility] Facili ty HSV: Outpat ient [...] Thank [facility] Legall y authen ticate d by POPE RAMA Mendez DO 2022-03 13:35: 05 CC'ed Logic: Orderi ng Provid er: QUINTIN JUSTICE CC Provid er: KAITLYNN ALVAREZ Attend ing Provid er: QUINTIN JUSTICE Referr ing Provid er: QUINTIN JUSTICE Admitt ing Provid er: QUINTIN JUSTICE [email or web address] [facility] (Radiology) [address] , [place], [address], 12/19/2022 12:35:14 Result Notes None recorded. Problems No Known Problems Procedures Surgical History Date Name Laterality Status Provider Name and Address Organization Details Recorded Time Hysterectomy completed Gina Damon [facility] 12/10/2022 10:53:56 Imaging Results None recorded. Procedure Notes None recorded. Medical Equipment None Reported. Allergies Allergen ID Allergen Name Allergen Category Reaction Reaction Severity Criticality Documentation Date Start Date Code Code System Note Provider Name and Address Organization Details Recorded Time 76029 Augmentin medicatio n Not available Not available Not available 12/10/2022 70600 2 RxNorm Not Available [facility] 4 14:14:06 65337 Propylami ne derivativ e with histamine receptor antagonis t mechanism of action (substanc e) medicatio n Not available Not available Not available 12/10/2022 72003 8008 SNOMED Gina Damon null, [place] - [facility] [place] 3 11:09:24 Medications Name Sig Start Date [...] Updated DateTime 04/02/2023 162.56 cm 30.7 kg/m2 55680.03 g 98.5 [degF] Rose Luuy [facility] [place] 04/02/2023 14:24:21 Date Recorded Body height Body mass index (BMI) Body weight Provider Name and Address Organization Details Last Updated DateTime 12/10/2022 162.56 cm 29.9 kg/m2 66634.07 g Gina [facility] [place] 12/10/2022 10:51:16 Date Recorded Body height Body mass index (BMI) Body weight Provider Name and Address Organization Details Last Updated DateTime 12/24/2022 162.56 cm 29.9 kg/m2 76669.07 [facility] [place] 12/24/2022 15:02:34 Social History None recorded. Functional [...] SNOMED-CT Code Diagnosis ICD10 Code Diagnosis Note [id number] Melissa Ribeiro MD [facility] P-2340 [address] [facility], [place] [address] 12/10/2022 10:28:19 12/10/2022 11:49:25 Hyperparathyroidism 19274503 E21.[address] scan and thyroid U/S with the patient myself in the office today. Explained there was nothing concerning on that scan. I would like for her to get a sestamibi scan for further work up, if this is not localizing , may need a SPEC CT Hypothyroidism 32255496 E03.9 Continue current dose of Synthroid. [id number] Melissa Ribeiro MD [facility] P2340 [address] [facility] [address] [place] [address] 12/24/2022 14:44:05 12/24/2022 15:26:56 Parathyroid adenoma 842020896 D35.1 Went over the sestamibi scan results [...] if needed. Hyperparathyroidism 6699 9008 E21.3 Hypercalcemia 32704708 E 83.52 [id number] Melissa Ribeiro MD [facility] G -2340 [address] [address] 04/02/2023 14:20:25 04/02/2023 14:30:28 Parathyroid adenoma 089798441 D35.1 Went over patient's post op parathyroi [...] as needed. Hyperparathyroidism 6699 9008 E21.3 Hypercalcemia 06251576 E 83.52 Health Concerns Section Related Observation LastModified by Organization Detai ls LastModified Time None Recorded Concern Status LastModified by Organization Details LastModified Time None Recorded Advance Directives Directive None Recorded Payers Insurance Date Sequence Insurance Name Policy Number Policy Wu Covered Member ID Wu Member ID Guarantor Name 09/26/2023 2 [employer] (MEDICARE SUPPLEMENT) Keyanna Manzano [id number] Keyanna Manzano 09/26/2023 1 [facility]IC[facility]-[address] [facility]ARD (MEDICARE) Keyanna Manzano [id number] Keyanna Manzano 12/10/2022 1 [place] [id number] R Stan Manzano [id number] Keyanna Manzano Notes Date Note Type Note [...] sent to Dr Horta at [facility]. He sent her for a CT scan. Patient sees Dr Madsen for her heart issues and he done some blood work and that showed her Calcium and subsequently her PTH was elevated. Patient has had breast cancer, sister had thyroid caner (Hurthle Cell Carcinoma). She reports fatigue. He DEXA scan was concerning for osteoporosis. Melissa Ribeiro MD [address], [place], [address], [facility] [place] 12/10/2022 13:01:29 3 text/html 67 yo is here for follow up on imaging.Patient states she has stopped her VIt D3 because her calcium was elevated. Melissa Ribeiro MD [address], [place], [address], [facility] [place] 12/26/2022 12:17:29 text/html Post op parathyroid that [...] 98 when checked inpatient. Melissa Ribeiro MD [address], [place], [address], [facility] [place] 04/02/2023 15:31:00 OBGyn Episode No OBEpisode recorded.
--- OUTSIDE RECORDS SUMMARY | 2024-08-26 08:56 | XMS_ITS | Referral Summary ---
Author Organization [employer] Address [address] [place] [address] Care Team Providers Care Underpresser Hand Name Role Phone Unavailable Primary Care Provider [...]
--- OUTSIDE RECORDS SUMMARY | 2024-08-26 08:56 | XMS_ITS | Data Portability ---
Author Organization [place] GABRIELA [facility] [place] [facility] Address [address] [facility] [address] [place] [address] Assessment No assessment recorded. Plan of Treatment [...] By Organization Details Last Modified Time 04/11/2019 [id number] postconcussion syndrome: care instructions [email or web address] Not available 04/11/2019 16:24:51 - cut back [...] -- specifically, find some number games, including [employer], math as well. 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 [email or web address] Not available 04/11/2019 16:24:05 Reason for Referral None Reported. Medical Equipment None Reported. Allergies Allergen ID Allergen Name Allergen Category Reaction Reaction Severity Criticality Documentation Date Start Date Code Code System Note Provider Name and Address Organization Details Recorded Time 599837 Augmentin medicatio n Not available Not available Not available 04/11/2019 89362 2 RxNorm [facility] 0 14:06:12 Medications Name Sig Start [...] Updated DateTime 0 167.64 cm 28.6 kg/m2 14088.8 5 g 100 /min 112 mm[Hg] 70 mm[Hg] [facility] 0 14:37:37 Social History Question Answer Notes LastModified by Organizat [employer] Details LastModified Time Tobacco Smoking Status Never Smoker [facility] 04/11/2019 14:10:38 Marital Status kelly Chance [...] SNOMED-CT Code Diagnosis ICD10 Code Diagnosis Note [id number] CHRISTOPHE TAYLOR MD NEUROLOGY [facility] [address] [place] [address] 04/11/2019 13:58:18 04/11/2019 16:27:28 Postconcussion syndrome 82669464 F07.81 64 yo woman with post concussion syndrome after a fall 11/26/2018 when she fell, hitting her head on concrete. She is having problems with multitaski ng, numbers/ca lculations , memory. She does better if she rests and less pressure. 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 She has made some mistakes with reversing numbers during balancing/accounti ng. She has to have a colonoscopy, had some heart problems. She had to package pick up some mastectomy bras and got disoriented - [...] oopherectomy about 1997. CHRISTOPHE TAYLOR MD [address] [place], [address], [facility] 04/11/2019 16:24:54 OBGyn Episode No OBEpisode recorded.
== END 2024-08-26 23:59 | disposition home or self-care (01) ==
LOC: RAD 08:53
PROVIDERS: PCP Physician Assistant; Visit Provider Family Medicine
DX: M85.852 Other specified disorders of bone density and structure, left thigh (principal); M85.851 Other specified disorders of bone density and structure, right thigh
CPT/HCPCS: 77080

== ENCOUNTER 2024-10-26 07:37 | Outpatient (CLI) | payer MEDICARE, OTHER, SELFPAY ==
--- OUTSIDE RECORDS SUMMARY | 2024-08-24 12:30 | XMS_ITS ---
Author Organization [facility] Address [address] [place] [phone] Care Team Providers Care Patient Support Associate Name Role Phone Bob Marcelino Primary Care Provider Marge Puckett Unavailable [phone] Olinda Kim Unavailable [phone] Allergies Allergen (clinical drug ingredient) Drug/Non Drug Allergy documented on EMR Reaction Allergy Type Onset Date Status amoxicillin / clavulanate Augmentin rash Drug Allergy Active Decongestant tachycardia Drug Allergy Ac tive REASON FOR VISIT F/U [facility] Medications Medication SIG (Take, Route, Frequency, Duration) [...] Problem Body mass index 30+ - obesity (096359445) BMI 30.0-30.9,a dult (Z68.30) Active confirmed Vital Signs Blood pressure systolic 122 mm Hg 08/25/19 25 Blood pressure diastolic 84 mm Hg 025 Heart Rate 84 /min 08/24/2024 Height 65 in 08/24/2024 Weight 180.4 lbs 08/24/2024 BMI 30.02 kg/m2 08/24/2024 Encounters Encounter Location Date Provider Diagnosis [facility] [address] [facility] [address] [facility] [address] [place] [phone] 08/24/2024 Olinda Kim Shortness of breath R06.02 and BMI 30.0-30.9,adult Z68.30 Assessments Encounter Date Diagnosis (ICD Code) Assessment Notes Treatment Notes Treatment Clinical Notes Section Notes 08/24/2024 Shortness of breath (ICD-10 - R06.02) Discussed labs done at [facility] and cardiology appt. She is going to proceed with left and right heart cath. 08/24/2024 BMI 30.0-30.9,adul t (ICD-10 - Z68.30) Plan Of Treatment Treatment Notes Assessment Notes Shortness of breath Discussed labs done at [facility] and cardiology appt. She is going to proceed with left and right heart cath. Next Appt Details Follow Up: with cardiology, Reason: Provider Name:Marcelino morris, 11/30/2024 10:56:00 AM, [address] [facility] [address] [facility], [place], [phone], Progress Notes * ELAINE PAL LDOB: [birth year] (69 yo F)Acc No.[id number]:08/24/2024 Progress Notes Patient: ELAINE DRAKE Provider: GRACIELA Knight :1955 A ge:69 Y S ex:Female Date:08/24/2024 Address:[place], [id number] Pcp:Marcelino Rojas Subjective: * Chief Complaints: * [...] 2000, Abdominal hysterectomy, Partial followed by complete 2000, Right mastectomy 1984, tonsillectomy 1973, colonoscopy, [...] breath - R06.02 (Primary) 2 . B AR 30.0-30.9,adult - Z68.30 Plan: * Treatment: * Procedure Codes: G 2211 Complex e/m visit add on, 1036F TOBACCO NON-USER, G8783 BP SCR PRFRM RCMDD DEFIND SCR INTVL, G8752 MOST RECENT SYSTOLIC BP < 140MM HG, G8754 MOST RECENT DIASTOLIC BP < 90MM HG * Follow Up: w [facility] cardiology * Images: Billing Information: * Visit Code: 72147 Office Visit, Est Pt., Level 3. * Procedure Codes: G2211 Complex e/m visit add on. 1036F TOBACCO NON-USER. G8783 BP SCR PRFRM RCMDD DEFIND SCR INTVL. G8752 MOST RECENT SYSTOLIC BP < 140MM HG. G8754 MOST RECENT DIASTOLIC BP < 90MM HG. * Electronic signature of GRACIELA Tran on 10/26/2024 at 07:40 AM EDT Sign off status: Pending * Provider: GRACIELA Knight Date: 0 08/24/2024 Generated for Maxime pride/Loi/eTransmitting on: 0 10/26/2024 07:40 AM EDT History and Physical Notes * [...]
--- OUTSIDE RECORDS SUMMARY | 2024-10-21 09:15 | XMS_ITS ---
Author Organization [place] Address [address] [facility] [address] [facility] [address] [place] [id number] Care Team Providers Care Commercial Front Load Operator Name Role Phone Marcelino Rojas Primary Care Provider [phone] Marge Puckett Unavailable [phone] Olinda Kim Unavailable [phone] Results Component Value Reference Range Notes Glycohemoglobin A1c (in hous e) Reviewed date:10/25/2024 11:26:12 AM Interpretation:7.1% Performing Lab: Notes/Report: 7.1% glycohemoglobin 7.1% 5 - 6.5 % REASON FOR VISIT A1C Encounters Encounter Location Date Provider Diagnosis [place] [facility] [address] [place] [id number] 10/21/2024 Olinda Kim Impaired fasting glucose R73.01 Assessments Encounter Date Diagnosis (ICD Code) Assessment Notes Treatment Notes Treatment Clinical Notes Section Notes 10/21/2024 Impaired fasting glucose (ICD-10 - R73.01) Plan Of Treatment Next Appt Details Provider Name:Marcelino George ry, 11/30/2024 10:56:00 AM, [address] [facility], [place], [id number], Progress Notes * ELAINE PAL LDOB: [birth year] (69 yo F)Acc No.[id number]:10/21/2024 Patient: ELAINE DRAKE Provider: GRACIELA Knight :1955 A ge:69 Y S ex:Female Date:10/21/2024 Address:[address] [phone] Pcp:Marcelino Rojas Subjective: * Chief Complaints: * 1 . A1C. * Medical History: Objective: * Vitals: Assessment: * Assessment: 1. I mpaired fasting glucose - R73.01 Plan: * Treatment: Value Reference Range g lycohemoglobin 7.1% 5 - 6.5 % * Edel Hendrickson 10/21/2024 01:3 4:46 PM EDT > Provider reviewed results while patient in office. * Procedure Codes: 3 6416 CAPILLARY BLOOD DRAW, 58416 GLYCATED HEMOGLOBIN TEST, Modifiers: QW * Images: Billing Information: * Visit Code: * Procedure Codes: 37938 CAPILLARY BLOOD DRAW. 42550 GLYCATED HEMOGLOBIN TEST. Modifiers: QW * Electronic signature of GRACIELA Tran on 10/26/2024 at 07:40 AM EDT Sign off status: Pending * Provider: GRACIELA Knight Date: 10/21/2024 Generated for Maxime pride/Faflorencio/eTransmitting on: 10/26/2024 07:40 AM EDT
--- OUTSIDE RECORDS SUMMARY | 2024-10-26 07:40 | XMS_ITS | Encounter Summary ---
Author Organization [employer] ([place], [place], [place], [place]) Address [address] [place] [address] Care Team Providers Care Plant Care Worker Name Role Phone Unavailable Primary Care Provider Unavailabl e Encounter Details Date Type Department Care Team (Late st Contact Info) Description 10/29/2018 Transcribed Document [facility] Radiology [address] [place] [address] Provider, Larry Pemberton MD Social [...] * Cerner Conversion Note - [facility] ProviderMD - 10/29/2018 9:48 AM EDT Pre Procedure Adult Entered On: 10/29/2018 8:52 EDT Performed On: 10/29/2018 8:48 EDT by Alivia Laguerre RN Height and Weight, Clinical Dosing Height Source : Stated Height Entry Format : [place] Height, Feet : 5 ft(Converted to: 152 cm, 60 Inch) Height, Inches : 6 Inch(Converted to: 0 ft 6 Inch, 15.24 cm) Clinical Height : 167.64 cm Weight Source : Standing scale Weight Entry Format : [place] Clinical Dosing Weight : 78.24 kg Weight, Pounds : 172 lb Weight, Ounces : 2 oz Body Surface Area (BSA) : 1.88 m2 Body Mass Index : 27.8 kg/m2 ([place]) [place] Body Weight : 59 kg Alivia Laguerre [...] Ambulatory Legal Guardian : Spouse Support Person/Patient News Editor : Yes Support Person/Pt Rep Name : Stan Support Person/Pt Rep Contact Information : [phone] Want Family/Rep/Phys Notified of Admit : No Emergency Contact #1 : na Emergency Contact #1 Phone Number : na Emergency Contact #1 Relationship : na Emergency Contact #2 : na Emergency Contact #2 Phone Number : na Emergency Contact #2 Relationship : na Information Obtained From : Patient Primary Language : Trinidadian Communication Barrier : None Objects to Sharing [...] Scale Risk Level : 0-24 Low Risk [place] Fall Interventions : Adequate lighting, Assistive devices [...]
--- OUTSIDE RECORDS SUMMARY | 2024-10-26 07:40 | XMS_ITS | Encounter Summary ---
Author Organization [employer] ([place], [place], [place], [place]) Address [address] [place] [address] Care Team Providers Care Scoop Driver Name Role Phone Unavailable Primary Care Provider Unavailabl e Encounter Details Date Type Department Care Team (Late st Contact Info) Description 10/29/2018 Transcribed Document [facility] Radiology [address] [place] [address] Provider, Larry Pemberton MD Social History Tobacco Use Types Packs/Day Years Used Date Smoking Tobacco: Never Assessed Comments Unknown Sex and Gender Information Value Date Recorded Sex Assigned at Not on file Legal Sex Female 1:43 PM CDT Gender Identity Not on file Sexual Orientation Not on file documented as of this encounter Miscellaneous Notes * Cerner Conversion Note - [facility] Niecy ProviderMD - 10/29/2018 10:55 AM EDT [address] [address] [place] :1955 Visit Time:10/29/2018 What to do next [...] see procxedure sheet for recommendations Where: [address] [facility] [address] [place] [address]- Business (1) Medications What How Much When [...] getting enough exercise. ??? Smoking. ??? Taking hxzg-yff-uxjwpto pain medicines, like aspirin and ibuprofen. ??? [...] care provider or your diet and nutrition aides teacher (dietitian). ? Take a fiber supplement or probiotic, if your health care provider approves. ??? Take ghiw-jwl-pnsjaog and prescription medicines only as told by [...] 11/20/2004 Document Revised: 01/12/2017 Document Reviewed: 01/12/2017 AIRSIS Interactive Patient Education ?? 2019 AIRSIS Inc. Hemorrhoids Hemorrhoids are swollen veins in [...] times a day. General instructions ??? Take rndt-jxk-aeqhkpe and prescription medicines only as told by [...] 02/20/2001 Document Revised: 07/23/2016 Document Reviewed: 11/07/2015 AIRSIS Interactive Patient Education ?? 2019 A[employer] Inc. Colon Polyps Polyps are tissue growths [...] 11/19/2004 Document Revised: 07/31/2016 Document Reviewed: 01/14/2016 AIRSIS Interactive Patient Education ?? 2019 Positionly. High-Fiber Diet Fiber, also called dietary fiber, [...] Barley. Bulgur wheat. Millet. Bran muffins. Popcorn. Dora wafer crackers. Vegetables Sweet potatoes. Spinach. Kale. Artichokes. Cabbage. Broccoli. Green peas. Carrots. Squash. Fruits Berries. Pears. Apples. Oranges. Avocados. Prunes and raisins. Dried figs. Meats and Other Protein Sources [place], kidney, [place], and soy beans. Split peas. [...] 02/23/2006 Document Revised: 07/31/2016 Document Reviewed: 08/08/2014 AIRSIS Interactive Patient Education ?? 2018 Positionly. Colonoscopy, Adult, Care After This sheet gives [...] slower pace than normal. ? Eat soft, uouj-hl-aggemz foods. ? Rest often. ??? Take ysay-ztr-zugnxug or prescription medicines only as told by [...] 10/07/2004 Document Revised: 11/17/2016 Document Reviewed: 05/06/2016 AIRSIS Interactive Patient Education ?? 2018 Positionly. Emergency Awareness and Preventative Care STROKE is [...] Assistance with quitting is available by contacting 5-836-AHBJ-NOW. This is a free resource providing counseling, [...] Laboratory or Other Results This Visit Patient Name:ELAINE PAL I have received this information and was given the opportunity to ask questions. Patient/Car Dispatcher Name: Patient/Car Dispatcher Signature: Relationship to Patient: Clinician/Hospital Car Dispatcher Signature: Date: documented in this encounter Plan of Treatment Not on file documented as of this encounter Visit Diagnoses Not on filedocumented in this encounter
--- OUTSIDE RECORDS SUMMARY | 2024-10-26 07:40 | XMS_ITS | Patient Health Record ---
[facility] Address [address] [facility] [address] [place] [id number] Care Team Providers Care Potato Chip Cooker Machine Name Role Phone Marcelino Rojas Primary Care Provider [phone] Marge Puckett Unavailable [phone] Olinda Kim Unavailable [phone] Allergies Allergen (clinical drug ingredient) Drug/Non Drug Allergy documented on EMR Reaction Allergy Type Onset Date Status amoxicillin / clavulanate Augmentin rash Drug Allergy Active Decongestant tachycardia Drug Allergy Ac tive Results Component Value Reference Range Notes Glycohemoglobin A1c (in hous e) Reviewed date:10/25/2024 11:26:12 AM Interpretation:7.1% Performing Lab: Notes/Report: 7.1% glycohemoglobin 7.1% 5 - 6.5 % P-Vitamin D 25-Hydroxy Reviewed date:05/04/2024 08:36:23 AM Interpretation:Normal Performing Lab: Notes/Report: Test performed by [email or web address] [address] [place] [address] , [address], [place] [address] Noah Chen MD, Management Accountant CLIA: [id number] Vitamin D 25-Hydroxy 66.5 30.0-100.0 ng/mL Interpretation of Vitamin D 25 OH: < 20 ng/mL - Deficiency 20 - 29 ng/mL - Insufficiency 30 - 100 ng/mL - Sufficiency > 100 ng/mL - Super-therapeutic- toxicity may occur above this level. Clinical correlation required. P-TSH Reviewed date:05/04/2024 08:36:23 AM Interpretation:Normal Performing Lab: Notes/Report: Test performed by [email or web address] [address] [place] [address] , [address], [place] [address] Noah Chen MD, Management Accountant CLIA: [id number] TSH 1.03 0.43-5.25 mU/L P-Lipid Panel Reviewed date:05/04/2024 08:36:23 AM Interpretation:chol 231, chol/hdl 4.44, non-hdl 179, ldl 154 Performing Lab: Notes/Report: Test performed by [email or web address] [address] [place] [address] , [address], [place] [address] Noah Chen MD, Management Accountant CLIA: [id number] Cholesterol 231 <200 mg/dL Triglycerides 124 <150 [...] Interpretation:Normal Performing Lab: Notes/Report: Test performed by [email or web address] [address] [place] [address] , [facility], [place] [address] Noah Chen MD, Management Accountant CLIA: [id number] Thyroxine Free (free T4) 1.53 0.86-1.76 ng/dL P-Comprehensive Metabolic Pa nam (CMP) Reviewed date:05/04/2024 08:36:23 AM Interpretation:gluc 130, Ca 10.5 Performing Lab: Notes/Report: Test performed by [email or web address] [address] [place] [address] , [address], [place] [address] Noah Chen MD, Management Accountant CLIA: [id number] Sodium 141 135-145 mmol/L Potassium 4.9 3.5-5.3 [...] Interpretation:Normal Performing Lab: Notes/Report: Test performed by [email or web address] [address] [place] [address] , [place] [address] Noah Chen MD, Management Accountant CLIA: [id number] Vitamin B12 588 220-6933 pg/mL Mammogram Reviewed date:12/10/2023 02:10:10 PM Interpretation:Negative Performing Lab: Notes/Report: Negative result Negative P-Basic Metabolic Panel (BMP ) Reviewed date:07/08/2024 02:33:26 PM Interpretation:glu 218 Performing Lab: Notes/Report: Test performed by [email or web address] [address] [place] [address] , [place] [address] Noah Chen MD, Management Accountant CLIA: [id number] Sodium 141 135-145 mmol/L Potassium 4.1 3.5-5.3 [...] - 38 platlet 288 100 - 400 P-Comprehensive Metabolic Pa nam (CMP) Reviewed date:06/16/2024 01:59:02 PM Interpretation:K 5.5, BUN 29, Creat 1.46, Anthony 11.0, eGFR 39 Performing Lab: Notes/Report: Test performed by [email or web address] [address] [place] [address] [address], [address], [place] [address] Noah Chen MD, Management Accountant CLIA: [id number] Sodium 136 135-145 mmol/L Potassium 5.5 3.5-5.3 [...] Interpretation:Normal Performing Lab: Notes/Report: Test performed by [email or web address] [address] [place] [address] , [address], [place] [address] Noah Chen MD, Management Accountant CLIA: [id number] Creatine Kinase 74 20-180 U/L P-Culture, Anaerobic and Aer obic w/Gram Stain Reviewed date:06/16/2024 01:59:02 PM Interpretation: Performing Lab: Notes/Report: Test performed by [email or web address] [address] [place] [address] , [address], [place] [address] Noah Chen MD, Management Accountant CLIA: [id number] Specimen Source Abscess - perirectal Culture, Anaerobic and Aerobic w/Gram Stain See Below Final Report : No Anaerobes isolated Sensitivity Panel See Below Organism Antibiotic Amikacin Ampicillin Aztreonam Cefepime Cefoxitin Ceftazidime Ceftriaxone Cefuroxime Ciprofloxacin Ertapenem Gentamicin Imipenem Levofloxacin Meropenem Piperacillin/Tazo Tetracycline Tobramycin Trimeth/Sulfa S=SUSCEPTIBLE I=INTERMEDIATE R=RESISTANT P-Magnesium Reviewed date:06/16/2024 01:59:02 PM Interpretation:2.5 Performing Lab: Notes/Report: Test performed by [facility] [employer] [employer] [address] [place] [address] , [place] [address] Noah Chen MD, Management Accountant CLIA: [id number] Magnesium 2.5 1.6-2.4 mg/dL Influenza Screen (in house) Reviewed date:01/21/2024 03:02:02 [...] Interpretation:pos Performing Lab: Notes/Report: pos Result: pos P-Culture, Miscellaneous Aer obic w/Gram Stain Reviewed date:06/16/2024 01:59:02 PM Interpretation:Light Growth, E. Coli Performing Lab: Notes/Report: Test performed by [facility] [employer] [address] [facility] , [address], [place] [address] Noah Chen MD, Management Accountant CARLOS: [id number] Specimen Source Abscess - perirectal Gram Stain [...] Tobramycin I Trimeth/Sulfa R S=SUSCEPTIBLE I=INTERMEDIATE R=RESISTANT Glycohemoglobin A1c (in hous e) Reviewed date:05/04/2024 08:36:23 AM Interpretation:6.6% Performing Lab: Notes/Report: 6.6% glycohemoglobin 6.6% 5 - 6.5 % Bone density Reviewed date:10/07/2024 11:33:46 AM Interpretation:osteopenia Performing Lab: Notes/Report: osteopenia Bone density osteopenia Medications Medication SIG (Take, Route, Frequency, Duration) Notes Start Date End Date Status Levothyroxine Sodium 50 MCG Take 1 tablet by mouth once daily; Duration: 90 Active metFORMIN HCl ER 500 MG Take 1 tablet by mouth twice daily for 90 days; Duration: 90 Active Furosemide 20 MG 1 tablet Orally every other day Active MASTECTOMY BRA DIRECTED ORAL; Duration: 14 [...] e-prescription and drug interaction check* 02/21/2022 Active Spironolactone 50 MG 1/2 tab orally every other day Active Accu-Chek Guide - USE 1 STRIP TO CHECK GLUCOSE ONCE DAILY; Duration: 90 days Dx code E11.9 Active Pravastatin Sodium 10 MG 2 tablets Orally Once a day; Duration: 30 days 10/21/2024 Active Immunizations Vaccine Route Administration Date Status [...] W/U Status Risk Notes Problem Essential hypertension (53398138) Essential (primary) hypertension (I10) Active confirmed Problem Peripheral circulatory disorder associated with diabetes mellitus (328514350) Type 2 diabetes mellitus with other circulatory complications (E11.59) Active confirmed Problem Vitamin D deficiency (93337166) Vitamin D deficiency (E55.9) Active confirmed Problem Essential hypertension (01173246) Essential hypertension (I10) Active confirmed Problem Diverticulitis (16179453) Diverticulitis (K57.92) Active confirmed Problem Hypertriglyceridemia (606898560) Hypertriglyceridemia (E78.1) Active confirmed Problem Cardiomegaly (9261498) Cardiomegaly (I51.7) Active confirmed Problem Sciatic nerve lesion (537244705) Piriformis syndrome of left side (G57.02) Active confirmed Problem Body mass index 30+ - obesity (304655456) BMI 30.0-30.9,adult (Z68.30) Active confirmed Problem Memory loss (16225055) Memory loss (R41.3) Active confirmed Problem Impaired fasting glucose (097467180) Impaired fasting glucose (R73.01) Active confirmed Problem Thyroid nodule (940858964) Thyroid nodule (E04.1) Active confirmed Problem Constipation (24355312) Constipation, unspecified constipation type (K59.00) Active confirmed Problem Acquired hypothyroidism (410851170) Acquired hypothyroidism (E03.9) Active confirmed Problem Obesity (146437650) Non morbid o besity due to 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) Active confirmed Problem Osteoarthritis of knee (182754285) Primary osteoarthritis of right knee (M17.11) Active confirmed Problem Hypothyroidism (18651765) Hypothyroidism, unspecified type (E03.9) Active confirmed Problem Hypersomnia (04661562) Hypersomnia (G47.10) Active confirmed Problem Diverticular disease of colon (289310492) Diverticulosis (K57.90) Active confirmed Problem Hyperparathyroidism (03618632) Hyperparathyroidism (E21.3) Active confirmed Problem Skin sensation disturbance (21136840) Paresthesia of both feet (R20.2) Active confirmed Problem Type II diabetes mellitus without complication (916187580) Type 2 diabetes mellitus without complication, without long-term current use of insulin (E11.9) Active confirmed Problem Cyclical vomiting syndrome (58509623) Intractable cyclical vomiting with nausea (G43.A1) Active confirmed Problem Pure hypercholesterolemia (700499014) Pure hypercholesterolemia (E78.00) Active confirmed Problem Irritable bowel syndrome (37863924) Irritable bowel syndrome with both constipation and diarrhea (K58.2) Active confirmed Problem Personal history of primary malignant neoplasm of breast (869847005) History of right breast cancer (Z85.3) Active confirmed Problem Carpal tunnel syndrome (46943922) Carpal tunnel syndrome, right (G56.01) Active confirmed Problem Osteopenia (disorder ) (610679005) Osteopenia of right hip (M85.851) Active confirmed Problem Diastolic dysfunctio n (8407145) Diastolic dysfunction (I51.89) Active confirmed Problem Osteopenia of le ft hip (M85.852) Active confirmed Problem Postconcussion syndrome (27744573) Postconcussive syndrome (F07.81) Active confirmed Problem Sciatic nerve lesion (540601548) Piriformis syndrome of both sides (G57.03) Active confirmed Problem Peripheral venous insufficiency (52984334) Venous reflux (I87.2) Active confirmed Vital Signs Heart Rate 84 /min 08/24/2024 Blood pressure diastolic 84 mm Hg 08/24/2024 Height 65 in 08/24/2024 Blood pressure systolic 122 mm Hg 08/24/2024 Weight 180.4 lbs 08/24/2024 BMI 30.02 kg/m2 08/24/2024 Encounters Encounter Location Date Provider [facility] [address] [place] [id number] 01/21/2024 Olinda Kim COVID-19 U07.1 [facility] [address] [place], [place] [id number] 04/29/2024 Olinda Kim Essential hypertensi on I10 ; Vitamin D deficiency E55.9 ; Vitamin B 12 deficiency E53.8 ; Type 2 diabetes mellitus without complication, without long-term current use of insulin E11.9 ; Pure hypercholesterolemia E78.00 ; History of right breast cancer Z85.3 ; Hypothyroidism, unspecified type E03.9 ; Polyarthralgia M25.50 and Ganglion cyst M67.40 [facility] [address] [place], [place] [id number] 06/03/2024 Olinda Crowdy Perirectal abscess K 61.1 ; Abdominal distention R14.0 and Excessive gas R14.3 [facility] [address] [place], [place] [id number] 06/10/2024 Olinda Crowdy Perirectal abscess K 61.1 ; Muscle spasm M62.838 ; History of right breast cancer Z85.3 ; Type 2 diabetes mellitus with other circulatory complications E11.59 and BMI 29.0-29.9,adult Z68.29 [facility] [address] [place], [place] [id number] 06/29/2024 Olinda Crowdy Abnormal kidney func tion N28.9 [facility] [address] [place], [place] [id number] 07/01/2024 Olinda Crowdy Comedone L70.0 and Perirectal abscess K61.1 [facility] [address] [place], [place] [id number] 08/03/2024 Olinda Crowdy Neoplasm of uncertai n behavior of skin D48.5 and BMI 29.0-29.9,adult Z68.29 [facility] [address] [place], [place] [id number] 08/24/2024 Olinda Crowdy Shortness of breath R06.02 and BMI 30.0-30.9,adult Z68.30 [facility] [address] [place], [place] [id number] 10/21/2024 Olinda Crowdy Impaired fasting glu cose R73.01 [facility] [address] [place], [place] [id number] 03/28/2024 Marcelino Mcgehee Type 2 diabetes aury itus without complication, without long-term current use of insulin E11.9 [facility] [address] [place], [place] [id number] 05/04/2024 Olinda Crowdy [facility] [address] [place] [id number] 06/16/2024 Olinda Julio Perirectal abscess K 61.1 [facility] [address] [place], [place] [id number] 06/24/2024 Marcelino Mcgehee [facility] [address] [place], [place] [id number] 07/01/2024 Olnida Crowdy [facility] [address] [place], [place] [id number] 07/18/2024 Marcelino Mcgehee Type 2 diabetes aury itus without complication, without long-term current use of insulin E11.9 [facility] [address] [place], [place] [id number] 08/11/2024 Marcelino Mcgehee Colon cancer screeni ng Z12.11 and Osteopenia M85.80 [facility] [address] [place], [place] [id number] 10/07/2024 Olinda Kim [facility] [address] [place], [place] [id number] 10/21/2024 Olinda Kim [facility] [address] [place], [place] [id number] 11/23/2023 Marge Puckett [facility] [address] [place], [place] [id number] 08/08/2024 Olinda Taylorpalmira Assessments Encounter Date Diagnosis (ICD Code) Assessment Notes Treatment Notes Treatment Clinical Notes Section Notes 03/28/2024 Type 2 diabetes mellitus without complication, without long-term current use of insulin (ICD-10 - E11.9) 04/29/2024 Vitamin D deficiency (ICD-10 - E55.9) 04/29/2024 Essential hypertensi on (ICD-10 - I10) 10/21/2024 Impaired fasting glucose (ICD-10 - R73.01) 08/24/2024 Shortness of breath (ICD-10 - R06.02) Discussed labs done at [facility] and cardiology appt. She is going to proceed with left and right heart cath. 08/24/2024 BMI 30.0-30.9,adult (ICD-10 - Z68.30) 08/11/2024 Osteopenia (ICD-10 - M85.80) 08/11/2024 Colon cancer screeni ng (ICD-10 - Z12.11) 08/03/2024 Neoplasm of uncertai n behavior of skin (ICD-10 - D48.5) 08/03/2024 BMI 29.0-29.9,adult (ICD-10 - Z68.29) 07/18/2024 Type 2 diabetes mellitus without complication, without long-term current use of insulin (ICD-10 - E11.9) 07/01/2024 Perirectal abscess (ICD-10 - K61.1) Healed. 07/01/2024 Comedone (ICD-10 - L70.0) comedone extracted. 06/29/2024 Abnormal kidney function (ICD-10 - N28.9) 06/16/2024 Perirectal abscess (ICD-10 - K61.1) 06/03/2024 Abdominal distention (ICD-10 - R14.0) Patient will f/u with GI. 01/21/2024 COVID-19 (ICD-10 - U07.1) Fluids, rest, supportive measures for fever and symptoms relief, discussed covid vitamins and isolation period. 06/10/2024 Muscle spasm (ICD-10 - M62.838) 06/10/2024 Perirectal abscess (ICD-10 - K61.1) Much smaller, will give another 7 days of abx. 06/03/2024 Perirectal abscess (ICD-10 - K61.1) 06/03/2024 Excessive gas (ICD-1 0 - R14.3) 06/10/2024 History of right carolyn ast cancer (ICD-10 - Z85.3) 04/29/2024 Vitamin B 12 deficie ncy (ICD-10 [...] Treatment Pending Test Test Name Order Date colonoscopy 11/24/2023 colonoscopy 08/15/2024 Next Appt Details Provider Name:Marcelino George ry, 11/30/2024 10:56:00 AM, [address], [place], [place], [id number], Insurance Providers Payer Name Payer Address Payer Phone Subscriber Number Group Number Insured Name Patient Relationship to Insured Coverage Start Date Coverage End Date [employer] [address] [address] [place] [address] [id number] ELAINE PAL Self - patient is the insured [id number] [address] [address] [place], [place] [id number] ELAINE PAL Self - patient is the [...] 2000 Abdominal hysterectomy, Partial followed by complete 1995, 2000 Right mastectomy 1985 tonsillectomy 1973 colonoscopy, hyperplastic polyp 03/18 Colonoscopy, internal hemorrhoids, benig n polyps Oct 2015 Colonoscopy Oct 2018 Right parathyroidectomy 2023 Hospitalization History Reason Date(Month/Year) see above
--- OUTSIDE RECORDS SUMMARY | 2024-10-26 07:40 | XMS_ITS | Clinical Summary ---
Author Organization Healthcare Address [address] [place] [address] Care Team Providers Care Life Skills Coordinator Name Role Phone Jc Sanabria MD Primary Care Provider [phone] Family History Medical History Relation Name Comments [...] of Treatment Not on file Care Teams Life Skills Coordinator Relationship Specialty Start Date End Date Jc Sanabria MD [address] [place] [id number] PCP - General 07/20/20
--- OUTSIDE RECORDS SUMMARY | 2024-10-26 07:40 | XMS_ITS | Clinical Summary ---
Author Organization [employer] ([place], [place], [place], [place]) Address [address] [place] [address] Care Team Providers Care Corporate Quality Engineer Name Role Phone Unavailable Primary Care [...]
--- OUTSIDE RECORDS SUMMARY | 2024-10-26 07:41 | XMS_ITS | Referral Summary ---
Author Organization [employer] ([place], [place], [place], [place]) Address [address] [place] [address] Care Team Providers Care Marble Installer Supervisor Name Role Phone Unavailable Primary Care Provider [...]
--- OUTSIDE RECORDS SUMMARY | 2024-10-26 07:41 | XMS_ITS | Encounter Summary ---
Author Organization [employer] ([place], [place], [place], [place]) Address [address] [place] [address] Care Team Providers Care Chemical Process Operator Name Role Phone Unavailable Primary Care Provider Unavailabl e Encounter Details Date Type Department Care Team (Late st Contact Info) Description 10/29/2018 Transcribed Document [facility] Radiology [address] [place] [address] Provider, Larry Pemberton MD Social History Tobacco Use Types Packs/Day Years Used Date Smoking Tobacco: Never Assessed Comments Unknown Sex and Gender Information Value Date Recorded Sex Assigned at Not on file Legal Sex Female 1:43 PM CDT Gender Identity Not on file Sexual Orientation Not on file documented as of this encounter Miscellaneous Notes * Cerner Conversion Note - [facility] Niecy ProviderMD - 10/29/2018 10:26 AM EDT [facility] Summary Primary Physician: CASSIUS STANFORD MD-GAE Finalized Date/Time: 10/29/18 11:00:31 Pt. Name: KEYANNA PAL/Sex: 1955 Female Med Rec #: [id number] Physician: CASSIUS STANFORD MD-GAE Financial #: [id number] Pt. Type: O Room/Bed: EEN/5 Admit/Disch: 10/29/18 08:02:00 - Institution: [facility] PACU Case Times Entry 1 In PACU I 10/29/18 09:39:00 Ready for PACU 10/29/18 10:44:00 Discharge Discharge from PACU 10/29/18 10:57:00 I [facility] PACU Case Times Audit 10/29/18 11:00:29 Equipment Mechanic Specialist: ROMINA Modifier: ROMINA <+> 1 Ready for PACU Discharge <+> 1 Discharge from PACU I Finalized By: VAMSIH CHAVARRIA, RN Document Signatures Signed By: VAMSHI CHAVARRIA RN 10/29/18 11:00 documented in this encounter Plan of Treatment Not on file documented as of this encounter Visit Diagnoses Not on filedocumented in this encounter
--- OUTSIDE RECORDS SUMMARY | 2024-10-26 07:41 | XMS_ITS | Encounter Summary ---
Author Organization [employer] ([place], [place], [place], [place]) Address [address] [place] [address] Care Team Providers Care Welder Production Line Gas Name Role Phone Unavailable Primary Care Provider Unavailabl e Encounter Details Date Type Department Care Team (Late st Contact Info) Description 10/29/2018 Transcribed Document [facility] Radiology 1 [place] [address] Provider, Larry Pemberton MD Social History Tobacco Use Types Packs/Day Years Used Date Smoking Tobacco: Never Assessed Comments Unknown Sex and Gender Information Value Date Recorded Sex Assigned at Not on file Legal Sex Female 1:43 PM CDT Gender Identity Not on file Sexual Orientation Not on file documented as of this encounter Miscellaneous Notes * Cerner Conversion Note - [facility] Niecy ProviderMD - 10/29/2018 10:26 AM EDT MEENAKSHI Mccord IntraOp Summary Primary Physician: CASSIUS STANFORD MD-GAE Finalized Date/Time: 10/29/18 09:36:56 Pt. Name: KEYANNA PAL/Sex: 1955 Female Med Rec #: [id number] Physician: CASSIUS STANFORD MD-GAE Financial #: [id number] Pt. Type: O Room/Bed: [facility]/ Admit/Disch: 10/29/18 08:02:00 - Institution: [facility] - Case Attendance Entry 1 Entry 2 Entry 3 Case Attendee Morris STANFORD Elizabeth A, Rn [facility], [place] CASSIUS, MD-GAE Role Performed Surgeon/Proceduralist, Manager Web Application, First Scrub, First First Time In 10/29/18 09:23:00 10/29/18 09:18:00 10/29/18 09:19:00 Time Out 10/29/18 09:37:00 10/29/18 09:37:00 10/29/18 09:37:00 Procedure Colonoscopy, Colon Colonoscopy, Colon Colonoscopy, Colon Polypectomy Polypectomy Polypectomy Other Attendee Superficial Wound Closed By: Last Modified By: Lynne Caceres Rn Jones, Elizabeth A Rn Lynne Caceres Rn 10/29/18 09:36:12 10/29/18 09:36:12 10/29/18 09:36:12 Entry 4 Case Attendee HEENA SOUZA NA Role Performed HYDRAULIC TECHNICIAN/Nurse Teacher Time In 10/29/18 09:18:00 Time Out 10/29/18 09:37:00 Procedure Colonoscopy, Colon Polypectomy Other Attendee Superficial Wound Closed By: Last Modified By: Lynne Caceres Rn 10/29/18 09:36:12 [facility] - Case Attendance Audit 10/29/18 09:36:12 Concrete Form Setter: [id number] Modifier: [id number] 1 <+> Time Out 1 <*> Procedure Colonoscopy, Colon Polypectomy 2 <+> Time Out 2 <*> Procedure Colonoscopy, Colon Polypectomy 3 <+> Time Out 3 <*> Procedure Colonoscopy, Colon Polypectomy 4 <+> Time Out 4 <*> Procedure Colonoscopy, Colon Polypectomy 10/29/18 09:33:50 Concrete Form Setter: [id number] Modifier: [id number] 1 <*> Procedure Colonoscopy 2 <*> Procedure Colonoscopy 3 <*> Procedure Colonoscopy 4 <*> Procedure Colonoscopy 10/29/18 09:23:31 Concrete Form Setter: [id number] Modifier: [id number] 1 <*> Time In 10/29/18 09:18:00 1 <*> Procedure Colonoscopy 10/29/18 09:21:18 Concrete Form Setter: [id number] Modifier: [id number] <+> 1 Procedure 2 <*> Procedure Colonoscopy [...] Endo - Case Times Audit 10/29/18 09:35:59 Concrete Form Setter: [id number] Modifier: [id number] <+> 1 Out Room Time <+> 1 Stop Time <+> 1 Stop Time 10/29/18 09:26:26 Concrete Form Setter: [id number] Modifier: [id number] <+> 1 Start Time [facility] - Cultures and Spec Summary Entry 1 Cultrures and Specimens Specimen Ordered: Yes Test(s) Routine/Path-Lab Requested/Final Disposition Last Modified By: Lynne Caceres Rn 10/29/18 09:34:05 General Comments: sigmoid colon polyp [facility] - Delays Entry 1 Delay Reason Other Duration 0 Minute(s) Comment NO DELAY Last Modified By: Lynne Caceres Rn 10/29/18 09:20:50 [facility] - Departure from OR Entry 1 Integumentary Assessment Integumentary WDL Assessment WDL Transfer/Handoff Transfer to PACU Phase I Handoff Reported to VAMSHI CHAVARRIA RN Post-op Transport Stretcher/Ying Via Patient Transport Lynne Caceres Rn, Accompanied by HEENA SOUZA NA Last Modified By: Lynne Caceres Rn 10/29/18 09:21:09 [facility] - Endoscopy Details Entry 1 Abdomen Procedure Soft, Non-Tender Assessment Procedure Abdomen 10/29/18 09:18:00 Assessment D/T Radio Frequency Ablation Last Modified By: Lynne Ccaeres Rn 10/29/18 09:21:15 [facility] - Fire Risk Assessment Entry 1 [...] Modified By: Lynne Caceres Rn 10/29/18 09:21:22 [facility] - General Case Edge Inker Uppers 1 Case Information OR Endo 01 [facility] Case Level 1 Room Verified Yes Wound Class III - Contaminated Specialty SN Gastroenterology Anesthesia Type MAC ASA Class 3 Diagnosis Preop Diagnosis abdominal pain, diarrhea, diverticulitis Postop Same As Preop No Postop Diagnosis diverticulosis, hemorrhoids, colon polyp Last Modified By: Lynne Caceres Rn 10/29/18 09:36:38 [facility] - General Case Data Audit 10/29/18 09:36:38 Concrete Form Setter: [id number] Modifier: [id number] <+> 1 Postop Diagnosis [facility] - Intraoperative Assessment Entry 1 Valid History / Yes Physical in Chart Preoperative Yes Checklist Reviewed/Evaluated Allergies Reviewed Yes Patient is Latex No Sensitive Level of WDL Consciousness (WDL = Alert, Oriented to Person, Place, and Time) Present Upon IVs, ECG monitored Arrival to OR Last Modified By: Lynne Caceres Rn 10/29/18 09:22:23 [facility] - Intraoperative Equipment Entry 1 Type Scope Equipment Intraop Monitoring Blood Pressure Arm, left upper Location Pulse Oximeter Hand, right Probe Site Antiembolic Devices Scopes Flexible Endoscopes Colonoscope, Peds Used Scope Serial [id number] Number/Identificatio n Number Photo/Video Documentation Photo Yes Video No Last Modified By: Lynne Caceres Rn 10/29/18 09:22:39 [facility] - Intraoperative Equipment Audit 10/29/18 09:22:39 Concrete Form Setter: [id number] Modifier: [id number] <+> 1 Photo <+> 1 Video <+> 1 Blood Pressure Location <+> 1 Pulse Oximeter Probe Site <+> 1 Flexible Endoscopes Used <+> 1 Scope Serial Number/Identification Number [facility] - Patient Positioning Entry 1 Procedure [...] Endo - Patient Positioning Audit 10/29/18 09:33:52 Concrete Form Setter: [id number] Modifier: [id number] 1 <*> Procedure Colonoscopy [facility] - [...] Endo - Sign Out Audit 10/29/18 09:36:49 Concrete Form Setter: [id number] Modifier: [id number] <+> 1 RN Sign Out Signature Date/Time [facility] - Surgical Procedures Entry 1 Entry 2 Procedure Colonoscopy Colon Polypectomy Modifiers Additional Procedure Description Primary Procedure Yes No Primary Surgeon HIEN STANFORD KAREN, MD-CHRIS THOMPSON Start 10/29/18 09:26:00 10/29/18 09:26:00 Stop 10/29/18 09:35:00 10/29/18 09:35:00 Physician States 10/29/18 09:28:00 10/29/18 09:28:00 Cecum Reached Anesthesia Type MAC MAC Specialty SN Gastroenterology SN Gastroenterology Wound Class III - Contaminated III - Contaminated Last Modified By: Lynne Caceres Rn Jones, Elizabeth A, Rn 10/29/18 09:36:54 10/29/18 09:36:54 [facility] - Surgical Procedures Audit 10/29/18 09:36:54 Concrete Form Setter: [id number] Modifier: [id number] <+> 1 Stop <+> 2 Stop 10/29/18 09:33:45 Concrete Form Setter: [id number] Modifier: [id number] 1 <*> Procedure Colonoscopy 1 <+> Start 1 <+> Physician States Cecum Reached <+> 2 Procedure <+> 2 Primary Procedure <+> 2 Primary Surgeon <+> 2 Specialty <+> 2 Start <+> 2 Wound Class <+> 2 Anesthesia Type <+> 2 Physician States Cecum Reached 10/29/18 09:23:24 Concrete Form Setter: [id number] Modifier: [id number] 1 <*> Procedure Colonoscopy 1 <+> Specialty E Endo - Time Out Entry 1 Procedure [...] Modified By: Lynne Caceres Rn 10/29/18 09:33:52 E Endo - Time Out Audit 10/29/18 09:33:52 Concrete Form Setter: [id number] Modifier: [id number] 1 <*> Procedure to be Performed Colonoscopy Case Comments <None> Finalized By: Lynne Caceres Rn Document Signatures Signed By: Lynne Caceres Rn 10/29/18 09:36 Electronically signed by Jay Jay [facility] Conversion Art Sales Consultant Cerner at 07/30/2022 7:53 PM CDT documented in this encounter Plan of Treatment Not on file documented as of this encounter Visit Diagnoses Not on filedocumented in this encounter
--- OUTSIDE RECORDS SUMMARY | 2024-10-26 07:41 | XMS_ITS | Encounter Summary ---
Author Organization [employer] ([place], [place], [place], [place]) Address [address] [place] [address] Care Team Providers Care Mail Clerks Supervisor Name Role Phone Unavailable Primary Care Provider Unavailabl e Encounter Details Date Type Department Care Team (Late st Contact Info) Description 10/29/2018 Transcribed Document [facility] Radiology 1 [place] [address] Provider, Larry Pemberton MD Social History Tobacco Use Types Packs/Day Years Used Date Smoking Tobacco: Never Assessed Comments Unknown Sex and Gender Information Value Date Recorded Sex Assigned at Not on file Legal Sex Female 1:43 PM CDT Gender Identity Not on file Sexual Orientation Not on file documented as of this encounter Miscellaneous Notes * Cerner Conversion Note - [facility] Niecy Thornton MD - 10/29/2018 9:06 AM EDT Patient: KEYANNA PAL Age: 63 years Sex: Female : 1955 Associated Diagnoses: None Author: CASSIUS AVILES MD-[facility] Basic Information Source of history: Self. Present [...] Histories Past Medical History: Active Hiatal hernia (1520322437) Reflux ([id number]) Breast cancer (251936981) HTN (hypertension) (7281209676) Hyperlipemia (92550355) Murmur, cardiac (7761977297) Palpitations (009056054) Asthma, exercise induced (2060071503) Diarrhea (820307136) Diverticulitis (156841603) Procedure history: egd. colonoscopy. Cholecystectomy; (67645). mastectomy. hysterectomy. EGD. Colonoscopy (296335360). Hysterectomy (580719186). Mastectomy (0698430763). Tonsillectomy (253055147). Cholecystectomy (60210422). Social History Social & Psychosocial Habits Alcohol [...] list: All Problems Reflux / SNOMED CT [id number] / Confirmed At risk for sleep apnea / IMO 30261487 / Confirmed Diarrhea / SNOMED CT 906606915 / Confirmed Diverticulitis / SNOMED CT 133134335 / Confirmed Asthma, exercise induced / SNOMED CT 3131575410 / Confirmed Murmur, cardiac / SNOMED CT 3070573964 / Confirmed Hyperlipemia / SNOMED CT 06058458 / Confirmed HTN (hypertension) / SNOMED CT 1747366475 / Confirmed Breast cancer / SNOMED CT 590818141 / Confirmed Hiatal hernia / SNOMED CT 9999028705 / Confirmed Palpitations / SNOMED CT 723284003 / Confirmed, Active Problems (11) Asthma, exercise [...] No deformity, Normal gait. Integumentary: Warm, Dry, Keiser, No rash. Integumentary exam: Face, Chest, Arm, [...] colon polyps. She complains of mild diarrhea. Electronically signed by Larry Goyal Conversion Set Up Mechanic Coil Winding Machines Cerner at 07/30/2022 7:53 PM CDT documented in this encounter Plan of Treatment Not on file documented as of this encounter Visit Diagnoses Not on filedocumented in this encounter
--- OUTSIDE RECORDS SUMMARY | 2024-10-26 07:41 | XMS_ITS | Encounter Summary ---
Author Organization [employer] ([place], [place], [place], [place]) Address [address] [place] [address] Care Team Providers Care Information Lead Name Role Phone Unavailable Primary Care Provider Unavailabl e Encounter Details Date Type Department Care Team (Late st Contact Info) Description 10/29/2018 Transcribed Document [facility] Radiology 1 [place] [address] Provider, Larry Pemberton MD Social [...] * Cerner Conversion Note - [facility] Niecy ProviderMD - 10/29/2018 10:00 AM EDT MEENAKSHI Mccord PreOp Summary Primary Physician: CASSIUS STANFORD MD-GAE Finalized Date/Time: 10/29/18 09:03:21 Pt. Name: KEYANNA PAL/Sex: 1955 Female Med Rec #: [id number] Physician: CASSIUS STANFORD MD-GAE Financial #: [id number] Pt. Type: O Room/Bed: EEN/5 Admit/Disch: 10/29/18 08:02:00 - Institution: [facility]I Mccord PreOp Case Times Entry 1 In Preop 10/29/18 08:48:00 Ready for Holding n/a Room Patient Ready for 10/29/18 09:03:00 Surgery Patient Out of Preop 10/29/18 09:03:00 Patient Out of n/a Holding Room [facility] PreOp Case Times Audit 10/29/18 09:03:19 Operations Associate: NEELAM Modifier: [email or web address] <+> 1 Patient Out of Preop <+> 1 Patient Ready for Surgery Finalized By: Alivia Laguerre RN Document Signatures Signed By: Alivia Laguerre RN 10/29/18 09:03 Electronically signed by Jay Jay [facility] Conversion Service Center Representative Cerner at 07/30/2022 7:53 PM CDT documented in this encounter Plan of Treatment Not on file documented as of this encounter Visit Diagnoses Not on filedocumented in this encounter
[2024-10-26 10:00] LABS: Hemoglobin A1C 7.0 % (4.0-6.0)
== END 2024-10-26 23:59 | disposition home or self-care (01) ==
LOC: LAB 07:38
PROVIDERS: PCP Physician Assistant; Visit Provider Student in an Organized Health Care Education/Training Program
DX: E11.9 Type 2 diabetes mellitus without complications (principal)
CPT/HCPCS: 36415; 82043; 83036

== ENCOUNTER 2024-12-02 09:44 | Outpatient (CLI) | payer MEDICARE, OTHER, SELFPAY ==
--- OUTSIDE RECORDS SUMMARY | 2024-08-24 12:30 | XMS_ITS ---
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 Role Phone Bob Marcelino Primary Care Provider Marge Puckett Unavailable [phone] Olinda Kim Unavailable [phone] Allergies Allergen (clinical drug ingredient) Drug/Non Drug Allergy documented on EMR Reaction Allergy Type Onset Date Status amoxicillin / clavulanate Augmentin rash Drug Allergy Active Decongestant tachycardia Drug Allergy Ac tive REASON FOR VISIT F/U [facility] Medications Medication SIG (Take, Route, Frequency, Duration) Notes Start Date End Date Status GLUCOMETER DIRECTED TEST QD E11.9 *Pleas e review for potential replacement for e-prescription and drug interaction check* 04/25/2022 Active SILICONE BREAST PROSTHESES DIRECTED DIRECTED Z85.3 *Please review for potential replacement for e-prescription and drug interaction check* 02/21/2022 Active MASTECTOMY BRA DIRECTED ORAL; Duration: 14 DAYS 02/21/2022 Active Accu-Chek Softclix Lancets - USE 1 TO CHECK GLUCOSE ONCE DAILY; Duration: 90 Active Accu-Chek Softclix Lancets - 1 [...] MG Take 1 tablet by mouth twice daily; Duration: 90 Active Accu-Chek Guide - USE 1 STRIP TO CHECK GLUCOSE ONCE DAILY; Duration: 90 days Dx code E11.9 Active Levothyroxine Sodium 50 MCG Take 1 tablet by mouth once daily; Duration: 90 Active Meloxicam 15 MG 1 tablet Orally Once a day 04/29/2024 Active Problems Problem Type SNOMED Code ICD Code Onset Dates Problem Status W/U Status Risk Notes Problem Body mass index 30+ - obesity (122524764) BMI 30.0-30.9,a dult (Z68.30) Active confirmed Vital Signs Weight 180.4 lbs 08/24/2024 Blood pressure systolic 122 mm Hg 08/25/19 25 Blood pressure diastolic 84 mm Hg 025 Heart Rate 84 /min 08/24/2024 Height 65 in 08/24/2024 BMI 30.02 kg/m2 08/24/2024 Encounters Encounter Location Date Provider Diagnosis [facility] [address] [facility] [address] [place], [place] [phone] 08/24/2024 Olinda Kim Shortness of breath R06.02 and BMI 30.0-30.9,adult Z68.30 Assessments Encounter Date Diagnosis (ICD Code) Assessment Notes Treatment Notes Treatment Clinical Notes Section Notes 08/24/2024 Shortness of breath (ICD-10 - R06.02) Discussed labs done at [facility] and cardiology appt. She is going to proceed with left and right heart cath. 08/24/2024 BMI 30.0-30.9,adul t (ICD-10 - Z68.30) Plan Of Treatment Treatment Notes Assessment Notes Shortness of breath Discussed labs done at [facility] and cardiology appt. She is going to proceed with left and right heart cath. Next Appt Details Follow Up: with cardiology, Reason: Progress Notes * ELAINE PAL LDOB: [birth year] (69 yo F)Acc No.[id number]:08/24/2024 Progress Notes Patient: ELAINE DRAKE Provider: GRACIELA Knight :1955 A ge:69 Y S ex:Female Date:08/24/2024 Address:[place], [id number] Pcp:Marcelino Rojas Subjective: * Chief Complaints: * [...] Temp: 98.6, BP: 122/84, HR: 84, Nurse: [facility], Ht: 65, BMI:30.02. * Examination: G eneral Examination: General Appearance: N AD. C hest: n ormal shape and expansion. H eart: R SR. L ungs: c lear to auscultation. P eripheral pulses:?trace leg edema bilaterally. Assessment: * Assessment: 1. S hortness of breath - R06.02 (Primary) 2 . B PR 30.0-30.9,adult - Z68.30 Plan: * Treatment: * Procedure Codes: G 2211 Complex e/[place], [address]36F TOBACCO NON-USER, G8783 BP SCR PRFRM RCMDD DEFIND SCR INTVL, G8752 MOST RECENT SYSTOLIC BP < 140MM HG, G8754 MOST RECENT DIASTOLIC BP < 90MM HG * Follow Up: w [facility] cardiology * Images: Billing Information: * Visit Code: 86939 Office Visit, Est Pt., Level 3. * Procedure Codes: G2211 Complex e/m [place] on. 1036F TOBACCO NON-USER. G8783 BP SCR PRFRM RCMDD DEFIND SCR INTVL. G8752 MOST RECENT SYSTOLIC BP < 140MM HG. G8754 MOST RECENT DIASTOLIC BP < 90MM HG. * Electronic signature of GRACIELA Tran on 12/02/2024 at 09:48 AM EDT Sign off status: Pending * Provider: GRACIELA Knight Date: 0 08/24/2024 Generated for Maxime pride/Loi/eTransmitting on: 0 12/02/2024 09:48 AM EDT History and Physical Notes * [...]
--- OUTSIDE RECORDS SUMMARY | 2024-10-21 09:15 | XMS_ITS ---
Author Organization [facility] Address [address] [facility] [address] [place] [id number] Care Team Providers Care Kitchen Utility Associate Name Role Phone Marcelino Rojas Primary Care Provider Marge Puckett Unavailable [phone] Olinda Kim Unavailable [phone] Results Component Value Reference Range Notes Glycohemoglobin A1c (in hous e) Reviewed date:10/25/2024 11:26:12 AM Interpretation:7.1% Performing Lab: Notes/Report: 7.1% glycohemoglobin 7.1% 5 - 6.5 % REASON FOR VISIT A1C Encounters Encounter Location Date Provider Diagnosis [place] [address] [facility] [address] [place] [id number] 10/21/2024 Olinda Kim Impaired fasting glucose R73.01 Assessments Encounter Date Diagnosis (ICD Code) Assessment Notes Treatment Notes Treatment Clinical Notes Section Notes 10/21/2024 Impaired fasting glucose (ICD-10 - R73.01) Plan Of Treatment No Information Progress Notes * ELAINE PAL LDOB: [birth year] (69 yo F)Acc No.[id number]:10/21/2024 Patient: KLAUS DRAKEDEBO Yañez Provider: GRACIELA Knight :1955 A ge:69 Y S ex:Female Date:10/21/2024 Address:[address] [id number] Pcp:Marcelino Rojas Subjective: * Chief Complaints: * 1 . A1C. * Medical History: Objective: * Vitals: Assessment: * Assessment: 1. I mpaired fasting glucose - R73.01 Plan: * Treatment: Value Reference Range g lycohemoglobin 7.1% 5 - 6.5 % * GregginocenciaEdel 10/21/2024 01:3 4:46 PM EDT > Provider reviewed results while patient in office. * Procedure Codes: 3 6416 CAPILLARY BLOOD DRAW, 32020 GLYCATED HEMOGLOBIN TEST, Modifiers: QW , 3051F HG A1C>EQUAL 7.0%<8.0% * Images: Billing Information: * Visit Code: * Procedure Codes: 27900 CAPILLARY BLOOD DRAW. 60631 GLYCATED HEMOGLOBIN TEST. Modifiers: QW 3051F HG A1C>EQUAL 7.0%<8.0%. * Electronic signature of GRACIELA Tran on 12/02/2024 at 09:48 AM EDT Sign off status: Pending * Provider: GRACIELA Knight Date: 0 10/21/2024 Generated for Maxime pride/Loi/eTransmitting on: 0 12/02/2024 09:48 AM EDT
--- OUTSIDE RECORDS SUMMARY | 2024-11-16 06:45 | XMS_ITS ---
Author Organization [facility] Address [address] [place] [id number] Care Team Providers Care Production Welder Name Role Phone Bob Marcelnio Primary Care Provider Marge Puckett Unavailable [phone] Olinda Kim Unavailable [phone] Allergies Allergen (clinical drug ingredient) Drug/Non Drug Allergy documented on EMR Reaction Allergy Type Onset Date Status amoxicillin / clavulanate Augmentin rash Drug Allergy Active Decongestant tachycardia Drug Allergy Ac tive REASON FOR VISIT check up, Needs labs & Prevnar vaccine Medications Medication SIG (Take, Route, Frequency, Duration) Notes Start Date End Date Status Furosemide 40 MG 1/2 tab orally once a day Active Pravastatin Sodium 10 MG Take 2 tablets by mouth once daily; Duration: 30 Active Meloxicam 15 MG 1 tablet Orally Once a day 04/29/2024 Active metFORMIN HCl ER 500 MG 2 tab twice a day orally twice a day; Duration: 90 days Active Levothyroxine Sodium 50 MCG Take 1 tablet by mouth once daily; Duration: 90 Active Accu-Chek Guide - USE 1 STRIP TO CHECK GLUCOSE ONCE DAILY; Duration: 90 days Dx code E11.9 Active Accu-Chek Softclix Lancets - 1 lancet 03/28/2024 Active Accu-Chek Softclix Lancets - USE 1 TO CHECK GLUCOSE ONCE DAILY; Duration: 90 Active MASTECTOMY BRA DIRECTED ORAL; Duration: 14 DAYS 02/21/2022 Active GLUCOMETER DIRECTED TEST QD E11.9 *Please review for potential replacement for e-prescription and drug interaction check* 04/25/2022 Active BRA WITH PROSTHESIS 4 BRAS DIRECTED 06/15/2017 Active SILICONE BREAST PROSTHESES 1 PROSTHESES DIRECTED 06/15/2017 Active Spironolactone 50 MG 1/2 tab orally every other day Active SILICONE BREAST PROSTHESES DIRECTED DIRECTED Z85.3 *Please review for potential replacement for e-prescription and drug interaction check* 02/21/2022 Active Furosemide 20 MG 1 tablet Orally every other day Active Vital Signs Weight 179 lbs 11/16/2024 Blood pressure systolic 110 mm Hg 11/17/19 25 Blood pressure diastolic 76 mm Hg 025 Heart Rate 78 /min 11/16/2024 Height 65 in 11/16/2024 BMI 29.78 kg/m2 11/16/2024 Encounters Encounter [facility] Date [facility] [address] [id number] 11/16/2024 Olinda Kim Essential hypertensi on I10 ; Vitamin D deficiency E55.9 ; History of right breast cancer Z85.3 ; Type 2 diabetes mellitus without complication, without long-term current use of insulin E11.9 ; Vitamin B 12 deficiency E53.8 ; Pure hypercholesterolemia E78.00 ; Thyroid nodule E04.1 ; Hypokalemia E87.6 ; Hypothyroidism, unspecified type E03.9 ; Generalized abdominal pain R10.84 ; Polyarthralgia M25.50 ; BMI 29.0-29.9,adult Z68.29 ; Hyperparathyroidism E21.3 and Piriformis syndrome of left side G57.02 Assessments Encounter Date Diagnosis (ICD Code) Assessment Notes Treatment Notes Treatment Clinical Notes Section Notes 11/16/2024 Essential hypertensi on (ICD-10 - I10) 11/16/2024 Vitamin D deficiency (ICD-10 - E55.9) 11/16/2024 History of right carolyn ast cancer (ICD-10 - Z85.3) 11/16/2024 Type 2 diabetes mellitus without complication, without long-term current use of insulin (ICD-10 - E11.9) Pt states endocrinology added a different metformin and it upsets her stomach. She would like the extended release. Will come back for fasting labs. 11/16/2024 Vitamin B 12 deficie ncy (ICD-10 - E53.8) 11/16/2024 Pure hypercholesterolemia (ICD-10 - E78.00) 11/16/2024 Thyroid nodule (ICD- 10 - E04.1) 11/16/2024 Hypokalemia (ICD-10 - E87.6) 11/16/2024 Hypothyroidism, unspecified type (ICD-10 - E03.9) 11/16/2024 Generalized abdomina l pain (ICD-10 - R10.84) Likely due to new metformin. Will switch and see if this improves. 11/16/2024 Polyarthralgia (ICD- 10 - M25.50) 11/16/2024 BMI 29.0-29.9,adult (ICD-10 - Z68.29) 11/16/2024 Hyperparathyroidism (ICD-10 - E21.3) 11/16/2024 Piriformis syndrome of left side (ICD-10 - G57.02) Will give a depo shot today. Plan Of Treatment Medication Medication Name Sig Start Date Stop Date Notes Meloxicam 15 MG 1 tablet Orally Once a day 04/29/2024 metFORMIN HCl ER 500 MG 2 tab twice a da y orally twice a day; Duration: 90 days Treatment Notes Assessment Notes Type 2 diabetes mellitus wit hout complication, without long-term current use of insulin Pt states endocrinology added a differen t metformin and it upsets her stomach. She would like the extended release. Will come back for fasting labs. Generalized abdominal pain Likely due to new metformin. Will switch and see if this improves. Piriformis syndrome of left side Will gi ve a depo shot today. Next Appt Details Follow Up: via phone to repo rt progress, Reason: Medications Administered Medication Instructions Date of Administration Dosage Notes Depo- Medrol 40 mg/ml 11/16/2024 1 mL Progress Notes * ELAINE PAL LDOB: [birth year] (69 yo F)Acc No.[id number]:11/16/2024 Progress Notes Patient: ELAINE DRAKE Provider: GRACIELA Knight :1955 A ge:69 Y S ex:Female Date:11/16/2024 Address:[facility] [place], [id number] Pcp:Marcelino Rojas Subjective: * Chief Complaints: * 1 . Check up. 2. Needs labs & Prevnar vaccine. * HPI: H PI: Patient is here today for c heckup and labs. Pt is fasting. Pt states she needs refills . E NT/respiratory: c/o ear pain P t states she is having ear pain on both sides for a month now. H ip/Thigh: c/o hip pain P t states she is having left hip pain for a few weeks now, and she wants to see if she can get a shot. G astroenterology: c/o Abdominal Pain P t states she wants to check her meds because she is having stomach pain for about a month, and she thinks it's her meds doing it. * ROS: D ERMATOLOGY: no R liliana. n o H agueda. G ASTROENTEROLOGY: no N ausea. n o V omiting. n o D iarrhea.? U ROLOGY: no D ifficulty urinating. n o B lood in urine. * Medical History: B reast CA, Dx: [...] tablet Orally Once a day , Taking Accu-Chek Guide - Strip USE 1 STRIP TO CHECK GLUCOSE ONCE DAILY , Notes to Pharmacist: Dx code E11.9, Taking Levothyroxine Sodium 50 MCG Tablet Take 1 tablet by mouth once daily , Taking metFORMIN HCl ER 500 MG Tablet Extended Release 24 Hour 2 tab twice a day orally twice a day , Taking Pravastatin Sodium 10 MG Tablet Take 2 tablets by mouth once daily , Taking Furosemide 40 MG Tablet 1/2 tab orally once a day , Discontinued Leqvio 284 MG/1.5ML Solution Prefilled Syringe as directed subcutaneously every 6 months , Medication List reviewed and reconciled with the patient * Allergies: A ugmentin: rash, Decongestant: tachycardia - Side Effects. Objective: * Vitals: W t: 179, Temp: 98.1, BP: 110/76, HR: 78, Nurse: pe, Ht: 65, BMI:29.78. * Examination: G eneral Examination: General Appearance: N AD. H EENT: u nremarkable.?Oral cavity: n o lesions, mucosa moist and WNL, no erythema. N yesenia: s upple, no lymphadenopathy. C hest: n ormal shape and expansion. H eart: R SR. L ungs: c lear to auscultation. N eurologic Exam: I ntact, gait normal. S kin: n ormal, no rash.?Peripheral pulses: n ormal (2+) bilaterally. B ack: t tp along left piriformis muscle, pain with figure 4 test. E xtremities: n o leg edema. Assessment: * Assessment: 1. E ssential hypertension - I10 (Primary) 2 . V itamin D deficiency - E55.9 3 . H istory of right breast cancer - Z85.3 4 . T ype 2 diabetes mellitus without complication, without long-term current use of insulin - E11.9 5. V itamin B 12 deficiency - E53.8 6 . P ure hypercholesterolemia - E78.00 7 . T hyroid nodule - E04.1 8 . H ypokalemia - E87.6? 9. H ypothyroidism, unspecified type - E03.9 1 0. G eneralized abdominal pain - R10.84 1 1. P olyarthralgia - M25.50 1 2. B MD 29.0-29.9,adult - Z68.29 1 3. H yperparathyroidism - E21.3 1 4. P iriformis syndrome of left side - G57.02 Plan: * Treatment: 2. G eneralized abdominal pain Notes: Likely due to new metformin. Will switch and see if this improves. 3. P olyarthralgia Refill Meloxicam Tablet, 15 MG, 1 tablet, Orally, Once a day, 90, Refills 3. 4. P iriformis syndrome of left side Notes: Will give a depo shot today. * Therapeutic Injections: Depo- Medrol 40 mg/ml : 1 mL (Route: Intramuscular) given by REINALDO Garcia on left deltoid (Polyarthralgia) * Procedure Codes: G 2211 Complex e/m visit add on, J1010 Inj, methylpred acetate 1 mg, 03785 ADMINISTRATION OF INJECTION, 1036F TOBACCO NON-USER, G8420 BMI<30 AND >=22 CALC & DOCU, G9129 PREHTN/HTN BP DOC INDCD F/U DOC, G8578 MOST RECENT SYSTOLIC BP < 140MM HG, G8754 MOST RECENT DIASTOLIC BP < 90MM HG, 3074F SYST BP LT 130 MM HG, 3078F DIAST BP < 80 MM HG * Follow Up: v ia phone to report progress * Images: Billing Information: * Visit Code: 33636 Office Visit, Est Pt., Level 4. Modifiers: 25 * Procedure Codes: G2211 Complex e/m visit add on. J1010 Inj, methylpred acetate 1 mg. 83754 ADMINISTRATION OF INJECTION. 1036F TOBACCO NON-USER. G8420 BMI<30 AND >=22 CALC & DOCU. G8950 PREHTN/HTN BP DOC INDCD F/U DOC. G8752 MOST RECENT SYSTOLIC BP < 140MM HG. G8754 MOST RECENT DIASTOLIC BP < 90MM HG. 3074F SYST BP LT 130 MM HG. 3078F DIAST BP < 80 MM HG. * Electronic signature of GRACIELA Tran on 12/02/2024 at 09:48 AM EDT Sign off status: Pending * Provider: GRACIELA Knight Date: 0 11/16/2024 Generated for Maxime pride/Loi/eTransmitting on: 0 12/02/2024 09:48 AM EDT History and Physical Notes * HPI (History of Present Illness) Category Sub-Category Detail Notes Category Not es ENT/respiratory ear pain Pt states she is having ear pain on both sides for a month now Hip/Thigh hip pain Pt states she is having left hip pain for a few weeks now, and she wants to see if she can get a shot Gastroenterology Abdominal Pain Pt states she w ants to check her meds because she is having stomach pain for about a month, and she thinks it's her meds doing it HPI Patient is here today for checku p and labs. Pt is fasting. Pt states she needs refills Examination Category Sub-Category Detail Notes Category Not es General Examination HEENT: unremarkable Heart: RSR Lungs: clear to auscultatio n Extremities: no leg edema General Appearance: NAD Skin: normal, no rash Neurologic Exam: Intact, gait normal Neck: supple, no lymphaden opathy Oral cavity: no lesions, mucosa m oist and WNL, no erythema Peripheral pulses: normal (2+) bilatera lly Back: ttp along left pirif ormis muscle, pain with figure 4 test Chest: normal shape and exp ansion
--- OUTSIDE RECORDS SUMMARY | 2024-11-18 04:35 | XMS_ITS ---
Author Organization [facility] Address [address] [place] [id number] Care Team Providers Care Creative Intern Name Role Phone Bob Marcelino Primary Care Provider [phone] Marge Puckett Unavailable [phone] Olinda Kim Unavailable [phone] Results Component Value Reference Range Notes Glycohemoglobin A1c (in hous e) Reviewed date:11/25/2024 09:20:26 AM Interpretation:6.8 Performing Lab: Notes/Report: 6.8 glycohemoglobin 6.8% 5 - 6.5 % P-Vitamin B12 Reviewed date:11/25/2024 09:20:26 AM Interpretation:381 Performing Lab: Notes/Report: Test performed by [facility] [address] [place] [address] [address] C, [place] [address] Noah Chen MD, Teletype Adjuster CLIA: [id number] Vitamin B12 117 152-4469 pg/mL P-Comprehensive Metabolic Pa nam (CMP) Reviewed date:11/25/2024 09:20:26 AM Interpretation:Glu 127 Performing Lab: Notes/Report: Test performed by [facility] [address] [place] [address], [place] [address] Noah Chen MD, Teletype Adjuster CLIA: [id number] Sodium 140 135-145 mmol/L Potassium 4.4 3.5-5.3 mmol/L Chloride 103 97-108 mmol/L CO2 24 20-32 mmol/L Glucose 127 65-99 mg/dL BUN 22 8-23 mg/dL Creatinine 0.89 0.50-1.00 mg/dL Calcium 10.3 8.6-10.4 mg/dL eGFR by Creatinine 71 >59 mL/min/1.73m2 Protein 6.7 6.0-8.3 g/dL Albumin 4.4 3.5-5.3 g/dL Alkaline Phosphatase 86 35-121 IU/L ALT (SGPT) 19 <5-47 IU/L AST (SGOT) 17 <5-40 IU/L Bilirubin, Total 0.9 <0.2-1.2 mg/dL A/G Ratio 1.9 1.1-2.5 P-Lipid Panel Reviewed date:11/25/2024 09:20:26 AM Interpretation:Normal Performing Lab: Notes/Report: Test performed by [facility], [address] , [address], [place] [address] Noah Chen MD, Teletype Adjuster CLIA: [id number] Cholesterol 181 <200 mg/dL Triglycerides 134 <150 mg/dL HDL Cholesterol 48 >39 mg/dL Cholesterol / HDL Ratio 3.77 0.00-4.44 Ratio Non-HDL Cholesterol 133 <130 mg/dL LDL Cholesterol (Calculation) 106 <130 mg/dL LDL Cholesterol Levels* Less than 100 mg/dL Optimal 100 to 129 mg/dL Near Optimal/ Above Optimal 130 to 159 mg/dL Borderline High 160 to 189 mg/dL High 190 mg/dL and above Very High * Categories as recommended by the 2004 ATPIII guidelines LDL/HDL Ratio 2.2 <3.3 Ratio LDL Cholesterol Patient History Test Date: 07/29/2023 LDL Results: 83 Units: mg/dL % Change: - Test Date: 04/29/2024 LDL Results: 154 Units: mg/dL % Change: +85% Test Date: 11/18/2024 LDL Results: 106 Units: mg/dL % Change: -31% P-Vitamin D 25-Hydroxy Reviewed date:11/25/2024 09:20:26 AM Interpretation:41.9 Performing Lab: Notes/Report: Test performed by [facility] [address] [place] [address] , [facility], [place] [address] Noah Chen MD, Teletype Adjuster CLIA: [id number] Vitamin D 25-Hydroxy 41.9 30.0-100.0 ng/mL Interpretation of Vitamin D 25 OH: < 20 ng/mL - Deficiency 20 - 29 ng/mL - Insufficiency 30 - 100 ng/mL - Sufficiency > 100 ng/mL - Super-therapeutic- toxicity may occur above this level. Clinical correlation required. REASON FOR VISIT blood work Medications Medication SIG (Take, Route, Frequency, Duration) Notes Start Date End Date Status Meloxicam 15 MG 1 tablet Orally Once a day 04/29/2024 Active metFORMIN HCl ER 500 MG 2 tab twice a day orally twice a day; Duration: 90 days Active Furosemide 40 MG 1/2 tab orally once a day Active Pravastatin Sodium 10 MG Take 2 tablets by mouth once daily; Duration: 30 Active Levothyroxine Sodium 50 MCG Take 1 [...] DIRECTED ORAL; Duration: 14 DAYS 02/21/2022 Active SILICONE BREAST PROSTHESES DIRECTED DIRECTED Z85.3 *Please review for potential replacement for e-prescription and drug interaction check* 02/21/2022 Active GLUCOMETER DIRECTED TEST QD E11.9 *Please review for potential replacement for e-prescription and drug interaction check* 04/25/2022 Active BRA WITH PROSTHESIS 4 BRAS DIRECTED 06/15/2017 Active SILICONE BREAST PROSTHESES 1 PROSTHESES DIRECTED 06/15/2017 Active Spironolactone 50 MG 1/2 tab orally every other day Active Furosemide 20 MG 1 tablet Orally every other day Active Encounters Encounter Location Date Provider Diagnosis [facility] [address], [place] [id number] 11/18/2024 Olinda Kim Essential hypertensi on I10 ; Type 2 diabetes mellitus without complication, without long-term current use of insulin E11.9 ; Vitamin D deficiency E55.9 ; Pure hypercholesterolemia E78.00 and Vitamin B 12 deficiency E53.8 Assessments Encounter Date Diagnosis (ICD Code) Assessment Notes Treatment Notes Treatment Clinical Notes Section Notes 11/18/2024 Essential hypertensi on (ICD-10 - I10) 11/18/2024 Type 2 diabetes aury itus without complication, without long-term current use of insulin (ICD-10 - E11.9) 11/18/2024 Vitamin D deficiency (ICD-10 - E55.9) 11/18/2024 Pure hypercholesterolemia (ICD-10 - E78.00) 11/18/2024 Vitamin B 12 deficie ncy (ICD-10 - E53.8) Plan Of Treatment No Information Progress Notes * ELAINE PAL LDOB: [birth year] (69 yo F)Acc No.[id number]:11/18/2024 Patient: ELAINE DRAKE Provider: GRACIELA Knight :1955 A ge:69 Y S ex:Female Date:11/18/2024 Address:[place], [id number] Pcp:Marcelino Rojas Subjective: * Chief Complaints: * 1 . Blood work. * Medical History: * Medications: T aking Furosemide 20 MG [...] Lancets - Miscellaneous 1 lancet , Taking Accu-Chek Guide - Strip USE 1 STRIP TO CHECK GLUCOSE ONCE DAILY , Notes to Pharmacist: Dx code E11.9, Taking Levothyroxine Sodium 50 MCG Tablet Take 1 tablet by mouth once daily , Taking Pravastatin Sodium 10 MG Tablet Take 2 tablets by mouth once daily , Taking Furosemide 40 MG Tablet 1/2 tab orally once a day , Taking metFORMIN HCl ER 500 MG Tablet Extended Release 24 Hour 2 tab twice a day orally twice a day , Taking Meloxicam 15 MG Tablet 1 tablet Orally Once a day , Medication List reviewed and reconciled with the patient Objective: * Vitals: Assessment: * Assessment: 1. E ssential hypertension - I10 (Primary) 2 . T ype 2 diabetes mellitus without complication, without long-term current use of insulin - E11.9 3 . V itamin D deficiency - E55.9 4 . P ure hypercholesterolemia - E78.00 5 . V itamin B 12 deficiency - E53.8 Plan: * Treatment: Value Reference Range A /G Ratio 1.9 1.1-2.5 - * A lbumin 4.4 3.5-5.3 - g/dL * A lkaline Phosphatase 86 35-121 - IU/L * A LT (SGPT) 19 <5-47 - IU/L * A ST (SGOT) 17 <5-40 - IU/L * B ilirubin, Total 0.9 <0.2-1.2 - mg/dL * B UN 22 8-23 - mg/dL * C alcium 10.3 8.6-10.4 - mg/dL * C hloride 103 97-108 - mmol/L * C O2 24 20-32 - mmol/L * C reatinine 0.89 0.50-1.00 - mg/dL * G lucose 127 H 65-99 - mg/dL * P otassium 4.4 3.5-5.3 - mmol/L * S odium 140 135-145 - mmol/L * P rotein 6.7 6.0-8.3 - g/dL * e GFR by Creatinine 71 >59 - mL/min/1.73m2 * Shayy Jarquin 11/25/2024 09: 20:19 AM EDT > See phone encounter 2.?Type 2 diabetes mellitus without complication, without long-term current use of insulin?LAB: Glycohemoglobin A1c (in house) (Collection Date & Time - 11/18/2024)? 6.8* Value Reference Range g lycohemoglobin 6.8% 5 - 6.5 % * Edel Hendrickson 11/18/2024 11:4 6:44 AM EDT > Shayy Jarquin 11/25/2024 09:20:19 AM EDT > See phone encounter 3.?Vitamin D deficiency?LAB: P-Vitamin D 25-Hydroxy (Collection Date & Time - 11/18/2024 07:45 AM)? 41.9* Value Reference Range V itamin D 25-Hydroxy 41.9 30.0-100.0 - ng/mL * Shayy Jarquin 11/25/2024 09: 20:19 AM EDT > See phone encounter 4.?Pure hypercholesterolemia?LAB: P-Lipid Panel (Collection Date & Time - 11/18/2024 07:45 AM)?Normal* Value Reference Range C holesterol / HDL Ratio 3.77 0.00-4.44 - Ratio * C holesterol 181 <200 - mg/dL * H DL Cholesterol 48 >39 - mg/dL * L DL Cholesterol (Calculation) 106 <130 - mg/d L * L DL/HDL Ratio 2.2 <3.3 - Ratio * N on-HDL Cholesterol 133 H <130 - mg/dL * T riglycerides 134 <150 - mg/dL * Shayy Jarquin 11/25/2024 09: 20:19 AM EDT > See phone encounter 5.?Vitamin B 12 deficiency?LAB: P-Vitamin B12 (Collection Date & Time - 11/18/2024 07:45 AM)?381* Value Reference Range V itamin B12 221 276-3093 - pg/mL * Shayy Jarquin 11/25/2024 09: 20:19 AM EDT > See phone encounter * Procedure Codes: 8 3036 GLYCATED HEMOGLOBIN TEST, Modifiers: QW , 3044F HG A1C LEVEL LT 7.0% * Images: Billing Information: * Visit Code: * Procedure Codes: 37665 GLYCATED HEMOGLOBIN TEST. Modifiers: QW 3044F HG A1C LEVEL LT 7.0%. * Electronic signature of GRACIELA Tran on 12/02/2024 at 09:48 AM EDT Sign off status: Pending * Provider: GRACIELA Knight Date: 0 11/18/2024 Generated for Maxime ng/Famegg/eTransmitting on: 0 12/02/2024 09:48 AM EDT
--- OUTSIDE RECORDS SUMMARY | 2024-11-30 06:56 | XMS_ITS ---
Author Organization [facility] Address [address] [facility] [address] [place] [id number] Care Team Providers Care Architectural Drafter Name Role Phone BroadlandsMarcelino Primary Care Provider ItaloMarge Unavailable [phone] REASON FOR VISIT due mamm 11/30/24 Encounters Encounter Location Date Provider Diagnosis [place] [address] [facility] [address] [place] [id number] 11/30/2024 Marcelino Rojas Breast cancer screening Z12.31 Assessments Encounter Date Diagnosis (ICD Code) Assessment Notes Treatment Notes Treatment Clinical Notes Section Notes 11/30/2024 Breast cancer screening (ICD-10 - Z12.31) Plan Of Treatment Pending Test Test Name Order Date Mammogram 11/30/2024 Progress Notes * ELAINE PAL LDOB: [birth year] (69 yo F)Acc No.[id number]:11/30/2024 Patient: ELAINE DRAKE Pari :1955 A ge:69 Y S ex:Female Address:[place] [address] Subjective: * Chief Complaints: * D ue mamm 11/30/24 * Medical History: * Surgical History: * Hospitalization/Major Diagno stic Procedure: * Medications: Objective: * Vitals: * Physical Examination: Assessment: * Assessment: 1. B reast cancer screening - Z12.31 (Primary) Plan: * Treatment: * Procedure Codes: * true * Date: Generated for Maxime pride/Loi/Mando on: 0 12/02/2024 09:48 AM EDT
--- NOTE | 2024-12-02 09:47 | MM_ITS ---
PROCEDURE INFORMATION: Exam: MG Left Screening 3D Mammography Exam date and time: 12/02/2024 10:11 AM Age: 69 years old Clinical indication: Screening mammogram TECHNIQUE: Imaging protocol: Left Screening tomosynthesis and 2D mammography including computer-aided detection (CAD) when performed. COMPARISON: 1. MG MM DIG SC MAMM UNILAT LT CAD 12/01/2023 3:40 PM 2. MG MM DIG SC MAMM UNILAT LT CAD 10/20/2022 4:43 PM 3. MG MM DIG MAMM DX UNILAT LT CAD 09/18/2021 1:44 PM 4. MG MM DIG SC MAMM UNILAT LT CAD 01/25/2021 10:46 AM FINDINGS: MAMMOGRAPHY: Breast composition: There are scattered areas of fibroglandular density. Mass: None. Architectural distortion: No new or suspicious architectural distortion. Calcifications: No new or suspicious calcifications are present Asymmetric density: No new or suspicious asymmetric density is present Skin thickening: None. Axillary adenopathy: None. IMPRESSION: No mammographic evidence of malignancy. Recommend annual screening mammography unless otherwise clinically indicated. ASSESSMENT: BI-RADS category 1: Negative.
--- OUTSIDE RECORDS SUMMARY | 2024-12-02 09:48 | XMS_ITS | Encounter Summary ---
Author Organization [facility] ([place], [place], [place], [place]) Address [address] [place] [address] Care Team Providers Care Clerical Transcriber Name Role Phone Unavailable Primary Care Provider Unavailabl e Encounter Details Date Type Department Care Team (Late st Contact Info) Description 10/29/2018 Transcribed Document [facility] Radiology [address] [place] [address] Provider, Larry Pemberton MD Social [...] * Cerner Conversion Note - [facility] Niecy ProviderMD - 10/29/2018 10:55 AM EDT [address] [address] PALKLAUSIE :1955 Visit Time:10/29/2018 What [...] recommendations Where: [address] [facility] [address] [place] [address]- Business (1) Medications What How Much When [...] getting enough exercise. ??? Smoking. ??? Taking eefw-skh-woypeay pain medicines, like aspirin and ibuprofen. ??? [...] your health care provider approves. ??? Take neit-umw-wurncxc and prescription medicines only as told by [...] 11/20/2004 Document Revised: 01/12/2017 Document Reviewed: 01/12/2017 [employer] Patient Education ?? 2019 [employer] Hemorrhoids Hemorrhoids are swollen veins in [...] times a day. General instructions ??? Take chnf-fjl-woxagju and prescription medicines only as told by [...] 02/20/2001 Document Revised: 07/23/2016 Document Reviewed: 11/07/2015 [employer] Patient Education ?? 2019 [employer] Colon Polyps Polyps are tissue growths [...] 11/19/2004 Document Revised: 07/31/2016 Document Reviewed: 01/14/2016 [employer] Patient Education ?? 2019 [employer]. High-Fiber Diet Fiber, also called dietary fiber, [...] Barley. Bulgur wheat. Millet. Bran muffins. Popcorn. Jones wafer crackers. Vegetables Sweet potatoes. Spinach. Kale. Artichokes. Cabbage. Broccoli. Green peas. Carrots. Squash. Fruits Berries. Pears. Apples. Oranges. Avocados. Prunes and raisins. Dried figs. Meats and Other Protein Sources Dish, kidney, eden, and soy beans. Split peas. [...] 02/23/2006 Document Revised: 07/31/2016 Document Reviewed: 08/08/2014 [employer] Patient Education ?? 2018 [employer]. Colonoscopy, Adult, Care After This sheet gives [...] slower pace than normal. ? Eat soft, dcns-wm-uckugc foods. ? Rest often. ??? Take zgmk-vbl-apfrkkx or prescription medicines only as told by [...] 10/07/2004 Document Revised: 11/17/2016 Document Reviewed: 05/06/2016 [employer] Patient Education ?? 2018 [employer]. Emergency Awareness and Preventative Care STROKE is [...] Assistance with quitting is available by contacting 5-670-JYNQ-NOW. This is a free resource providing counseling, [...] was given the opportunity to ask questions. Patient/Electrical Appliance Preparer Name: Patient/Electrical Appliance Preparer Signature: Relationship to Patient: Clinician/Hospital Electrical Appliance Preparer Signature: Date: documented in this encounter Plan of Treatment Not on file documented as of this encounter Visit Diagnoses Not on filedocumented in this encounter
--- OUTSIDE RECORDS SUMMARY | 2024-12-02 09:48 | XMS_ITS | Patient Health Record ---
Author Organization [facility] Address [address] [place] [id number] Care Team Providers Care Circular Clerk Name Role Phone Marcelino Rojas Primary Care Provider Marge Puckett Unavailable [phone] Olinda Kim Unavailable [phone] Allergies Allergen (clinical drug ingredient) Drug/Non Drug Allergy documented on EMR Reaction Allergy Type Onset Date Status amoxicillin / clavulanate Augmentin rash Drug Allergy Active Decongestant tachycardia Drug Allergy Ac tive Results Component Value Reference Range Notes P-Vitamin D 25-Hydroxy Reviewed date:11/25/2024 09:20:26 AM Interpretation:41.9 Performing Lab: Notes/Report: Test performed by [facility] [address] [place], [place] [address] [place] , [place] [address] Noah Chen MD, Plastic Fixture Builder CLIA: [id number] Vitamin D 25-Hydroxy 41.9 30.0-100.0 ng/mL Interpretation of Vitamin D 25 OH: < 20 ng/mL - Deficiency 20 - 29 ng/mL - Insufficiency 30 - 100 ng/mL - Sufficiency > 100 ng/mL - Super-therapeutic- toxicity may occur above this level. Clinical correlation required. P-Lipid Panel Reviewed date:11/25/2024 09:20:26 AM Interpretation:Normal Performing Lab: Notes/Report: Test performed by [facility] [address] [place], [place] [address] [address] , [address], [place] [address] Noah Chen MD, Plastic Fixture Builder CLIA: [id number] Cholesterol 181 <200 mg/dL Triglycerides 134 <150 [...] Results: 106 Units: mg/dL % Change: -31% P-Comprehensive Metabolic Pa nam (CMP) Reviewed date:11/25/2024 09:20:26 AM Interpretation:Glu 127 Performing Lab: Notes/Report: Test performed by [facility] [address] [place] [address] , [address], [place] [address] Noah Chen MD, Plastic Fixture Builder CLIA: [id number] Sodium 140 135-145 mmol/L Potassium 4.4 3.5-5.3 [...] 0.9 <0.2-1.2 mg/dL A/G Ratio 1.9 1.1-2.5 P-Vitamin B12 Reviewed date:11/25/2024 09:20:26 AM Interpretation:381 Performing Lab: Notes/Report: Test performed by [facility] [address] [place] [address] , [address], [place] [address] Noah Chen MD, Plastic Fixture Builder CLIA: [id number] Vitamin B12 415 558-6845 pg/mL Glycohemoglobin A1c (in hous e) Reviewed date:11/25/2024 09:20:26 AM Interpretation:6.8 Performing Lab: Notes/Report: 6.8 glycohemoglobin 6.8% 5 - 6.5 % Glycohemoglobin A1c (in hous e) Reviewed date:10/25/2024 11:26:12 AM Interpretation:7.1% Performing Lab: Notes/Report: 7.1% glycohemoglobin 7.1% 5 - 6.5 % P-TSH Reviewed date:05/04/2024 08:36:23 AM Interpretation:Normal Performing Lab: Notes/Report: Test performed by [facility] [address] [place] [address] Noah Chen MD, Plastic Fixture Builder CLIA: [id number] TSH 1.03 0.43-5.25 mU/L P-Lipid Panel Reviewed date:05/04/2024 08:36:23 AM Interpretation:chol 231, chol/hdl 4.44, non-hdl 179, ldl 154 Performing Lab: Notes/Report: Test performed by [facility] [address] [place] , [place] [address] Noah Chen MD, Plastic Fixture Builder CLIA: [id number] Cholesterol 231 <200 mg/dL Triglycerides 124 <150 [...] Interpretation:Normal Performing Lab: Notes/Report: Test performed by [facility] [address] [place] [address] , [place] [address] Noah Chen MD, Plastic Fixture Builder CLIA: [id number] Thyroxine Free (free T4) 1.53 0.86-1.76 ng/dL P-Comprehensive Metabolic Pa nam (CMP) Reviewed date:05/04/2024 08:36:23 AM Interpretation:gluc 130, Ca 10.5 Performing Lab: Notes/Report: Test performed by [facility] [address] [place], [place] [address] [address] , [place] [address] Noah Chen MD, Plastic Fixture Builder CLIA: [id number] Sodium 141 135-145 mmol/L Potassium 4.9 3.5-5.3 [...] Interpretation:Normal Performing Lab: Notes/Report: Test performed by [facility] [address] [place] [address] , [address], [place] [address] Noah Chen MD, Plastic Fixture Builder CLIA: [id number] Vitamin B12 037 844-3778 pg/mL Glycohemoglobin A1c (in hous e) Reviewed [...] - 38 platlet 288 100 - 400 Influenza Screen (in house) Reviewed date:01/21/2024 03:02:02 PM Interpretation:neg Performing Lab: Notes/Report: neg results neg P-Magnesium Reviewed date:06/16/2024 01:59:02 PM Interpretation:2.5 Performing Lab: Notes/Report: Test performed by [facility] [address] [place] [address] , [address], [place] [address] Noah Chen MD, Plastic Fixture Builder CLIA: [id number] Magnesium 2.5 1.6-2.4 mg/dL Rapid Strep- Inhouse Reviewed date:01/21/2024 03:02:02 PM [...] Interpretation:pos Performing Lab: Notes/Report: pos Result: pos P-Vitamin D 25-Hydroxy Reviewed date:05/04/2024 08:36:23 AM Interpretation:Normal Performing Lab: Notes/Report: Test performed by [facility] [address] [place] [address] [facility], [place] [address] Noah Chen MD, Plastic Fixture Builder CLIA: [id number] Vitamin D 25-Hydroxy 66.5 30.0-100.0 ng/mL Interpretation of Vitamin D 25 OH: < 20 ng/mL - Deficiency 20 - 29 ng/mL - Insufficiency 30 - 100 ng/mL - Sufficiency > 100 ng/mL - Super-therapeutic- toxicity may occur above this level. Clinical correlation required. P-Basic Metabolic Panel (BMP ) Reviewed date:07/08/2024 02:33:26 PM Interpretation:glu 218 Performing Lab: Notes/Report: Test performed by [facility] [address] [place] [address] [address], [place] [address] Noah Chen MD, Plastic Fixture Builder CLIA: [id number] Sodium 141 135-145 mmol/L Potassium 4.1 3.5-5.3 mmol/L Chloride 104 97-108 mmol/L CO2 24 22-32 mmol/L Glucose 218 65-99 mg/dL BUN 20 8-23 mg/dL Creatinine 0.98 0.50-1.00 mg/dL Calcium 9.9 8.6-10.4 mg/dL eGFR by Creatinine 63 >59 mL/min/1.73m2 Bone density Reviewed date:10/07/2024 11:33:46 AM Interpretation:osteopenia Performing Lab: Notes/Report: osteopenia Bone density osteopenia P-Comprehensive Metabolic Pa nam (CMP) Reviewed date:06/16/2024 01:59:02 PM Interpretation:K 5.5, BUN 29, Creat 1.46, Anthony 11.0, eGFR 39 Performing Lab: Notes/Report: Test performed by [facility] [address] [place] [address] , [address], [place] [address] Noah Chen MD, Plastic Fixture Builder CLIA: [id number] Sodium 136 135-145 mmol/L Potassium 5.5 3.5-5.3 [...] Interpretation:Normal Performing Lab: Notes/Report: Test performed by [facility] [address] [place] [address] , [address], [place] [address] Noah Chen MD, Plastic Fixture Builder CLIA: [id number] Creatine Kinase 74 20-180 U/L P-Culture, Anaerobic and Aer obic w/Gram Stain Reviewed date:06/16/2024 01:59:02 PM Interpretation: Performing Lab: Notes/Report: Test performed by [facility] [address] [place] [address] , [address], [place] [address] Noah Chen MD, Plastic Fixture Builder CLIA: [id number] Specimen Source Abscess - perirectal Culture, Anaerobic and Aerobic w/Gram Stain See Below Final Report : No Anaerobes isolated Sensitivity Panel See Below Organism Antibiotic Amikacin Ampicillin Aztreonam Cefepime Cefoxitin Ceftazidime Ceftriaxone Cefuroxime Ciprofloxacin Ertapenem Gentamicin Imipenem Levofloxacin Meropenem Piperacillin/Tazo Tetracycline Tobramycin Trimeth/Sulfa S=SUSCEPTIBLE I=INTERMEDIATE R=RESISTANT P-Culture, Miscellaneous Aer obic w/Gram Stain Reviewed date:06/16/2024 01:59:02 PM Interpretation:Light Growth, E. Coli Performing Lab: Notes/Report: Test performed by [facility], [address] , [place] [address] Noah Chen MD, Plastic Fixture Builder CLIA: [id number] Specimen Source Abscess - perirectal Gram Stain [...] Tobramycin I Trimeth/Sulfa R S=SUSCEPTIBLE I=INTERMEDIATE R=RESISTANT Medications Medication SIG (Take, Route, Frequency, Duration) Notes Start Date End Date Status Furosemide 40 MG 1/2 tab orally once a day Active Accu-Chek Guide - USE 1 [...] WITH PROSTHESIS 4 BRAS DIRECTED 06/15/2017 Active Meloxicam 15 MG 1 tablet Orally Once a day 04/29/2024 Active SILICONE BREAST PROSTHESES 1 PROSTHESES DIRECTED 06/15/2017 Active metFORMIN HCl ER 500 MG 2 tab twice a day orally twice a day; Duration: 90 days Active Spironolactone 50 MG 1/2 tab orally every other day Active Furosemide 20 MG 1 tablet Orally every other day Active Pravastatin Sodium 10 MG Take 2 tablets by mouth once daily; Duration: 30 Active Levothyroxine Sodium 50 MCG Take 1 tablet by mouth once daily; Duration: 90 Active Immunizations Vaccine Route Administration Date Status Nhung mohamud xFluzoarianna (6mos and older)-trivalent IM Intramuscular 12/17/2011 Administered [...] W/U Status Risk Notes Problem Essential hypertension (10526878) Essential (primary) hypertension (I10) Active confirmed Problem Peripheral circulatory disorder associated with diabetes mellitus (850400748) Type 2 diabetes mellitus with other circulatory complications (E11.59) Active confirmed Problem Vitamin D deficiency (52463095) Vitamin D deficiency (E55.9) Active confirmed Problem Essential hypertension (33543953) Essential hypertension (I10) Active confirmed Problem Diverticulitis (65000620) Diverticulitis (K57.92) Active confirmed Problem Hypertriglyceridemia (788595849) Hypertriglyceridemia (E78.1) Active confirmed Problem Cardiomegaly (1567820) Cardiomegaly (I51.7) Active confirmed Problem Sciatic nerve lesion (672367674) Piriformis syndrome of left side (G57.02) Active confirmed Problem Body mass index 30+ - obesity (318275310) BMI 30.0-30.9,adult (Z68.30) Active confirmed Problem Memory loss (28125739) Memory loss (R41.3) Active confirmed Problem Impaired fasting glucose (469709524) Impaired fasting glucose (R73.01) Active confirmed Problem Thyroid nodule (942920480) Thyroid nodule (E04.1) Active confirmed Problem Constipation (51552154) Constipation, unspecified constipation type (K59.00) Active confirmed Problem Acquired hypothyroidism (970805693) Acquired hypothyroidism (E03.9) Active confirmed Problem Obesity (950987072) Non morbid o besity due to 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) Active confirmed Problem Osteoarthritis of knee (905145025) Primary osteoarthritis of right knee (M17.11) Active confirmed Problem Hypothyroidism (82773294) Hypothyroidism, unspecified type (E03.9) Active confirmed Problem Hypersomnia (28765403) Hypersomnia (G47.10) Active confirmed Problem Diverticular disease of colon (334454704) Diverticulosis (K57.90) Active confirmed Problem Hyperparathyroidism (96035921) Hyperparathyroidism (E21.3) Active confirmed Problem Skin sensation disturbance (93902640) Paresthesia of both feet (R20.2) Active confirmed Problem Type II diabetes mellitus without complication (084347633) Type 2 diabetes mellitus without complication, without long-term current use of insulin (E11.9) Active confirmed Problem Cyclical vomiting syndrome (05887376) Intractable cyclical vomiting with nausea (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) Active confirmed Problem Pure hypercholesterolemia (045684114) Pure hypercholesterolemia (E78.00) Active confirmed Problem Irritable bowel syndrome (92105328) Irritable bowel syndrome with both constipation and diarrhea (K58.2) Active confirmed Problem Personal history of primary malignant neoplasm of breast (315187699) History of right breast cancer (Z85.3) Active confirmed Problem Carpal tunnel syndrome (64957526) Carpal tunnel syndrome, right (G56.01) Active confirmed Problem Osteopenia (disorder ) (634356026) Osteopenia of right hip (M85.851) Active confirmed Problem Diastolic dysfunctio n (2282923) Diastolic dysfunction (I51.89) Active confirmed Problem Osteopenia of le ft hip (M85.852) Active confirmed Problem Postconcussion syndrome (09864655) Postconcussive syndrome (F07.81) Active confirmed Problem Sciatic nerve lesion (504129106) Piriformis syndrome of both sides (G57.03) Active confirmed Problem Peripheral venous insufficiency (99582459) Venous reflux (I87.2) Active confirmed Vital Signs Heart Rate 78 /min 11/16/2024 Blood pressure diastolic 76 mm Hg 11/16/2024 Height 65 in 11/16/2024 Blood pressure systolic 110 mm Hg 11/16/2024 Weight 179 lbs 11/16/2024 BMI 29.78 kg/m2 11/16/2024 Encounters Encounter Location Date Provider Diagnosis [facility] [address] [facility] [address] [place] [id number] 01/21/2024 Olinda Kim COVID-19 U07.1 [facility] [address] [id number] 04/29/2024 Olinda Crowdy Essential hypertensi on I10 ; Vitamin D deficiency E55.9 ; Vitamin B 12 deficiency E53.8 ; Type 2 diabetes mellitus without complication, without long-term current use of insulin E11.9 ; Pure hypercholesterolemia E78.00 ; History of right breast cancer Z85.3 ; Hypothyroidism, unspecified type E03.9 ; Polyarthralgia M25.50 and Ganglion cyst M67.40 [facility] [address] [facility] [address] [id number] 06/03/2024 Olinda Crowdy Perirectal abscess K 61.1 ; Abdominal distention R14.0 and Excessive gas R14.3 [facility] [address] [facility] [address] [id number] 06/10/2024 Olinda Crowdy Perirectal abscess K 61.1 ; Muscle spasm M62.838 ; History of right breast cancer Z85.3 ; Type 2 diabetes mellitus with other circulatory complications E11.59 and BMI 29.0-29.9,adult Z68.29 [facility] [address] [id number] 06/29/2024 Olinda Crowdy Abnormal kidney func tion N28.9 [facility] [address] [facility] [address] [id number] 07/01/2024 Olinda Crowdy Comedone L70.0 and Perirectal abscess K61.1 [facility] [address] [facility] [address] [id number] 08/03/2024 Olinda Crowdy Neoplasm of uncertai n behavior of skin D48.5 and BMI 29.0-29.9,adult Z68.29 [facility] [address] [facility] [address], [place] [id number] 08/24/2024 Olinda Crowdy Shortness of breath R06.02 and BMI 30.0-30.9,adult Z68.30 [facility] [address] [facility] [address] [id number] 10/21/2024 Olinda Julio Impaired fasting glu cose R73.01 [facility] [address] [place], [place] [id number] 11/16/2024 Olinda Crowdy Essential hypertensi on I10 ; Vitamin D [...] and Piriformis syndrome of left side G57.02 [facility] [address] [place], [place] [id number] 11/18/2024 Olinda Crowdy Essential hypertensi on I10 ; Type 2 diabetes mellitus without complication, without long-term current use of insulin E11.9 ; Vitamin D deficiency E55.9 ; Pure hypercholesterolemia E78.00 and Vitamin B 12 deficiency E53.8 [facility] [address] [place], [place] [id number] 03/28/2024 Marcelino [place] Type 2 diabetes aury itus without complication, without long-term current use of insulin E11.9 [facility] [address] [place], [place] [id number] 05/04/2024 Olinda Crowdy [facility] [address] [place], [place] [id number] 06/16/2024 Olinda Brandondy Perirectal abscess K 61.1 [facility] [address] [place], [place] [id number] 06/24/2024 Marcelino [place] [facility] [address] [place], [place] [id number] 07/01/2024 Olinda Crowdy [facility] [address] [place], [place] [id number] 07/18/2024 [place] Type 2 diabetes aury itus without complication, without long-term current use of insulin E11.9 [facility] [address] [place], [place] [id number] 08/11/2024 Marcelino [place] Colon cancer screeni ng Z12.11 and Osteopenia M85.80 [facility] [address] [place], [place] [id number] 10/07/2024 Olinda Brandondy [facility] [address] [place] [id number] 10/21/2024 Olinda Crowdy [facility] [address] [place], [place] [id number] 11/25/2024 Olinda Brandondy [facility] [address] [place] [id number] 11/30/2024 [place] Breast cancer screen ing Z12.31 [facility] [address] [place], [place] [id number] 08/08/2024 Olinda Crowdy Assessments Encounter Date Diagnosis (ICD Code) Assessment [...] I10) 06/03/2024 Perirectal abscess (ICD-10 - K61.1) 06/16/2024 Perirectal abscess (ICD-10 - K61.1) 06/29/2024 [...] (ICD-10 - R06.02) Discussed labs done at [facility] and cardiology appt. She is going to proceed with left and right heart cath. 08/24/2024 BMI 30.0-30.9,adult (ICD-10 - Z68.30) 10/21/2024 Impaired fasting glucose (ICD-10 - R73.01) 06/03/2024 Abdominal distention (ICD-10 - R14.0) Patient will f/u with GI. 06/10/2024 Muscle spasm (ICD-10 - M62.838) 06/10/2024 Perirectal abscess (ICD-10 - K61.1) Much smaller, will give another 7 days of abx. 11/16/2024 Vitamin D deficiency (ICD-10 - E55.9) 11/16/2024 Essential hypertensi on (ICD-10 - I10) 11/18/2024 Essential hypertensi on (ICD-10 - I10) 11/18/2024 Type 2 diabetes mellitus without complication, without long-term current use of insulin (ICD-10 - E11.9) 11/30/2024 Breast cancer screen ing (ICD-10 - Z12.31) 06/10/2024 History of right carolyn ast cancer (ICD-10 - Z85.3) 11/16/2024 History of right carolyn ast cancer (ICD-10 - Z85.3) 11/18/2024 Vitamin D deficiency (ICD-10 - E55.9) 06/03/2024 Excessive gas (ICD-1 0 - R14.3) 04/29/2024 Vitamin B 12 deficie ncy (ICD-10 - E53.8) 04/29/2024 Type 2 diabetes mellitus without complication, without long-term current use of insulin (ICD-10 - E11.9) 11/16/2024 Type 2 diabetes mellitus without complication, without long-term current use of insulin (ICD-10 - E11.9) Pt states endocrinology added a different metformin and it upsets her stomach. She would like the extended release. Will come back for fasting labs. 06/10/2024 Type 2 diabetes mellitus with other circulatory complications (ICD-10 - E11.59) 11/18/2024 Pure hypercholesterolemia (ICD-10 - E78.00) 11/18/2024 Vitamin B 12 deficie ncy (ICD-10 - E53.8) 06/10/2024 BMI 29.0-29.9,adult (ICD-10 - Z68.29) 11/16/2024 Vitamin B 12 deficie ncy (ICD-10 - E53.8) 04/29/2024 Pure hypercholesterolemia (ICD-10 - E78.00) 04/29/2024 History of right carolyn ast cancer (ICD-10 - Z85.3) 11/16/2024 Pure hypercholesterolemia (ICD-10 - E78.00) 11/16/2024 Thyroid nodule (ICD- 10 - E04.1) 04/29/2024 Hypothyroidism, unspecified type (ICD-10 - E03.9) 11/16/2024 Hypokalemia (ICD-10 - E87.6) 04/29/2024 Polyarthralgia (ICD- 10 - M25.50) She has osteoarthritis and is getting injections which only help minimally. Will try some meloxicam. 11/16/2024 Hypothyroidism, unspecified type (ICD-10 - E03.9) 04/29/2024 Ganglion cyst (ICD-1 0 - M67.40) Will go back to the hand surgeon. 11/16/2024 Generalized abdomina l pain (ICD-10 - R10.84) Likely due to new metformin. Will switch and see if this improves. 11/16/2024 Polyarthralgia (ICD- 10 - M25.50) 11/16/2024 BMI 29.0-29.9,adult (ICD-10 - Z68.29) 11/16/2024 Hyperparathyroidism (ICD-10 - E21.3) 11/16/2024 Piriformis syndrome of left side (ICD-10 - G57.02) Will give a depo shot today. Plan Of Treatment Pending Test Test Name Order Date colonoscopy 11/24/2023 colonoscopy 08/15/2024 Mammogram 11/30/2024 Insurance Providers Payer Name Payer Address Payer Phone Subscriber Number Group Number Insured Name Patient Relationship to Insured Coverage Start Date Coverage End Date [employer] [address] [address] [place] [address] [id number] ELAINE PAL Self - patient is the insured [employer] [address] [address] [place], [place] [id number] ELAINE PAL Self - patient is the insured Medications Administered Medication Instructions Date of Administration Dosage Notes Depo- Medrol 40 mg/ml 07/29/2018 1.5 mL Depo- Medrol 40 mg/ml 10/28/2019 1.5 mL Depo- Medrol 40 mg/ml 07/27/2020 1.5 mL Depo- Medrol 40 mg/ml 11/16/2024 1 mL Dexamethasone 06/17/2005 1 mL Toradol 07/16/2018 [...]
--- OUTSIDE RECORDS SUMMARY | 2024-12-02 09:48 | XMS_ITS | Clinical Summary ---
Author Organization Healthcare Address [address] [place] [address] Care Team Providers Care Textile Designs Sales Representative Name Role Phone Jc Sanabria MD Primary Care Provider [phone] Family History Medical History Relation Name Comments [...] of Treatment Not on file Care Teams Textile [employer] Sales Representative Relationship Specialty Start Date End Date Jc Sanabria MD [address] [facility] [place] [id number] PCP - General 07/20/20
--- OUTSIDE RECORDS SUMMARY | 2024-12-02 09:48 | XMS_ITS | Encounter Summary ---
Author Organization [employer] ([place], [place], [place], [place]) Address [address] [place] [address] Care Team Providers Care Bucket Wash Operator Name Role Phone Unavailable Primary Care Provider Unavailabl e Encounter Details Date Type Department Care Team (Late st Contact Info) Description 10/29/2018 Transcribed Document [facility] Radiology [address] [place] [address] Provider, Larry Pemberton MD Social History Tobacco Use Types Packs/Day Years Used Date Smoking Tobacco: Never Assessed Comments Unknown Sex and Gender Information Value Date Recorded Sex Assigned at Not on file Legal Sex Female 1:43 PM CDT Gender Identity Not on file Sexual Orientation Not on file documented as of this encounter Miscellaneous Notes * Cerner Conversion Note - [facility] [place] ProviderMD - 10/29/2018 9:48 AM EDT Pre Procedure Adult Entered On: 10/29/2018 8:52 EDT Performed On: 10/29/2018 8:48 EDT by Alivia Laguerre RN Height and Weight, Clinical Dosing Height Source : Stated Height Entry Format : [place] Height, Feet : 5 ft(Converted to: 152 cm, 60 Inch) Height, Inches : 6 Inch(Converted to: 0 ft 6 Inch, 15.24 cm) Clinical Height : 167.64 cm Weight Source : Standing scale Weight Entry Format : [place] Clinical Dosing Weight : 78.24 kg Weight, Pounds : 172 lb Weight, Ounces : 2 oz Body Surface Area (BSA) : 1.88 m2 Body Mass Index : 27.8 kg/m2 (HI) [place] Body Weight : 59 kg Alivia Laguerre [...] Ambulatory Legal Guardian : Spouse Support Person/Patient Women'S Studies Professor : Yes Support Person/Pt Rep Name : Stan Support Person/Pt Rep Contact Information : [phone] Want Family/Rep/Phys Notified of Admit : No Emergency Contact #1 : na Emergency Contact #1 Phone Number : na Emergency Contact #1 Relationship : na Emergency Contact #2 : na Emergency Contact #2 Phone Number : na Emergency Contact #2 Relationship : na Information Obtained From : Patient Primary Language : Croatian Communication Barrier : None Objects to Sharing [...] Scale Risk Level : 0-24 Low Risk [place] Fall Interventions : Adequate lighting, Assistive devices [...]
--- OUTSIDE RECORDS SUMMARY | 2024-12-02 09:49 | XMS_ITS | Referral Summary ---
Author Organization [employer] ([place], [place], [place], [place]) Address [address] [place] [address] Care Team Providers Care Wood Carver Name Role Phone Unavailable Primary Care Provider [...]
--- OUTSIDE RECORDS SUMMARY | 2024-12-02 09:49 | XMS_ITS | Encounter Summary ---
Author Organization [employer] ([place], [place], [place], [place]) Address [address] [place] [address] Care Team Providers Care Event Decorator And Designer Name Role Phone Unavailable Primary Care Provider Unavailabl e Encounter Details Date Type Department Care Team (Late st Contact Info) Description 10/29/[address] [facility] Radiology [address] [place] [address] Provider, Larry Pemberton MD Social History Tobacco Use Types Packs/Day Years Used Date Smoking Tobacco: Never Assessed Comments Unknown Sex and Gender Information Value Date Recorded Sex Assigned at Not on file Legal Sex Female 1:43 PM CDT Gender Identity Not on file Sexual Orientation Not on file documented as of this encounter Miscellaneous Notes * Cerner Conversion Note - [facility] Niecy ProviderMD - 10/29/2018 10:26 AM EDT [facility] IntraOp Summary Primary Physician: CASSIUS STANFORD MD-GAE Finalized Date/Time: 10/29/18 09:36:56 Pt. Name: KEYANNA PAL/Sex: 1955 Female Med Rec #: [id number] Physician: CASSIUS STANFORD MD-GAE Financial #: [id number] Pt. Type: O Room/Bed: [facility]/ Admit/Disch: 10/29/18 08:02:00 - [place] [facility] - Case Attendance Entry 1 Entry 2 Entry 3 Case Attendee Morris STANFORD Elizabeth A, Rn [facility] [place] CASSIUS, MD-GAE Role Performed Surgeon/Proceduralist, Syrup Mixer Assistant, First Scrub, First First Time In 10/29/18 [...] Case Attendee HEENA SOUZA NA Role Performed DOCTOR OF NATUROPATHIC MEDICINE/Nurse Skin Care Therapist Time In 10/29/18 09:18:00 Time Out 10/29/18 09:37:00 Procedure Colonoscopy, Colon Polypectomy Other Attendee Superficial Wound Closed By: Last Modified By: Lynne Caceres Rn 10/29/18 09:36:12 [facility] - Case Attendance Audit 10/29/18 09:36:12 Inhalation Therapy Aides Teacher: [id number] Modifier: [id number] 1 <+> Time Out 1 <*> Procedure Colonoscopy, Colon Polypectomy 2 <+> Time Out 2 <*> Procedure Colonoscopy, Colon Polypectomy 3 <+> Time Out 3 <*> Procedure Colonoscopy, Colon Polypectomy 4 <+> Time Out 4 <*> Procedure Colonoscopy, Colon Polypectomy 10/29/18 09:33:50 Inhalation Therapy Aides Teacher: [id number] Modifier: [id number] 1 <*> Procedure Colonoscopy 2 <*> Procedure Colonoscopy 3 <*> Procedure Colonoscopy 4 <*> Procedure Colonoscopy 10/29/18 09:23:31 Inhalation Therapy Aides Teacher: [id number] Modifier: [id number] 1 <*> Time In 10/29/18 09:18:00 1 <*> Procedure Colonoscopy 10/29/18 09:21:18 Inhalation Therapy Aides Teacher: [id number] Modifier: [id number] <+> 1 Procedure 2 <*> Procedure Colonoscopy [...] Endo - Case Times Audit 10/29/18 09:35:59 Inhalation Therapy Aides Teacher: [id number] Modifier: [id number] <+> 1 Out Room Time <+> 1 Stop Time <+> 1 Stop Time 10/29/18 09:26:26 Inhalation Therapy Aides Teacher: [id number] Modifier: [id number] <+> 1 Start Time [facility] - [...] Modified By: Lynne Caceres Rn 10/29/18 09:21:15 [facility] - Fire [...] Modified By: Lynne Caceres Rn 10/29/18 09:21:22 [facility] - General Case Grease Worker 1 Case Information [place] Endo 01 [facility] Case Level 1 Room Verified Yes Wound Class III - Contaminated Specialty SN Gastroenterology Anesthesia Type MAC ASA Class 3 Diagnosis Preop Diagnosis abdominal pain, diarrhea, diverticulitis Postop Same As Preop No Postop Diagnosis diverticulosis, hemorrhoids, colon polyp Last Modified By: Lynne Caceres Rn 10/29/18 09:36:38 [facility] - General Case Data Audit 10/29/18 09:36:38 Inhalation Therapy Aides Teacher: [id number] Modifier: [id number] <+> 1 Postop Diagnosis [facility] - Intraoperative Assessment Entry 1 Valid History / Yes Physical in Chart Preoperative Yes Checklist Reviewed/Evaluated Allergies Reviewed Yes Patient is Latex No Sensitive Level of WDL Consciousness (WDL = Alert, Oriented to Person, Place, and Time) Present Upon IVs, ECG monitored Arrival to OR Last Modified By: Lynne Caceres Rn 10/29/18 09:22:23 [facility] - Intraoperative Equipment Entry 1 Type Scope Equipment Intraop Monitoring Blood Pressure Arm, left upper Location Pulse Oximeter Hand, right Probe Site Antiembolic Devices Scopes Flexible Endoscopes Colonoscope, Peds Used Scope Serial [id number] Number/Identificatio n Number Photo/Video Documentation Photo Yes Video No Last Modified By: Lynne Caceres Rn 10/29/18 09:22:39 [facility] - Intraoperative Equipment Audit 10/29/18 09:22:39 Inhalation Therapy Aides Teacher: [id number] Modifier: [id number] <+> 1 Photo <+> 1 Video <+> 1 Blood Pressure Location <+> 1 Pulse Oximeter Probe Site <+> 1 Flexible Endoscopes Used <+> 1 Scope Serial Number/Identification Number [facility] - Patient Positioning Entry 1 Procedure [...] Endo - Patient Positioning Audit 10/29/18 09:33:52 Inhalation Therapy Aides Teacher: [id number] Modifier: [id number] 1 <*> Procedure Colonoscopy [facility] - [...] Endo - Sign Out Audit 10/29/18 09:36:49 Inhalation Therapy Aides Teacher: [id number] Modifier: [id number] <+> 1 RN Sign Out Signature Date/Time [...] Endo - Surgical Procedures Audit 10/29/18 09:36:54 Inhalation Therapy Aides Teacher: [id number] Modifier: [id number] <+> 1 Stop <+> 2 Stop 10/29/18 09:33:45 Inhalation Therapy Aides Teacher: [id number] Modifier: [id number] 1 <*> Procedure Colonoscopy 1 <+> Start 1 <+> Physician States Cecum Reached <+> 2 Procedure <+> 2 Primary Procedure <+> 2 Primary Surgeon <+> 2 Specialty <+> 2 Start <+> 2 Wound Class <+> 2 Anesthesia Type <+> 2 Physician States Cecum Reached 10/29/18 09:23:24 Inhalation Therapy Aides Teacher: [id number] Modifier: [id number] 1 <*> Procedure Colonoscopy 1 <+> Specialty [...] Endo - Time Out Audit 10/29/18 09:33:52 Inhalation Therapy Aides Teacher: [id number] Modifier: [id number] 1 <*> Procedure to be Performed Colonoscopy Case Comments <None> Finalized By: Lynne Caceres Rn Document Signatures Signed By: Lynne Caceres Rn 10/29/18 09:36 Electronically signed by Jay Jay [facility] Conversion Motor Teacher Cerner at 07/30/2022 7:53 PM CDT documented in this encounter Plan of Treatment Not on file documented as of this encounter Visit Diagnoses Not on filedocumented in this encounter
--- OUTSIDE RECORDS SUMMARY | 2024-12-02 09:49 | XMS_ITS | Encounter Summary ---
Author Organization [employer] ([place], [place], [place], [place]) Address [address] [place] [address] Care Team Providers Care Purchasing Administrative Assistant Name Role Phone Unavailable Primary Care Provider Unavailabl e Encounter Details Date Type Department Care Team (Late st Contact Info) Description 10/29/2018 Transcribed Document [facility] Radiology [address] [place] [address] Provider, Larry Pemberton MD Social History Tobacco Use Types Packs/Day Years Used Date Smoking Tobacco: Never Assessed Comments Unknown Sex and Gender Information Value Date Recorded Sex Assigned at Not on file Legal Sex Female 1:43 PM CDT Gender Identity Not on file Sexual Orientation Not on file documented as of this encounter Miscellaneous Notes * Cerner Conversion Note - [facility] Thornton MD - 10/29/2018 9:06 AM EDT Patient: KEYANNA PAL Age: 63 years Sex: Female : 1955 Associated Diagnoses: None Author: CASSIUS AVILES MD-[facility] Basic Information Source of history: [...] Histories Past Medical History: Active Hiatal hernia (3014862455) Reflux ([id number]) Breast cancer (129725771) HTN (hypertension) (3481831770) Hyperlipemia (56143721) Murmur, cardiac (4642674801) Palpitations (259673816) Asthma, exercise induced (7664576389) Diarrhea (382520153) Diverticulitis (095802403) Procedure history: egd. colonoscopy. Cholecystectomy; (72614). mastectomy. hysterectomy. EGD. Colonoscopy (290292998). Hysterectomy (449193301). Mastectomy (0289170999). Tonsillectomy (767981928). Cholecystectomy (78051622). Social History Social & Psychosocial Habits Alcohol [...] list: All Problems Reflux / SNOMED CT [id number] / Confirmed At risk for sleep apnea / IMO 30977700 / Confirmed Diarrhea / SNOMED CT 943890080 / Confirmed Diverticulitis / SNOMED CT 103184956 / Confirmed Asthma, exercise induced / SNOMED CT 1129985585 / Confirmed Murmur, cardiac / SNOMED CT 3524819605 / Confirmed Hyperlipemia / SNOMED CT 74427356 / Confirmed HTN (hypertension) / SNOMED CT 1668110543 / Confirmed Breast cancer / SNOMED CT 976281102 / Confirmed Hiatal hernia / SNOMED CT 7050258974 / Confirmed Palpitations / SNOMED CT 893522702 / Confirmed, Active Problems (11) Asthma, exercise [...] No deformity, Normal gait. Integumentary: Warm, Dry, [place], No rash. Integumentary exam: Face, Chest, Arm, [...]
--- OUTSIDE RECORDS SUMMARY | 2024-12-02 09:49 | XMS_ITS | Encounter Summary ---
Author Organization [facility] ([place], [place], [place], [place]) Address [address] [place] [address] Care Team Providers Care Extension Service Specialist In Charge Name Role Phone Unavailable Primary Care Provider Unavailabl e Encounter Details Date Type Department Care Team (Late st Contact Info) Description 10/29/2018 Transcribed Document [facility] Radiology [address] [place] [address] Provider, Larry Pemberton MD Social [...] * Cerner Conversion Note - [facility] Niecy ProviderMD - 10/29/2018 10:00 AM EDT MEENAKSHI Mccord PreOp Summary Primary Physician: CASSIUS STANFORD MD-GAE Finalized Date/Time: 10/29/18 09:03:21 Pt. Name: KEYANNA PAL/Sex: 1955 Female Med Rec #: [id number] Physician: CASSIUS STANFORD MD-GAE Financial #: [id number] Pt. Type: O Room/Bed: EEN/5 Admit/Disch: 10/29/18 08:02:00 - Institution: [facility] PreOp Case Times Entry 1 In Preop 10/29/18 08:48:00 Ready for Holding n/a Room Patient Ready for 10/29/18 09:03:00 Surgery Patient Out of Preop 10/29/18 09:03:00 Patient Out of n/a Holding Room [facility] PreOp Case Times Audit 10/29/18 09:03:19 Truck Cleaner: [email or web address] Modifier: [email or web address] <+> 1 Patient Out of Preop <+> 1 Patient Ready for Surgery Finalized By: Alivia Lageurre RN Document Signatures Signed By: Alivia Laguerre RN 10/29/18 09:03 Electronically signed by Jay Jay [facility] Conversion Industrial Laborer Cerner at 07/30/2022 7:53 PM CDT documented in this encounter Plan of Treatment Not on file documented as of this encounter Visit Diagnoses Not on filedocumented in this encounter
--- OUTSIDE RECORDS SUMMARY | 2024-12-02 09:49 | XMS_ITS | Encounter Summary ---
Author Organization [employer] ([place], [place], [place], [place]) Address [address] [place] [address] Care Team Providers Care Security Installation Sales Technician Name Role Phone Unavailable Primary Care Provider Unavailabl e Encounter Details Date Type Department Care Team (Late st Contact Info) Description 10/29/2018 Transcribed Document [facility] Radiology [address] [place] [address] Provider, Larry Pemberton MD Social History Tobacco Use Types Packs/Day Years Used Date Smoking Tobacco: Never Assessed Comments Unknown Sex and Gender Information Value Date Recorded Sex Assigned at Not on file Legal Sex Female 1:43 PM CDT Gender Identity Not on file Sexual Orientation Not on file documented as of this encounter Miscellaneous Notes * Cerner Conversion Note - [facility] Niecy ProviderMD - 10/29/2018 10:26 AM EDT MEENAKSHI Mccord PACU Summary Primary Physician: CASSIUS STANFORD MD-GAE Finalized Date/Time: 10/29/18 11:00:31 Pt. Name: KEYANNA PAL/Sex: 1955 Female Med Rec #: [id number] Physician: CASSIUS STANFORD MD-GAE Financial #: [id number] Pt. Type: O Room/Bed: EEN/5 Admit/Disch: 10/29/18 08:02:00 - Institution: [facility] PACU Case Times Entry 1 In PACU I 10/29/18 09:39:00 Ready for PACU 10/29/18 10:44:00 Discharge Discharge from PACU 10/29/18 10:57:00 I [facility] PACU Case Times Audit 10/29/18 11:00:29 Industrial Methods Consultant: ROMINA Modifier: ROMINA <+> 1 Ready for PACU Discharge <+> 1 Discharge from PACU I Finalized By: VAMSHI CHAVARRIA, RN Document Signatures Signed By: VAMSHI CHAVARRIA RN 10/29/18 11:00 documented in this encounter Plan of Treatment Not on file documented as of this encounter Visit Diagnoses Not on filedocumented in this encounter
--- OUTSIDE RECORDS SUMMARY | 2024-12-02 09:49 | XMS_ITS | Clinical Summary ---
Author Organization [employer] ([place], [place], [place], [place]) Address [address] [place] [address] Care Team Providers Care Temp Recruiter Name Role Phone Unavailable Primary Care Provider [...]
== END 2024-12-02 23:59 | disposition home or self-care (01) ==
LOC: RAD 09:45
PROVIDERS: PCP Family Medicine; Visit Provider Family Medicine
DX: Z12.31 Encounter for screening mammogram for malignant neoplasm of breast (principal); R92.322 Mammographic fibroglandular density, left breast; Z85.3 Personal history of malignant neoplasm of breast
CPT/HCPCS: 77063; 77067